=== PATIENT | female | born 1960 | race Caucasian/White ===

== ENCOUNTER 2023-11-06 16:09 | Inpatient (IN) ==
--- NOTE | 2023-11-06 16:36 | Emergency Department Note ---
History of Present Illness General Chief complaint: Stroke Alert Stated complaint: STROKE SYMTOMS Time Seen by Provider: 11/06/23 16:25 History of Present Illness Provider complaint: Right arm weakness Onset (ago): hour(s) 2 Location: upper extremity and right 63-year-old female presents emergency department for right upper extremity weakness. Patient states she was walking from her friend's house and then got home and was trying to eat a ham sandwich when she felt like she cannot grab anything with her right arm and felt it was very weak. She called EMS and presented to the emergency department. No blood thinners. No trauma. Home Medications Medication Instructions Recorded Confirmed Type albuterol sulfate 90 mcg/actuation 2 puff inhalation Q6H PRN 11/06/23 11/06/23 History aerosol inhaler CONGESTION/COUGH/WHEEZING aspirin 81 mg tablet,delayed 81 mg PO DAILY 11/06/23 11/06/23 History release atorvastatin 80 mg tablet 80 mg PO DAILY 11/06/23 11/06/23 History calcium carbonate (Calcium 600) 1,200 mg PO DAILY 11/06/23 11/06/23 History clotrimazole-betamethasone 1 1 applic topical BID PRN AFFECTED 11/06/23 11/06/23 History %-0.05 % topical cream AREA empagliflozin 25 mg tablet 25 mg PO QAM 11/06/23 11/06/23 History (Jardiance) fluoxetine 10 mg tablet 10 mg PO DAILY 11/06/23 11/06/23 History fluticasone propionate 50 2 spray intranasal DAILY 11/06/23 11/06/23 History mcg/actuation nasal spray,suspension glipizide 10 mg tablet, extended 10 mg PO DAILYBB 11/06/23 11/06/23 History release 24 hr glipizide 5 mg tablet, extended 5 mg PO DAILYBB 11/06/23 11/06/23 History release 24 hr lisinopril 5 mg tablet 5 mg PO QAM 11/06/23 11/06/23 History vitamin B complex 1 tab PO DAILY 11/06/23 11/06/23 History Allergies Allergy/AdvReac Type Severity Reaction Status Date / Time metformin AdvReac Intermediate Diarrhea Verified 11/06/23 17:15 oxycodone AdvReac Intermediate upset Verified 11/06/23 17:15 stomach Past Med/Surg History Medical History (Updated 11/06/23 @ 23:20 by Juan Manuel Rios MD) NIDHI (obstructive sleep apnea) Depression DM2 (diabetes mellitus, type 2) Family hx-breast malignancy Surgical History History of cataract surgery H/O brain surgery "BRAIN SURGERY USING COMPUTER 01/22/07 STEREOTACTIC COMPUTER ASSISTED VOLUMETRIC PROCEDURE performed by ELENA PIMENTEL at OR [facility] [place]" Hx of tonsillectomy Family History Other Breast cancer Social History Smoking Status: Never smoker Do You Dip or Chew Tobacco: No; Hx Alcohol Use: No Hx Substance Use: No Preferred Language: Serbian Communication Ability: Effective 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 Beliefs That Will Affect Care: None Current Living Situation: Alone Current Living Situation Comment: alone Other Information That Helps Us Care for You: No Feels Safe at Home: Yes Safety Concerns: Feels Safe At This Time Assistive Devices: Hearing Aid - Bilateral Physical Exam Vital Signs Vital Signs - 24 hr 11/06/23 16:26 11/06/23 16:56 11/06/23 17:00 Temperature 36.6 C Temperature Source Oral Pulse Rate 82 76 71 Pulse Rate [Left Apical] Respiratory Rate 20 18 Respiratory Effort / Characteristics Respiratory Depth Blood Pressure 144/104 H Blood Pressure [Right Arm] Blood Pressure Mean 117 Blood Pressure Mean [Right Arm] Pulse Oximetry 96 Oxygen Delivery Method Room Air Sepsis Recent Fever Within 48 Hours No Sepsis New/Unexplained Change in Mental Status N/A Sepsis Action Taken by Nursing No Action Required 11/06/23 17:18 11/06/23 17:19 11/06/23 17:35 Temperature 37.1 C Temperature Source Oral Pulse Rate 58 L 59 L Pulse Rate [Left Apical] 60 Respiratory Rate 17 15 17 Respiratory Effort / Characteristics Non-Labored Respiratory Depth Normal Blood Pressure 137/77 144/71 H Blood Pressure [Right Arm] 136/78 Blood Pressure Mean 97 95 Blood Pressure Mean [Right Arm] 97 Pulse Oximetry 97 95 98 Oxygen Delivery Method Room Air Room Air Room Air Sepsis Recent Fever Within 48 Hours Sepsis New/Unexplained Change in Mental Status Sepsis Action Taken by Nursing 11/06/23 17:50 11/06/23 18:05 Temperature 36.7 C 36.8 C Temperature Source Oral Oral Pulse Rate Pulse Rate [Left Apical] 58 L 67 Respiratory Rate 18 16 Respiratory Effort / Characteristics Non-Labored Non-Labored Respiratory Depth Normal Normal Blood Pressure Blood Pressure [Right Arm] 125/74 123/75 Blood Pressure Mean Blood Pressure Mean [Right Arm] 91 91 Pulse Oximetry 99 98 Oxygen Delivery Method Room Air Room Air Sepsis Recent Fever Within 48 Hours Sepsis New/Unexplained Change in Mental Status Sepsis Action Taken by Nursing Physical Exam GENERAL: oriented to person, place, and time. appears well-developed and well- nourished. HENT: Exam performed. - Head: Normocephalic and atraumatic. EYES: Conjunctivae and EOM are normal. Right eye exhibits no discharge. Left eye exhibits no discharge. No scleral icterus. NECK: Normal range of motion. Neck supple. No JVD present. CV: Normal rate, regular rhythm, normal heart sounds and intact distal pulses. There is no peripheral edema. Palpable radial pulses bue. PULM/CHEST: Effort normal and breath sounds normal. No respiratory distress. No stridor. no wheezes. no rales. ABD: The abdomen is soft. There is no tenderness. NEURO: NIHSS 2 (5b:1, 7:1) SKIN: Skin is warm and dry. He is not diaphoretic. PSYCH: normal mood and affect. Behavior is normal. Judgment and thought content normal. Course Course 1625: The patient was evaluated in room C4. A complete history and physical exam was performed Cardiac monitoring: An order was placed for continuous cardiac monitoring. The monitor shows a rate of 60 with sinus rhythm interpreted by me Code stroke called. 1640: Spoke with Dr. Sorensen or [facility] who states she will evaluate the patient. Patient's external medical records reported a history of a brain surgery that was done on January 22, [address] Pimentel at [facility]. 1653: CT of the head viewed by me showed no ICH. 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 Dr. Rosa is on the cart evaluating patient but states she cannot see the CT images yet. 1713: Dr. Rosa called back and states that she is now able to see the images of CT. CT of the head was negative. Dr. Ewing states she is going to consent the patient for TNK. 1721: TNK administered. Dr. Rosa recommends controlling patient's blood sugar with insulin. 5 U IV insulin ordered for the patient. Administered Medications Atorvastatin Calcium (Atorvastatin 40 Mg Tab) 80 mg PO HS MARSHA Stop: 12/06/23 20:59 Last Admin: 11/06/23 21:59 Dose: 80 mg Documented By: CP Magnesium Sulfate/Dextrose (Magnesium Sulfate / D5w) 1 gm in 100 mls @ 50 mls/hr IV Q2H MARSHA Stop: 11/07/23 02:44 Last Infusion: 11/06/23 23:15 Dose: 50 mls/hr Documented By: Infusion: 11/06/23 22:11 Dose: 0 mls/hr Documented By: Admin: 11/06/23 21:58 Dose: 50 mls/hr Documented By: KAMLESH Insulin Aspart (Insulin Aspart Per Unit Charge) 0 units SC Q4 MARSHA Stop: 12/06/23 09:44 Last Admin: 11/06/23 22:04 Dose: 6 units Documented By: CP Co-signed By: [facility] Admin: 11/06/23 22:01 Dose: Not Given Documented By: CP Co-signed By: [facility] Admin: 11/06/23 22:01 Dose: Not Given Documented By: CP Co-signed By: [facility] Admin: 11/06/23 22:01 Dose: Not Given Documented By: CP Co-signed By: [facility] Discontinued Medications Tenecteplase 15 mg/ Syringe 3 mls @ 36 mls/min IV NOW ONE; Protocol Stop: 11/06/23 17:23 Last Admin: 11/06/23 17:20 Dose: 36 mls/min Documented By: [facility] Co-signed By: Insulin Human Regular 250 (units/ Sodium Chloride) 250 mls @ 1.5 mls/hr IV .Q24H MARSHA; Protocol Stop: 12/06/23 19:29 Last Admin: 11/06/23 21:35 Dose: Not Given Documented By: CP Insulin Glargine (Lantus Per Unit Charge) 15 units SC ONE ONE Stop: 11/06/23 20:46 Last Admin: 11/06/23 21:31 Dose: 15 units Documented By: KAMLESH Co-signed By: TMG Insulin Human Regular (Novolin-R Insulin Per Unit Charge) 5 units IV NOW STA Stop: 11/06/23 17:23 Last Admin: 11/06/23 17:43 Dose: 5 units Documented By: CATHIE Co-signed By: SHINE Ioversol (Optiray 320 125ml) 118 ml IV ONCE ONE Stop: 11/06/23 16:48 Last Admin: 11/06/23 16:47 Dose: 118 ml Documented By: MIKE Miscellaneous (Stat Iv/Im) 1 each N/A NOW STA Stop: 11/06/23 17:13 Last Admin: 11/06/23 21:27 Dose: Not Given Documented By: KAMLESH Sodium Chloride (Sodium Chloride 0.9% 10ml Flush) 20 ml IV NOW STA Stop: 11/06/23 17:13 Last Admin: 11/06/23 17:20 Dose: 20 ml Documented By: CATHIE Critical Care Time Critical Care Time: Yes Total Critical Care Time: 56 I have personally spent greater than 56 minutes of critical care time in the direct management of this patient. This includes bedside care, interpretation of diagnostic studies, and testing, discussion with consultants, patient, and family members, and other required patient management activities. This 56 minutes is in excess of all separately billable procedures. Medical Decision Making Laboratory Data Attestation: I reviewed the patient's lab results. 11/06/23 17:09 11/06/23 16:25 Lab Results 11/06/23 11/06/23 11/06/23 Range/Units 16:20 16:25 16:29 WBC Cancelled RBC Cancelled Hgb Cancelled POC Hgb 15.0 (12.0-16.0) g/dl Hct Cancelled POC Hct 44 (37-47) % MCV Cancelled MCH Cancelled MCHC Cancelled RDW Std Deviation Cancelled RDW Coeff of Christine Cancelled Plt Count Cancelled MPV Cancelled Immature Gran % (Auto) Cancelled Neut % (Auto) Cancelled Lymph % (Auto) Cancelled Armstrong % (Auto) Cancelled Eos % (Auto) Cancelled Baso % (Auto) Cancelled Neut # (Auto) Cancelled Lymph # (Auto) Cancelled Armstrong # (Auto) Cancelled Eos # (Auto) Cancelled Baso # (Auto) Cancelled Immature Gran # (Auto) Cancelled Absolute Nucleated RBC Cancelled Nucleated RBC % (auto) Cancelled Neutrophils % (Manual) Cancelled Band Neutrophils % Cancelled Lymphocytes % (Manual) Cancelled Prolymphocyte % Cancelled Reactive Lymphs % (Man) Cancelled Monocytes % (Manual) Cancelled Eosinophils % (Manual) Cancelled Basophils % (Manual) Cancelled Metamyelocytes % (Man) Cancelled Myelocytes % (Man) Cancelled Promyelocytes % (Man) Cancelled Blast Cells % (Manual) Cancelled Plasma Cell % (Manual) Cancelled Other Cells % Cancelled Nucleated RBC % Cancelled Neutrophils # (Manual) Cancelled Band Neutrophils # Cancelled Total Absolute Neuts Cancelled Lymphocytes # (Manual) Cancelled Prolymphocyte # Cancelled Reactive Lymphs # Cancelled Total Abs Lymphocytes Cancelled Monocytes # (Manual) Cancelled Eosinophils # (Manual) Cancelled Basophils # (Manual) Cancelled Metamyelocytes # (Man) Cancelled Myelocytes # (Manual) Cancelled Promyelocytes # (Man) Cancelled Blast Cells # (Man) Cancelled Plasma Cell # (Manual) Cancelled Other Cells # Cancelled Nucleated RBCs # (Man) Cancelled Hypersegmented Neuts Cancelled Hyposegmented Neuts Cancelled Hypogranular Neuts Cancelled Large Granular Lymphs Cancelled # Lrg Granular Lymphs Cancelled Hairy Cells Cancelled Smudge Cells Cancelled Toxic Granulation Cancelled Toxic Vacuolation Cancelled Dohle Bodies Cancelled Sal Rods Cancelled Platelet Estimate Cancelled Hypogranular Platelets Cancelled Giant Platelets Cancelled Platelet Satelliting Cancelled RBC Morphology Cancelled Polychromasia Cancelled Hypochromasia Cancelled Poikilocytosis Cancelled Basophilic Stippling Cancelled Anisocytosis Cancelled Microcytosis Cancelled Macrocytosis Cancelled Spherocytes Cancelled Pappenheimer Bodies Cancelled Sickle Cells Cancelled Target Cells Cancelled Tear Drop Cells Cancelled Ovalocytes Cancelled Stomatocytes Cancelled Lomeli-Schwana Bodies Cancelled Echinocytes Cancelled Acanthocytes (Spur) Cancelled Rouleaux Cancelled RBC Agglutinates Cancelled Schistocytes Cancelled Sezary Cell Cancelled PT Cancelled INR Cancelled APTT Cancelled PTT Ratio Cancelled VBG pH (7.36-7.41) VBG pCO2 (38-50) mmHg VBG pO2 mmHg VBG HCO3 mmol/L VBG O2 Saturation % VBG Base Excess mEq/L POC Sodium 136 (135-144) mmol/L Sodium 135 L (136-145) mmol/L POC Potassium 4.2 (3.3-5.0) mmol/L Potassium 4.4 (3.5-5.1) mmol/L POC Chloride 99 L (101-112) mmol/L Chloride 101 (98-107) mmol/L Carbon Dioxide 24 (21-32) mmol/L POC Total CO2 26 (24-31) mmol/L Anion Gap 10 (3-11) POC Anion Gap 15.0 L (16-25) mmol/L POC BUN 8 (7-18) mg/dl BUN 10 (6-23) mg/dl Creatinine 0.83 (0.6-1.2) mg/dl POC Creatinine 0.7 (0.6-1.3) mg/dl Est Cr Clr Drug Dosing 58.5 ml/min Est GFR ( Amer) 85.8 ml/min Est GFR (Non-Af Amer) 74.0 ml/min BUN/Creatinine Ratio 12.0 (10-20) Glucose 457 H* (70-99(Fasting)) mg/dl POC Glucose 418 H* (70-99) mg/dl POC Glucose (other) 457 H* (70-99) mg/dl Calcium 9.4 (8.6-10.3) mg/dl POC Ioniz Calcium Juliann 1.16 (1.12-1.32) mmol/l Magnesium 1.7 (1.7-2.4) mg/dl Total Bilirubin 1.8 H (0.2-1.0) mg/dl AST 20 (13-39) U/L ALT 21 (7-52) U/L Alkaline Phosphatase 94 (34-104) U/L Troponin I High Sens 3.7 (0-14) pg/ml Total Protein 6.7 (6.0-8.3) gm/dl Albumin 3.9 (3.4-5.0) gm/dl Globulin 2.8 (2.5-4.0) gm/dl Albumin/Globulin Ratio 1.4 (0.9-2) Blood Parasites ID Cancelled Blood Type Antibody Screen 11/06/23 11/06/23 11/06/23 Range/Units 16:35 16:38 17:09 WBC 7.54 RBC 4.60 Hgb 13.4 POC Hgb (12.0-16.0) g/dl Hct 37.8 POC Hct (37-47) % MCV 82.2 MCH 29.1 MCHC 35.4 RDW Std Deviation 37.6 RDW Coeff of Christine 12.7 Plt Count 175 MPV 11.6 Immature Gran % (Auto) 0.5 Neut % (Auto) 66.4 Lymph % (Auto) 25.3 Armstrong % (Auto) 5.3 Eos % (Auto) 2.0 Baso % (Auto) 0.5 Neut # (Auto) 5.00 Lymph # (Auto) 1.91 Armstrong # (Auto) 0.40 Eos # (Auto) 0.15 Baso # (Auto) 0.04 Immature Gran # (Auto) 0.04 Absolute Nucleated RBC Nucleated RBC % (auto) Neutrophils % (Manual) Band Neutrophils % Lymphocytes % (Manual) Prolymphocyte % Reactive Lymphs % (Man) Monocytes % (Manual) Eosinophils % (Manual) Basophils % (Manual) Metamyelocytes % (Man) Myelocytes % (Man) Promyelocytes % (Man) Blast Cells % (Manual) Plasma Cell % (Manual) Other Cells % Nucleated RBC % Neutrophils # (Manual) Band Neutrophils # Total Absolute Neuts Lymphocytes # (Manual) Prolymphocyte # Reactive Lymphs # Total Abs Lymphocytes Monocytes # (Manual) Eosinophils # (Manual) Basophils # (Manual) Metamyelocytes # (Man) Myelocytes # (Manual) Promyelocytes # (Man) Blast Cells # (Man) Plasma Cell # (Manual) Other Cells # Nucleated RBCs # (Man) Hypersegmented Neuts Hyposegmented Neuts Hypogranular Neuts Large Granular Lymphs # Lrg Granular Lymphs Hairy Cells Smudge Cells Toxic Granulation Toxic Vacuolation Dohle Bodies Sal Rods Platelet Estimate Hypogranular Platelets Giant Platelets Platelet Satelliting RBC Morphology Polychromasia Hypochromasia Poikilocytosis Basophilic Stippling Anisocytosis Microcytosis Macrocytosis Spherocytes Pappenheimer Bodies Sickle Cells Target Cells Tear Drop Cells Ovalocytes Stomatocytes Lomeli-Schwana Bodies Echinocytes Acanthocytes (Spur) Rouleaux RBC Agglutinates Schistocytes Sezary Cell PT INR APTT PTT Ratio VBG pH 7.42 H (7.36-7.41) VBG pCO2 40 (38-50) mmHg VBG pO2 53 mmHg VBG HCO3 26 mmol/L VBG O2 Saturation 85.4 % VBG Base Excess 1.3 mEq/L POC Sodium (135-144) mmol/L Sodium (136-145) mmol/L POC Potassium (3.3-5.0) mmol/L Potassium (3.5-5.1) mmol/L POC Chloride (101-112) mmol/L Chloride (98-107) mmol/L Carbon Dioxide (21-32) mmol/L POC Total CO2 (24-31) mmol/L Anion Gap (3-11) POC Anion Gap (16-25) mmol/L POC BUN (7-18) mg/dl BUN (6-23) mg/dl Creatinine (0.6-1.2) mg/dl POC Creatinine (0.6-1.3) mg/dl Est Cr Clr Drug Dosing ml/min Est GFR ( Amer) ml/min Est GFR (Non-Af Amer) ml/min BUN/Creatinine Ratio (10-20) Glucose (70-99(Fasting)) mg/dl POC Glucose (70-99) mg/dl POC Glucose (other) (70-99) mg/dl Calcium (8.6-10.3) mg/dl POC Ioniz Calcium Juliann (1.12-1.32) mmol/l Magnesium (1.7-2.4) mg/dl Total Bilirubin (0.2-1.0) mg/dl AST (13-39) U/L ALT (7-52) U/L Alkaline Phosphatase (34-104) U/L Troponin I High Sens (0-14) pg/ml Total Protein (6.0-8.3) gm/dl Albumin (3.4-5.0) gm/dl Globulin (2.5-4.0) gm/dl Albumin/Globulin Ratio (0.9-2) Blood Parasites ID Blood Type A Positive Antibody Screen NEGATIVE 11/06/23 Range/Units 17:10 WBC RBC Hgb POC Hgb (12.0-16.0) g/dl Hct POC Hct (37-47) % MCV MCH MCHC RDW Std Deviation RDW Coeff of Christine Plt Count MPV Immature Gran % (Auto) Neut % (Auto) Lymph % (Auto) Armstrong % (Auto) Eos % (Auto) Baso % (Auto) Neut # (Auto) Lymph # (Auto) Armstrong # (Auto) Eos # (Auto) Baso # (Auto) Immature Gran # (Auto) Absolute Nucleated RBC Nucleated RBC % (auto) Neutrophils % (Manual) Band Neutrophils % Lymphocytes % (Manual) Prolymphocyte % Reactive Lymphs % (Man) Monocytes % (Manual) Eosinophils % (Manual) Basophils % (Manual) Metamyelocytes % (Man) Myelocytes % (Man) Promyelocytes % (Man) Blast Cells % (Manual) Plasma Cell % (Manual) Other Cells % Nucleated RBC % Neutrophils # (Manual) Band Neutrophils # Total Absolute Neuts Lymphocytes # (Manual) Prolymphocyte # Reactive Lymphs # Total Abs Lymphocytes Monocytes # (Manual) Eosinophils # (Manual) Basophils # (Manual) Metamyelocytes # (Man) Myelocytes # (Manual) Promyelocytes # (Man) Blast Cells # (Man) Plasma Cell # (Manual) Other Cells # Nucleated RBCs # (Man) Hypersegmented Neuts Hyposegmented Neuts Hypogranular Neuts Large Granular Lymphs # Lrg Granular Lymphs Hairy Cells Smudge Cells Toxic Granulation Toxic Vacuolation Dohle Bodies Sal Rods Platelet Estimate Hypogranular Platelets Giant Platelets Platelet Satelliting RBC Morphology Polychromasia Hypochromasia Poikilocytosis Basophilic Stippling Anisocytosis Microcytosis Macrocytosis Spherocytes Pappenheimer Bodies Sickle Cells Target Cells Tear Drop Cells Ovalocytes Stomatocytes Lomeli-Schwana Bodies Echinocytes Acanthocytes (Spur) Rouleaux RBC Agglutinates Schistocytes Sezary Cell PT 10.9 INR 1.0 APTT 25 PTT Ratio 0.9 VBG pH (7.36-7.41) VBG pCO2 (38-50) mmHg VBG pO2 mmHg VBG HCO3 mmol/L VBG O2 Saturation % VBG Base Excess mEq/L POC Sodium (135-144) mmol/L Sodium (136-145) mmol/L POC Potassium (3.3-5.0) mmol/L Potassium (3.5-5.1) mmol/L POC Chloride (101-112) mmol/L Chloride (98-107) mmol/L Carbon Dioxide (21-32) mmol/L POC Total CO2 (24-31) mmol/L Anion Gap (3-11) POC Anion Gap (16-25) mmol/L POC BUN (7-18) mg/dl BUN (6-23) mg/dl Creatinine (0.6-1.2) mg/dl POC Creatinine (0.6-1.3) mg/dl Est Cr Clr Drug Dosing ml/min Est GFR ( Amer) ml/min Est GFR (Non-Af Amer) ml/min BUN/Creatinine Ratio (10-20) Glucose (70-99(Fasting)) mg/dl POC Glucose (70-99) mg/dl POC Glucose (other) (70-99) mg/dl Calcium (8.6-10.3) mg/dl POC Ioniz Calcium Juliann (1.12-1.32) mmol/l Magnesium (1.7-2.4) mg/dl Total Bilirubin (0.2-1.0) mg/dl AST (13-39) U/L ALT (7-52) U/L Alkaline Phosphatase (34-104) U/L Troponin I High Sens (0-14) pg/ml Total Protein (6.0-8.3) gm/dl Albumin (3.4-5.0) gm/dl Globulin (2.5-4.0) gm/dl Albumin/Globulin Ratio (0.9-2) Blood Parasites ID Blood Type Antibody Screen Imaging Data Attestation: I personally reviewed and interpreted this imaging study as follows: My Impression: CT head: No ICH Radiologist's Impression: Chest X-Ray 11/06/23 16:30 XR chest 1V portable HISTORY: 63 years-old Female neuro deficit, acute stroke suspected acute strokelike symptoms COMPARISON: 12/24/2015 TECHNIQUE: AP view of the chest FINDINGS: Cardiac silhouette is enlarged. No pneumothorax, pleural effusion or overt pulmonary edema. Chronic left retrocardiac atelectasis/scarring. Bones appear grossly intact. IMPRESSION: Cardiomegaly without acute process. ACT 112: Negative or not required by law. The above report was generated using voice recognition software. It may contain grammatical, syntax or spelling errors. Electronically signed by: Fernando Whitlock M.D. 11/06/2023 6:[address] 11/06/23 16:[address] DOSE: HISTORY: Right arm weakness. neuro deficit, acute stroke suspected TECHNIQUE: Multiaxial CT images of the head were performed without the use of intravenous contrast. Automated exposure control was utilized for this study. A dose lowering technique was utilized adhering to the principles of ALARA. Comparison: None. Findings: There is a 2.5 cm retention cyst within the left maxillary sinus. Polypoid mucosal thickening within the sphenoid sinus. The mastoid air cells are clear. The calvarium and skull base are intact. There is no mass, hematoma, midline shift, acute infarct. White matter hypodensity is nonspecific but suggestive of microvascular ischemic change. The ventricles and sulci demonstrate mild age-related involutional changes. Impression: No acute intracranial abnormality. ACT 112: Negative or not required by law. Electronically signed by: Darwin Santos M.D. 11/06/2023 5:07 PM Head CTA 11/06/23 16:30 HEAD CTA HISTORY: Right-sided weakness. neuro deficit, acute stroke suspected TECHNIQUE: Multiaxial CT images of the head were performed both before and after the intravenous administration of contrast to evaluate the major cerebral vessels. 3D/MIP images were also obtained. Sagittal and coronal reformats were reviewed. A dose lowering technique was utilized adhering to the principles of ALARA. COMPARISON: Noncontrast head CT 11/06/2023. FINDINGS: There is no mass, hematoma, midline shift, or acute infarct. The distal vertebral arteries and basilar artery are widely patent. Moderate to severe stenosis within the supraclinoid segments of the bilateral ICAs. There is a hypoplastic left A1 segment. Otherwise, no significant stenosis or occlusion within the bilateral ACAs. The major dural venous sinuses are patent. Mild to moderate multifocal narrowing within the bilateral proximal research anthropologist most pronounced on the right. The mid to distal bilateral research anthropologist are widely patent. No significant stenosis or occlusion within the bilateral MCAs. No evidence for a cerebral aneurysm. IMPRESSION: 1. Moderate to severe stenosis within the supraclinoid segments of the bilateral intracranial ICAs. 2. Mild to moderate multifocal narrowing within the proximal bilateral research anthropologist most pronounced on the right. 3. No evidence for arterial occlusion or aneurysm. ACT 112: Negative or not required by law. Electronically signed by: Darwin Santos M.D. 11/06/2023 5:12 PM Neck CTA 11/06/23 16:30 CT angio neck with con CLINICAL HISTORY: 63 years-old Female with neuro deficit, acute stroke suspected. Acute strokelike symptoms COMPARISON STUDY: CTA head of same day TECHNIQUE: Following the IV administration of 118 mL of Optiray, CT angiogram of the neck was performed from the aortic arch to the skull base. Images are reviewed in the axial, sagittal, and coronal planes. 3-D MIPS images are created and assessed. IV contrast was administered without complication. All measurements were calculated based on NASCET criteria. A dose lowering technique was utilized adhering to the principles of ALARA. CT DOSE: 1492.73 mGy.cm FINDINGS: Unremarkable imaged pulmonary arterial tree. Three-vessel morphology of the thoracic aortic arch. There is patency of the innominate and subclavian arteries. The common carotid arteries are widely patent. There is moderate atherosclerotic plaque carotid bulbs without high-grade stenosis. Moderate to severe narrowing within the supraclinoid segments of the internal carotid arteries bilaterally. Codominant and patent vertebral arteries. The basilar artery is patent. Mild to moderate multifocal narrowing within the imaged posterior cerebral arteries. No pneumothorax. Partially imaged borderline enlarged upper mediastinal lymph nodes. Heterogeneous peripherally enhancing 1.6 cm right-sided thyroid nodule. Patent airway. Chronic-appearing mucosal thickening of the paranasal sinuses with postoperative changes. Degenerative changes of the cervical spine. Right mastoid effusion. IMPRESSION: 1. Atherosclerosis of the carotid bulbs without significant stenosis. 2. Moderate to severe stenosis within the supraclinoid segments of the internal carotid arteries, partially imaged. 3. Incidental findings as above. ACT 112: Negative or not required by law. The above report was generated using voice recognition software. It may contain grammatical, syntax or spelling errors. Electronically signed by: Fernando Whitlock M.D. 11/06/2023 5:38 PM ECG Data Attestation: I personally reviewed and interpreted this ECG as follows: Rate (beats per minute): 57 Rhythm: + sinus bradycardia ECG Intervals/blocks: + Normal QRS, + Normal OH and + Normal QT-c ECG ST segments: + Normal ST segments [facility] Narrative 1625: The patient was evaluated in room C4. A complete history and physical exam was performed Cardiac monitoring: An order was placed for continuous cardiac monitoring. The monitor shows a rate of 60 with sinus rhythm interpreted by me Code stroke called. 1640: Spoke with Dr. Sorensen or Stephanie stroke teleneurology who states she will evaluate the patient. Patient's external medical records reported a history of a brain surgery that was done on January 22, [address] Pimentel at [facility]. 1653: CT of the head viewed by me showed no ICH. 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 Dr. Rosa is on the cart evaluating patient but states she cannot see the CT images yet. 1713: Dr. Rosa called back and states that she is now able to see the images of CT. CT of the head was negative. Dr. Ewing states she is going to consent the patient for TNK. 1721: TNK administered. Dr. Rosa recommends controlling patient's blood sugar with insulin. 5 U IV insulin ordered for the patient. Impression & Plan Cerebrovascular accident Discharge Plan Visit Data Chief Complaint: Stroke Alert Stated Complaint: STROKE SYMTOMS ED Provider: Juan Manuel Rios Discharge Problem: Cerebrovascular accident Patient Disposition: Admitted As Inpatient Discharge Instructions Interventions: ED Discharge Assessment Last Done: 11/06/23 19:26 Discharge Problem: Cerebrovascular accident Qualifiers: CVA mechanism: unspecified Qualified Code(s): I63.9 - Cerebral infarction, unspecified
[2023-11-06 16:47] LABS: iSTAT Creatinine 0.7 mg/dl (0.6-1.3); iSTAT Ionized Calcium 1.16 mmol/l (1.12-1.32); iSTAT Potassium 4.2 mmol/L (3.3-5.0)
[2023-11-06 16:47] LABS: Base Excess VBG 1.3 mEq/L; HCO3 VBG 26 mmol/L; Oxygen Saturation VBG 85.4 %; PCO2 VBG 40 mmHg (38-50); PO2 VBG 53 mmHg; pH VBG 7.42 (7.36-7.41)
[2023-11-06] MEDS: OPTIRAY 320 125ml IV ONE (16:47)
--- NOTE | 2023-11-06 17:08 | CT Scan Report ---
HEAD CT NONCONTRAST CT DOSE: HISTORY: Right arm weakness. neuro deficit, acute stroke suspected TECHNIQUE: Multiaxial CT images of the head were performed without the use of intravenous contrast. A utomated exposure control was utilized for this study. A dose lowering technique was utilized adheri ng to the principles of ALARA. Comparison: None. Findings: There is a 2.5 cm retention cyst within the left maxillary sinus. Polypoid mucosal thickeni ng within the sphenoid sinus. The mastoid air cells are clear. The calvarium and skull base are intac t. There is no mass, hematoma, midline shift, acute infarct. White matter hypodensity is nonspecific but suggestive of microvascular ischemic change. The ventricles and sulci demonstrate mild age-relate d involutional changes. Impression: No acute intracranial abnormality. ACT 112: Negative or not required by law. Electronically signed by: Darwin Santos M.D. 11/06/2023 5:07 PM
--- NOTE | 2023-11-06 17:14 | CT Scan Report ---
HEAD CTA HISTORY: Right-sided weakness. neuro deficit, acute stroke suspected TECHNIQUE: Multiaxial CT images of the head were performed both before and after the intravenous admi nistration of contrast to evaluate the major cerebral vessels. 3D/MIP images were also obtained. Sag ittal and coronal reformats were reviewed. A dose lowering technique was utilized [facility] COMPARISON: Noncontrast head CT 11/06/2023. FINDINGS: There is no mass, hematoma, midline shift, or acute infarct. The distal vertebral arteries and basilar artery are widely patent. Moderate to severe stenosis within the supraclinoid segments of the bilateral ICAs. There is a hypoplastic left A1 segment. Otherwise, no significant stenosis or oc clusion within the bilateral ACAs. The major dural venous sinuses are patent. Mild to moderate multif ocal narrowing within the bilateral proximal meeting coordinator most pronounced on the right. The mid to distal tima ateral meeting coordinator are widely patent. No significant stenosis or occlusion within the bilateral MCAs. No jil dence for a cerebral aneurysm. IMPRESSION: 1. Moderate to severe stenosis within the supraclinoid segments of the bilateral intracranial ICAs. 2. Mild to moderate multifocal narrowing within the proximal bilateral meeting coordinator most pronounced on the ri ght. 3. No evidence for arterial occlusion or aneurysm. ACT 112: Negative or not required by law. Electronically signed by: Darwin Santos M.D. 11/06/2023 5:12 PM
[2023-11-06] MEDS ORDERED: No Aspirin within 24hrs of THROMBOLYTIC-Stroke PO SCH (17:15)
[2023-11-06 17:17] LABS: Albumin Globulin Ratio 1.4 (0.9-2); Albumin Level 3.9 gm/dl (3.4-5.0); Bilirubin,Total 1.8 mg/dl (0.2-1.0); Calcium 9.4 mg/dl (8.6-10.3); Creatinine Clr Calc Pharmacy 58.5 ml/min; Est GFR (African American) 85.8 ml/min; Globulin 2.8 gm/dl (2.5-4.0); Magnesium 1.7 mg/dl (1.7-2.4); Total Protein 6.7 gm/dl (6.0-8.3); Troponin I High Sensitivity 3.7 pg/ml (0-14)
[2023-11-06 17:19] LABS: Potassium 4.4 mmol/L (3.5-5.1)
[2023-11-06] MEDS: TENECTEPLASE 15 MG in SYRINGE 0 ML IV ONE (17:20)
[2023-11-06] MEDS: SODIUM CHLORIDE 0.9% 10ML FLUSH IV STA (17:20)
[2023-11-06 17:29] LABS: Basophils # (auto) 0.04 K/uL (0.00-0.20); Basophils % (auto) 0.5 %; Eosinophils # (auto) 0.15 K/uL (0.00-0.50); Hematocrit (blood only) 37.8 % (37.0-47.0); Hemoglobin 13.4 g/dl (12.0-16.0); Immature Granulocytes # (auto) 0.04 K/uL (0.01-0.20); Immature Granulocytes % (auto) 0.5 %; Lymphocytes # (auto) 1.91 K/uL (1.20-3.40); Lymphocytes % (auto) 25.3 %; Mean Corpuscular Hemoglobin 29.1 pg (25.0-34.0); Mean Corpuscular Hgb Conc 35.4 g/dL (32.0-36.0); Mean Corpuscular Volume 82.2 fL (80.0-100.0); Mean Platelet Volume 11.6 fL (9.4-12.4); Monocytes % (auto) 5.3 %; Neutrophils % (auto) 66.4 %; Platelet Count 175 K/uL (130-400); RDW Coefficient of Variation 12.7 % (11.5-14.5); RDW Standard Deviation 37.6 fL (36.4-46.3); White Blood Count 7.54 K/ul (4.8-10.8)
--- NOTE | 2023-11-06 17:39 | CT Scan Report ---
CT angio neck with con CLINICAL HISTORY: 63 years-old Female with neuro deficit, acute stroke suspected. Acute strokelike symptoms COMPARISON STUDY: CTA head of same day TECHNIQUE: Following the IV administration of 118 mL of Optiray, CT angiogram of the neck was perform ed from the aortic arch to the skull base. Images are reviewed in the axial, sagittal, and coronal pl anes. 3-D MIPS images are created and assessed. IV contrast was administered without complication. Al l measurements were calculated based on NASCET criteria. A dose lowering technique was utilized adhe ring to the principles of ALARA. CT DOSE: 1492.73 mGy.cm FINDINGS: Unremarkable imaged pulmonary arterial tree. Three-vessel morphology of the thoracic aortic arch. The re is patency of the innominate and subclavian arteries. The common carotid arteries are widely paten t. There is moderate atherosclerotic plaque carotid bulbs without high-grade stenosis. Moderate to se heather narrowing within the supraclinoid segments of the internal carotid arteries bilaterally. Codomin ant and patent vertebral arteries. The basilar artery is patent. Mild to moderate multifocal narrowin g within the imaged posterior cerebral arteries. No pneumothorax. Partially imaged borderline enlarged upper mediastinal lymph nodes. Heterogeneous pe ripherally enhancing 1.6 cm right-sided thyroid nodule. Patent airway. Chronic-appearing mucosal thic kening of the paranasal sinuses with postoperative changes. Degenerative changes of the cervical spin e. Right mastoid effusion. IMPRESSION: 1. Atherosclerosis of the carotid bulbs without significant stenosis. 2. Moderate to severe stenosis within the supraclinoid segments of the internal carotid arteries, par tially imaged. 3. Incidental findings as above. ACT 112: Negative or not required by law. The above report was generated using voice recognition software. It may contain grammatical, syntax o r spelling errors. Electronically signed by: Fernando Whiltock M.D. 11/06/2023 5:38 PM
[2023-11-06] MEDS: NovoLIN-R INSULIN PER UNIT CHARGE IV STA (17:43)
[2023-11-06] MEDS ORDERED: PHARMACIST DISCHARGE MED REC CONSULT PRN (18:01)
--- NOTE | 2023-11-06 18:01 | XRay Report ---
XR chest 1V portable HISTORY: 63 years-old Female neuro deficit, acute stroke suspected acute strokelike symptoms COMPARISON: 12/24/2015 TECHNIQUE: AP view of the chest FINDINGS: Cardiac silhouette is enlarged. No pneumothorax, pleural effusion or overt pulmonary edema. Chronic l eft retrocardiac atelectasis/scarring. Bones appear grossly intact. IMPRESSION: Cardiomegaly without acute process. ACT 112: Negative or not required by law. The above report was generated using voice recognition software. It may contain grammatical, syntax o r spelling errors. Electronically signed by: Fernando Whitlock M.D. 11/06/2023 6:00 PM
[2023-11-06 18:03] LABS: Partial Thromboplastin Ratio 0.9; Partial Thromboplastin Time 25 Seconds (21-31); Prothrombin Time 10.9 Seconds (9.0-12.0)
[2023-11-06] MEDS ORDERED: PHARMACY GLYCEMIC MGMT CONSULT PRN (18:16)
--- NOTE | 2023-11-06 18:16 | History & Physical Report ---
Date of Service November 06, 2023 Assessment & Plan (1) RUE weakness: (2) Stroke-like symptom: Plan: RUE weakness Per telestroke neurologist - suspected Acute ischemic stroke in the left hemisphere CT head- No acute intracranial abnormality. CTA head/neck- 1. Moderate to severe stenosis within the supraclinoid segments of the bilateral intracranial ICAs. 2. Mild to moderate multifocal narrowing within the proximal bilateral carpentry supervisor most pronounced on the right. 3. No evidence for arterial occlusion or aneurysm. IMPRESSION: 1. Atherosclerosis of the carotid bulbs without significant stenosis. 2. Moderate to severe stenosis within the supraclinoid segments of the internal carotid arteries, partially imaged. 3. Incidental findings as above. Telestroke consulted and pt received TNK - pt will be further closely monitored in ICU, will need neurochecks per protocol and repeat CT head Will obtain fasting lipid panel, Hgb A1c Echo Neurology consult brain MRI Restart pt's home statin (which she reportedly did not take in months) At home also reportedly on lisinopril - will hold for now, and will cont. to closely monitor BP - allow for permissive HTN- likely will restart lisinopril on discharge (3) DM2 (diabetes mellitus, type 2): Plan: - per EMR - pcp record pt is supposed to be on Jardiance and glipizide, but pt has not taken any meds for months Hgb A1c in September 2022 was 8.0% Pt found hyperglycemic in the ED, and glycemic pharmacy was consulted - will check HgbA1c - cont. w/ insulin while inpt - ict educator / counseling before discharge recommended (4) NIDHI (obstructive sleep apnea): Plan: - per EMR records, will order cpap Generalized anxiety disorder - cont. home prozac History of Present Illness Chief Complaint: RUE weakness Primary Care Provider: Traci Blackmon MD 63 yo F w/ hx of DM 2 (not on insulin), HTN, HLD, NIDHI (on cpap - per EMR), sensorneur. hear loss, Generalized anxiety disorder, obesity who presents with RUE weakness. Pt says that about 2:30 PM she was in her kitchen and she could not lift small bottle of water. She went to her neighbor who called EMS. Denies any other symptoms prior to this episode. Says she felt well - no fever, chills, chest pain, shortness of breath, no abd. pain, no nausea, vomiting, or headache. She denies having any other neurological symptoms, no other weakness, numbness, etc. Pt follows with [facility]/ [facility] as PCP but last visit was over one year ago. Per records she did not product picker any of her medications for several months. Pt first tells me she did not take her meds for several days but then she admits that she has been off her meds for months. When asked for reason - and to see how we can help her with that she says "she did not get to it". Her hgb A1c in September 2022 was 8.0%, she was on Jardiance and glipizide per EMR. in the ED she was found hyperglycemic. In the ED, CT head, CTA head and neck were obtained and [place] [facility] [place]. Pt was consented and received TNK. Plan to admit for ICU for close monitoring, neurochecks, repeat CT head as per protocol. Allergies Allergy/AdvReac Type Severity Reaction Status Date / Time metformin AdvReac Intermediate Diarrhea Verified 11/06/23 17:15 oxycodone AdvReac Intermediate upset Verified 11/06/23 17:15 stomach Home Medications Medication Instructions Recorded Confirmed Type albuterol sulfate 90 mcg/actuation 2 puff inhalation Q6H PRN 11/06/23 11/06/23 History aerosol inhaler CONGESTION/COUGH/WHEEZING aspirin 81 mg tablet,delayed 81 mg PO DAILY 11/06/23 11/06/23 History release atorvastatin 80 mg tablet 80 mg PO DAILY 11/06/23 11/06/23 History calcium carbonate (Calcium 600) 1,200 mg PO DAILY 11/06/23 11/06/23 History clotrimazole-betamethasone 1 1 applic topical BID PRN AFFECTED 11/06/23 11/06/23 History %-0.05 % topical cream AREA empagliflozin 25 mg tablet 25 mg PO QAM 11/06/23 11/06/23 History (Jardiance) fluoxetine 10 mg tablet 10 mg PO DAILY 11/06/23 11/06/23 History fluticasone propionate 50 2 spray intranasal DAILY 11/06/23 11/06/23 History mcg/actuation nasal spray,suspension glipizide 10 mg tablet, extended 10 mg PO DAILYBB 11/06/23 11/06/23 History release 24 hr glipizide 5 mg tablet, extended 5 mg PO DAILYBB 11/06/23 11/06/23 History release 24 hr lisinopril 5 mg tablet 5 mg PO QAM 11/06/23 11/06/23 History vitamin B complex 1 tab PO DAILY 11/06/23 11/06/23 History Past Med/Surg History Medical History (Updated 11/06/23 @ 23:20 by Juan Manuel Rios MD) NIDHI (obstructive sleep apnea) Depression DM2 (diabetes mellitus, type 2) Family hx-breast malignancy Surgical History History of cataract surgery H/O brain surgery "BRAIN SURGERY USING COMPUTER 01/22/07 STEREOTACTIC COMPUTER ASSISTED VOLUMETRIC PROCEDURE performed by ELENA PIMENTEL at [place] [facility] [place]" Hx of tonsillectomy Family History Other Breast cancer Social History Smoking Status: Never smoker Do You Dip or Chew Tobacco: No; Hx Alcohol Use: No Hx Substance Use: No Preferred Language: Polish Communication Ability: Effective Deckhand Maintenance Required: No Beliefs That Will Affect Care: None Current Living Situation: Alone Current Living Situation Comment: alone Other Information That Helps Us Care for You: No Feels Safe at Home: Yes Safety Concerns: Feels Safe At This Time Assistive Devices: Hearing Aid - Bilateral Review of Systems Review of Systems: All systems reviewed & are unremarkable except as noted in HPI & below Physical Exam Constitutional: WD/WN, vitals as above Eyes: PERRL, conjunctivae normal, anicteric sclerae ENMT: external ear and nose normal, oropharynx normal Neck: + thick neck Respiratory: normal respiratory effort, lungs clear to auscultation Cardiovascular: RRR, no murmur, no edema Chest (Breasts): Chest: normal inspection of chest Gastrointestinal (Abdomen): normal bowel sounds, soft, nontender, no hepatosplenomegaly Musculoskeletal: RUE weakness / strength 3/5. LUE, LLE, RLE strength 5/5 Skin: no rashes, warm and dry Neurologic: cranial nerves normal. + RUE weakness, + RUE pronator drift, otherwise moves extremities Psychiatric: A+Ox3, euthymic affect Lymphatic: no lymphedema Results & Data Results & Data Vital Signs (Past 12 Hours) Vital Signs Temp Pulse Pulse Resp BP BP Pulse Ox 11/06/23 18:05 36.8 C 67 16 123/75 98 11/06/23 17:50 36.7 C 58 L 18 125/74 99 11/06/23 17:35 37.1 C 60 17 136/78 98 11/06/23 17:19 59 L 15 144/71 H 95 11/06/23 17:18 58 L 17 137/77 97 11/06/23 17:00 71 18 11/06/23 16:56 76 11/06/23 16:26 36.6 C 82 20 144/104 H 96 O2 Del Method 11/06/23 18:05 Room Air 11/06/23 17:50 Room Air 11/06/23 17:35 Room Air 11/06/23 17:19 Room Air 11/06/23 17:18 Room Air 11/06/23 17:00 11/06/23 16:56 11/06/23 16:26 Room Air Laboratory Results 11/06/23 11/06/23 11/06/23 Range/Units 17:10 17:09 16:38 WBC 7.54 RBC 4.60 Hgb 13.4 POC Hgb (12.0-16.0) g/dl Hct 37.8 POC Hct (37-47) % MCV 82.2 MCH 29.1 MCHC 35.4 RDW Std Deviation 37.6 RDW Coeff of Christine 12.7 Plt Count 175 MPV 11.6 Immature Gran % (Auto) 0.5 Neut % (Auto) 66.4 Lymph % (Auto) 25.3 White % (Auto) 5.3 Eos % (Auto) 2.0 Baso % (Auto) 0.5 Neut # (Auto) 5.00 Lymph # (Auto) 1.91 White # (Auto) 0.40 Eos # (Auto) 0.15 Baso # (Auto) 0.04 Immature Gran # (Auto) 0.04 Absolute Nucleated RBC Nucleated RBC % (auto) Neutrophils % (Manual) Band Neutrophils % Lymphocytes % (Manual) Prolymphocyte % Reactive Lymphs % (Man) Monocytes % (Manual) Eosinophils % (Manual) Basophils % (Manual) Metamyelocytes % (Man) Myelocytes % (Man) Promyelocytes % (Man) Blast Cells % (Manual) Plasma Cell % (Manual) Other Cells % Nucleated RBC % Neutrophils # (Manual) Band Neutrophils # Total Absolute Neuts Lymphocytes # (Manual) Prolymphocyte # Reactive Lymphs # Total Abs Lymphocytes Monocytes # (Manual) Eosinophils # (Manual) Basophils # (Manual) Metamyelocytes # (Man) Myelocytes # (Manual) Promyelocytes # (Man) Blast Cells # (Man) Plasma Cell # (Manual) Other Cells # Nucleated RBCs # (Man) Hypersegmented Neuts Hyposegmented Neuts Hypogranular Neuts Large Granular Lymphs # Lrg Granular Lymphs Hairy Cells Smudge Cells Toxic Granulation Toxic Vacuolation Dohle Bodies Sal Rods Platelet Estimate Hypogranular Platelets Giant Platelets Platelet Satelliting RBC Morphology Polychromasia Hypochromasia Poikilocytosis Basophilic Stippling Anisocytosis Microcytosis Macrocytosis Spherocytes Pappenheimer Bodies Sickle Cells Target Cells Tear Drop Cells Ovalocytes Stomatocytes Lom[place] Bodies Echinocytes Acanthocytes (Spur) Rouleaux RBC Agglutinates Schistocytes Sezary Cell PT 10.9 INR 1.0 APTT 25 PTT Ratio 0.9 VBG pH 7.42 H (7.36-7.41) VBG pCO2 40 (38-50) mmHg VBG pO2 53 mmHg VBG HCO3 26 mmol/L VBG O2 Saturation 85.4 % VBG Base Excess 1.3 mEq/L POC Sodium (135-144) mmol/L Sodium (136-145) mmol/L POC Potassium (3.3-5.0) mmol/L Potassium (3.5-5.1) mmol/L POC Chloride (101-112) mmol/L Chloride (98-107) mmol/L Carbon Dioxide (21-32) mmol/L POC Total CO2 (24-31) mmol/L Anion Gap (3-11) POC Anion Gap (16-25) mmol/L POC BUN (7-18) mg/dl BUN (6-23) mg/dl Creatinine (0.6-1.2) mg/dl POC Creatinine (0.6-1.3) mg/dl Est Cr Clr Drug Dosing ml/min Est GFR ( Amer) ml/min Est GFR (Non-Af Amer) ml/min BUN/Creatinine Ratio (10-20) Glucose (70-99(Fasting)) mg/dl POC Glucose (70-99) mg/dl POC Glucose (other) (70-99) mg/dl Calcium (8.6-10.3) mg/dl POC Ioniz Calcium Juliann (1.12-1.32) mmol/l Magnesium (1.7-2.4) mg/dl Total Bilirubin (0.2-1.0) mg/dl AST (13-39) U/L ALT (7-52) U/L Alkaline Phosphatase (34-104) U/L Troponin I High Sens (0-14) pg/ml Total Protein (6.0-8.3) gm/dl Albumin (3.4-5.0) gm/dl Globulin (2.5-4.0) gm/dl Albumin/Globulin Ratio (0.9-2) Blood Parasites ID Blood Type Antibody Screen 11/06/23 11/06/23 11/06/23 Range/Units 16:35 16:29 16:25 WBC Cancelled RBC Cancelled Hgb Cancelled POC Hgb 15.0 (12.0-16.0) g/dl Hct Cancelled POC Hct 44 (37-47) % MCV Cancelled MCH Cancelled MCHC Cancelled RDW Std Deviation Cancelled RDW Coeff of Christine Cancelled Plt Count Cancelled MPV Cancelled Immature Gran % (Auto) Cancelled Neut % (Auto) Cancelled Lymph % (Auto) Cancelled White % (Auto) Cancelled Eos % (Auto) Cancelled Baso % (Auto) Cancelled Neut # (Auto) Cancelled Lymph # (Auto) Cancelled White # (Auto) Cancelled Eos # (Auto) Cancelled Baso # (Auto) Cancelled Immature Gran # (Auto) Cancelled Absolute Nucleated RBC Cancelled Nucleated RBC % (auto) Cancelled Neutrophils % (Manual) Cancelled Band Neutrophils % Cancelled Lymphocytes % (Manual) Cancelled Prolymphocyte % Cancelled Reactive Lymphs % (Man) Cancelled Monocytes % (Manual) Cancelled Eosinophils % (Manual) Cancelled Basophils % (Manual) Cancelled Metamyelocytes % (Man) Cancelled Myelocytes % (Man) Cancelled Promyelocytes % (Man) Cancelled Blast Cells % (Manual) Cancelled Plasma Cell % (Manual) Cancelled Other Cells % Cancelled Nucleated RBC % Cancelled Neutrophils # (Manual) Cancelled Band Neutrophils # Cancelled Total Absolute Neuts Cancelled Lymphocytes # (Manual) Cancelled Prolymphocyte # Cancelled Reactive Lymphs # Cancelled Total Abs Lymphocytes Cancelled Monocytes # (Manual) Cancelled Eosinophils # (Manual) Cancelled Basophils # (Manual) Cancelled Metamyelocytes # (Man) Cancelled Myelocytes # (Manual) Cancelled Promyelocytes # (Man) Cancelled Blast Cells # (Man) Cancelled Plasma Cell # (Manual) Cancelled Other Cells # Cancelled Nucleated RBCs # (Man) Cancelled Hypersegmented Neuts Cancelled Hyposegmented Neuts Cancelled Hypogranular Neuts Cancelled Large Granular Lymphs Cancelled # Lrg Granular Lymphs Cancelled Hairy Cells Cancelled Smudge Cells Cancelled Toxic Granulation Cancelled Toxic Vacuolation Cancelled Dohle Bodies Cancelled Sal Rods Cancelled Platelet Estimate Cancelled Hypogranular Platelets Cancelled Giant Platelets Cancelled Platelet Satelliting Cancelled RBC Morphology Cancelled Polychromasia Cancelled Hypochromasia Cancelled Poikilocytosis Cancelled Basophilic Stippling Cancelled Anisocytosis Cancelled Microcytosis Cancelled Macrocytosis Cancelled Spherocytes Cancelled Pappenheimer Bodies Cancelled Sickle Cells Cancelled Target Cells Cancelled Tear Drop Cells Cancelled Ovalocytes Cancelled Stomatocytes Cancelled Lomeli-[place] Bodies Cancelled Echinocytes Cancelled Acanthocytes (Spur) Cancelled Rouleaux Cancelled RBC Agglutinates Cancelled Schistocytes Cancelled Sezary Cell Cancelled PT Cancelled INR Cancelled APTT Cancelled PTT Ratio Cancelled VBG pH (7.36-7.41) VBG pCO2 (38-50) mmHg VBG pO2 mmHg VBG HCO3 mmol/L VBG O2 Saturation % VBG Base Excess mEq/L POC Sodium 136 (135-144) mmol/L Sodium 135 L (136-145) mmol/L POC Potassium 4.2 (3.3-5.0) mmol/L Potassium 4.4 (3.5-5.1) mmol/L POC Chloride 99 L (101-112) mmol/L Chloride 101 (98-107) mmol/L Carbon Dioxide 24 (21-32) mmol/L POC Total CO2 26 (24-31) mmol/L Anion Gap 10 (3-11) POC Anion Gap 15.0 L (16-25) mmol/L POC BUN 8 (7-18) mg/dl BUN 10 (6-23) mg/dl Creatinine 0.83 (0.6-1.2) mg/dl POC Creatinine 0.7 (0.6-1.3) mg/dl Est Cr Clr Drug Dosing 58.5 ml/min Est GFR ( Amer) 85.8 ml/min Est GFR (Non-Af Amer) 74.0 ml/min BUN/Creatinine Ratio 12.0 (10-20) Glucose 457 H* (70-99(Fasting)) mg/dl POC Glucose (70-99) mg/dl POC Glucose (other) 457 H* (70-99) mg/dl Calcium 9.4 (8.6-10.3) mg/dl POC Ioniz Calcium Juliann 1.16 (1.12-1.32) mmol/l Magnesium 1.7 (1.7-2.4) mg/dl Total Bilirubin 1.8 H (0.2-1.0) mg/dl AST 20 (13-39) U/L ALT 21 (7-52) U/L Alkaline Phosphatase 94 (34-104) U/L Troponin I High Sens 3.7 (0-14) pg/ml Total Protein 6.7 (6.0-8.3) gm/dl Albumin 3.9 (3.4-5.0) gm/dl Globulin 2.8 (2.5-4.0) gm/dl Albumin/Globulin Ratio 1.4 (0.9-2) Blood Parasites ID Cancelled Blood Type A Positive Antibody Screen NEGATIVE 11/06/23 Range/Units 16:20 WBC RBC Hgb POC Hgb (12.0-16.0) g/dl Hct POC Hct (37-47) % MCV MCH MCHC RDW Std Deviation RDW Coeff of Christine Plt Count MPV Immature Gran % (Auto) Neut % (Auto) Lymph % (Auto) White % (Auto) Eos % (Auto) Baso % (Auto) Neut # (Auto) Lymph # (Auto) White # (Auto) Eos # (Auto) Baso # (Auto) Immature Gran # (Auto) Absolute Nucleated RBC Nucleated RBC % (auto) Neutrophils % (Manual) Band Neutrophils % Lymphocytes % (Manual) Prolymphocyte % Reactive Lymphs % (Man) Monocytes % (Manual) Eosinophils % (Manual) Basophils % (Manual) Metamyelocytes % (Man) Myelocytes % (Man) Promyelocytes % (Man) Blast Cells % (Manual) Plasma Cell % (Manual) Other Cells % Nucleated RBC % Neutrophils # (Manual) Band Neutrophils # Total Absolute Neuts Lymphocytes # (Manual) Prolymphocyte # Reactive Lymphs # Total Abs Lymphocytes Monocytes # (Manual) Eosinophils # (Manual) Basophils # (Manual) Metamyelocytes # (Man) Myelocytes # (Manual) Promyelocytes # (Man) Blast Cells # (Man) Plasma Cell # (Manual) Other Cells # Nucleated RBCs # (Man) Hypersegmented Neuts Hyposegmented Neuts Hypogranular Neuts Large Granular Lymphs # Lrg Granular Lymphs Hairy Cells Smudge Cells Toxic Granulation Toxic Vacuolation Dohle Bodies Sal Rods Platelet Estimate Hypogranular Platelets Giant Platelets Platelet Satelliting RBC Morphology Polychromasia Hypochromasia Poikilocytosis Basophilic Stippling Anisocytosis Microcytosis Macrocytosis Spherocytes Pappenheimer Bodies Sickle Cells Target Cells Tear Drop Cells Ovalocytes Stomatocytes Lomeli-[place] Bodies Echinocytes Acanthocytes (Spur) Rouleaux RBC Agglutinates Schistocytes Sezary Cell PT INR APTT PTT Ratio VBG pH (7.36-7.41) VBG pCO2 (38-50) mmHg VBG pO2 mmHg VBG HCO3 mmol/L VBG O2 Saturation % VBG Base Excess mEq/L POC Sodium (135-144) mmol/L Sodium (136-145) mmol/L POC Potassium (3.3-5.0) mmol/L Potassium (3.5-5.1) mmol/L POC Chloride (101-112) mmol/L Chloride (98-107) mmol/L Carbon Dioxide (21-32) mmol/L POC Total CO2 (24-31) mmol/L Anion Gap (3-11) POC Anion Gap (16-25) mmol/L POC BUN (7-18) mg/dl BUN (6-23) mg/dl Creatinine (0.6-1.2) mg/dl POC Creatinine (0.6-1.3) mg/dl Est Cr Clr Drug Dosing ml/min Est GFR ( Amer) ml/min Est GFR (Non-Af Amer) ml/min BUN/Creatinine Ratio (10-20) Glucose (70-99(Fasting)) mg/dl POC Glucose 418 H* (70-99) mg/dl POC Glucose (other) (70-99) mg/dl Calcium (8.6-10.3) mg/dl POC Ioniz Calcium Juliann (1.12-1.32) mmol/l Magnesium (1.7-2.4) mg/dl Total Bilirubin (0.2-1.0) mg/dl AST (13-39) U/L ALT (7-52) U/L Alkaline Phosphatase (34-104) U/L Troponin I High Sens (0-14) pg/ml Total Protein (6.0-8.3) gm/dl Albumin (3.4-5.0) gm/dl Globulin (2.5-4.0) gm/dl Albumin/Globulin Ratio (0.9-2) Blood Parasites ID Blood Type Antibody Screen Diagnostic Findings CT head Findings: There is a 2.5 cm retention cyst within the left maxillary sinus. Polypoid mucosal thickening within the sphenoid sinus. The mastoid air cells are clear. The calvarium and skull base are intact. There is no mass, hematoma, midline shift, acute infarct. White matter hypodensity is nonspecific but suggestive of microvascular ischemic change. The ventricles and sulci demonstrate mild age-related involutional changes. Impression: No acute intracranial abnormality. CTA head/ neck IMPRESSION: 1. Moderate to severe stenosis within the supraclinoid segments of the bilateral intracranial ICAs. 2. Mild to moderate multifocal narrowing within the proximal bilateral carpentry supervisor most pronounced on the right. 3. No evidence for arterial occlusion or aneurysm. IMPRESSION: 1. Atherosclerosis of the carotid bulbs without significant stenosis. 2. Moderate to severe stenosis within the supraclinoid segments of the internal carotid arteries, partially imaged. 3. Incidental findings as above. Code Status & VTE Plan VTE Prophylaxis Plan VTE Prophylaxis will be ordered: No Reason for no VTE drug order: Contraindicated
[2023-11-06] MEDS ORDERED: No Aspirin within 24hrs of THROMBOLYTIC-Stroke SCH (19:15)
[2023-11-06] MEDS ORDERED: INSULIN PROTOCOL GOAL RANGE ONE (19:22)
[2023-11-06] MEDS ORDERED: STAT IV Infusion **Titration per Protocol STA (19:22)
[2023-11-06] MEDS ORDERED: MODERATE STRESS LEVEL ONE (19:22)
[2023-11-06] MEDS ORDERED: LANTUS PER UNIT CHARGE SC ONE ×2 (19:30→20:45)
--- NOTE | 2023-11-06 20:40 | Critical Care Consultation ---
Date of Consultation November 06, 2023 Assessment & Plan (1) Stroke-like symptom: (2) DM2 (diabetes mellitus, type 2): (3) Depression: (4) HTN (hypertension): Plan Reason Critically Ill: 63 YOF presents with stroke like symptoms with NIHSS 2 and s/p TNKASE administration. To ICU s/p thrombolytic stroke protocol Neuro - Stroke like symptoms, s/p Thrombolytic administration, Intracranial artery disease CAM ICU: NEGATIVE - NIHSS- 2; patient also reports no change in symptoms since arrival- RUE weakness and ataxia - Continue with neurological examinations - q1 hour - any change or headache will obtain non-con head ct - MRI brain pending - ECHO pending - Allow permissive HTN - AM HGBA1c and Lipid panel - Telemetry monitoring for 24 hours eval for any arrhythmia- consider extended monitoring if applicable - ICAD with stenosis of supraclinoid segments and mild to moderate bilateral proximal PICA- statin, Defer DAPT therapy to Neurology 24 hour post TNKASE - NIDHI reported on medical history- continue with CPAP at night- no records for review defer to admitting service - Continue high intensity statin - atorvastatin 80mg daily Cardiac - HTN, - as above - cardiac risk factors - age, HTN, poorly controlled DMII Respiratory - NIDHI, - as above- recommend follow up and screening for NIDHI GI - No acute needs RENAL/LYTES - No acute needs - replete magnesium - No acute needs ENDO - DMII - Basal bolus insulin - q4 hour fingersticks with sliding scale coverage q4 hours HEME - No acute needs - follow for hemorrhage following TNK administration ID - No concern for acute infective process at this time LINES/IV ACCESS - PIV Continue use of these lines DVT PROPHYLAXIS - SCDS, chemoprophylaxis contraindicated 24 hours post thrombolytic administration DISPO: ICU 24 hours post TNK administration I have personally spent 45 minutes of critical care time in the direct management of this patient. This is a life/limb threatening event. This includes time spent evaluating patient, direct bedside care, chart review, placing orders, interpretation of diagnostic studies, discussion with consultants, patient, and family members, as well as other required patient management activities. This time is exclusive of all separately billable procedures, and teaching time and separate from and in addition to any other critical care service time. Thank you for allowing us to participate in the care of this patient. Please refer to my attending physician's documentation for any further recommendations. History of Present Illness Reason for Consultation: Stroke like symptoms s/p TNKASE administration Requesting Physician: Momo Betancur MD Attending Physician: Momo Betancur MD History of Present Illness 63 YOF with medical history reported by patient as: Right ear deafness, DMII, HTN. She reports that today trying to make her lunch, she was noted to not be able to hold anything with her right hand. She states she was trying to make a sandwich and kept dropping things. She reports that she walked to her neighbor's house where she called 911. She was transported to the [facility] where she was stroke alerted and had routine labs drawn as well as CT of the head. She was documented by the [facility] physician as time last known well at 14:30 and as having an NIHSS of 2. Following stroke evaluation and head CT review, the patient was deemed a TNKASE candidate and received this per MAR at 1722. She is now to the ICU for frequent neurological examinations as well as hemodynamic following. She was noted to have hyperglycemia on arrival as well as hypomagnesemia. These will be addressed in the ICU. CODE: FULL Allergies Allergy/AdvReac Type Severity Reaction Status Date / Time metformin AdvReac Intermediate Diarrhea Verified 11/06/23 17:15 oxycodone AdvReac Intermediate upset Verified 11/06/23 17:15 stomach Home Medications Medication Instructions Recorded Confirmed Type albuterol sulfate 90 mcg/actuation 2 puff inhalation Q6H PRN 11/06/23 11/06/23 History aerosol inhaler CONGESTION/COUGH/WHEEZING aspirin 81 mg tablet,delayed 81 mg PO DAILY 11/06/23 11/06/23 History release atorvastatin 80 mg tablet 80 mg PO DAILY 11/06/23 11/06/23 History calcium carbonate (Calcium 600) 1,200 mg PO DAILY 11/06/23 11/06/23 History clotrimazole-betamethasone 1 1 applic topical BID PRN AFFECTED 11/06/23 11/06/23 History %-0.05 % topical cream AREA empagliflozin 25 mg tablet 25 mg PO QAM 11/06/23 11/06/23 History (Jardiance) fluoxetine 10 mg tablet 10 mg PO DAILY 11/06/23 11/06/23 History fluticasone propionate 50 2 spray intranasal DAILY 11/06/23 11/06/23 History mcg/actuation nasal spray,suspension glipizide 10 mg tablet, extended 10 mg PO DAILYBB 11/06/23 11/06/23 History release 24 hr glipizide 5 mg tablet, extended 5 mg PO DAILYBB 11/06/23 11/06/23 History release 24 hr lisinopril 5 mg tablet 5 mg PO QAM 11/06/23 11/06/23 History vitamin B complex 1 tab PO DAILY 11/06/23 11/06/23 History Patient History Medical History (Updated 11/06/23 @ 23:20 by Juan Manuel Rios MD) NIDHI (obstructive sleep apnea) Depression DM2 (diabetes mellitus, type 2) Family hx-breast malignancy Surgical History History of cataract surgery H/O brain surgery "BRAIN SURGERY USING COMPUTER 01/22/07 STEREOTACTIC COMPUTER ASSISTED VOLUMETRIC PROCEDURE performed by ELENA PIMENTEL at [place] [facility] [place] Hx of tonsillectomy Family History Other Breast cancer Social History Smoking Status: Never smoker Do You Dip or Chew Tobacco: No; Hx Alcohol Use: No Hx Substance Use: No Preferred Language: Yi Communication Ability: Effective Communications Operator Required: No Beliefs That Will Affect Care: None Current Living Situation: Alone Current Living Situation Comment: alone Other Information That Helps Us Care for You: No Feels Safe at Home: Yes Safety Concerns: Feels Safe At This Time Assistive Devices: Hearing Aid - Bilateral Review of Systems Review of Systems: REVIEW OF SYSTEMS: Constitutional: No fever, sweats or chills Eyes: No diplopia, no worsening or blurred vision ENT: (+) deafness to right ear, no trouble swallowing Respiratory: No cough, sputum, dyspnea at rest or on exertion Cardiovascular: No chest pain, tightness or palpitations Abdomen: No pain, nausea, vomiting, diarrhea or constipation Musculoskeletal: No joint pain, calf pain, swelling Neurologic: (+) right arm weakness, no numbness/tingling, or balance problems, no vision changes or headache Psychiatric: No anxiety or depression Skin: No rash or itch Physical Exam Physical Exam: PHYSICAL EXAM: General: awake, alert, no apparent distress Head: Normocephalic, atraumatic ENT: PERRLA, EOMI, no pharyngeal exudate, mucous membranes dry, poor dentition Neuro: AAO x 3, speech clear and appropriate, strength 3/5 RUE, 5/5 LUE, RLL, LLE, sensation intact and equal all extremities and dermatomes, pronator drift to right arm, ataxia to right upper arm, Chest: equal rise and fall of the chest, no accessory muscle use, no heaves or thrills, Clear to auscultation, on room air, Cardiac: Regular rate and rhythm, telemetry reviewed, skin warm dry, cap refill <3 seconds, peripheral pulses +2 no JVD, no murmur, no edema GI: NABS x 4 quadrants, soft, nontender to palpation, no rebound, guarding or tenderness : Spontaneously voiding, no pain, no CVA tenderness, Extremities: Normal inspection, no peripheral edema or erythema, calfs nontender to palpation Psych: Normal mood and affect Skin: no rash or erythema Results & Data Results & Data Vital Signs (Past 12 Hours) Vital Signs Temp Pulse Pulse Resp BP BP Pulse Ox 11/06/23 19:55 63 18 166/82 H 96 11/06/23 19:20 36.6 C 79 18 129/81 99 11/06/23 19:05 36.8 C 66 16 109/73 97 11/06/23 18:50 36.8 C 66 18 129/75 97 11/06/23 18:35 37 C 65 18 130/97 98 11/06/23 18:20 37.1 C 65 16 121/74 96 11/06/23 18:05 36.8 C 67 16 123/75 98 11/06/23 17:50 36.7 C 58 L 18 125/74 99 11/06/23 17:35 37.1 C 60 17 136/78 98 11/06/23 17:19 59 L 15 144/71 H 95 11/06/23 17:18 58 L 17 137/77 97 11/06/23 17:00 71 18 11/06/23 16:56 76 11/06/23 16:26 36.6 C 82 20 144/104 H 96 O2 Del Method 11/06/23 19:55 Room Air 11/06/23 19:20 Room Air 11/06/23 19:05 Room Air 11/06/23 18:50 Room Air 11/06/23 18:35 Room Air 11/06/23 18:20 Room Air 11/06/23 18:05 Room Air 11/06/23 17:50 Room Air 11/06/23 17:35 Room Air 11/06/23 17:19 Room Air 11/06/23 17:18 Room Air 11/06/23 17:00 11/06/23 16:56 11/06/23 16:26 Room Air Laboratory Results Abnormal lab results 11/06/23 11/06/23 11/06/23 Range/Units 16:20 16:25 16:29 VBG pH (7.36-7.41) Sodium 135 L (136-145) mmol/L POC Chloride 99 L (101-112) mmol/L POC Anion Gap 15.0 L (16-25) mmol/L Glucose 457 H* (70-99(Fasting)) mg/dl POC Glucose 418 H* (70-99) mg/dl POC Glucose (other) 457 H* (70-99) mg/dl Total Bilirubin 1.8 H (0.2-1.0) mg/dl 11/06/23 11/06/23 11/06/23 Range/Units 16:38 18:43 19:55 VBG pH 7.42 H (7.36-7.41) Sodium (136-145) mmol/L POC Chloride (101-112) mmol/L POC Anion Gap (16-25) mmol/L Glucose (70-99(Fasting)) mg/dl POC Glucose 318 H* 331 H* (70-99) mg/dl POC Glucose (other) (70-99) mg/dl Total Bilirubin (0.2-1.0) mg/dl Diagnostic Findings Chest X-Ray 11/06/23 16:30 XR chest 1V portable HISTORY: 63 years-old Female neuro deficit, acute stroke suspected acute strokelike symptoms COMPARISON: 12/24/2015 TECHNIQUE: AP view of the chest FINDINGS: Cardiac silhouette is enlarged. No pneumothorax, pleural effusion or overt pulmonary edema. Chronic left retrocardiac atelectasis/scarring. Bones appear grossly intact. IMPRESSION: Cardiomegaly without acute process. ACT 112: Negative or not required by law. The above report was generated using voice recognition software. It may contain grammatical, syntax or spelling errors. Electronically signed by: Fernando Whitlock M.D. 11/06/2023 6:[address] 11/06/23 16:[address] DOSE: HISTORY: Right arm weakness. neuro deficit, acute stroke suspected TECHNIQUE: Multiaxial CT images of the head were performed without the use of intravenous contrast. Automated exposure control was utilized for this study. A dose lowering technique was utilized adhering to the principles of ALARA. Comparison: None. Findings: There is a 2.5 cm retention cyst within the left maxillary sinus. Polypoid mucosal thickening within the sphenoid sinus. The mastoid air cells are clear. The calvarium and skull base are intact. There is no mass, hematoma, midline shift, acute infarct. White matter hypodensity is nonspecific but suggestive of microvascular ischemic change. The ventricles and sulci demonstrate mild age-related involutional changes. Impression: No acute intracranial abnormality. ACT 112: Negative or not required by law. Electronically signed by: Darwin Santos M.D. 11/06/2023 5:07 PM Head CTA 11/06/23 16:30 HEAD CTA HISTORY: Right-sided weakness. neuro deficit, acute stroke suspected TECHNIQUE: Multiaxial CT images of the head were performed both before and after the intravenous administration of contrast to evaluate the major cerebral vessels. 3D/MIP images were also obtained. Sagittal and coronal reformats were reviewed. A dose lowering technique was utilized adhering to the principles of ALARA. COMPARISON: Noncontrast head CT 11/06/2023. FINDINGS: There is no mass, hematoma, midline shift, or acute infarct. The distal vertebral arteries and basilar artery are widely patent. Moderate to severe stenosis within the supraclinoid segments of the bilateral ICAs. There is a hypoplastic left A1 segment. Otherwise, no significant stenosis or occlusion within the bilateral ACAs. The major dural venous sinuses are patent. Mild to moderate multifocal narrowing within the bilateral proximal construction assistant most pronounced on the right. The mid to distal bilateral construction assistant are widely patent. No significant stenosis or occlusion within the bilateral MCAs. No evidence for a cerebral aneurysm. IMPRESSION: 1. Moderate to severe stenosis within the supraclinoid segments of the bilateral intracranial ICAs. 2. Mild to moderate multifocal narrowing within the proximal bilateral construction assistant most pronounced on the right. 3. No evidence for arterial occlusion or aneurysm. ACT 112: Negative or not required by law. Electronically signed by: Darwin Santos M.D. 11/06/2023 5:12 PM Neck CTA 11/06/23 16:30 CT angio neck with con CLINICAL HISTORY: 63 years-old Female with neuro deficit, acute stroke suspected. Acute strokelike symptoms COMPARISON STUDY: CTA head of same day TECHNIQUE: Following the IV administration of 118 mL of Optiray, CT angiogram of the neck was performed from the aortic arch to the skull base. Images are reviewed in the axial, sagittal, and coronal planes. 3-D MIPS images are created and assessed. IV contrast was administered without complication. All measurements were calculated based on NASCET criteria. A dose lowering technique was utilized adhering to the principles of ALARA. CT DOSE: 1492.73 mGy.cm FINDINGS: Unremarkable imaged pulmonary arterial tree. Three-vessel morphology of the thoracic aortic arch. There is patency of the innominate and subclavian arteries. The common carotid arteries are widely patent. There is moderate atherosclerotic plaque carotid bulbs without high-grade stenosis. Moderate to severe narrowing within the supraclinoid segments of the internal carotid arteries bilaterally. Codominant and patent vertebral arteries. The basilar artery is patent. Mild to moderate multifocal narrowing within the imaged posterior cerebral arteries. No pneumothorax. Partially imaged borderline enlarged upper mediastinal lymph nodes. Heterogeneous peripherally enhancing 1.6 cm right-sided thyroid nodule. Patent airway. Chronic-appearing mucosal thickening of the paranasal sinuses with postoperative changes. Degenerative changes of the cervical spine. Right mastoid effusion. IMPRESSION: 1. Atherosclerosis of the carotid bulbs without significant stenosis. 2. Moderate to severe stenosis within the supraclinoid segments of the internal carotid arteries, partially imaged. 3. Incidental findings as above. ACT 112: Negative or not required by law. The above report was generated using voice recognition software. It may contain grammatical, syntax or spelling errors. Electronically signed by: Fernando Whitlock M.D. 11/06/2023 5:38 PM Medications Administered Home Medications albuterol sulfate 90 mcg/actuation aerosol inhaler 2 puff inhalation Q6H PRN CONGESTION/COUGH/WHEEZING 11/06/23 [History Confirmed 11/06/23] aspirin 81 mg tablet,delayed release 81 mg PO DAILY 11/06/23 [History Confirmed 11/06/23] atorvastatin 80 mg tablet 80 mg PO DAILY 11/06/23 [History Confirmed 11/06/23] calcium carbonate (Calcium 600) 1,200 mg PO DAILY 11/06/23 [History Confirmed 11/06/23] clotrimazole-betamethasone 1 %-0.05 % topical cream 1 applic topical BID PRN AFFECTED AREA 11/06/23 [History Confirmed 11/06/23] empagliflozin 25 mg tablet (Jardiance) 25 mg PO QAM 11/06/23 [History Confirmed 11/06/23] fluoxetine 10 mg tablet 10 mg PO DAILY 11/06/23 [History Confirmed 11/06/23] fluticasone propionate 50 mcg/actuation nasal spray,suspension 2 spray intranasal DAILY 11/06/23 [History Confirmed 11/06/23] glipizide 10 mg tablet, extended release 24 hr 10 mg PO DAILYBB 11/06/23 [History Confirmed 11/06/23] glipizide 5 mg tablet, extended release 24 hr 5 mg PO DAILYBB 11/06/23 [History Confirmed 11/06/23] lisinopril 5 mg tablet 5 mg PO QAM 11/06/23 [History Confirmed 11/06/23] vitamin B complex 1 tab PO DAILY 11/06/23 [History Confirmed 11/06/23] Active Medications Aspirin (No Aspirin Within 24hrs Of Thrombolytic-Stroke) 1 each N/A UD MARSHA Stop: 11/07/23 17:14 Atorvastatin Calcium (Atorvastatin 40 Mg Tab) 80 mg PO HS MARSHA Stop: 12/06/23 20:59 Dextrose (Dextrose 50% 50 Ml Syringe) 25 - 50 ml IV UD PRN; Protocol PRN Reason: Hypoglycemia Protocol Stop: 12/06/23 20:44 Fluoxetine HCl (Fluoxetine Hcl 10 Mg Cap) 10 mg PO DAILY MARSHA Stop: 12/07/23 08:59 Glucagon (Glucagon For Inj 1 Mg Vial) 1 mg IM UD PRN; Protocol PRN Reason: Hypoglycemia Protocol Stop: 12/06/23 20:44 Glucose (Glucose 40% Gel 15 Gm Tube) 15 - 30 gm PO UD PRN; Protocol PRN Reason: Hypoglycemia Protocol Stop: 12/06/23 20:44 Glucose (Glucose 10 Tab/Tube) 4 - 8 tab PO UD PRN; Protocol PRN Reason: Hypoglycemia Protocol Stop: 12/06/23 20:44 Magnesium Sulfate/Dextrose (Magnesium Sulfate / D5w) 1 gm in 100 mls @ 50 mls/hr IV Q2H MARSHA Stop: 11/07/23 02:44 Insulin Aspart (Insulin Aspart Per Unit Charge) 0 units SC Q4 AMRSHA Stop: 12/07/23 20:59 Insulin Glargine (Lantus Per Unit Charge) 15 units SC ONE ONE Stop: 11/06/23 20:46 Miscellaneous (Carbohydrates For Hypoglycemia ) 15 - 30 gm PO UD PRN PRN Reason: Hypoglycemia Treatment Stop: 12/06/23 20:44 Miscellaneous Information (Pharmacist Discharge Med Rec Consult) 1 each N/A UD PRN PRN Reason: Consult Stop: 12/06/23 18:00 Miscellaneous Information (Pharmacy Glycemic Mgmt Consult) 1 each N/A UD PRN; P rotocol PRN Reason: Consult Stop: 12/06/23 18:15 Vitamin B Complex (Vitamin B Complex Tab) 1 tab PO DAILY [facility] Stop: 12/07/23 08:59 Coding Level of Care Code 16984 CRITICAL CARE 1ST 30-74M Diagnoses Stroke-like symptom R29.90 DM2 (diabetes mellitus, type 2) E11.9 Depression F32.9 HTN (hypertension) I10
[2023-11-06] MEDS ORDERED: GLUCOSE 10 TAB/TUBE PO PRN (20:45)
[2023-11-06] MEDS ORDERED: DEXTROSE 50% 50 ML SYRINGE IV PRN (20:45)
[2023-11-06] MEDS ORDERED: CARBOHYDRATES FOR HYPOGLYCEMIA PO PRN (20:45)
[2023-11-06] MEDS ORDERED: GLUCOSE 40% GEL 15 GM TUBE PO PRN (20:45)
[2023-11-06] MEDS ORDERED: GLUCAGON FOR INJ 1 MG VIAL IM PRN (20:45)
[2023-11-06] MEDS ORDERED: ICU Protocol for HYPERglycemia SCH (21:00)
[2023-11-06] MEDS ORDERED: INSULIN ASPART PER UNIT CHARGE SC SCH (21:00)
[2023-11-06] MEDS: STAT IV/IM STA (21:27)
[2023-11-06] MEDS: LANTUS PER UNIT CHARGE SC ONE (21:31)
[2023-11-06] MEDS: INSULIN REGULAR 250 UNITS in SODIUM CHLORIDE 0.9% 247.5 ML IV SCH (21:35)
[2023-11-06] MEDS: MAGNESIUM SULFATE / D5W 1 GM/100 ML BAG IV SCH (21:58)
[2023-11-06] MEDS: ATORVASTATIN 40 MG TAB PO SCH (21:59)
[2023-11-06] MEDS: INSULIN ASPART PER UNIT CHARGE SC SCH (22:01)
--- NOTE | 2023-11-06 23:50 | Magnetic Resonance Report ---
Exam(s): MRI HEAD Without Contrast EXAM: MR Head Without Intravenous Contrast CLINICAL HISTORY: Reason for exam: eval for CVA- right arm weakness s/p TNKASE. TECHNIQUE: Magnetic resonance images of the head/brain without intravenous contrast in multiple planes. COMPARISON: Comparison made to prior head CT from November 06, 2023. FINDINGS: Brain: There is a single small acute ischemic injury in the posterior left frontal lobe. Mild nonspecific white matter changes. No mass. No hemorrhage. The flow voids at the base of the brain are intact. Empty sella with enlarged diaphragmatic sellae. Ventricles: Mild ventriculomegaly. Bones/joints: Unremarkable. No acute fracture. Sinuses: Chronic ethmoid and sphenoid sinusitis. No acute sinusitis. Mastoid air cells: Visiting amount of fluid in the mastoid air cells. No mastoid effusion. Orbits: Bilateral lens replacements. IMPRESSION: There is a single small acute ischemic injury of the posterior left frontal lobe. Communications: Verify Receipt Electronically signed by: Charlene Clemente MD 11/06/23 23:49 PM
[2023-11-07 04:07] LABS: Hematocrit (blood only) 38.8 % (37.0-47.0); Hemoglobin 13.8 g/dl (12.0-16.0); Mean Corpuscular Hemoglobin 29.1 pg (25.0-34.0); Mean Corpuscular Hgb Conc 35.6 g/dL (32.0-36.0); Mean Corpuscular Volume 81.9 fL (80.0-100.0); Mean Platelet Volume 11.4 fL (9.4-12.4); Platelet Count 224 K/uL (130-400); RDW Coefficient of Variation 12.7 % (11.5-14.5); RDW Standard Deviation 37.7 fL (36.4-46.3); Red Blood Count 4.74 M/uL (4.20-5.40); White Blood Count 10.73 K/ul (4.8-10.8)
[2023-11-07 04:18] LABS: BUN Creatinine Ratio 13.3 (10-20); Calcium 8.8 mg/dl (8.6-10.3); Chol HDL Ratio 4.2 (0-5); Creatinine Clr Calc Pharmacy 80.7 ml/min; Est GFR (African American) 110.9 ml/min; Est GFR (Non-African American) 95.7 ml/min; Magnesium 2.6 mg/dl (1.7-2.4); Phosphorus 3.8 mg/dl (2.5-4.9); Potassium 3.7 mmol/L (3.5-5.1)
[2023-11-07 06:57] LABS: Estimated Average Glucose 349 mg/dl; Hemoglobin A1C 13.8 % (4.5-5.6)
--- NOTE | 2023-11-07 07:05 | Critical Care Progress Note ---
Date of Service November 07, 2023 Assessment & Plan (1) Cerebrovascular accident: (2) HTN (hypertension): (3) Stroke-like symptom: (4) RUE weakness: (5) DM2 (diabetes mellitus, type 2): Plan Reason Critically Ill: 63 YOF presents with stroke like symptoms with NIHSS 2 and s/p TNKASE administration. To ICU s/p thrombolytic stroke protocol Neuro - Stroke like symptoms, s/p Thrombolytic administration, Intracranial artery disease CAM ICU: NEGATIVE - NIHSS- 2; patient also reports no change in symptoms since arrival- RUE weakness and ataxia - Continue with neurological examinations - q1 hour - any change or headache will obtain non-con head ct - MRI brain pending - ECHO pending - Allow permissive HTN - Telemetry monitoring for 24 hours eval for any arrhythmia- consider extended monitoring if applicable - ICAD with stenosis of supraclinoid segments and mild to moderate bilateral proximal PICA- statin, Defer DAPT therapy to Neurology 24 hour post TNKASE - NIDHI reported on medical history- continue with CPAP at night- no records for review defer to admitting service - Continue high intensity statin - atorvastatin 80mg daily Cardiac - HTN, - as above - cardiac risk factors - age, HTN, poorly controlled DMII Respiratory - NIDHI, - as above- recommend follow up and screening for NIDHI GI - No acute needs RENAL/LYTES - No acute needs - replete magnesium - No acute needs ENDO - DMII severely uncontrolled - A1c this am 13.8 - Basal bolus insulin - q4 hour fingersticks with sliding scale coverage q4 hours HEME - No acute needs - follow for hemorrhage following TNK administration ID - No concern for acute infective process at this time LINES/IV ACCESS - PIV Continue use of these lines DVT PROPHYLAXIS - SCDS, chemoprophylaxis contraindicated 24 hours post thrombolytic administration DISPO: ICU 24 hours post TNK administration Thank you for allowing us to participate in the care of this patient. Please refer to my attending physician's documentation for any further recommendations. Admission and Anticipated Discharge Date Admission Date: November 06, 2023 Supervising Physician Co-Signing Physician Notes Dr. Hopkins was resident physician during care of patient. I separately evalua sherrell patient for vela portions of the history and the exam. I was present during the critical portion of medical decision making, and I discussed the case with the resident. I generally agree with the findings and plan. Poorly controlled diabetic, reinstituting glycemic control measures. Scheduled for repeat CT at 1700. Advance diet as tolerated PT OT speech consults are in. Anticipate downgrade later today after CT head Subjective Patient seen and evaluated at bedside this morning. No acute events overnight. Doing well this am. 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 Tolerating clear liquid diet. Repeat head imaging at 24hrs. No acute complaints this am. 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 LUE tremor present prior to CVA Results & Data Results & Data Vital Signs (Past 12 Hours) Vital Signs Temp Pulse Pulse Resp BP BP Pulse Ox 11/07/23 06:20 36.6 C 65 16 150/75 H 96 11/07/23 05:20 36.8 C 71 14 166/87 H 95 11/07/23 04:20 36.7 C 61 16 166/87 H 97 11/07/23 03:20 36.8 C 61 14 139/76 98 11/07/23 03:17 64 18 97 11/07/23 02:20 36.7 C 64 14 152/72 H 96 11/07/23 01:20 36.7 C 76 14 125/82 97 11/07/23 00:50 36.6 C 72 14 135/99 96 11/07/23 00:20 36.6 C 71 16 154/74 H 96 11/07/23 00:00 77 14 98 11/06/23 23:50 36.6 C 64 16 148/82 H 96 11/06/23 23:20 36.7 C 71 16 158/82 H 96 11/06/23 23:06 36.7 C 11/06/23 23:00 77 21 11/06/23 23:00 150/82 H 11/06/23 22:57 84 15 11/06/23 22:50 36.7 C 76 16 152/80 H 96 11/06/23 22:20 36.7 C 77 16 156/79 H 97 11/06/23 22:13 106/67 11/06/23 22:10 60 14 98 11/06/23 22:08 59 L 17 98 11/06/23 22:08 163/80 H 11/06/23 22:00 60 20 98 11/06/23 21:52 148/82 H 11/06/23 21:52 66 16 11/06/23 21:50 36.6 C 83 16 152/91 H 97 11/06/23 21:50 71 19 95 11/06/23 21:40 66 20 96 11/06/23 21:37 158/82 H 11/06/23 21:37 76 20 96 11/06/23 21:34 63 21 98 11/06/23 21:34 152/80 H 11/06/23 21:30 71 15 97 11/06/23 21:22 77 20 97 11/06/23 21:22 156/79 H 11/06/23 21:20 36.6 C 101 H 16 141/75 H 97 11/06/23 21:20 77 20 96 11/06/23 21:10 77 19 97 11/06/23 21:07 80 19 94 11/06/23 21:07 152/91 H 11/06/23 21:00 75 15 98 11/06/23 20:52 141/75 H 11/06/23 20:52 61 18 97 11/06/23 20:50 36.7 C 81 16 137/69 98 11/06/23 20:50 64 18 96 11/06/23 20:40 62 20 96 11/06/23 20:37 137/69 11/06/23 20:37 80 16 96 11/06/23 20:30 58 L 19 95 11/06/23 20:23 58 L 18 96 11/06/23 20:23 136/68 11/06/23 20:20 36.6 C 82 16 136/68 97 11/06/23 20:20 60 19 95 11/06/23 20:10 61 20 94 11/06/23 20:07 163/98 H 11/06/23 20:07 73 20 96 11/06/23 20:00 64 13 98 11/06/23 19:55 63 18 166/82 H 96 11/06/23 19:53 59 L 22 99 11/06/23 19:50 36.6 C 73 16 163/93 H 98 11/06/23 19:23 129/81 11/06/23 19:23 79 18 99 11/06/23 19:20 73 22 97 11/06/23 19:20 36.6 C 79 18 129/81 99 11/06/23 19:10 66 18 11/06/23 19:06 109/73 11/06/23 19:06 93 H 16 97 11/06/23 19:05 36.8 C 66 16 109/73 97 O2 Del Method 11/07/23 06:20 Room Air 11/07/23 05:20 Room Air 11/07/23 04:20 Room Air 11/07/23 03:20 Room Air 11/07/23 03:17 11/07/23 02:20 Room Air 11/07/23 01:20 Room Air 11/07/23 00:50 Room Air 11/07/23 00:20 Room Air 11/07/23 00:00 11/06/23 23:50 Room Air 11/06/23 23:20 Room Air 11/06/23 23:06 11/06/23 23:00 11/06/23 23:00 11/06/23 22:57 11/06/23 22:50 Room Air 11/06/23 22:20 Room Air 11/06/23 22:13 11/06/23 22:10 11/06/23 22:08 11/06/23 22:08 11/06/23 22:00 11/06/23 21:52 11/06/23 21:52 11/06/23 21:50 Room Air 11/06/23 21:50 11/06/23 21:40 11/06/23 21:37 11/06/23 21:37 11/06/23 21:34 11/06/23 21:34 11/06/23 21:30 11/06/23 21:22 11/06/23 21:22 11/06/23 21:20 Room Air 11/06/23 21:20 11/06/23 21:10 11/06/23 21:07 11/06/23 21:07 11/06/23 21:00 11/06/23 20:52 11/06/23 20:52 11/06/23 20:50 Room Air 11/06/23 20:50 11/06/23 20:40 11/06/23 20:37 11/06/23 20:37 11/06/23 20:30 11/06/23 20:23 11/06/23 20:23 11/06/23 20:20 Room Air 11/06/23 20:20 11/06/23 20:10 11/06/23 20:07 11/06/23 20:07 11/06/23 20:00 11/06/23 19:55 Room Air 11/06/23 19:53 11/06/23 19:50 Room Air 11/06/23 19:23 11/06/23 19:23 11/06/23 19:20 11/06/23 19:20 Room Air 11/06/23 19:10 11/06/23 19:06 11/06/23 19:06 11/06/23 19:05 Room Air Resident Activity Tracking Resident Involvement: Resident Care Provided Care Provided: Adult Hospital Medicine (1) Cerebrovascular accident CVA mechanism: unspecified Qualified Code(s): I63.9 - Cerebral infarction, unspecified
[2023-11-07] MEDS: VITAMIN B COMPLEX TAB PO SCH (08:36)
[2023-11-07] MEDS: FLUoxetine HCL 10 MG CAP PO SCH (08:36)
[2023-11-07] MEDS: INSULIN ASPART PER UNIT CHARGE SC ONE (09:14)
--- NOTE | 2023-11-07 12:11 | Ultrasound Report ---
BILATERAL CAROTID DOPPLER STUDY HISTORY: Right upper extremity weakness. COMPARISON: CTA neck 11/06/2023. TECHNIQUE: Real-time, grayscale, and color Doppler sonography of the carotid arteries was performed. Imaging reviewed in the transverse and longitudinal planes. All measurements were calculated based on NASCET criteria. FINDINGS: Antegrade flow is seen in the bilateral vertebral arteries. Mild calcified plaque within the bilateral carotid bifurcations. The peak systolic velocity within the right ICA is 78 cm/s. The right systolic ratio is 1.1. The peak systolic velocity within the left ICA is 62 cm/s. The left systolic ratio is 0.9. IMPRESSION: No hemodynamically significant stenosis seen within the carotid arteries. ACT 112: Negative or not required by law. Electronically signed by: Darwin Santos M.D. 11/07/2023 12:10 PM
[2023-11-07] MEDS: INSULIN ASPART PER UNIT CHARGE SC SCH (12:50)
--- NOTE | 2023-11-07 14:16 | Pharmacy Report ---
Pharmacy Glycemic Short Note 2 - Date of Service November 07, 2023 - Glycemic Short BSG Results (Last 24 hours): 11/06/23 11/06/23 11/06/23 16:20 16:25 16:29 Glucose 457 H* POC Glucose 418 H* POC Glucose (other) 457 H* 11/06/23 11/06/23 11/06/23 18:43 19:55 23:59 Glucose POC Glucose 318 H* 331 H* 187 H POC Glucose (other) 11/07/23 11/07/23 11/07/23 03:43 03:47 08:21 Glucose 113 H POC Glucose 110 H 220 H POC Glucose (other) 11/07/23 12:00 Glucose POC Glucose 211 H POC Glucose (other) OUTPATIENT ANTIDIABETIC REGIMEN: * Empagliflozin, glipizide (note - per H&P, patient has not taken any meds for months) * HbA1c 13/8% ASSESSMENT: * 63 yo F with T2DM admitted with CVA. Hyperglycemia initially responded well to a one-time dose of IV insulin and initiation of a moderate-severe stress Novolog regimen with a moderate dose of Lantus. BSG's trended down from 457 to 110 mg/dL. * This AM, originally loosened Novolog to moderate stress estimate due to the significant downtrend in BSG's. * Of note, patient consumed sherbert prior to her AM/breakfast check (therefore the 220 mg/dL this AM was post-prandial) - covered CHO only for that check and held additional Lantus. However, lunch BSG now also elevated. Confirmed w RN - no snacking prior to this check. Will therefore tighten Novolog regimen slightly * Will add Lantus scale for this evening. PLAN FOR INPATIENT GLYCEMIC CONTROL: * Hold outpatient oral diabetes medications * Basal insulin * Lantus 8 units BID (hold for BSG less than 120 mg/dL) * Bolus insulin * NovoLog per scale ACHS or Q6hrs while NPO * Goal Range: Low 120 mg/dL - High 160 mg/dL * Correction Factor: 35 mg/dL/unit * Nutritional / Prandial insulin per carb ratio of 1 unit per 11 grams CHO consumed
--- NOTE | 2023-11-07 16:07 | Hospitalist Progress Note ---
Date of Service November 07, 2023 Assessment & Plan (1) RUE weakness: Plan: Persisting (2) Stroke-like symptom: Plan: RUE weakness Per telestroke neurologist - suspected Acute ischemic stroke in the left hemisphere Telestroke consulted and pt received TNK - pt will be further closely monitored in ICU, will need neurochecks per protocol and repeat CT head MRI did show a single small acute ischemic injury of the posterior left frontal lobe Repeat CT scan following TNK did not show any evidence of bleeding or any stroke Right upper extremity weakness persist No other significant neurological deficit on examination Echo of the heart showed-EF 60 to 65%, mild concentric LVH, trace aortic regurgitation, trace tricuspid regurgitation, Doppler findings do not suggest pu lmonary hypertension, small loculated apical and right lateral pericardial effusions with moderate organization, there are no echo or graft cardiographic indication of cardiac murmur Lipid panel is unremarkable Hemoglobin A1c is very high at 13.8 Neurology consult-awaited Restart pt's home statin (which she reportedly did not take in months) At home also reportedly on lisinopril - will hold for now, and will cont. to closely monitor BP - allow for permissive HTN- likely will restart lisinopril on discharge Imaging studies: CT head- No acute intracranial abnormality. CTA head/neck- 1. Moderate to severe stenosis within the supraclinoid segments of the bilateral intracranial ICAs. 2. Mild to moderate multifocal narrowing within the proximal bilateral pharmacy operations manager most pronounced on the right. 3. No evidence for arterial occlusion or aneurysm. IMPRESSION: 1. Atherosclerosis of the carotid bulbs without significant stenosis. 2. Moderate to severe stenosis within the supraclinoid segments of the internal carotid arteries, partially imaged. 3. Incidental findings as above. Ultrasound of the carotid arteries-no significant stenosis (3) DM2 (diabetes mellitus, type 2): Plan: - per EMR - pcp record pt is supposed to be on Jardiance and glipizide, but pt has not taken any meds for months Hgb A1c in September 2022 was 8.0% Pt found hyperglycemic in the ED, and glycemic pharmacy was consulted - will check [id number] at 13.8 - cont. w/ insulin while inpt - clinical informatics educator / counseling before discharge recommended (4) NIDHI (obstructive sleep apnea): Plan: - per EMR records, will order cpap Generalized anxiety disorder - cont. home prozac Admission and Anticipated Discharge Date Admission Date: November 06, 2023 Subjective 11/07/2023 The patient was seen and examined in ICU Still complains to have right upper extremity weakness Has some incoordination in upper extremities as well No other significant neurodeficit Review of Systems Review of Systems: All systems reviewed and are unremarkable except as noted below Physical Exam Physical Exam: Lying in bed without any acute distress Constitutional: well developed, well nourished, + ill appearing and + obese Eyes: PERRL, conjunctivae normal, anicteric sclerae ENMT: external ear and nose normal, oropharynx normal Neck: trachea midline, no thyromegaly Respiratory: no respiratory distress Auscultation: lungs clear to auscultation bilaterally Cardiovascular: Rate/Rhythm: regular rate, regular rhythm and + bradycardic Heart Sounds: normal S1 and normal S2; no murmur Extremities: no edema Gastrointestinal (Abdomen): Inspection/Auscultation: normal bowel sounds; abdomen not distended Percussion/Palpation: abdomen soft; abdomen nontender Musculoskeletal: No acute arthritis involving any joint Neurologic: Alert, awake and oriented x 3. Mild loss of coordination of the upper extremities. Right upper extremity weakness. No other neurodeficit Lymphatic: no cervical or axillary lymphadenopathy Results & Data Results & Data Vital Signs (Past 12 Hours) Vital Signs Temp Pulse Pulse Resp BP BP BP 11/07/23 14:20 36.9 C 70 15 138/70 11/07/23 13:21 36.9 C 76 14 138/68 11/07/23 12:50 73 21 11/07/23 12:40 67 14 11/07/23 12:39 169/95 H 11/07/23 12:39 65 15 11/07/23 12:30 78 19 166/79 H 11/07/23 12:20 71 22 11/07/23 12:20 36.8 C 78 18 166/79 H 11/07/23 12:10 72 18 11/07/23 12:00 74 18 11/07/23 11:50 63 20 11/07/23 11:40 72 19 11/07/23 11:39 138/81 11/07/23 11:39 72 14 11/07/23 11:30 72 16 11/07/23 11:25 70 19 11/07/23 11:20 37.0 C 72 14 138/81 11/07/23 11:00 64 19 11/07/23 10:50 75 19 11/07/23 10:40 75 17 11/07/23 10:30 74 16 11/07/23 10:30 144/83 H 11/07/23 10:20 70 18 11/07/23 10:20 36.7 C 74 16 144/83 H 11/07/23 10:10 73 18 11/07/23 10:00 74 22 11/07/23 09:50 60 13 11/07/23 09:40 59 L 14 11/07/23 09:30 69 13 11/07/23 09:30 149/82 H 11/07/23 09:20 88 10 L 11/07/23 09:20 36.8 C 69 13 149/82 H 11/07/23 09:10 77 17 11/07/23 09:00 78 19 11/07/23 08:50 76 17 11/07/23 08:40 77 19 11/07/23 08:30 77 18 11/07/23 08:29 147/84 H 11/07/23 08:29 75 20 11/07/23 08:20 71 17 11/07/23 08:20 36.7 C 77 18 147/84 H 11/07/23 08:20 36.7 C 77 18 147/84 H 11/07/23 08:10 85 14 11/07/23 08:00 78 19 11/07/23 08:00 57 L 11/07/23 07:50 81 23 11/07/23 07:40 77 17 11/07/23 07:30 65 15 11/07/23 07:20 36.9 C 71 17 147/83 H 11/07/23 07:00 11/07/23 06:30 64 13 11/07/23 06:30 126/66 11/07/23 06:20 36.6 C 65 16 150/75 H 11/07/23 06:00 71 20 11/07/23 05:31 150/75 H 11/07/23 05:31 67 17 11/07/23 05:20 36.8 C 71 14 166/87 H 11/07/23 05:00 77 23 11/07/23 04:29 166/87 H 11/07/23 04:29 76 18 04/12/24 04:20 36.7 C 61 16 166/87 H Pulse Ox O2 Del Method 11/07/23 14:20 96 Room Air 11/07/23 13:21 95 Room Air 11/07/23 12:50 98 11/07/23 12:40 97 11/07/23 12:39 11/07/23 12:39 97 11/07/23 12:30 96 11/07/23 12:20 95 11/07/23 12:20 96 Room Air 11/07/23 12:10 95 11/07/23 12:00 97 11/07/23 11:50 94 11/07/23 11:40 96 11/07/23 11:39 11/07/23 11:39 94 11/07/23 11:30 97 11/07/23 11:25 11/07/23 11:20 94 Room Air 11/07/23 11:00 94 11/07/23 10:50 97 11/07/23 10:40 96 11/07/23 10:30 98 11/07/23 10:30 11/07/23 10:20 97 11/07/23 10:20 98 Room Air 11/07/23 10:10 97 11/07/23 10:00 96 11/07/23 09:50 96 11/07/23 09:40 95 11/07/23 09:30 97 11/07/23 09:30 11/07/23 09:20 95 11/07/23 09:20 97 Room Air 11/07/23 09:10 95 11/07/23 09:00 95 11/07/23 08:50 94 11/07/23 08:40 96 11/07/23 08:30 96 11/07/23 08:29 11/07/23 08:29 96 11/07/23 08:20 97 11/07/23 08:20 96 Room Air 11/07/23 08:20 96 Room Air 11/07/23 08:10 99 11/07/23 08:00 97 11/07/23 08:00 11/07/23 07:50 98 11/07/23 07:40 97 11/07/23 07:30 97 11/07/23 07:20 97 Room Air 11/07/23 07:00 97 11/07/23 06:30 96 11/07/23 06:30 11/07/23 06:20 96 Room Air 11/07/23 06:00 96 11/07/23 05:31 11/07/23 05:31 96 11/07/23 05:20 95 Room Air 11/07/23 05:00 96 11/07/23 04:29 11/07/23 04:29 96 11/07/23 04:20 97 Room Air Laboratory Results Short CBC 11/07/23 Range/Units 03:43 WBC 10.73 (4.8-10.8) K/ul Hgb 13.8 (12.0-16.0) g/dl Hct 38.8 (37.0-47.0) % Plt Count 224 (130-400) K/uL BMP 11/07/23 03:43 Sodium 136 Potassium 3.7 Chloride 103 Carbon Dioxide 26 BUN 8 Creatinine 0.60 Glucose 113 H Calcium 8.8 Medications Administered Current Inpatient Medications Aspirin (Aspirin 81 Mg Ectab) 81 mg PO QAM MARSHA Stop: 12/07/23 18:14 Atorvastatin Calcium (Atorvastatin 40 Mg Tab) 80 mg PO HS MARSHA Stop: 12/06/23 20:59 Last Admin: 11/06/23 21:59 Dose: 80 mg Dextrose (Dextrose 50% 50 Ml Syringe) 25 - 50 ml IV UD PRN; Protocol PRN Reason: Hypoglycemia Protocol Stop: 12/06/23 20:44 Fluoxetine HCl (Fluoxetine Hcl 10 Mg Cap) 10 mg PO DAILY MARSHA Stop: 12/07/23 08:59 Last Admin: 11/07/23 08:36 Dose: 10 mg Glucagon (Glucagon For Inj 1 Mg Vial) 1 mg IM UD PRN; Protocol PRN Reason: Hypoglycemia Protocol Stop: 12/06/23 20:44 Glucose (Glucose 40% Gel 15 Gm Tube) 15 - 30 gm PO UD PRN; Protocol PRN Reason: Hypoglycemia Protocol Stop: 12/06/23 20:44 Glucose (Glucose 10 Tab/Tube) 4 - 8 tab PO UD PRN; Protocol PRN Reason: Hypoglycemia Protocol Stop: 12/06/23 20:44 Insulin Aspart (Insulin Aspart Per Unit Charge) 0 units SC ACHS MARSHA Stop: 12/07/23 07:29 Last Admin: 11/07/23 17:27 Dose: 5 units Insulin Glargine (Lantus Per Unit Charge) 0 units SC BID MARSHA; Protocol Stop: 12/07/23 08:59 Miconazole Nitrate (Miconazole Nitrate Powder 85 Gm) 1 appln EXT TID [facility] Stop: 12/07/23 17:51 Miscellaneous (Carbohydrates For Hypoglycemia ) 15 - 30 gm PO UD PRN PRN Reason: Hypoglycemia Treatment Stop: 12/06/23 20:44 Miscellaneous Information (Pharmacist Discharge Med Rec Consult) 1 each N/A UD PRN PRN Reason: Consult Stop: 12/06/23 18:00 Miscellaneous Information (Pharmacy Glycemic Mgmt Consult) 1 each N/A UD PRN; Protocol PRN Reason: Consult Stop: 12/06/23 18:15 Vitamin B Complex (Vitamin B Complex Tab) 1 tab PO DAILY [facility] Stop: 12/07/23 08:59 Last Admin: 11/07/23 08:36 Dose: 1 tab
--- NOTE | 2023-11-07 16:23 | Communication Note ---
Date of Service: November 07, 2023 Neurology Update: I was unable to connect to talk with the patient due to a failure of the telemedicine equiptment. MRI reveals a small L cortical infarct that appears embolic. She is appropriately on Aspirin and lipitor currently and is s/p TNK. Echo is pending. We will attempt again when echo is completed to leave final recommendations.
--- NOTE | 2023-11-07 18:09 | CT Scan Report ---
CT head/brain wo con CLINICAL HISTORY: 24 hour post TNKase- eval for hemorrhage Technique: Contiguous axial CT images of the head were acquired from the base of the skull to the thomas pedro pablo without intravenous contrast administration. Images were viewed in brain, subdural and bone windo ws. Automated dose lowering techniques and/or adjustment according to patient size were utilized for this exam. Comparison: Comparison is made to CT head 11/06/2023 MRI brain 11/06/2023 Findings: Areas of decreased attenuation are present in the periventricular and subcortical white matter bilate rally consistent with small vessel ischemic disease. Generalized cerebral atrophy with commensurate e nlargement of the ventricles, sulci, and cisterns is also present. There is no acute intracranial hem orrhage or evidence of acute territorial infarction. No shift of the midline structures, mass effect, or extra-axial abnormalities are shown. Atherosclerotic calcifications are present in the intracran ial segments of the internal carotid arteries. Minimal hypodensity in the posterior left frontal lob e likely corresponds to known acute infarct. Left maxillary sinus opacification is seen and there is thickening of the left sphenoid sinus as well . The orbits appear normal. There are no acute fractures of the calvaria or scalp swelling. Impression: 1. No evidence of intracranial hemorrhage. Minimal hypodensity may represent correlate of known acut e infarct. 2. Left maxillary sinus disease as above. ACT 112: Negative or not required by law. Electronically signed by: Aaron Frazier M.D. 11/07/2023 6:07 PM
--- OUTSIDE RECORDS SUMMARY | 2023-11-07 18:16 | External Medical Summary | Summary of Care ---
Author Name Unknown Organization [facility] Address [address] [address] Phone [phone] Care Team Providers Care Inspector Watch Parts Name Role Phone Traci Blackmon MD Primary Care Provider [phone] Reason for Visit * Reason Onset Date Comments Health Maintenance 09/17/2023 Encounter Details Date Type Department Care Team (Late st Contact Info) Description 09/17/2023 Telephone General Internal Medicine [facility] [place] [address] [place] [address] Traci Blackmon MD [address] [place] [address] Health Maintenance Allergies Active Allergy Reactions Criticality Noted Date Comments Metformin Diarrhea 04/16/2018 Percocet 01/22/2007 Makes pt sick documented as of this encounter (statuses as of 09/17/2023) Medications Medication Sig Dispensed Refills Start Date End Date Status CALCIUM 600 TABS 600 MG OR 2 po daily 0 01/03/1999 Active Aspirin 81 MG TabletIndications:DM type 2 nursing care encounter (HCC) Take 1 Tablet by mouth in the morning. 30 Tab 0 06/23/2017 Active B Complex Vitamins (B-COMPLEX/B-12) TABS Take by mouth. 0 Active CPAP every night at bedtime. 0 Active Clotrimazole-Betameth asone 1-0.05 % External CreamIndications:Acut e vaginitis Apply topically to affected area 2 times a day. To affected area as directed. 15 g 1 04/30/2021 Active Empagliflozin 25 MG Oral Tablet (Jardiance) Take by mouth 1 Tablet in the morning. 90 Tablet 3 11/29/2021 Active Lisinopril 5 MG Oral Tablet (Prinivil) Take by mouth 1 Tablet in the morning. 90 Tablet 3 04/18/2022 Active FLUoxetine HCl 10 MG Oral Capsule (PROzac)Indications:A nxiety Take by mouth 1 Capsule in the morning. 90 Capsule 3 04/18/2022 Active Atorvastatin Calcium 80 MG Oral Tablet (Lipitor)Indications: Dyslipidemia, goal LDL below 100 Take by mouth 1 Tablet in the morning. 90 Tablet 3 04/18/2022 Active Fluconazole 150 MG Oral Tablet (Diflucan)Indications :Candidal vulvovaginitis Take 1 pill Today and repeat in 2 weeks 2 Tablet 0 04/18/2022 Active Albuterol Sulfate HFA 108 (90 Base) MCG/ACT Inhalation Aerosol SolutionIndications:U pper respiratory tract infection, unspecified type,Bronchitis Inhale 2 Puffs by mouth every 6 hours as needed for Congestion, Cough or Wheezing. 18 g 0 09/19/2022 Active Benzonatate 100 MG Oral CapsuleIndications:Up per respiratory tract infection, unspecified type,Bronchitis Take 1 Capsule by mouth 3 times a day as needed for Cough (may make you sleepy). 15 Capsule 0 09/19/2022 Active Fluticasone Propionate 50 MCG/ACT Nasal Suspension (Flonase) Administer 2 Sprays into each nostril in the morning. 16 g 5 09/26/2022 Active glipiZIDE ER 5 MG Oral Tablet Extended Release 24 HourIndications:Type 2 diabetes mellitus with hemoglobin A1c goal of less than 7.0% (HCC) Take 1 Tablet by mouth in the morning. Along with 10 mg 30 minutes before a meal. Pt doesn't know if taking or not. 90 Tablet 3 09/26/2022 Active glipiZIDE ER 10 MG Oral Tablet Extended Release 24 Hour (Glucotrol XL)Indications:Type 2 diabetes mellitus with hemoglobin A1c goal of less than 7.0% (HCC) TAKE ONE TABLET BY MOUTH EVERY MORNING 30 MINUTES BEFORE A MEAL 90 Tablet 3 12/13/2022 Active documented as of this encounter (statuses as of 09/17/2023) Active Problems Problem Noted Date Diagnosed Date Hx of nonmelanoma skin cancer 04/25/2022 Overview: BCC L upper back 2022, BCC R holiness 2021, Hx BCC L nasal root 2003 HTN, goal below 140/90 11/20/2020 Calculus of gallbladder with out cholecystitis without obstruction 08/05/2019 JAMES (generalized anxiety disorder) 09/25/2017 Family history of colon cancer 02/02/2015 Overview: Father and uncle Type 2 diabetes mellitus wit h hemoglobin A1c goal of less than 7.0% 12/03/2012 Overview: ICD-10 update of inactive term OBESITY, BMI 30-34 (SEE ACTUAL BMI) 10/19/2009 Overview: Per Obesity Taxonomy Dyslipidemia, goal LDL below 100 09/18/2009 NIDHI on CPAP 03/03/2007 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 Benign neoplasm of nose, mid dle ear and accessory sinuses 01/29/2007 08/13/2016 PURE HYPERCHOLESTEROLEM 03/01/200606/27 Overview: Per Lipid Taxonomy. Polyp of nasal cavity 02/28/20062016 ADVANCE DIRECTIVE INFORMATION 12/06/2005 11/19/2018 Overview: Information offered-declined by patient Other seborrheic keratosis 08/26/2003 0 08/13/2016 Major depressive disorder 12/06/2002 Overview: ICD-10 update of inactive term Menstruation, irregular 02/02/200207/28 Severe obesity with body mas s index (BMI) of 35.0 to 39.9 with serious comorbidity 01/08/2001 Overview: Per Obesity Taxonomy Mixed dyslipidemia 01/06/1999 9 Overview: Per Lipid Taxonomy IRON DEFIC ANEMIA NOS 01/06/19992016 CLASSICAL MIGRAINE WITHOU ME NTION OF INTRACTABLE MIGRAINE 01/20/1998 08/13/2016 OTHER AND UNSPECIFIED SLEEP APNEA 01/20/1998 08/13/2016 PREMENSTRUAL TENSION 01/20/1998 017 UTERINE LEIOMYOMA NOS - by ultrasound 01/20/1998 08/13/2016 documented as of this encounter (statuses as of 09/17/2023) Immunizations Name Administration Dates Next Due COVID-19 mRNA, LNP-s, No Pre serve, 2-Dose Series (Moderna) 08/04/2023 COVID-19 mRNA, LNP-s, No Pre serve, 2-Dose Series (Pfizer) 11/01/2021,10/09/2020,09/12/2020 Covid-19, Mrna, Lnp-s, Pf, B ivalent, 30 Mcg, IM, 12 yrs and above (Pfizer) 04/29/2022 Hepatitis B, 20+ yrs 11/02/2014,06/07/2014,03/31 Pneumococcal Conjugate Vacci ne, 20-valent ([id number]) 04/18/2022 Pneumococcal Polysaccharide PPV23 (Pneumovax) 07/29/2019,12/03/2012 Seasonal Influenza, PF, 6 M & above, IM , (FluLaval or Fluzone) 04/18/2022,04/23/2021,06/19/2020,05/27,04/16/2018,06/23/2017 Seasonal Influenza, Quadriva lent Hd, 65+ Yrs 08/04/2023 Seasonal Influenza, Quadriva lent, No Preserve, IM 05/16/2016,05/05/2015 Seasonal Influenza, Split, I IV3, With Preserve, Inj 2014,05/31/2013,05/19/2012,04/30,05/28/2010,05/28/2009,06/18/2008 ,06/04/2007 TDAP (age 10 and older)(Boostrix) 10/22/2021 TDAP (age 11 and older)(Adacel) 03/19/2010 Zoster Vaccine Recombinant (Shingrix) 07/29/2019 ,05/27/2019 documented as of this encounter Social History Tobacco Use Types Packs/Day Years Used Date Smoking Tobacco: Never Smokeless Tobacco: Never Alcohol Use Standard Drinks/Week Comments No 0 (1 standard drink = 0.6 oz pur e alcohol) None currently- due to meds. PHQ-2 Answer Date Recorded PHQ-2 Score 0 06/19/2020 Sex and Gender Information Value Date Recorded Sex Assigned at Not on file Gender Identity Not on file Sexual Orientation Not on file Job Start Date Occupation Industry Not on file Not on file Not on file documented as of this encounter Miscellaneous Notes * Telephone Encounter - Karen Horn LPN - 09/17/2023 8:45 AM EST Care Gaps Comprehensive Care Outreach Last Office/Telemedicine Visit: 09/26/2022 (in office), Visit date not found (telemedicine) Next Office Visit: Visit date not found Hemoglobin AIC Results: Lab Results Component Value Date/Time HEMOGLOBIN A1C - [facility] 8.0 (H) 09/26/2022 12:25 PM HEMOGLOBIN A1C - [facility] 9.1 (H) 04/18/2022 12:38 PM HEMOGLOBIN A1C - [facility] 9.0 (H) 10/22/2021 12:20 PM HEMOGLOBIN A1C - [facility] 8.4 (H) 05/27/2019 11:35 AM HEMOGLOBIN A1C - [facility] 6.7 (H) 11/19/2018 10:26 AM HEMOGLOBIN A1C - [facility] 6.6 (H) 07/16/2018 11:35 AM BP Readings from Last 1 Encounters: 11/04/22 118/74 Reviewed Health Maintenance below: Health Maintenance Topic Date Due Depression Screening 06/19/2021 Mammogram 02/05/2023 HbA1c 03/29/2023 DXA Scan Never done Diabetic Foot Exam 04/18/2023 Diabetic Eye Exam 09/27/2023 Albumin/Creatinine Ratio 09/27/2023 COLONOSCOPY-EVERY 3 YRS AGES 18-100 11/09/2023 GFR 09/27/2023 Ov Mamm Labs Eye tele eye? Colon october Care Gap Outreach Action Taken: Left message documented in this encounter Plan of Treatment Scheduled Procedures Name Priority Associated Diagnoses Date/Ti me COLONOSCOPY FLEXIBLE PROXIMAL DIAGNOSTIC Recall History of colon polyps Health Maintenance Due Date Last Done Comments Depression Screening 06/19/2021 06/19/2020 Mammogram 02/05/2023 02/05/2022, 01/25, 06/28/2020, Additional history exists HbA1c 03/29/2023 09/26/2022, 03/29, 10/22/2021, Additional history exists DXA Scan 2023 Diabetic Foot Exam 04/18/2023 04/18/2022, 0 04/23/2021, 06/19/2020, Additional history exists Albumin/Creatinine Ratio 09/27/2023 023, 10/22/2021, 06/19/2020, Additional history exists Diabetic Eye Exam 09/27/2023 09/26/2022, , 08/11/2017, Additional history exists GFR 09/27/2023 09/26/2022, 03/29, 10/22/2021, Additional history exists COVID-19 Vaccine (2022- season) 2023 08/04/2023, 04/29/2022, 11/01/2021, Additional history exists COLONOSCOPY-EVERY 3 YRS AGES 18-100 11/09/2023 11/08/2020, 11/08/2020, 04/10/2017, Additional history exists Lipid Panel 09/27/2027 09/26/2022, 03/29, 10/22/2021, Additional history exists DTaP,Tdap,and Td Vaccines (3 - Td or Tdap) 10/23/2031 10/22/2021, 03/19/2010, 01/02/2000 Hepatitis B Completed 11/02/2014, 05/28, 2014 Zoster Vaccines Completed 07/29/2019, 05/27/2019 Cervical Cancer Screening Discontinued Pap Smear Discontinued 04/30/2021, 03/29, 02/02/2015, Additional history exists Pneumococcal Vaccine: 65+ Years Completed 04/18/2022, 07/29/2019, 12/03/2012 Influenza Vaccine (FLU shot) Completed 08/04/2023, 04/18/2022, 04/23/2021, Additional history exists GARDASIL-HPV IMMUNIZATION SERIES Aged Out No longer eligible based on patient's age to complete this topic HPV/Co-Test Discontinued MENINGOCOCCAL (MENACTRA/MENVEO) Aged Out No longer eligible based on patient's age to complete this topic documented as of this encounter Medical Devices Not on filedocumented as of this encounter Care Teams Inspector Watch Parts Relationship Specialty Start Date End Date Traci Blackmon MD [address] [place] [address] PCP - General Internal Medicine 05/27/19 documented as of this encounter
[2023-11-07] MEDS: ASPIRIN 81 MG ECTAB PO SCH (20:06)
[2023-11-07] MEDS: MICONAZOLE NITRATE POWDER 85 GM EXT SCH (20:10)
[2023-11-07] MEDS: LANTUS PER UNIT CHARGE SC SCH (20:17)
[2023-11-07] MEDS ORDERED: INSULIN ASPART PER UNIT CHARGE SC SCH (21:00)
--- NOTE | 2023-11-07 21:47 | Electrocardiogram Report ---
Test Reason : Blood Pressure : / mmHG Vent. Rate : 057 BPM Atrial Rate : 057 BPM P-R Int : 156 ms QRS Dur : 080 ms QT Int : 410 ms P-R-T Axes : 052 000 018 degrees QTc Int : 399 ms Sinus bradycardia Cannot rule out Anterior infarct , age undetermined Abnormal ECG When compared with ECG of 01-AUG-2019 15:38, No significant change was found Confirmed by Timothy Avalos ([id number]) on 11/07/2023 9:47:19 PM Referred By: REFERRED SELF Confirmed By:Timothy Avalos
[2023-11-08 04:45] LABS: Hematocrit (blood only) 38.6 % (37.0-47.0); Hemoglobin 13.1 g/dl (12.0-16.0); Mean Corpuscular Hemoglobin 28.8 pg (25.0-34.0); Mean Corpuscular Hgb Conc 33.9 g/dL (32.0-36.0); Mean Corpuscular Volume 84.8 fL (80.0-100.0); Mean Platelet Volume 11.4 fL (9.4-12.4); Platelet Count 198 K/uL (130-400); RDW Coefficient of Variation 12.7 % (11.5-14.5); RDW Standard Deviation 38.8 fL (36.4-46.3); Red Blood Count 4.55 M/uL (4.20-5.40); White Blood Count 7.52 K/ul (4.8-10.8)
[2023-11-08 04:58] LABS: Calcium 8.7 mg/dl (8.6-10.3); Creatinine Clr Calc Pharmacy 65.1 ml/min; Est GFR (African American) 96.9 ml/min; Est GFR (Non-African American) 83.6 ml/min; Magnesium 2.1 mg/dl (1.7-2.4); Phosphorus 5.3 mg/dl (2.5-4.9); Potassium 3.7 mmol/L (3.5-5.1)
[2023-11-08] MEDS: lisinopril 5 MG TAB PO SCH (07:43)
--- NOTE | 2023-11-08 10:43 | Neurology Consultation ---
Date of Consultation November 08, 2023 Assessment & Plan (1) Acute ischemic left MCA stroke: Plan Acute left MCA iscemic stroke Type II DM Right upper extremity weakness Atherosclerosis A 63 year old female with acute left MCA embolic appearing stroke with right upper extremity weakness s/p TNK. NIHSS 1 for right arm weakness. Follow up CT head negative for hemorrhage. She was not on ASa prior to admission. Recommendations: ASA 81 mg daily, Lipitor 40 mg daily HA1c< 7 SBP< 140, DBP<90 mm Hg TTE pending 14-day Zio as outpatient PT/OT Neuro follow up in 8 weeks History of Present Illness Reason for Consultation: Right arm weakness Requesting Physician: Dr. Sabina Figueredo Attending Physician: Sabina Figueredo MD History of Present Illness A 63 year old female with type II DM presneted with acute onset right arm weakness. CVA alert was called ad patient recieve IV TNK. She had MRI follow up which confirmed left frontal emblic stroke. 24-hour CT head was Negative for hemorrhage. She denies any new or worsening symptoms. She is not on ASA regularly at home. No history of prior stroke. Denies speech changes. Allergies Allergy/AdvReac Type Severity Reaction Status Date / Time metformin AdvReac Intermediate Diarrhea Verified 11/06/23 17:15 oxycodone AdvReac Intermediate upset Verified 11/06/23 17:15 stomach Home Medications Medication Instructions Recorded Confirmed Type albuterol sulfate 90 mcg/actuation 2 puff inhalation Q6H PRN 11/06/23 11/06/23 History aerosol inhaler CONGESTION/COUGH/WHEEZING aspirin 81 mg tablet,delayed 81 mg PO DAILY 11/06/23 11/06/23 History release atorvastatin 80 mg tablet 80 mg PO DAILY 11/06/23 11/06/23 History calcium carbonate (Calcium 600) 1,200 mg PO DAILY 11/06/23 11/06/23 History clotrimazole-betamethasone 1 1 applic topical BID PRN AFFECTED 11/06/23 11/06/23 History %-0.05 % topical cream AREA empagliflozin 25 mg tablet 25 mg PO QAM 11/06/23 11/06/23 History (Jardiance) fluoxetine 10 mg tablet 10 mg PO DAILY 11/06/23 11/06/23 History fluticasone propionate 50 2 spray intranasal DAILY 11/06/23 11/06/23 History mcg/actuation nasal spray,suspension glipizide 10 mg tablet, extended 10 mg PO DAILYBB 11/06/23 11/06/23 History release 24 hr glipizide 5 mg tablet, extended 5 mg PO DAILYBB 11/06/23 11/06/23 History release 24 hr lisinopril 5 mg tablet 5 mg PO QAM 11/06/23 11/06/23 History vitamin B complex 1 tab PO DAILY 11/06/23 11/06/23 History Patient History Medical History (Updated 11/08/23 @ 11:28 by Junior Whipple DO) NIDHI (obstructive sleep apnea) Depression DM2 (diabetes mellitus, type 2) Family hx-breast malignancy Surgical History History of cataract surgery H/O brain surgery "BRAIN SURGERY USING COMPUTER 01/22/07 STEREOTACTIC COMPUTER ASSISTED VOLUMETRIC PROCEDURE performed by ELENA PIMENTEL at [place] [facility] [place] Hx of tonsillectomy Family History Other Breast cancer Social History Smoking Status: Never smoker Do You Dip or Chew Tobacco: No; Hx Alcohol Use: No Hx Substance Use: No Preferred Language: Sami Communication Ability: Effective Bridge Toll Collector Required: No Beliefs That Will Affect Care: None Current Living Situation: Alone Current Living Situation Comment: alone Other Information That Helps Us Care for You: No Feels Safe at Home: Yes Safety Concerns: Feels Safe At This Time Assistive Devices: Walker Physical Exam Physical Exam: EXAM: Constitutional: appearance normally developed Face: normocephalic and atraumatic Eyes: normal lids, normal conjunctiva Neck: supple Respiratory: normal effort Abdomen: non distended Skin: no rashes, lesions, or ulcers noted Psychiatric: normal mood and normal affect NEUROLOGIC EXAMINATION: Appearance: no acute distress Orientation: awake, alert and oriented x 3 Mental Status: alert Attention: normal Knowledge: appropriate Language: no aphasia Speech: no dysarthria Cranial Nerves: CN 2 - no visual defect on confrontation and pupils round, equal CN 3, 4, 6 - extra-ocular movements intact CN 5 - facial sensation intact CN 7 - no facial asymmetry CN 8 - intact hearing CN 9, 10 - palate symmetric CN 11 - good shoulder shrug CN 12 - tongue midline Gait: deferred Coordination: no ataxia with finger to nose testing Sensory: intact and symmetric to light touch SEVERITY SCORES: [employer] Stroke Scale: 1A. LOC: 0 1B. Question: 0 1C. Commands: 0 2. Gaze: 0 3. Visual Fonseca: 0 4. Facial Palsy: 0 5A. Arm Left: 0 5B. Arm Right: 1 6A. Leg Left: 0 6B. Leg Right: 0 7. Ataxia: 0 8. Sensory: 0 9. Aphasia: 0 10. Dysarthria: 0 11. Extinction: 0 Total: 1 Results & Data Vital Signs (Past 12 Hours) Vital Signs Pulse Resp BP Pulse Ox 11/08/23 09:33 129/68 11/08/23 09:33 63 19 129/68 95 11/08/23 08:34 56 L 14 103/59 L 11/08/23 07:35 70 19 138/95 95 11/08/23 07:00 54 L 15 94 11/08/23 06:34 59 L 14 97 11/08/23 06:34 156/85 H 11/08/23 06:00 52 L 19 95 11/08/23 05:34 59 L 17 94 11/08/23 05:34 123/64 11/08/23 05:00 58 L 16 98 11/08/23 04:34 132/73 11/08/23 04:34 60 18 11/08/23 04:00 54 L 17 95 11/08/23 03:34 136/76 11/08/23 03:34 61 16 11/08/23 03:22 60 18 96 11/08/23 03:00 57 L 15 96 11/08/23 02:00 63 18 95 11/08/23 01:00 63 19 96 11/08/23 00:00 67 15 96 11/07/23 23:55 108/69 11/07/23 23:55 65 16 97 11/07/23 23:00 67 12 97 11/07/23 22:55 65 19 96 11/07/23 22:55 174/66 H Laboratory Results Ha1C: 8 Diagnostic Findings MR Head Without Intravenous Contrast CLINICAL HISTORY: Reason for exam: eval for CVA- right arm weakness s/p TNKASE. TECHNIQUE: Magnetic resonance images of the head/brain without intravenous contrast in multiple planes. COMPARISON: Comparison made to prior head CT from November 06, 2023. FINDINGS: Brain: There is a single small acute ischemic injury in the posterior left frontal lobe. Mild nonspecific white matter changes. No mass. No hemorrhage. The flow voids at the base of the brain are intact. Empty sella with enlarged diaphragmatic sellae. Ventricles: Mild ventriculomegaly. Bones/joints: Unremarkable. No acute fracture. Sinuses: Chronic ethmoid and sphenoid sinusitis. No acute sinusitis. Mastoid air cells: Visiting amount of fluid in the mastoid air cells. No mastoid effusion. Orbits: Bilateral lens replacements. IMPRESSION: There is a single small acute ischemic injury of the posterior left frontal lobe. CT head/brain wo con CLINICAL HISTORY: 24 hour post TNKase- eval for hemorrhage Technique: Contiguous axial CT images of the head were acquired from the base of the skull to the vertex without intravenous contrast administration. Images were viewed in brain, subdural and bone windows. Automated dose lowering techniques and/or adjustment according to patient size were utilized for this exam. Comparison: Comparison is made to CT head 11/06/2023 MRI brain 11/06/2023 Findings: Areas of decreased attenuation are present in the periventricular and subcortical white matter bilaterally consistent with small vessel ischemic disease. Generalized cerebral atrophy with commensurate enlargement of the ventricles, sulci, and cisterns is also present. There is no acute intracranial hemorrhage or evidence of acute territorial infarction. No shift of the midline structures, mass effect, or extra-axial abnormalities are shown. Atherosclerotic calcifications are present in the intracranial segments of the internal carotid arteries. Minimal hypodensity in the posterior left frontal lobe likely corresponds to known acute infarct. Left maxillary sinus opacification is seen and there is thickening of the left sphenoid sinus as well. The orbits appear normal. There are no acute fractures of the calvaria or scalp swelling. Impression: 1. No evidence of intracranial hemorrhage. Minimal hypodensity may represent correlate of known acute infarct. 2. Left maxillary sinus disease as above.
--- NOTE | 2023-11-08 12:17 | Electrocardiogram Report ---
Test Reason : Blood Pressure : / mmHG Vent. Rate : 050 BPM Atrial Rate : 050 BPM P-R Int : 134 ms QRS Dur : 082 ms QT Int : 446 ms P-R-T Axes : 041 -04 022 degrees QTc Int : 406 ms Sinus bradycardia Poor R wave progression, consider anterior UT vs. lead placement vs. LVH Abnormal ECG When compared with ECG of 06-NOV-2023 16:33, No significant change was found Confirmed by Scott Pino ([id number]) on 11/08/2023 12:17:13 PM Referred By: REFERRED SELF Confirmed By:Scott Pino
--- NOTE | 2023-11-08 13:03 | Hospitalist Progress Note ---
Date of Service November 08, 2023 Assessment & Plan (1) RUE weakness: Plan: Persisting (2) Stroke-like symptom: Plan: RUE weakness Per telestroke neurologist - suspected Acute ischemic stroke in the left hemisphere Telestroke consulted and pt received TNK - pt will be further closely monitored in ICU, will need neurochecks per protocol and repeat CT head MRI did show a single small acute ischemic injury of the posterior left frontal lobe Repeat CT scan following TNK did not show any evidence of bleeding or any stroke Right upper extremity weakness persist No other significant neurological deficit on examination Echo of the heart showed-EF 60 to 65%, mild concentric LVH, trace aortic regurgitation, trace tricuspid regurgitation, Doppler findings do not suggest pu lmonary hypertension, small loculated apical and right lateral pericardial effusions with moderate organization, there are no echo or graft cardiographic indication of cardiac murmur Lipid panel is unremarkable Hemoglobin A1c is very high at 13.8 Neurology consult-awaited Restart pt's home statin (which she reportedly did not take in months) At home also reportedly on lisinopril - will hold for now, and will cont. to closely monitor BP - allow for permissive HTN- likely will restart lisinopril on discharge Remains medically stable but the right upper extremity weakness persist We will continue with the physical therapy Imaging studies: CT head- No acute intracranial abnormality. CTA head/neck- 1. Moderate to severe stenosis within the supraclinoid segments of the bilateral intracranial ICAs. 2. Mild to moderate multifocal narrowing within the proximal bilateral paper pattern folder most pronounced on the right. 3. No evidence for arterial occlusion or aneurysm. IMPRESSION: 1. Atherosclerosis of the carotid bulbs without significant stenosis. 2. Moderate to severe stenosis within the supraclinoid segments of the internal carotid arteries, partially imaged. 3. Incidental findings as above. Ultrasound of the carotid arteries-no significant stenosis (3) DM2 (diabetes mellitus, type 2): Plan: - per EMR - pcp record pt is supposed to be on Jardiance and glipizide, but pt has not taken any meds for months Hgb A1c in September 2022 was 8.0% Pt found hyperglycemic in the ED, and glycemic pharmacy was consulted - will check [id number] at 13.8 - cont. w/ insulin while inpt - nurse informatics educator / counseling before discharge recommended -Blood sugar has been running minimally high at 1 68-1 82 Continue with current coverage (4) NIDHI (obstructive sleep apnea): Plan: - per EMR records, will order cpap -Has been getting CPAP/BiPAP Generalized anxiety disorder - cont. home prozac DVT prophylaxis Will start subcu heparin Admission and Anticipated Discharge Date Admission Date: November 06, 2023 Subjective 11/07/2023 The patient was seen and examined in ICU Still complains to have right upper extremity weakness Has some incoordination in upper extremities as well No other significant neurodeficit 11/08/2023 The patient was seen and examined in ICU She remains stable without any new neurological deficit Still has right upper extremity weakness Denies any other significant symptoms Review of Systems Review of Systems: All systems reviewed and are unremarkable except as noted below Physical Exam Physical Exam: Lying in bed without any acute distress Constitutional: well developed, well nourished, + ill appearing and + obese Eyes: PERRL, conjunctivae normal, anicteric sclerae ENMT: external ear and nose normal, oropharynx normal Neck: trachea midline, no thyromegaly Respiratory: no respiratory distress Auscultation: lungs clear to auscultation bilaterally Cardiovascular: Rate/Rhythm: regular rate, regular rhythm and + bradycardic Heart Sounds: normal S1 and normal S2; no murmur Extremities: no edema Gastrointestinal (Abdomen): Inspection/Auscultation: normal bowel sounds; abdomen not distended Percussion/Palpation: abdomen soft; abdomen nontender Musculoskeletal: No acute arthritis involving any of the joint Neurologic: Alert, awake and oriented x 3. Right upper extremity weakness 3/5. No other neurodeficit Lymphatic: no cervical or axillary lymphadenopathy Results & Data Results & Data Vital Signs (Past 12 Hours) Vital Signs Temp Pulse Resp BP Pulse Ox O2 Del Method 11/08/23 12:00 63 19 130/76 93 Room Air 11/08/23 09:33 129/68 11/08/23 09:33 63 19 129/68 95 11/08/23 08:34 56 L 14 103/59 L 11/08/23 08:00 36.4 C L 11/08/23 07:35 70 19 138/95 95 11/08/23 07:00 54 L 15 94 11/08/23 06:34 59 L 14 97 11/08/23 06:34 156/85 H 11/08/23 06:00 52 L 19 95 04/13/24 05:34 59 L 17 94 11/08/23 05:34 123/64 11/08/23 05:00 58 L 16 98 11/08/23 04:34 132/73 11/08/23 04:34 60 18 11/08/23 04:00 54 L 17 95 11/08/23 03:34 136/76 11/08/23 03:34 61 16 11/08/23 03:22 60 18 96 11/08/23 03:00 57 L 15 96 11/08/23 02:00 63 18 95 11/08/23 01:00 63 19 96 Laboratory Results Short CBC 11/08/23 Range/Units 04:30 WBC 7.52 (4.8-10.8) K/ul Hgb 13.1 (12.0-16.0) g/dl Hct 38.6 (37.0-47.0) % Plt Count 198 (130-400) K/uL BMP 11/08/23 04:30 Sodium 137 Potassium 3.7 Chloride 105 Carbon Dioxide 27 BUN 9 Creatinine 0.75 Glucose 178 H Calcium 8.7 Medications Administered Current Inpatient Medications Aspirin (Aspirin 81 Mg Ectab) 81 mg PO QAM [facility] Stop: 12/07/23 18:14 Last Admin: 11/08/23 07:43 Dose: 81 mg Atorvastatin Calcium (Atorvastatin 40 Mg Tab) 80 mg PO HS [facility] Stop: 12/06/23 20:59 Last Admin: 11/07/23 20:06 Dose: 80 mg Dextrose (Dextrose 50% 50 Ml Syringe) 25 - 50 ml IV UD PRN; Protocol PRN Reason: Hypoglycemia Protocol Stop: 12/06/23 20:44 Fluoxetine HCl (Fluoxetine Hcl 10 Mg Cap) 10 mg PO DAILY [facility] Stop: 12/07/23 08:59 Last Admin: 11/08/23 07:43 Dose: 10 mg Glucagon (Glucagon For Inj 1 Mg Vial) 1 mg IM UD PRN; Protocol PRN Reason: Hypoglycemia Protocol Stop: 12/06/23 20:44 Glucose (Glucose 40% Gel 15 Gm Tube) 15 - 30 gm PO UD PRN; Protocol PRN Reason: Hypoglycemia Protocol Stop: 12/06/23 20:44 Glucose (Glucose 10 Tab/Tube) 4 - 8 tab PO UD PRN; Protocol PRN Reason: Hypoglycemia Protocol Stop: 12/06/23 20:44 Insulin Aspart (Insulin Aspart Per Unit Charge) 0 units SC ACHS [facility] Stop: 12/07/23 07:29 Last Admin: 11/08/23 11:35 Dose: 4 units Insulin Glargine (Lantus Per Unit Charge) 0 units SC BID [facility]; Protocol Stop: 12/07/23 08:59 Last Admin: 11/08/23 07:49 Dose: 8 units Lisinopril (Lisinopril 5 Mg Tab) 5 mg PO QAM [facility] Stop: 12/08/23 08:59 Last Admin: 11/08/23 07:43 Dose: 5 mg Miconazole Nitrate (Miconazole Nitrate Powder 85 Gm) 1 appln EXT TID [facility] Stop: 12/07/23 17:51 Last Admin: 11/08/23 11:36 Dose: 1 appln Miscellaneous (Carbohydrates For Hypoglycemia ) 15 - 30 gm PO UD PRN PRN Reason: Hypoglycemia Treatment Stop: 12/06/23 20:44 Miscellaneous Information (Pharmacist Discharge Med Rec Consult) 1 each N/A UD PRN PRN Reason: Consult Stop: 12/06/23 18:00 Miscellaneous Information (Pharmacy Glycemic Mgmt Consult) 1 each N/A UD PRN; Protocol PRN Reason: Consult Stop: 12/06/23 18:15 Vitamin B Complex (Vitamin B Complex Tab) 1 tab PO DAILY [facility] Stop: 12/07/23 08:59 Last Admin: 11/08/23 07:43 Dose: 1 tab
[2023-11-08] MEDS: HEPARIN SOD 5,000 UNIT/0.5 ML VIAL SQ STA (15:13)
[2023-11-08] MEDS: HEPARIN SOD 5,000 UNIT/0.5 ML VIAL SQ SCH (20:29)
--- NOTE | 2023-11-09 12:50 | Hospitalist Progress Note ---
Date of Service November 09, 2023 Assessment & Plan (1) RUE weakness: Plan: Persisting (2) Stroke-like symptom: Plan: RUE weakness Per telestroke neurologist - suspected Acute ischemic stroke in the left hemisphere Telestroke consulted and pt received TNK - pt will be further closely monitored in ICU, will need neurochecks per protocol and repeat CT head MRI did show a single small acute ischemic injury of the posterior left frontal lobe Repeat CT scan following TNK did not show any evidence of bleeding or any stroke Right upper extremity weakness persist No other significant neurological deficit on examination Echo of the heart showed-EF 60 to 65%, mild concentric LVH, trace aortic regurgitation, trace tricuspid regurgitation, Doppler findings do not suggest pu lmonary hypertension, small loculated apical and right lateral pericardial effusions with moderate organization, there are no echo or graft cardiographic indication of cardiac murmur Lipid panel is unremarkable Hemoglobin A1c is very high at 13.8 Neurology consult-awaited Restart pt's home statin (which she reportedly did not take in months) At home also reportedly on lisinopril - will hold for now, and will cont. to closely monitor BP - allow for permissive HTN- likely will restart lisinopril on discharge Remains medically stable but the right upper extremity weakness persist Slight improvement of the right upper extremity Has had PT and OT recommended rehab Likely discharge Friday if accepted to rehab at [facility] Imaging studies: CT head- No acute intracranial abnormality. CTA head/neck- 1. Moderate to severe stenosis within the supraclinoid segments of the bilateral intracranial ICAs. 2. Mild to moderate multifocal narrowing within the proximal bilateral manager new product most pronounced on the right. 3. No evidence for arterial occlusion or aneurysm. IMPRESSION: 1. Atherosclerosis of the carotid bulbs without significant stenosis. 2. Moderate to severe stenosis within the supraclinoid segments of the internal carotid arteries, partially imaged. 3. Incidental findings as above. Ultrasound of the carotid arteries-no significant stenosis (3) DM2 (diabetes mellitus, type 2): Plan: - per EMR - pcp record pt is supposed to be on Jardiance and glipizide, but pt has not taken any meds for months Hgb A1c in September 2022 was 8.0% Pt found hyperglycemic in the ED, and glycemic pharmacy was consulted - will check [id number] at 13.8 - cont. w/ insulin while inpt - peer educator / counseling before discharge recommended -Blood sugar has been running minimally high at 1 68-1 82 Continue with current coverage Blood sugar seems to be stable (4) NIDHI (obstructive sleep apnea): Plan: - per EMR records, will order cpap -Has been getting CPAP/BiPAP Generalized anxiety disorder - cont. home prozac DVT prophylaxis Will start subcu heparin Admission and Anticipated Discharge Date Admission Date: November 06, 2023 Subjective 11/07/2023 The patient was seen and examined in ICU Still complains to have right upper extremity weakness Has some incoordination in upper extremities as well No other significant neurodeficit 11/08/2023 The patient was seen and examined in ICU She remains stable without any new neurological deficit Still has right upper extremity weakness Denies any other significant symptoms 11/09/2023 The patient was seen and examined in ICU in the setting of PCU She has been stable Her right upper extremity weakness seems to be a little better Denies any other symptoms Review of Systems Review of Systems: All systems reviewed and are unremarkable except as noted below Physical Exam Physical Exam: Lying in bed without any acute distress Constitutional: well developed, well nourished, + ill appearing and + obese Eyes: PERRL, conjunctivae normal, anicteric sclerae ENMT: external ear and nose normal, oropharynx normal Neck: trachea midline, no thyromegaly Respiratory: no respiratory distress Auscultation: lungs clear to auscultation bilaterally Cardiovascular: Rate/Rhythm: regular rate, regular rhythm and + bradycardic Heart Sounds: normal S1 and normal S2; no murmur Extremities: no edema Gastrointestinal (Abdomen): Inspection/Auscultation: normal bowel sounds; abdomen not distended Percussion/Palpation: abdomen soft; abdomen nontender Musculoskeletal: No acute arthritis involving any of the joints Neurologic: normal touch/pain/proprioception, moves all extremities and + focal motor deficit (Right upper extremity is weaker than the rest of the extremities) Psychiatric: A+Ox3, euthymic affect Lymphatic: no cervical or axillary lymphadenopathy Results & Data Results & Data Vital Signs (Past 12 Hours) Vital Signs Temp Pulse Resp BP Pulse Ox 11/09/23 08:01 35.9 C L 11/09/23 08:00 58 L 15 96 11/09/23 07:58 69 15 96 11/09/23 07:58 101/62 11/09/23 07:50 74 30 H 96 11/09/23 07:40 74 15 97 11/09/23 07:30 54 L 9 L 97 11/09/23 07:20 67 20 97 11/09/23 07:10 51 L 15 97 11/09/23 07:00 49 L 17 97 11/09/23 06:50 49 L 17 97 11/09/23 06:47 53 L 11/09/23 06:40 52 L 18 97 11/09/23 06:30 53 L 17 97 11/09/23 06:20 51 L 14 97 11/09/23 06:13 122/82 11/09/23 06:13 62 15 98 11/09/23 06:00 71 18 98 11/09/23 05:00 52 L 18 96 11/09/23 04:13 48 L 17 96 11/09/23 04:13 106/58 L 11/09/23 04:00 49 L 17 96 11/09/23 03:00 48 L 17 97 11/09/23 02:56 52 L 17 96 11/09/23 02:13 103/57 L 11/09/23 02:13 51 L 18 96 11/09/23 02:00 51 L 16 96 11/09/23 01:00 52 L 20 97 Medications Administered Current Inpatient Medications Aspirin (Aspirin 81 Mg Ectab) 81 mg PO QAM [facility] Stop: 12/07/23 18:14 Last Admin: 11/09/23 08:02 Dose: 81 mg Atorvastatin Calcium (Atorvastatin 40 Mg Tab) 80 mg PO HS [facility] Stop: 12/06/23 20:59 Last Admin: 11/08/23 20:28 Dose: 80 mg Dextrose (Dextrose 50% 50 Ml Syringe) 25 - 50 ml IV UD PRN; Protocol PRN Reason: Hypoglycemia Protocol Stop: 12/06/23 20:44 Fluoxetine HCl (Fluoxetine Hcl 10 Mg Cap) 10 mg PO DAILY [facility] Stop: 12/07/23 08:59 Last Admin: 11/09/23 08:02 Dose: 10 mg Glucagon (Glucagon For Inj 1 Mg Vial) 1 mg IM UD PRN; Protocol PRN Reason: Hypoglycemia Protocol Stop: 12/06/23 20:44 Glucose (Glucose 40% Gel 15 Gm Tube) 15 - 30 gm PO UD PRN; Protocol PRN Reason: Hypoglycemia Protocol Stop: 12/06/23 20:44 Glucose (Glucose 10 Tab/Tube) 4 - 8 tab PO UD PRN; Protocol PRN Reason: Hypoglycemia Protocol Stop: 12/06/23 20:44 Heparin Sodium (Porcine) (Heparin Sod 5,000 Unit/0.5 Ml Vial) 5,000 units SQ Q12 [facility] Stop: 12/08/23 20:59 Last Admin: 11/09/23 08:02 Dose: 5,000 units Insulin Aspart (Insulin Aspart Per Unit Charge) 0 units SC ACHS [facility] Stop: 12/07/23 07:29 Last Admin: 11/09/23 08:04 Dose: 3 units Insulin Glargine (Lantus Per Unit Charge) 0 units SC BID [facility]; Protocol Stop: 12/07/23 08:59 Last Admin: 11/09/23 08:03 Dose: 8 units Lisinopril (Lisinopril 5 Mg Tab) 5 mg PO QAM [facility] Stop: 12/08/23 08:59 Last Admin: 11/09/23 08:02 Dose: 5 mg Miconazole Nitrate (Miconazole Nitrate Powder 85 Gm) 1 appln EXT TID [facility] Stop: 12/07/23 17:51 Last Admin: 11/09/23 08:02 Dose: 1 appln Miscellaneous (Carbohydrates For Hypoglycemia ) 15 - 30 gm PO UD PRN PRN Reason: Hypoglycemia Treatment Stop: 12/06/23 20:44 Miscellaneous Information (Pharmacist Discharge Med Rec Consult) 1 each N/A UD PRN PRN Reason: Consult Stop: 12/06/23 18:00 Miscellaneous Information (Pharmacy Glycemic Mgmt Consult) 1 each N/A UD PRN; Protocol PRN Reason: Consult Stop: 12/06/23 18:15 Vitamin B Complex (Vitamin B Complex Tab) 1 tab PO DAILY [facility] Stop: 12/07/23 08:59 Last Admin: 11/09/23 08:02 Dose: 1 tab
[2023-11-10 04:58] LABS: Basophils # (auto) 0.05 K/uL (0.00-0.20); Basophils % (auto) 0.7 %; Eosinophils # (auto) 0.32 K/uL (0.00-0.50); Eosinophils % (auto) 4.8 %; Hematocrit (blood only) 37.7 % (37.0-47.0); Hemoglobin 12.5 g/dl (12.0-16.0); Immature Granulocytes # (auto) 0.02 K/uL (0.01-0.20); Immature Granulocytes % (auto) 0.3 %; Lymphocytes # (auto) 3.26 K/uL (1.20-3.40); Lymphocytes % (auto) 48.7 %; Mean Corpuscular Hemoglobin 28.7 pg (25.0-34.0); Mean Corpuscular Hgb Conc 33.2 g/dL (32.0-36.0); Mean Corpuscular Volume 86.7 fL (80.0-100.0); Mean Platelet Volume 11.1 fL (9.4-12.4); Monocytes # (auto) 0.44 K/uL (0.11-0.59); Monocytes % (auto) 6.6 %; Neutrophils # (auto) 2.61 K/uL (1.40-6.50); Neutrophils % (auto) 38.9 %; Platelet Count 223 K/uL (130-400); RDW Coefficient of Variation 12.6 % (11.5-14.5); RDW Standard Deviation 39.8 fL (36.4-46.3); Red Blood Count 4.35 M/uL (4.20-5.40)
[2023-11-10 05:13] LABS: BUN Creatinine Ratio 25.7 (10-20); Calcium 8.7 mg/dl (8.6-10.3); Est GFR (African American) 98.5 ml/min; Magnesium 1.8 mg/dl (1.7-2.4); Phosphorus 4.3 mg/dl (2.5-4.9); Potassium 4.3 mmol/L (3.5-5.1)
--- NOTE | 2023-11-10 07:51 | Pharmacy Report ---
Pharmacy Glycemic Short Note 2 - Date of Service November 10, 2023 - Glycemic Short BSG Results (Last 24 hours): 11/09/23 11/09/23 11/09/23 11:26 16:12 20:28 Glucose POC Glucose 147 H 161 H 114 H 11/10/23 11/10/23 04:23 07:10 Glucose 153 H POC Glucose 159 H OUTPATIENT ANTIDIABETIC REGIMEN: * Empagliflozin, glipizide (note - per H&P, patient has not taken any meds for months) * HbA1c 13/8% ASSESSMENT: 11/09: * Patient's blood glucose well controlled over the past 24 hours ([phone] mg/dL) with fasting BSG 153 mg/dL this morning. Patient received 22 units over the past 24 hours, 8 of which was basal. Will adjust BSG threshold on lantus scale slightly, but otherwise continue current regimen. * Patient is ordered a diet and is eating consistently. 11/06 * 63 yo F with T2DM admitted with CVA. Hyperglycemia initially responded well to a one-time dose of IV insulin and initiation of a moderate-severe stress Novolog regimen with a moderate dose of Lantus. BSG's trended down from 457 to 110 mg/dL. * This AM, originally loosened Novolog to moderate stress estimate due to the significant downtrend in BSG's. * Of note, patient consumed sherbert prior to her AM/breakfast check (therefore the 220 mg/dL this AM was post-prandial) - covered CHO only for that check and held additional Lantus. However, lunch BSG now also elevated. Confirmed w RN - no snacking prior to this check. Will therefore tighten Novolog regimen slightly * Will add Lantus scale for this evening. PLAN FOR INPATIENT GLYCEMIC CONTROL: * Hold outpatient oral diabetes medications * Basal insulin * Lantus 8 units BID (hold for BSG less than 120 mg/dL) * Bolus insulin * NovoLog per scale ACHS or Q6hrs while NPO * Goal Range: Low 120 mg/dL - High 160 mg/dL * Correction Factor: 35 mg/dL/unit * Nutritional / Prandial insulin per carb ratio of 1 unit per 11 grams CHO consumed
--- NOTE | 2023-11-10 08:49 | Pharmacy Report ---
- Date of Service November 10, 2023 - Pharmacy CVA/TIA Medication Review Medications to Prevent Stroke handout has been added to the patients discharge packet. Antiplatelet(s) * Aspirin 81 mg daily Cholesterol * High intensity statin: atorvastatin 80 mg daily ordered DVT Prophylaxis * Heparin SQ Therapeutic Anticoagulation * No history of Afib/Aflutter noted Type 2 Diabetes * Patient has T2DM and patient is prescribed empagliflozin
--- NOTE | 2023-11-10 13:39 | Hospitalist Progress Note ---
Date of Service November 10, 2023 Assessment & Plan (1) RUE weakness: Plan: Persisting (2) Stroke-like symptom: Plan: RUE weakness Per telestroke neurologist - suspected Acute ischemic stroke in the left hemisphere Telestroke consulted and pt received TNK - pt will be further closely monitored in ICU, will need neurochecks per protocol and repeat CT head MRI did show a single small acute ischemic injury of the posterior left frontal lobe Repeat CT scan following TNK did not show any evidence of bleeding or any stroke Right upper extremity weakness persist No other significant neurological deficit on examination Echo of the heart showed-EF 60 to 65%, mild concentric LVH, trace aortic regurgitation, trace tricuspid regurgitation, Doppler findings do not suggest pu lmonary hypertension, small loculated apical and right lateral pericardial effusions with moderate organization, there are no echo or graft cardiographic indication of cardiac murmur Lipid panel is unremarkable Hemoglobin A1c is very high at 13.8 Neurology consult-awaited Restart pt's home statin (which she reportedly did not take in months) At home also reportedly on lisinopril - will hold for now, and will cont. to closely monitor BP - allow for permissive HTN- likely will restart lisinopril on discharge Remains medically stable but the right upper extremity weakness persist Slight improvement of the right upper extremity Has had PT and OT recommended rehab Clinically stable with further improvement of the right upper extremity weakness Awaiting placement Imaging studies: CT head- No acute intracranial abnormality. CTA head/neck- 1. Moderate to severe stenosis within the supraclinoid segments of the bilateral intracranial ICAs. 2. Mild to moderate multifocal narrowing within the proximal bilateral veterinary surgeon most pronounced on the right. 3. No evidence for arterial occlusion or aneurysm. IMPRESSION: 1. Atherosclerosis of the carotid bulbs without significant stenosis. 2. Moderate to severe stenosis within the supraclinoid segments of the internal carotid arteries, partially imaged. 3. Incidental findings as above. Ultrasound of the carotid arteries-no significant stenosis (3) DM2 (diabetes mellitus, type 2): Plan: - per EMR - pcp record pt is supposed to be on Jardiance and glipizide, but pt has not taken any meds for months Hgb A1c in September 2022 was 8.0% Pt found hyperglycemic in the ED, and glycemic pharmacy was consulted - will check [id number] at 13.8 - cont. w/ insulin while inpt - certified diabetes educator / counseling before discharge recommended -Blood sugar has been running minimally high at 1 68-1 82 Continue with current coverage Blood sugar seems to be stable No acute issues with hypoglycemia or hyperglycemia (4) NIDHI (obstructive sleep apnea): Plan: - per EMR records, will order cpap -Has been getting CPAP/BiPAP -Advised to continue to use CPAP Generalized anxiety disorder - cont. home prozac DVT prophylaxis Will start subcu heparin Likely discharge when accepted to a facility Admission and Anticipated Discharge Date Admission Date: November 06, 2023 Subjective 11/07/2023 The patient was seen and examined in ICU Still complains to have right upper extremity weakness Has some incoordination in upper extremities as well No other significant neurodeficit 11/08/2023 The patient was seen and examined in ICU She remains stable without any new neurological deficit Still has right upper extremity weakness Denies any other significant symptoms 11/09/2023 The patient was seen and examined in ICU in the setting of PCU She has been stable Her right upper extremity weakness seems to be a little better Denies any other symptoms 11/10/2023 The patient was seen and examined in ICU in the setting of PCU She has been feeling much better She is out of bed on a chair and denies any significant symptoms Her right upper extremity weakness has been improving Review of Systems Review of Systems: All systems reviewed and are unremarkable except as noted below Physical Exam Physical Exam: Lying in bed without any acute distress Constitutional: well developed, well nourished, + ill appearing and + obese Eyes: PERRL, conjunctivae normal, anicteric sclerae ENMT: external ear and nose normal, oropharynx normal Neck: trachea midline, no thyromegaly Respiratory: no respiratory distress Auscultation: lungs clear to auscultation bilaterally Cardiovascular: Rate/Rhythm: regular rate, regular rhythm and + bradycardic Heart Sounds: normal S1 and normal S2; no murmur Extremities: no edema Gastrointestinal (Abdomen): Inspection/Auscultation: normal bowel sounds; abdomen not distended Percussion/Palpation: abdomen soft; abdomen nontender Neurologic: normal touch/pain/proprioception, moves all extremities and + focal motor deficit (Right upper extremity is weaker than the rest of the extremities) Psychiatric: A+Ox3, euthymic affect Lymphatic: no cervical or axillary lymphadenopathy Results & Data Results & Data Vital Signs (Past 12 Hours) Vital Signs Temp Pulse Pulse Resp BP BP Pulse Ox 11/10/23 09:00 45 L 11/10/23 07:28 36.8 C 70 16 129/87 98 11/10/23 07:00 44 L 13 98 11/10/23 06:00 44 L 14 96 11/10/23 05:22 118/53 L 11/10/23 05:22 49 L 16 11/10/23 05:00 45 L 10 L 97 11/10/23 04:00 36.5 C 11/10/23 04:00 41 L 9 L 97 11/10/23 03:22 117/55 L 11/10/23 03:22 44 L 21 95 11/10/23 03:00 44 L 14 97 11/10/23 02:01 48 L 17 97 11/10/23 02:00 52 L 18 96 O2 Del Method 11/10/23 09:00 11/10/23 07:28 Room Air 11/10/23 07:00 11/10/23 06:00 11/10/23 05:22 11/10/23 05:22 11/10/23 05:00 11/10/23 04:00 11/10/23 04:00 11/10/23 03:22 11/10/23 03:22 11/10/23 03:00 11/10/23 02:01 11/10/23 02:00 Laboratory Results Short CBC 11/10/23 Range/Units 04:23 WBC 6.70 (4.8-10.8) K/ul Hgb 12.5 (12.0-16.0) g/dl Hct 37.7 (37.0-47.0) % Plt Count 223 (130-400) K/uL BMP 11/10/23 04:23 Sodium 138 Potassium 4.3 Chloride 106 Carbon Dioxide 27 BUN 19 Creatinine 0.74 Glucose 153 H Calcium 8.7 Medications Administered Current Inpatient Medications Aspirin (Aspirin 81 Mg Ectab) 81 mg PO QAM [facility] Stop: 12/07/23 18:14 Last Admin: 11/10/23 08:18 Dose: 81 mg Atorvastatin Calcium (Atorvastatin 40 Mg Tab) 80 mg PO HS [facility] Stop: 12/06/23 20:59 Last Admin: 11/09/23 20:33 Dose: 80 mg Dextrose (Dextrose 50% 50 Ml Syringe) 25 - 50 ml IV UD PRN; Protocol PRN Reason: Hypoglycemia Protocol Stop: 12/06/23 20:44 Fluoxetine HCl (Fluoxetine Hcl 10 Mg Cap) 10 mg PO DAILY [facility] Stop: 12/07/23 08:59 Last Admin: 11/10/23 08:18 Dose: 10 mg Glucagon (Glucagon For Inj 1 Mg Vial) 1 mg IM UD PRN; Protocol PRN Reason: Hypoglycemia Protocol Stop: 12/06/23 20:44 Glucose (Glucose 40% Gel 15 Gm Tube) 15 - 30 gm PO UD PRN; Protocol PRN Reason: Hypoglycemia Protocol Stop: 12/06/23 20:44 Glucose (Glucose 10 Tab/Tube) 4 - 8 tab PO UD PRN; Protocol PRN Reason: Hypoglycemia Protocol Stop: 12/06/23 20:44 Heparin Sodium (Porcine) (Heparin Sod 5,000 Unit/0.5 Ml Vial) 5,000 units SQ Q12 [facility] Stop: 12/08/23 20:59 Last Admin: 11/10/23 08:18 Dose: 5,000 units Insulin Aspart (Insulin Aspart Per Unit Charge) 0 units SC ACHS [facility] Stop: 12/07/23 07:29 Last Admin: 11/10/23 12:04 Dose: 7 units Insulin Glargine (Lantus Per Unit Charge) 0 units SC BID [facility]; Protocol Stop: 12/07/23 08:59 Last Admin: 11/10/23 08:18 Dose: 8 units Lisinopril (Lisinopril 5 Mg Tab) 5 mg PO QAM [facility] Stop: 12/08/23 08:59 Last Admin: 11/10/23 08:19 Dose: 5 mg Miconazole Nitrate (Miconazole Nitrate Powder 85 Gm) 1 appln EXT TID [facility] Stop: 12/07/23 17:51 Last Admin: 11/10/23 08:19 Dose: 1 appln Miscellaneous (Carbohydrates For Hypoglycemia ) 15 - 30 gm PO UD PRN PRN Reason: Hypoglycemia Treatment Stop: 12/06/23 20:44 Miscellaneous Information (Pharmacy Glycemic Mgmt Consult) 1 each N/A UD PRN; Protocol PRN Reason: Consult Stop: 12/06/23 18:15 Vitamin B Complex (Vitamin B Complex Tab) 1 tab PO DAILY [facility] Stop: 12/07/23 08:59 Last Admin: 11/10/23 08:19 Dose: 1 tab
[2023-11-11] MEDS: LANTUS PER UNIT CHARGE SC SCH (09:35)
--- NOTE | 2023-11-11 10:45 | Hospitalist Progress Note ---
Date of Service November 11, 2023 Assessment & Plan (1) RUE weakness: Plan: Persisting (2) Stroke-like symptom: Plan: RUE weakness Per telestroke neurologist - suspected Acute ischemic stroke in the left hemisphere Telestroke consulted and pt received TNK - pt will be further closely monitored in ICU, will need neurochecks per protocol and repeat CT head MRI did show a single small acute ischemic injury of the posterior left frontal lobe Repeat CT scan following TNK did not show any evidence of bleeding or any stroke Right upper extremity weakness persist No other significant neurological deficit on examination Echo of the heart showed-EF 60 to 65%, mild concentric LVH, trace aortic regurgitation, trace tricuspid regurgitation, Doppler findings do not suggest pu lmonary hypertension, small loculated apical and right lateral pericardial effusions with moderate organization, there are no echo or graft cardiographic indication of cardiac murmur Lipid panel is unremarkable Hemoglobin A1c is very high at 13.8 Neurology consult-awaited Restart pt's home statin (which she reportedly did not take in months) At home also reportedly on lisinopril - will hold for now, and will cont. to closely monitor BP - allow for permissive HTN- likely will restart lisinopril on discharge Remains medically stable but the right upper extremity weakness persist Slight improvement of the right upper extremity Has had PT and OT recommended rehab Clinically stable with further improvement of the right upper extremity weakness Right upper extremity weakness has been improving She denies any other significant symptoms and will be transferred to [facility] to continue physical therapy Imaging studies: CT head- No acute intracranial abnormality. CTA head/neck- 1. Moderate to severe stenosis within the supraclinoid segments of the bilateral intracranial ICAs. 2. Mild to moderate multifocal narrowing within the proximal bilateral stummel selector most pronounced on the right. 3. No evidence for arterial occlusion or aneurysm. IMPRESSION: 1. Atherosclerosis of the carotid bulbs without significant stenosis. 2. Moderate to severe stenosis within the supraclinoid segments of the internal carotid arteries, partially imaged. 3. Incidental findings as above. Ultrasound of the carotid arteries-no significant stenosis (3) DM2 (diabetes mellitus, type 2): Plan: - per EMR - pcp record pt is supposed to be on Jardiance and glipizide, but pt has not taken any meds for months Hgb A1c in September 2022 was 8.0% Pt found hyperglycemic in the ED, and glycemic pharmacy was consulted - will check [id number] at 13.8 - cont. w/ insulin while inpt - paraeducator / counseling before discharge recommended -Blood sugar has been running minimally high at 1 68-1 82 Continue with current coverage Blood sugar seems to be stable No acute issues with hypoglycemia or hyperglycemia (4) NIDHI (obstructive sleep apnea): Plan: - per EMR records, will order cpap -Has been getting CPAP/BiPAP -Advised to continue to use CPAP Generalized anxiety disorder - cont. home prozac DVT prophylaxis Will start subcu heparin She will be going to [facility] this afternoon Admission and Anticipated Discharge Date Admission Date: November 06, 2023 Subjective 11/07/2023 The patient was seen and examined in ICU Still complains to have right upper extremity weakness Has some incoordination in upper extremities as well No other significant neurodeficit 11/08/2023 The patient was seen and examined in ICU She remains stable without any new neurological deficit Still has right upper extremity weakness Denies any other significant symptoms 11/09/2023 The patient was seen and examined in ICU in the setting of PCU She has been stable Her right upper extremity weakness seems to be a little better Denies any other symptoms 11/10/2023 The patient was seen and examined in ICU in the setting of PCU She has been feeling much better She is out of bed on a chair and denies any significant symptoms Her right upper extremity weakness has been improving 11/11/2023 The patient was seen and examined in medical telemetry unit She has been stable and out of bed on a chair Her right upper extremity weakness has been improved Denies any other significant symptom She will go to [facility] this afternoon Review of Systems Review of Systems: All systems reviewed and are unremarkable except as noted below Physical Exam Physical Exam: Lying in bed without any acute distress Constitutional: well developed, well nourished, + ill appearing and + obese Eyes: PERRL, conjunctivae normal, anicteric sclerae ENMT: external ear and nose normal, oropharynx normal Neck: trachea midline, no thyromegaly Respiratory: no respiratory distress Auscultation: lungs clear to auscultation bilaterally Cardiovascular: Rate/Rhythm: regular rate, regular rhythm and + bradycardic Heart Sounds: normal S1 and normal S2; no murmur Extremities: no edema Gastrointestinal (Abdomen): Inspection/Auscultation: normal bowel sounds; abdomen not distended Percussion/Palpation: abdomen soft; abdomen nontender Musculoskeletal: No acute arthritis involving any of the joints Neurologic: normal touch/pain/proprioception, moves all extremities and + focal motor deficit (Right upper extremity is weaker than the rest of the extremities) Psychiatric: A+Ox3, euthymic affect Lymphatic: no cervical or axillary lymphadenopathy Results & Data Results & Data Vital Signs (Past 12 Hours) Vital Signs Temp Pulse Pulse Resp BP Pulse Ox O2 Del Method 11/11/23 07:32 36.5 C 48 L 15 122/80 98 Room Air 11/11/23 07:19 40 L 11/11/23 03:29 36.1 C L 59 L 18 128/75 99 Room Air, CPAP 11/11/23 02:25 55 L 15 99 11/11/23 00:21 50 L 11/10/23 22:48 36.4 C L 55 L 18 123/60 99 Room Air, CPAP Medications Administered Current Inpatient Medications Aspirin (Aspirin 81 Mg Ectab) 81 mg PO QAM [facility] Stop: 12/07/23 18:14 Last Admin: 11/11/23 09:26 Dose: 81 mg Atorvastatin Calcium (Atorvastatin 40 Mg Tab) 80 mg PO HS [facility] Stop: 12/06/23 20:59 Last Admin: 11/10/23 19:52 Dose: 80 mg Dextrose (Dextrose 50% 50 Ml Syringe) 25 - 50 ml IV UD PRN; Protocol PRN Reason: Hypoglycemia Protocol Stop: 12/06/23 20:44 Fluoxetine HCl (Fluoxetine Hcl 10 Mg Cap) 10 mg PO DAILY [facility] Stop: 12/07/23 08:59 Last Admin: 11/11/23 09:27 Dose: 10 mg Glucagon (Glucagon For Inj 1 Mg Vial) 1 mg IM UD PRN; Protocol PRN Reason: Hypoglycemia Protocol Stop: 12/06/23 20:44 Glucose (Glucose 40% Gel 15 Gm Tube) 15 - 30 gm PO UD PRN; Protocol PRN Reason: Hypoglycemia Protocol Stop: 12/06/23 20:44 Glucose (Glucose 10 Tab/Tube) 4 - 8 tab PO UD PRN; Protocol PRN Reason: Hypoglycemia Protocol Stop: 12/06/23 20:44 Heparin Sodium (Porcine) (Heparin Sod 5,000 Unit/0.5 Ml Vial) 5,000 units SQ Q12 [facility] Stop: 12/08/23 20:59 Last Admin: 11/11/23 09:27 Dose: 5,000 units Insulin Aspart (Insulin Aspart Per Unit Charge) 0 units SC ACHS [facility] Stop: 12/07/23 07:29 Last Admin: 11/11/23 09:34 Dose: 4 units Insulin Glargine (Lantus Per Unit Charge) 10 units SC BID [facility]; Protocol Stop: 12/07/23 08:59 Last Admin: 11/11/23 09:35 Dose: 10 units Lisinopril (Lisinopril 5 Mg Tab) 5 mg PO QAM [facility] Stop: 12/08/23 08:59 Last Admin: 11/11/23 09:27 Dose: 5 mg Miconazole Nitrate (Miconazole Nitrate Powder 85 Gm) 1 appln EXT TID [facility] Stop: 12/07/23 17:51 Last Admin: 11/11/23 09:27 Dose: 1 appln Miscellaneous (Carbohydrates For Hypoglycemia ) 15 - 30 gm PO UD PRN PRN Reason: Hypoglycemia Treatment Stop: 12/06/23 20:44 Miscellaneous Information (Pharmacy Glycemic Mgmt Consult) 1 each N/A UD PRN; Protocol PRN Reason: Consult Stop: 12/06/23 18:15 Vitamin B Complex (Vitamin B Complex Tab) 1 tab PO DAILY [facility] Stop: 12/07/23 08:59 Last Admin: 11/11/23 09:27 Dose: 1 tab
--- NOTE | 2023-11-11 19:42 | Discharge Summary ---
Date of Service November 11, 2023 Admission HPI Per Admitting Provider 63 yo F w/ hx of DM 2 (not on insulin), HTN, HLD, NIDHI (on cpap - per EMR), sensorneur. hear loss, Generalized anxiety disorder, obesity who presents with RUE weakness. Pt says that about 2:30 PM she was in her kitchen and she could not lift small bottle of water. She went to her neighbor who called EMS. Denies any other symptoms prior to this episode. Says she felt well - no fever, chills, chest pain, shortness of breath, no abd. pain, no nausea, vomiting, or headache. She denies having any other neurological symptoms, no other weakness, numbness, etc. Pt follows with [facility]/ [facility] as PCP but last visit was over one year ago. Per records she did not pepper picker any of her medications for several months. Pt first tells me she did not take her meds for several days but then she admits that she has been off her meds for months. When asked for reason - and to see how we can help her with that she says "she did not get to it". Her hgb A1c in September 2022 was 8.0%, she was on Jardiance and glipizide per EMR. in the ED she was found hyperglycemic. In the ED, CT head, CTA head and neck were obtained and telestroke from [facility] was consulted. Pt was consented and received TNK. Plan to admit for ICU for close monitoring, neurochecks, repeat CT head as per protocol. Admission Exam Per Admitting Provider Constitutional: WD/WN, vitals as above Eyes: PERRL, conjunctivae normal, anicteric sclerae ENMT: external ear and nose normal, oropharynx normal Neck: + thick neck Respiratory: normal respiratory effort, lungs clear to auscultation Cardiovascular: RRR, no murmur, no edema Chest (Breasts): Chest: normal inspection of chest Gastrointestinal (Abdomen): normal bowel sounds, soft, nontender, no hepato splenomegaly Musculoskeletal: RUE weakness / strength 3/5. LUE, LLE, RLE strength 5/5 Skin: no rashes, warm and dry Neurologic: cranial nerves normal. + RUE weakness, + RUE pronator drift, otherwise moves extremities Psychiatric: A+Ox3, euthymic affect Lymphatic: no lymphedema Principal Diagnosis Right upper extremity weakness, acute ischemic stroke in left posterior frontal lobe, uncontrolled diabetes, NIDHI Discharge Exam Lying in bed without any acute distress Constitutional well developed, well nourished, + ill appearing and + obese Eyes PERRL, conjunctivae normal, anicteric sclerae ENMT external ear and nose normal, oropharynx normal Neck trachea midline, no thyromegaly Respiratory no respiratory distress Auscultation: lungs clear to auscultation bilaterally Cardiovascular Rate/Rhythm: regular rate, regular rhythm and + bradycardic Heart Sounds: normal S1 and normal S2; no murmur Extremities: no edema Gastrointestinal (Abdomen) Inspection/Auscultation: normal bowel sounds; abdomen not distended Percussion/Palpation: abdomen soft; abdomen nontender Neurologic normal touch/pain/proprioception, moves all extremities and + focal motor deficit (Right upper extremity is weaker than the rest of the extremities) Psychiatric A+Ox3, euthymic affect Lymphatic no cervical or axillary lymphadenopathy Discharge Data Allergies Allergy/AdvReac Type Severity Reaction Status Date / Time metformin AdvReac Intermediate Diarrhea Verified 11/06/23 17:15 oxycodone AdvReac Intermediate upset Verified 11/06/23 17:15 stomach Consultations 11/06/23 17:25 ED Decision to Admit Stat 11/06/23 18:09 Consult Administrative Receptionist Routine 11/06/23 18:13 Consult Neurology Routine Ordered Studies 11/06/23 16:30 CT angio head w con Stat CT angio neck with con Stat CT head/brain wo con Stat 11/06/23 20:39 MRI Brain [MR brain wo con] Routine 11/07/23 09:32 US carotid doppler BI Urgent 11/07/23 17:30 CT head/brain wo con Stat Diabetes Follow up Diabetes Follow-up Needed for HgbA1c >9% Hospital Course (1) RUE weakness: Persisting (2) Stroke-like symptom: RUE weakness Per telestroke neurologist - suspected Acute ischemic stroke in the left hemisphere Telestroke consulted and pt received TNK - pt will be further closely monitored in ICU, will need neurochecks per protocol and repeat CT head MRI did show a single small acute ischemic injury of the posterior left frontal lobe Repeat CT scan following TNK did not show any evidence of bleeding or any stroke Right upper extremity weakness persist No other significant neurological deficit on examination Echo of the heart showed-EF 60 to 65%, mild concentric LVH, trace aortic regurgitation, trace tricuspid regurgitation, Doppler findings do not suggest pulmonary hypertension, small loculated apical and right lateral pericardial effusions with moderate organization, there are no echo or graft cardiographic indication of cardiac murmur Lipid panel is unremarkable Hemoglobin A1c is very high at 13.8 Neurology consult-awaited Restart pt's home statin (which she reportedly did not take in months) At home also reportedly on lisinopril - will hold for now, and will cont. to closely monitor BP - allow for permissive HTN- likely will restart lisinopril on discharge Remains medically stable but the right upper extremity weakness persist Slight improvement of the right upper extremity Has had PT and OT recommended rehab Clinically stable with further improvement of the right upper extremity weakness Right upper extremity weakness has been improving She denies any other significant symptoms and will be transferred to [facility] to continue physical therapy Imaging studies: CT head- No acute intracranial abnormality. CTA head/neck- 1. Moderate to severe stenosis within the supraclinoid segments of the bilateral intracranial ICAs. 2. Mild to moderate multifocal narrowing within the proximal bilateral quality control projectionist most pronounced on the right. 3. No evidence for arterial occlusion or aneurysm. IMPRESSION: 1. Atherosclerosis of the carotid bulbs without significant stenosis. 2. Moderate to severe stenosis within the supraclinoid segments of the internal carotid arteries, partially imaged. 3. Incidental findings as above. Ultrasound of the carotid arteries-no significant stenosis (3) DM2 (diabetes mellitus, type 2): - per EMR - pcp record pt is supposed to be on Jardiance and glipizide, but pt has not taken any meds for months Hgb A1c in September 2022 was 8.0% Pt found hyperglycemic in the ED, and glycemic pharmacy was consulted - will check [id number] at 13.8 - cont. w/ insulin while inpt - critical care educator / counseling before discharge recommended -Blood sugar has been running minimally high at 1 68-1 82 Continue with current coverage Blood sugar seems to be stable No acute issues with hypoglycemia or hyperglycemia (4) NIDHI (obstructive sleep apnea): - per EMR records, will order cpap -Has been getting CPAP/BiPAP -Advised to continue to use CPAP Generalized anxiety disorder - cont. home prozac DVT prophylaxis Will start subcu heparin [facility] Total Time Total Time Spent Total Time Spent (In Minutes): 40 minutes Discharge Plan Discharge Items Patient Disposition: Transfer Inpatient Rehab Fac Reason For Visit: RUE WEAKNESS Discharge Diagnosis: Right upper extremity weakness, acute ischemic stroke in left posterior frontal lobe, uncontrolled diabetes, NIDHI Condition on Discharge: Fair Activity: As commented below Activity Comment: Will need PT and OT Non-emergency contact: Primary Care Provider Call non-emergency contact if: you have any medication questions and your symptoms worsen Follow-up/Referrals: Traci Blackmon MD [Primary Care Provider] - (Please make an appointment with your PCP within 7 days following discharge from the facility) Diet: Carb Consistent or DM2 and Heart Healthy Addtl Attending Provider Instructions: Please take precautions to avoid fall Take your medications as advised Your glipizide was stopped and will be taking insulin as advised Follow diabetic diet and have follow-up appointment with your PCP to adjust medications according Please keep appointments with the healthcare providers You need to have a 14-day Zio patch through your doctor's office and Neurology appointment in about 8 weeks. Addtl [employer] Provider Instructions: RECOMMENDATIONS AT DISCHARGE: 1.) Lifestyle changes- eliminate sugar-sweetened drinks --> zero sugar drinks, balanced meals. 2.) Add Lantus 20 units in AM + Jardiance 25mg daily. Discontinue Glipizide. 3.) SMBG 2x/day- fasting and another time. Look into CGM therapy. 4.) Notify provider of BG values frequently > 180 or < 90. 5.) A1c > 9%- pt will need close follow-up at time of discharge. Recommend referral to [facility] clinic. PRESCRIPTIONS NEEDED AT DISCHARGE: 1.) Lantus Solostar Pen. 2.) Pen Needle 32 gauge 5/32". 3.) OneTouch Verio Test Strips- to check 3x/day. 4.) OneTouch Delica Lancets 33 gauge- to check 3x/day. Pending Studies at Discharge: No Stand-Alone Forms: [employer], Medications to Prevent Stroke Skilled Items Patient informed of condition?: Yes DNR: No Discharge Level of Care: Acute rehab Communicable Disease: No Discharge Prognosis: Stable Lines: None Urinary Catheter: No Medications and DC Order Prescriptions: New insulin glargine [Lantus U-100 Insulin] 100 unit/mL Solution 20 unit SC BID Qty: 3 0RF Continued atorvastatin 80 mg Tablet 80 mg PO DAILY Rx Instructions: PER PT "NOT TAKEN MEDS FOR A LONG TIME". PER PT'S PHARMACY "NOTHING FILLED SINCE NOVEMBER 2022". fluoxetine 10 mg Tablet 10 mg PO DAILY Rx Instructions: PER PT "NOT TAKEN MEDS FOR A LONG TIME". PER PT'S PHARMACY "NOTHING FILLED SINCE NOVEMBER 2022". aspirin 81 mg Tablet,Delayed Release (Dr/Ec) 81 mg PO DAILY Rx Instructions: PER PT "NOT TAKEN MEDS FOR A LONG TIME". PER PT'S PHARMACY "NOTHING FILLED SINCE NOVEMBER 2022". calcium carbonate [Calcium 600] 600 mg calcium (1,500 mg) Tablet 1,200 mg PO DAILY Rx Instructions: PER PT "NOT TAKEN MEDS FOR A LONG TIME". PER PT'S PHARMACY "NOTHING FILLED SINCE NOVEMBER 2022". clotrimazole-betamethasone 1-0.05 % Cream 1 applic TOPICAL BID PRN (Reason: AFFECTED AREA) Rx Instructions: PER PT "NOT TAKEN MEDS FOR A LONG TIME". PER PT'S PHARMACY "NOTHING FILLED SINCE NOVEMBER 2022". vitamin B complex Tablet 1 tab PO DAILY Rx Instructions: PER PT "NOT TAKEN MEDS FOR A LONG TIME". PER PT'S PHARMACY "NOTHING FILLED SINCE NOVEMBER 2022". lisinopril 5 mg Tablet 5 mg PO QAM Rx Instructions: PER PT "NOT TAKEN MEDS FOR A LONG TIME". PER PT'S PHARMACY "NOTHING FILLED SINCE NOVEMBER 2022". albuterol sulfate 90 mcg/actuation Hfa Aerosol Inhaler 2 puff INHALATION Q6H PRN (Reason: CONGESTION/COUGH/WHEEZING) Rx Instructions: PER PT "NOT TAKEN MEDS FOR A LONG TIME". PER PT'S PHARMACY "NOTHING FILLED SINCE NOVEMBER 2022". fluticasone propionate 50 mcg/actuation [place],Suspension 2 spray INTRANASAL DAILY Rx Instructions: PER PT "NOT TAKEN MEDS FOR A LONG TIME". PER PT'S PHARMACY "NOTHING FILLED SINCE NOVEMBER 2022". administer into each nostril Jardiance 25 mg Tablet 25 mg PO QAM Rx Instructions: PER PT "NOT TAKEN MEDS FOR A LONG TIME". PER PT'S PHARMACY "NOTHING FILLED SINCE NOVEMBER 2022". Discontinued glipizide 10 mg Tablet Extended Release 24hr 10 mg PO DAILYBB Rx Instructions: TOTAL DOSE 15 MG--TAKES WITH 5 MG TAB. PER PT "NOT TAKEN MEDS FOR A LONG TIME". PER PT'S PHARMACY "NOTHING FILLED SINCE NOVEMBER 2022". glipizide 5 mg Tablet Extended Release 24hr 5 mg PO DAILYBB Rx Instructions: TOTAL DOSE 15 MG--TAKES WITH 10 MG TAB. PER PT "NOT TAKEN MEDS FOR A LONG TIME". PER PT'S PHARMACY "NOTHING FILLED SINCE NOVEMBER 2022". Discharge Orders: Discharge Order (Routine); Ordered 11/11/23 Ordered By: Sabina Jacome/Other Patient Handouts: High Blood Sugar (Hyperglycemia), Managing Type 2 Diabetes Admission Data Admit Date/Time: 11/06/23 18:09 Attending Provider: Sabina Figueredo Admit Provider: Momo Betancur Primary Care Provider: Traci Blackmon Other Providers: [facility]; [place]; Momo Betancur; Gómez Almendarez; Qing De León; Henri Cano; Qing Huffman; Moise Sy; Lance Medrano; Junior Whipple; Jonathan Norris; Renetta Middleton; Glenn Hassan; Familia Patel; Chris Zayas; Axel Cho; Ling Posada; Aye Culp; Jonathan Simon Other Interventions: Discharge Summary Assessment (RN) Last Done: 11/11/23 15:30
== END 2023-11-11 16:43 | disposition alcohol treatment (31) | DRG 63 ==
LOC: ED 16:09 → 1E 18:09 → SUATTDRO 18:09 → 1E 19:26 → 2N 11-10 17:37

== ENCOUNTER 2024-04-23 09:12 | Inpatient (IN) ==
[2024-04-23] MEDS: NITROGLYCERIN SL 0.4 MG/TAB TAB SL PRN (09:25)
--- NOTE | 2024-04-23 09:27 | Emergency Department Note ---
History of Present Illness General Chief complaint: Chest Pain Source: patient, EMS (I did talk to paramedics prior to arrival), RN notes reviewed and old records reviewed (11/06/23-discharge summary from the patient was admitted for strokelike symptoms) Mode of arrival: EMS Limitations: no limitations History of Present Illness Maximum Pain Intensity: 5 This patient 64-year-old female who comes in after waking up this morning and having vomiting and chest pain. She has mild shortness of breath at times. No abdominal pain no history of cardiac disease although run strongly in the family. She has a history of strokes and is on a blood thinner she says. She also has history of diabetes. The chest pain upon arrival is 3 out of 10 she did get aspirin and Zofran on route as well as nitroglycerin. No numbness or weakness. No history of similar complaints today. Home Medications Medication Instructions Recorded Confirmed Type albuterol sulfate 90 mcg/actuation 2 puff inhalation Q6H PRN 11/06/23 04/23/24 History aerosol inhaler CONGESTION/COUGH/WHEEZING aspirin 81 mg tablet,delayed 81 mg PO DAILY 11/06/23 04/23/24 History release atorvastatin 80 mg tablet 80 mg PO DAILY 11/06/23 04/23/24 History calcium carbonate (Calcium 600) 1,200 mg PO DAILY 11/06/23 04/23/24 History clotrimazole-betamethasone 1 1 applic topical BID PRN AFFECTED 11/06/23 04/23/24 History %-0.05 % topical cream AREA empagliflozin 25 mg tablet 25 mg PO QAM 11/06/23 04/23/24 History (Jardiance) fluoxetine 10 mg tablet 10 mg PO DAILY 11/06/23 04/23/24 History fluticasone propionate 50 2 spray intranasal DAILY 11/06/23 04/23/24 History mcg/actuation nasal spray,suspension lisinopril 5 mg tablet 5 mg PO QAM 11/06/23 04/23/24 History vitamin B complex 1 tab PO DAILY 11/06/23 04/23/24 History insulin glargine 100 unit/mL 20 unit (0.2 mL) SC BID #3 mL 11/11/23 04/23/24 Rx subcutaneous solution (Lantus U-100 Insulin) Allergies Allergy/AdvReac Type Severity Reaction Status Date / Time metformin AdvReac Intermediate Diarrhea Verified 11/06/23 17:15 oxycodone AdvReac Intermediate upset Verified 11/06/23 17:15 stomach Past Med/Surg History Problem List (Updated 04/23/24 @ 15:15 by Gómez Vickers MD) Arrhythmia (Acute) Lab test negative for COVID-19 virus (Acute) CHF (congestive heart failure) (Acute) Chest pain (Acute) Unstable angina (Acute) Acute decompensated heart failure Dyslipidemia, goal LDL below 70 History of stroke within last year ST elevation (STEMI) myocardial infarction Acute ischemic left MCA stroke Cerebrovascular accident (Acute) HTN (hypertension) Stroke-like symptom RUE weakness History of cataract surgery (Chronic) Hx of tonsillectomy (Chronic) NIDHI (obstructive sleep apnea) (Chronic) Depression (Chronic) DM2 (diabetes mellitus, type 2) (Chronic) Family hx-breast malignancy Respiratory failure Surgical History H/O brain surgery "BRAIN SURGERY USING COMPUTER 01/22/07 STEREOTACTIC COMPUTER ASSISTED VOLUMETRIC PROCEDURE performed by ELENA PIMENTEL at OR [facility] [place]" Family History Other Breast cancer Coronary heart disease Social History Smoking Status: Never smoker Do You Dip or Chew Tobacco: No; Hx Alcohol Use: No Hx Substance Use: No Preferred Language: Greek Communication Ability: Effective Scientific Associate Required: No Beliefs That Will Affect Care: None Current Living Situation: Alone Current Living Situation Comment: alone Feels Safe at Home: Yes Assistive Devices: Walker Review of Systems A total of 10 systems reviewed and were otherwise negative Physical Exam Vital Signs Vital Signs - 24 hr 04/23/24 09:11 04/23/24 09:19 04/23/24 09:20 Pulse Rate 106 H Pulse Rate [Apical] Pulse Rate from SpO2 Sensor Pulse Rhythm [Apical] Pulse Strength [Apical] Respiratory Rate 20 Respiratory Effort / Characteristics Non-Labored Spontaneous Non-Labored Spontaneous Respiratory Depth Normal Normal Respiratory Pattern Regular Blood Pressure 136/106 H 139/103 H Blood Pressure [Left Arm] Blood Pressure Mean 116 117 Blood Pressure Mean [Left Arm] Blood Pressure Position [Left Arm] Pulse Oximetry 90 Oxygen Delivery Method Room Air Oxymask Oxygen Flow Rate 4 Sepsis Recent Fever Within 48 Hours No Sepsis New/Unexplained Change in Mental Status N/A Sepsis Action Taken by Nursing No Action Required 04/23/24 09:21 04/23/24 09:21 04/23/24 09:21 Pulse Rate 104 H Pulse Rate [Apical] Pulse Rate from SpO2 Sensor 103 H Pulse Rhythm [Apical] Pulse Strength [Apical] Respiratory Rate 20 Respiratory Effort / Characteristics Respiratory Depth Respiratory Pattern Blood Pressure 139/90 139/90 Blood Pressure [Left Arm] Blood Pressure Mean 106 106 Blood Pressure Mean [Left Arm] Blood Pressure Position [Left Arm] Pulse Oximetry 94 Oxygen Delivery Method Oxygen Flow Rate Sepsis Recent Fever Within 48 Hours Sepsis New/Unexplained Change in Mental Status Sepsis Action Taken by Nursing 04/23/24 09:24 04/23/24 09:27 04/23/24 09:27 Pulse Rate 105 H 105 H 73 Pulse Rate [Apical] Pulse Rate from SpO2 Sensor 104 H Pulse Rhythm [Apical] Pulse Strength [Apical] Respiratory Rate 24 Respiratory Effort / Characteristics Respiratory Depth Respiratory Pattern Blood Pressure Blood Pressure [Left Arm] Blood Pressure Mean Blood Pressure Mean [Left Arm] Blood Pressure Position [Left Arm] Pulse Oximetry 94 Oxygen Delivery Method Oxygen Flow Rate Sepsis Recent Fever Within 48 Hours Sepsis New/Unexplained Change in Mental Status Sepsis Action Taken by Nursing 04/23/24 09:37 04/23/24 09:39 04/23/24 10:00 Pulse Rate Pulse Rate [Apical] Pulse Rate from SpO2 Sensor Pulse Rhythm [Apical] Pulse Strength [Apical] Respiratory Rate Respiratory Effort / Characteristics Respiratory Depth Respiratory Pattern Blood Pressure 104/76 129/92 Blood Pressure [Left Arm] Blood Pressure Mean 80 107 Blood Pressure Mean [Left Arm] Blood Pressure Position [Left Arm] Pulse Oximetry 96 Oxygen Delivery Method Oxymask Oxygen Flow Rate 4 Sepsis Recent Fever Within 48 Hours Sepsis New/Unexplained Change in Mental Status Sepsis Action Taken by Nursing 04/23/24 10:00 04/23/24 10:10 04/23/24 10:10 Pulse Rate Pulse Rate [Apical] Pulse Rate from SpO2 Sensor Pulse Rhythm [Apical] Pulse Strength [Apical] Respiratory Rate Respiratory Effort / Characteristics Respiratory Depth Respiratory Pattern Blood Pressure 129/92 130/96 130/96 Blood Pressure [Left Arm] Blood Pressure Mean 107 110 110 Blood Pressure Mean [Left Arm] Blood Pressure Position [Left Arm] Pulse Oximetry Oxygen Delivery Method Oxygen Flow Rate Sepsis Recent Fever Within 48 Hours Sepsis New/Unexplained Change in Mental Status Sepsis Action Taken by Nursing 04/23/24 10:12 04/23/24 10:20 04/23/24 11:15 Pulse Rate 79 Pulse Rate [Apical] 102 H Pulse Rate from SpO2 Sensor 87 Pulse Rhythm [Apical] Regular Pulse Strength [Apical] Normal Respiratory Rate 24 14 Respiratory Effort / Characteristics Non-Labored Spontaneous Respiratory Depth Normal Respiratory Pattern Blood Pressure Blood Pressure [Left Arm] 134/98 Blood Pressure Mean Blood Pressure Mean [Left Arm] 110 Blood Pressure Position [Left Arm] Lying Pulse Oximetry 97 98 Oxygen Delivery Method Non-rebreather Room Air Oxygen Flow Rate Sepsis Recent Fever Within 48 Hours Sepsis New/Unexplained Change in Mental Status Sepsis Action Taken by Nursing 04/23/24 11:30 04/23/24 11:45 04/23/24 12:00 Pulse Rate Pulse Rate [Apical] 108 H 88 105 H Pulse Rate from SpO2 Sensor Pulse Rhythm [Apical] Regular Regular Regular Pulse Strength [Apical] Normal Normal Normal Respiratory Rate 14 14 14 Respiratory Effort / Characteristics Non-Labored Spontaneous Non-Labored Spontaneous Non-Labored Spontaneous Respiratory Depth Normal Normal Normal Respiratory Pattern Blood Pressure Blood Pressure [Left Arm] 133/103 H 126/93 127/95 Blood Pressure Mean Blood Pressure Mean [Left Arm] 113 104 105 Blood Pressure Position [Left Arm] Lying Lying Lying Pulse Oximetry 98 98 98 Oxygen Delivery Method Room Air Oxymask Room Air Oxygen Flow Rate 7 7 Sepsis Recent Fever Within 48 Hours Sepsis New/Unexplained Change in Mental Status Sepsis Action Taken by Nursing 04/23/24 12:15 04/23/24 12:30 04/23/24 13:00 Pulse Rate Pulse Rate [Apical] 108 H 101 H 99 H Pulse Rate from SpO2 Sensor Pulse Rhythm [Apical] Regular Regular Regular Pulse Strength [Apical] Normal Normal Normal Respiratory Rate 14 14 14 Respiratory Effort / Characteristics Non-Labored Spontaneous Non-Labored Spontaneous Non-Labored Spontaneous Respiratory Depth Normal Normal Normal Respiratory Pattern Blood Pressure Blood Pressure [Left Arm] 126/93 148/113 H 124/90 Blood Pressure Mean Blood Pressure Mean [Left Arm] 104 124 101 Blood Pressure Position [Left Arm] Lying Lying Lying Pulse Oximetry 98 98 98 Oxygen Delivery Method Room Air Room Air Oxymask Oxygen Flow Rate 7 7 7 Sepsis Recent Fever Within 48 Hours Sepsis New/Unexplained Change in Mental Status Sepsis Action Taken by Nursing 04/23/24 13:15 04/23/24 13:30 Pulse Rate Pulse Rate [Apical] 99 H 85 Pulse Rate from SpO2 Sensor Pulse Rhythm [Apical] Regular Regular Pulse Strength [Apical] Normal Normal Respiratory Rate 14 14 Respiratory Effort / Characteristics Non-Labored Spontaneous Non-Labored Spontaneous Respiratory Depth Normal Normal Respiratory Pattern Blood Pressure Blood Pressure [Left Arm] 114/91 130/93 Blood Pressure Mean Blood Pressure Mean [Left Arm] 98 105 Blood Pressure Position [Left Arm] Lying Lying Pulse Oximetry 98 98 Oxygen Delivery Method Room Air Oxymask Oxygen Flow Rate 7 7 Sepsis Recent Fever Within 48 Hours Sepsis New/Unexplained Change in Mental Status Sepsis Action Taken by Nursing General: Well developed well nourished middle-age female who appears in no acute distress, breathing comfortably on room air. Normal speech HEENT: Normal cephalic atraumatic. Pupils are equal round and reactive to light. Extraocular movements are intact. Oropharynx is pink with moist mucous membranes. No swelling of the mouth lips or tongue. Neck: Supple with a midline trachea. No meningeal signs or stiffness, no JVD or bruits. No Stridor. Chest: Clear to auscultation bilaterally. No wheezes or rhonchi. No increased work of breathing. Heart: Regular rate and rhythm without murmurs or gallops. Abdomen: Soft nontender, nondistended without rebound guarding or rigidity. Extremities: No cyanosis clubbing or edema. No calf tenderness or assymetry Spine/Back. Non tender to palpation. No CVA tenderness Skin: Good turgor without rashes. Neurologic exam: Cranial nerves two through 12 are intact. Motor and sensation are intact and symmetrical throughout. Course Administered Medications Nitroglycerin (Nitroglycerin Sl 0.4 Mg/Tab Tab) 0.4 mg SL Q5M PRN PRN Reason: Chest Pain Stop: 05/23/24 09:20 Last Admin: 04/23/24 10:00 Dose: 0.4 mg Documented By: Admin: 04/23/24 09:25 Dose: 0.4 mg Documented By: IRWINW Discontinued Medications Fentanyl Citrate (Fentanyl Citrate Pf 100 Mcg/2 Ml Vial) Confirm Administered Dose 100 mcg .ROUTE .STK-MED ONE Stop: 04/23/24 10:06 Last Increment: 04/23/24 10:54 Dose: 25 mcg Documented By: DAVID Furosemide (Furosemide 40 Mg/4 Ml Vial) Confirm Administered Dose 40 mg IV .STK- MED ONE Stop: 04/23/24 10:53 Last Admin: 04/23/24 10:55 Dose: 40 mg Documented By: DAVID Heparin Sodium (Porcine) (Heparin (Porcine) 1000 Unit/Ml 10 Ml ([facility] Use Only)) Confirm Administered Dose 10,000 units .ROUTE .STK-MED ONE Stop: 04/23/24 10:06 Last Admin: 04/23/24 10:54 Dose: 5,000 units Documented By: DAVID Heparin Sodium/Sodium Chloride (Heparin In Nss Infusion 1000 Unit/500 Ml (2 U/Ml) Bag) Confirm Administered Dose 3,000 units IV .STK-MED ONE Stop: 04/23/24 10:07 Last Admin: 04/23/24 10:36 Dose: 3,000 units Documented By: DORA Sodium Chloride (Nss) 500 mls @ 999 mls/hr IV .Q31M STA Stop: 04/23/24 09:51 Last Infusion: 04/23/24 10:19 Dose: 0 mls/hr Documented By: Admin: 04/23/24 09:35 Dose: 999 mls/hr Documented By: CALE Ioversol (Optiray 320 125ml) 112 ml IV ONCE ONE Stop: 04/23/24 09:51 Last Admin: 04/23/24 09:50 Dose: 112 ml Documented By: SHANNA Ioversol (Optiray 350) Confirm Administered Dose 1 ml .ROUTE .STK-MED ONE Stop: 04/23/24 10:07 Last Admin: 04/23/24 10:54 Dose: 45 ml Documented By: DORA Midazolam HCl (Midazolam Hcl 1 Mg/Ml 2ml Vial) Confirm Administered Dose 2 mg .ROUTE .STK-MED ONE Stop: 04/23/24 10:06 Last Increment: 04/23/24 10:54 Dose: 1 mg Documented By: DAVID Nicardipine HCl (Nicardipine Hcl Inj 2.5 Mg/Ml 10 Ml Amp) Confirm Administered Dose 25 mg .ROUTE .STK-MED ONE Stop: 04/23/24 10:07 Last Admin: 04/23/24 10:36 Dose: 25 mg Documented By: DORA Nitroglycerin (Nitroglycerin Sl 0.4 Mg/Tab Tab) Confirm Administered Dose 0.4 mg .ROUTE .STK-MED ONE Stop: 04/23/24 09:21 Last Admin: 04/23/24 09:35 Dose: Not Given Documented By: CALE Nitroglycerin/Dextrose (Nitroglycerin/D5w 100mcg/Ml 20ml Syr) Confirm Administered Dose 2,000 mcg .ROUTE .STK-MED ONE Stop: 04/23/24 10:07 Last Admin: 04/23/24 10:36 Dose: 2,000 mcg Documented By: DORA Critical Care Time Critical Care Time: Yes Total Critical Care Time: 40 I have personally spent greater than 40 minutes of critical care time in the direct management of this patient. This includes bedside care, interpretation of diagnostic studies, and testing, discussion with consultants, patient, and family members, and other required patient management activities. This 30 minutes is in excess of all separately billable procedures. Medical Decision Making Differential Diagnosis Acute coronary syndrome, arrhythmia, electrolyte or metabolic abnormality, pulmonary disease, GI illness, PE, aortic pathology Medical Records Attestation: I reviewed the patient's medical records. Home Medications Current Medication List: was personally reviewed by me Laboratory Data Attestation: I reviewed the patient's lab results. 04/23/24 09:38 04/23/24 09:38 Lab Results 04/23/24 04/23/24 04/23/24 Range/Units 09:32 09:34 09:38 WBC 18.20 H (4.8-10.8) K/ul RBC 5.27 (4.20-5.40) M/uL Hgb 15.3 (12.0-16.0) g/dl POC Hgb 15.0 (12.0-16.0) g/dl Hct 46.2 (37.0-47.0) % POC Hct 44 (37-47) % MCV 87.7 (80.0-100.0) fL MCH 29.0 (25.0-34.0) pg MCHC 33.1 (32.0-36.0) g/dL RDW Std Deviation 41.1 (36.4-46.3) fL RDW Coeff of Christine 12.9 (11.5-14.5) % Plt Count 285 (130-400) K/uL MPV 11.2 (9.4-12.4) fL Immature Gran % (Auto) 0.4 % Neut % (Auto) 68.6 % Lymph % (Auto) 23.6 % [place] % (Auto) 3.0 % Eos % (Auto) 3.7 % Baso % (Auto) 0.7 % Neut # (Auto) 12.49 H (1.40-6.50) K/uL Lymph # (Auto) 4.29 H (1.20-3.40) K/uL [place] # (Auto) 0.54 (0.11-0.59) K/uL Eos # (Auto) 0.68 H (0.00-0.50) K/uL Baso # (Auto) 0.13 (0.00-0.20) K/uL Immature Gran # (Auto) 0.07 (0.01-0.20) K/uL PT 10.7 (9.0-12.0) Seconds INR 1.0 (0.9-1.1) APTT 25 (21-31) Seconds PTT Ratio 0.9 POC Sodium 142 (135-144) mmol/L Sodium 141 (136-145) mmol/L POC Potassium 4.0 (3.3-5.0) mmol/L Potassium 4.0 (3.5-5.1) mmol/L POC Chloride 109 (101-112) mmol/L Chloride 109 H (98-107) mmol/L Carbon Dioxide 21 (21-32) mmol/L POC Total CO2 21 L (24-31) mmol/L Anion Gap 11 (3-11) POC Anion Gap 17.0 (16-25) mmol/L POC BUN 24 H (7-18) mg/dl BUN 26 H (6-23) mg/dl Creatinine 1.05 (0.6-1.2) mg/dl POC Creatinine 1.0 (0.6-1.3) mg/dl Est Cr Clr Drug Dosing 51.4 ml/min Est GFR ( Amer) 64.1 ml/min Est GFR (Non-Af Amer) 55.3 ml/min BUN/Creatinine Ratio 24.8 H (10-20) Glucose 233 H (70-99(Fasting)) mg/dl POC Glucose (other) 236 H (70-99) mg/dl Calcium 9.4 (8.6-10.3) mg/dl POC Ioniz Calcium Juliann 1.25 (1.12-1.32) mmol/l Total Bilirubin 0.9 (0.2-1.0) mg/dl AST 17 (13-39) U/L ALT 16 (7-52) U/L Alkaline Phosphatase 64 (34-104) U/L Troponin I High Sens 55.4 H* (0-14) pg/ml B-Natriuretic Peptide 613 H (0-100) pg/ml Total Protein 6.4 (6.0-8.3) gm/dl Albumin 3.9 (3.4-5.0) gm/dl Globulin 2.5 (2.5-4.0) gm/dl Albumin/Globulin Ratio 1.6 (0.9-2) Lipase 9 L (11-82) U/L TSH 2.410 (0.300-4.500) uIu/ml SARS-CoV-2, RNA, NAAT NEGATIVE (NEGATIVE) Imaging Data Attestation: I personally reviewed and interpreted this imaging study as follows: My Impression: Chest x-ray Cardiomegalyy and findings cornerning for CHF Radiologist's Impression: Chest X-Ray 04/23/24 09:21 SINGLE VIEW CHEST CLINICAL HISTORY: Atypical chest pain. FINDINGS: 2 AP, portable, upright chest radiographs are compared to study dated 11/06/2023. Correlation is made with chest CT dated 12/24/2015. The heart is enlarged. There is pulmonary vascular congestion. Scarring/atelectasis is noted at the lung bases. No airspace consolidation or large pleural effusion is identified. No pneumothorax is seen. The skeletal structures are osteopenic. The bony thorax is grossly intact. IMPRESSION: Cardiomegaly with pulmonary vascular congestion. Radiographic follow-up to resolution is recommended. ACT 112: Negative or not required by law. Electronically signed by: Yfn Red M.D. 04/23/2024 9:40 AM Chest CTA 04/23/24 09:46 CT ANGIOGRAPHY OF THE CHEST, PULMONARY EMBOLUS PROTOCOL CLINICAL HISTORY: Chest pain. Evaluate for pulmonary embolus. COMPARISON STUDY: Chest CT December 24, 2015. Chest radiograph performed earlier today. TECHNIQUE: Following IV administration of 112 mL of Optiray, helical axial images of the chest were obtained utilizing the pulmonary embolus protocol. Maximal intensity projections and sagittal and coronal reformats were viewed on an independent 3D workstation. IV contrast was administered without complication. Automated exposure control was utilized for the study. A dose lowering technique was utilized adhering to the principles of ALARA. CT DOSE: 798.77 mGy.cm FINDINGS: No pulmonary emboli are identified. The caliber of the thoracic aorta is normal. Thoracic aorta is not opacified. The heart is moderately enlarged. There is reflux of contrast into the IVC and hepatic veins which are mildly dilated. There is no pericardial effusion. There are trace bilateral pleural effusions. There is no pneumothorax. Interlobular septal thickening is present. There are also groundglass opacities within the lungs. No consolidation is identified. A 2.2 cm solid right lower lobe nodule on image 96 has increased in size since CT of December 24, 2015 when it measured 1.2 cm. Hypodensity within the medial aspect of this lesion may be artifactual. Several additional nodular opacities within lungs measure up to 6 mm. Central airways are patent. Nodularity of the left adrenal gland is unchanged. This is benign. IMPRESSION: 1. No pulmonary emboli identified. 2. Cardiomegaly with moderate interstitial pulmonary edema. Trace bilateral pleural effusions. 3. 2.2 cm solid right lower lobe nodule which has increased in size since prior CT. Equivocal fat within this lesion raises the possibility of a hamartoma. However, this may be artifactual and other etiologies such as a carcinoid tumor are within the differential. A follow-up chest CT in 3 months is recommended. ACT 112: Negative or not required by law. Electronically signed by: Raj Aguirre M.D. 04/23/2024 10:08 AM ECG Data Attestation: I personally reviewed and interpreted this ECG as follows: Indication: + chest pain Rate (beats per minute): 105 Rhythm: + sinus tachycardia ECG Intervals/blocks: + Normal QRS, + Normal QT and + Normal AR ECG [place]: + Normal ECG ST segments: + Normal ST segments ECG Findings: + Poor R wave progression Comparison ECG Date: from (Prehospital, the lateral segments do look better in a V1 and aVL) Additional Comments: EKG #2: Rate is much slower than EKG #1 at 73 there may be some underlying heart block or flutter. It may be a junctional rhythm. EKG #3: Sinus tachycardia no acute ischemic changes or ectopy no change compared EKG #1 MDM Narrative This patient comes in as described above she woke up with chest pain and nausea. EMS sent me an EKG and talk to me prior to arrival I did give prehospital medical command there was concern that she may have some subtle changes in 1 and aVL but no definite STEMI. In light of this I did put in room a 1 and saw immediately upon arrival her EKG here actually looks better. She has 3 out of 10 chest pain while was in there on the monitor she does slow down at times into this 60s or 70s and she seems to change rhythm. She was given additional nitroglycerin. Her oxygen saturations was dropping a little bit so we did put her on supplemental oxygen she appears in no respiratory distress. We did repeated EKGs and she has no ST segment elevation but does go in and out of a slow rhythm. I did page Dr. Coronado but he was tied up with the procedure and then I talked to Dr. Gonzalez who is going to come see the patient i-STAT labs look good and her kidney function looks good she is no not significant anemic. I did a CT angiography. There is no evidence of PE. She does likely have some congestive ingestive heart failure changes. She had multiple EKGs in the ER and none of them definitely showed any STEMI but she would have change in her rhythm. Dr. Gonzalez did come and see the patient. He feels with her ongoing chest pain she needs to go to the [facility] and recommended we call a heart alert. This was obtained. The patient has remained hemodynamically stable. She continues to have episodes where sure her heart rate will go down in the 60s or 70s from the 100s and appear to have a different rhythm possibly junctional. The concern is for possible coronary artery blockage causing arrhythmia and CHF. The patient was emergently taken to the [facility]. Continuous cardiac monitoring: Orders placed in EMR for continuous teletypesetter monitor: Pulm evaluation she was noted to be in sinus tachycardia with a rate of 105 Impression & Plan Unstable angina, Chest pain, CHF (congestive heart failure), Lab test negative for COVID-19 virus, Arrhythmia Discharge Plan Visit Data Chief Complaint: Chest Pain ED Provider: Gómez Vickers Discharge Problem: Unstable angina, Chest pain, CHF (congestive heart failure), Lab test negative for COVID-19 virus, Arrhythmia Patient Disposition: Admitted As Inpatient Discharge Instructions Interventions: ED Discharge Assessment Last Done: 04/23/24 10:20 Discharge Problem: Chest pain Qualifiers: Chest pain type: unspecified Qualified Code(s): R07.9 - Chest pain, unspecified CHF (congestive heart failure) Qualifiers: Heart failure type: unspecified Heart failure chronicity: unspecified Qualified Code(s): I50.9 - Heart failure, unspecified Arrhythmia Qualifiers: Arrhythmia type: unspecified cardiac arrhythmia Qualified Code(s): I49.9 - Cardiac arrhythmia, unspecified
[2024-04-23] MEDS: SODIUM CHLORIDE 0.9% 500 ML IV STA (09:35)
[2024-04-23] MEDS: NITROGLYCERIN SL 0.4 MG/TAB TAB ONE (09:35)
--- NOTE | 2024-04-23 09:42 | XRay Report ---
SINGLE VIEW CHEST CLINICAL HISTORY: Atypical chest pain. FINDINGS: 2 AP, portable, upright chest radiographs are compared to study dated 11/06/2023. Correlatio n is made with chest CT dated 12/24/2015. The heart is enlarged. There is pulmonary vascular congestio n. Scarring/atelectasis is noted at the lung bases. No airspace consolidation or large pleural effusi on is identified. No pneumothorax is seen. The skeletal structures are osteopenic. The bony thorax is grossly intact. IMPRESSION: Cardiomegaly with pulmonary vascular congestion. Radiographic follow-up to resolution is recommended. ACT 112: Negative or not required by law. Electronically signed by: Yfn Red M.D. 04/23/2024 9:40 AM
[2024-04-23 09:47] LABS: iSTAT Ionized Calcium 1.25 mmol/l (1.12-1.32)
[2024-04-23] MEDS: OPTIRAY 320 125ml IV ONE (09:50)
[2024-04-23 09:59] LABS: Basophils # (auto) 0.13 K/uL (0.00-0.20); Basophils % (auto) 0.7 %; Eosinophils # (auto) 0.68 K/uL (0.00-0.50); Eosinophils % (auto) 3.7 %; Hematocrit (blood only) 46.2 % (37.0-47.0); Hemoglobin 15.3 g/dl (12.0-16.0); Immature Granulocytes # (auto) 0.07 K/uL (0.01-0.20); Immature Granulocytes % (auto) 0.4 %; Lymphocytes # (auto) 4.29 K/uL (1.20-3.40); Lymphocytes % (auto) 23.6 %; Mean Corpuscular Hgb Conc 33.1 g/dL (32.0-36.0); Mean Corpuscular Volume 87.7 fL (80.0-100.0); Mean Platelet Volume 11.2 fL (9.4-12.4); Monocytes # (auto) 0.54 K/uL (0.11-0.59); Neutrophils # (auto) 12.49 K/uL (1.40-6.50); Neutrophils % (auto) 68.6 %; Platelet Count 285 K/uL (130-400); RDW Coefficient of Variation 12.9 % (11.5-14.5); RDW Standard Deviation 41.1 fL (36.4-46.3); Red Blood Count 5.27 M/uL (4.20-5.40)
--- NOTE | 2024-04-23 10:10 | CT Scan Report ---
CT ANGIOGRAPHY OF THE CHEST, PULMONARY EMBOLUS PROTOCOL CLINICAL HISTORY: Chest pain. Evaluate for pulmonary embolus. COMPARISON STUDY: Chest CT December 24, 2015. Chest radiograph performed earlier today. TECHNIQUE: Following IV administration of 112 mL of Optiray, helical axial images of the chest were o btained utilizing the pulmonary embolus protocol. Maximal intensity projections and sagittal and cor onal reformats were viewed on an independent 3D workstation. IV contrast was administered without co mplication. Automated exposure control was utilized for the study. A dose lowering technique was ut ilized adhering to the principles of ALARA. CT DOSE: 798.77 mGy.cm FINDINGS: No pulmonary emboli are identified. The caliber of the thoracic aorta is normal. Thoracic aorta is not opacified. The heart is moderately enlarged. There is reflux of contrast into the IVC an d hepatic veins which are mildly dilated. There is no pericardial effusion. There are trace bilateral pleural effusions. There is no pneumothorax. Interlobular septal thickening is present. There are al so groundglass opacities within the lungs. No consolidation is identified. A 2.2 cm solid right lower lobe nodule on image 96 has increased in size since CT of December 24, 2015 when it measured 1.2 cm. Hypo density within the medial aspect of this lesion may be artifactual. Several additional nodular opacit ies within lungs measure up to 6 mm. Central airways are patent. Nodularity of the left adrenal gland is unchanged. This is benign. IMPRESSION: 1. No pulmonary emboli identified. 2. Cardiomegaly with moderate interstitial pulmonary edema. Trace bilateral pleural effusions. 3. 2.2 cm solid right lower lobe nodule which has increased in size since prior CT. Equivocal fat wit hin this lesion raises the possibility of a hamartoma. However, this may be artifactual and other irene ologies such as a carcinoid tumor are within the differential. A follow-up chest CT in 3 months is re commended. ACT 112: Negative or not required by law. Electronically signed by: Raj Aguirre M.D. 04/23/2024 10:08 AM
[2024-04-23 10:11] LABS: Albumin Globulin Ratio 1.6 (0.9-2); Albumin Level 3.9 gm/dl (3.4-5.0); BUN Creatinine Ratio 24.8 (10-20); Bilirubin,Total 0.9 mg/dl (0.2-1.0); Calcium 9.4 mg/dl (8.6-10.3); Creatinine Clr Calc Pharmacy 51.4 ml/min; Est GFR (African American) 64.1 ml/min; Est GFR (Non-African American) 55.3 ml/min; Globulin 2.5 gm/dl (2.5-4.0); Total Protein 6.4 gm/dl (6.0-8.3)
[2024-04-23 10:21] LABS: Partial Thromboplastin Ratio 0.9; Partial Thromboplastin Time 25 Seconds (21-31); Prothrombin Time 10.7 Seconds (9.0-12.0)
[2024-04-23 10:22] LABS: Troponin I High Sensitivity 55.4 pg/ml (0-14)
--- NOTE | 2024-04-23 10:23 | Cardiology Consultation ---
Date of Consultation April 23, 2024 Assessment & Plan (1) ST elevation (STEMI) myocardial infarction: (2) Acute decompensated heart failure: (3) DM2 (diabetes mellitus, type 2): (4) History of stroke within last year: (5) Dyslipidemia, goal LDL below 70: Plan 64-year-old female with acute lateral ST elevation myocardial infarction. ECG improved, although troponin elevated with ongoing chest discomfort. Risk, versus benefit of urgent cardiac catheterization discussed. Patient agreeable to proceed. Case discussed with ER physician and shrub planter. IV heparin will be administered at time of procedure. Patient receive additional sublingual nitroglycerin in the ER with mild relief of symptoms. Will hold off on beta-christiano therapy until cardiac catheterization complete. Recommend addition of high intensity statin therapy post procedure. Will require IV diuresis post procedure. I spent a total of 65 minutes on the date of service in preparation, delivery, and documentation of the care provided to this patient, excluding any time spent in the performance of separately billed services. History of Present Illness Reason for Consultation: STEMI Requesting Physician: Dr. Vickers [facility] History of Present Illness 64-year-old female present to the emergency department with chest discomfort and heaviness. Awoke at approximately 7 AM with 7/10 chest heaviness. She summoned EMS who performed ECG and route. ECG demonstrating high lateral ST elevation in lead I and aVL as well as subtle ST elevation in lead V2. Treated in the ER with sublingual nitroglycerin. Minimal relief. CTA of the chest was performed without evidence of pulmonary embolus. I was contacted by the emergency room physician to evaluate patient urgently at bedside. Patient continues to describe 4/10 chest discomfort. There are mild, approximately 0.[address] elevation in leads I and aVL on ECG. She receive additional 1 sublingual nitroglycerin with mild relief. Telemetry reveals intermittent junctional rhythm as well as sinus rhythm and sinus bradycardia. No evidence of ventricular tachycardia, heart block, or pauses. Patient denies history of coronary disease or congestive heart failure. She is a longstanding diabetic on insulin. Denies any tobacco use. Allergies Allergy/AdvReac Type Severity Reaction Status Date / Time metformin AdvReac Intermediate Diarrhea Verified 11/06/23 17:15 oxycodone AdvReac Intermediate upset Verified 11/06/23 17:15 stomach Home Medications Medication Instructions Recorded Confirmed Type albuterol sulfate 90 mcg/actuation 2 puff inhalation Q6H PRN 11/06/23 04/23/24 History aerosol inhaler CONGESTION/COUGH/WHEEZING aspirin 81 mg tablet,delayed 81 mg PO DAILY 11/06/23 04/23/24 History release atorvastatin 80 mg tablet 80 mg PO DAILY 11/06/23 04/23/24 History calcium carbonate (Calcium 600) 1,200 mg PO DAILY 11/06/23 04/23/24 History clotrimazole-betamethasone 1 1 applic topical BID PRN AFFECTED 11/06/23 04/23/24 History %-0.05 % topical cream AREA empagliflozin 25 mg tablet 25 mg PO QAM 11/06/23 04/23/24 History (Jardiance) fluoxetine 10 mg tablet 10 mg PO DAILY 11/06/23 04/23/24 History fluticasone propionate 50 2 spray intranasal DAILY 11/06/23 04/23/24 History mcg/actuation nasal spray,suspension lisinopril 5 mg tablet 5 mg PO QAM 11/06/23 04/23/24 History vitamin B complex 1 tab PO DAILY 11/06/23 04/23/24 History insulin glargine 100 unit/mL 20 unit (0.2 mL) SC BID #3 mL 11/11/23 04/23/24 Rx subcutaneous solution (Lantus U-100 Insulin) Patient History Surgical History H/O brain surgery "BRAIN SURGERY USING COMPUTER 01/22/07 STEREOTACTIC COMPUTER ASSISTED VOLUMETRIC PROCEDURE performed by ELENA PIMENTEL at [place] [facility] [place] Family History Other Breast cancer Coronary heart disease Social History Smoking Status: Never smoker Do You Dip or Chew Tobacco: No; Hx Alcohol Use: No Hx Substance Use: No Preferred Language: Kyrgyz Communication Ability: Effective Ground Layer Required: No Beliefs That Will Affect Care: None Current Living Situation: Alone Current Living Situation Comment: alone Feels Safe at Home: Yes Assistive Devices: Walker Review of Systems Review of Systems: All systems reviewed & are unremarkable except as noted in Subjective Physical Exam Constitutional: well nourished; no acute distress Respiratory: no respiratory distress, no labored breathing and no retractions Auscultation: + rales (Right base); no crackles, no rhonchi and no wheezes Cardiovascular: Rate/Rhythm: regular rate and regular rhythm Heart Sounds: normal S1; + abnormal S2 and no murmur Vessels: radial pulses present; no JVD and no carotid bruit Extremities: no edema Gastrointestinal (Abdomen): Inspection/Auscultation: abdomen normal to inspection and normal bowel sounds; abdomen not distended Percussion/Palpation: abdomen soft; abdomen nontender, no guarding and abdomen not rigid Neurologic: CN's II-XI intact bilaterally and moves all extremities; no focal motor deficits Results & Data Vital Signs (Past 12 Hours) Vital Signs Pulse Resp BP Pulse Ox O2 Del Method O2 Flow Rate 04/23/24 10:12 79 24 97 04/23/24 10:10 130/96 04/23/24 10:10 130/96 04/23/24 10:00 129/92 04/23/24 10:00 129/92 04/23/24 09:39 96 Oxymask 4 04/23/24 09:37 104/76 04/23/24 09:27 73 04/23/24 09:27 105 H 04/23/24 09:24 105 H 24 94 04/23/24 09:21 139/90 04/23/24 09:21 139/90 04/23/24 09:21 104 H 20 94 04/23/24 09:20 Oxymask 4 04/23/24 09:19 139/103 H 04/23/24 09:11 106 H 20 136/106 H 90 Room Air Laboratory Results Cardiac Enzymes 04/23/24 Range/Units 09:38 AST 17 (13-39) U/L Troponin I High Sens 55.4 H* (0-14) pg/ml B-Natriuretic Peptide 613 H (0-100) pg/ml Coagulation 04/23/24 Range/Units 09:38 PT 10.7 (9.0-12.0) Seconds APTT 25 (21-31) Seconds B-Natriuretic Peptide 613 H (0-100) pg/ml CBC 04/23/24 Range/Units 09:38 WBC 18.20 H (4.8-10.8) K/ul RBC 5.27 (4.20-5.40) M/uL Hgb 15.3 (12.0-16.0) g/dl Hct 46.2 (37.0-47.0) % Plt Count 285 (130-400) K/uL Neut # (Auto) 12.49 H (1.40-6.50) K/uL Lymph # (Auto) 4.29 H (1.20-3.40) K/uL [place] # (Auto) 0.54 (0.11-0.59) K/uL Eos # (Auto) 0.68 H (0.00-0.50) K/uL Baso # (Auto) 0.13 (0.00-0.20) K/uL Comprehensive Metabolic Panel 04/23/24 Range/Units 09:38 Sodium 141 (136-145) mmol/L Potassium 4.0 (3.5-5.1) mmol/L Chloride 109 H (98-107) mmol/L Carbon Dioxide 21 (21-32) mmol/L BUN 26 H (6-23) mg/dl Creatinine 1.05 (0.6-1.2) mg/dl Glucose 233 H (70-99(Fasting)) mg/dl Calcium 9.4 (8.6-10.3) mg/dl AST 17 (13-39) U/L ALT 16 (7-52) U/L Alkaline Phosphatase 64 (34-104) U/L Total Protein 6.4 (6.0-8.3) gm/dl Albumin 3.9 (3.4-5.0) gm/dl Intake and Output 04/22/24 04/23/24 04/23/24 22:59 06:59 14:59 Intake Total 50 / 50 Balance 50 / 50 Intake: IV 50 / 50 Sodium Chloride 0.9% 500 ml @ 50 / 50 999 mls/hr IV .Q31M STA Rx#: [id number] Other: Weight 79.2 kg Weight Measurement Method Chair Scale Patient Weight 04/24/24 06:59 Weight 79.2 kg (1) ST elevation (STEMI) myocardial infarction Involved coronary artery: unspecified coronary artery Qualified Code(s): I21.3 - ST elevation (STEMI) myocardial infarction of unspecified site
[2024-04-23] MEDS: NITROGLYCERIN/D5W 100MCG/ML 20ML SYR ONE (10:36)
[2024-04-23] MEDS: niCARdipine HCL INJ 2.5 MG/ML 10 ML AMP ONE (10:36)
[2024-04-23] MEDS: fentaNYL citrate PF 100 MCG/2 ML VIAL ONE (10:54)
[2024-04-23] MEDS: OPTIRAY 350 ONE (10:54)
[2024-04-23] MEDS: HEPARIN (PORCINE) 1000 UNIT/ML 10 ML (CATH LAB USE ONLY) ONE (10:54)
[2024-04-23] MEDS: MIDAZOLAM HCL 1 MG/ML 2ML VIAL ONE (10:54)
[2024-04-23] MEDS: FUROSEMIDE 40 MG/4 ML VIAL IV ONE (10:55)
--- NOTE | 2024-04-23 11:02 | Post Anesthesia Assessment ---
Date of Service April 23, 2024 Post Sedation Assessment Vital Signs Pulse Resp BP Pulse Ox O2 Del Method O2 Flow Rate 04/23/24 10:20 Non-rebreather 04/23/24 10:12 79 24 97 04/23/24 10:10 130/96 04/23/24 10:10 130/96 04/23/24 10:00 129/92 04/23/24 10:00 129/92 04/23/24 09:39 96 Oxymask 4 04/23/24 09:37 104/76 04/23/24 09:27 73 04/23/24 09:27 105 H 04/23/24 09:24 105 H 24 94 04/23/24 09:21 139/90 04/23/24 09:21 139/90 04/23/24 09:21 104 H 20 94 04/23/24 09:20 Oxymask 4 04/23/24 09:19 139/103 H 04/23/24 09:11 106 H 20 136/106 H 90 Room Air Recovery Score Activity: Moves 4 extremities Respiration: Deep Breath/Cough Circulation: +/-20% PreAnes Value Consciousness: Fully Awake Oxygen Saturation: O2 needed for >90% Discharge Sedation Level of Care: Fast Track Phase II Post Sedation Plan On clinical assessment, the patient appears to have tolerated the sedation wi thout complications. Patient is recovering as anticipated. Patient will continue to be monitored by nursing and may be discharged when sedation discharge criteria are met per below protocol. Upon Completions of procedure up to 15 minutes continue every 5 minute vital signs and the P.A.R. score; then discharge to a Phase I or Fast Track to Phase II per the following guidelines: * Discharge Patient to appropriate Phase II area if PAR is 8 or greater or return to pre- procedure baseline. The post - procedure orders will be as directed. * If PAR score is less than 8 or not return to pre-procedure baseline then patient will follow Phase I monitoring till PAR is reached for Phase II. The Phase I may be done in procedure room or may call to secure a Phase I area. * If naloxone or flumazenil are used for reversal, hold in Phase I for continued monitoring from when last reversal dose was given for a minimum of 60 minutes or longer pending the nurse and/or physician discretion of patient condition before discharge to Phase II. Please call the Sedation Physician to re-evaluate and complete post-note for discharge to Phase II area. Do NOT discharge from procedure sedation or Phase 1 until post- sedation evaluation note is complete by procedure /sedation MD Sedation Discharge Instructions to be given to the patient at discharge to home.
--- NOTE | 2024-04-23 11:09 | Cardiac Catheterization ---
[facility] Data: Speech And Hearing Director Cardiac Status Clinical evaluation leading to the procedure CAD Presenation: Sx unlikely to be ischemic Diagnostic Physicians Name: Fabrizio Coronado MD Closure Device Recommendations: Medical Therapy and/or Counseling Cardiac Cath Procedure Full Procedure Date April 23, 2024 Pre-Procedure Diagnosis Pre-Procedure Diagnosis: STEMI AUC Score AUC Score: 9 Post-Procedure Diagnosis Post-Procedure Diagnosis: Mild CAD Procedure(s) Performed Procedure(s) Performed: Coronary Angiography, Left Heart Cath and Ultrasound Guided Vascular Access Associate Civil Engineer Fabrizio Coronado MD Postmaster(s) Showers Estimated Blood Loss Estimated Blood Loss: 15 Medication(s) Medication(s): Fentanyl, Heparin, Lidocaine 1%, Nicardipine, Nitroglycerin and Versed Summary of Findings Indication: ACS, subtle lateral ST elevations on ECG Access: 6 Fr slender right radial artery under ultrasound guidance Catheters: [place], pigtail Findings: LM -Short, medium caliber no significant disease LAD -medium caliber, no significant disease, distal vessel tapers prior to apex. D1 without disease. Circumflex -medium caliber, dominant, luminal irregularities RCA -small, nondominant LVEDP -41 Arterial Closure: TR band Summary: 1. Angiographically normal coronary arteries 2. Elevated left-sided filling pressures (LVEDP 41) Recommendations: Given 1 dose of IV Lasix 40 mg in Speech And Hearing Director Additional diuresis per Dr. Gonzalez Continued ASCVD risk factor modification Hemodynamics Rest Ao:: 119/84/99 Final Ao: 109/73/89 LV: 121/41 Recommendations Recommendations: Medical Therapy and/or Counseling Radiation Exposure (mGy) 626 Contrast (mls) 45 Anesthesia Moderate [id number] Procedural Complication(s) None Disposition Speech And Hearing Director Holding/Recovery I attest to the content of the Intraoperative Record and any orders documented therein. Any exceptions are noted below. [facility] Card Cath Procedure Codes Cardiac Catheterization Procedure 1: Cardiovascular Cath Procedures: 45235 Coronaries and LHC (+/-LV) Therapeutic Services & Ancillary Procedure 1: Cardiovascular Tx and Anc Procedures: 93719 Ultrasonic Guidance Vascular Access Moderate Sedation Procedure 1: Sedation/Anesthesia: 19737 Mod Sedation by the same physician;Init15 Min Child Age 5 & Up PG Care Time/CCT Total # of Minutes Spent Total Time Spent with Patient: Total time spent is greater than 50% in coordination of care (as documented) at patient's floor/unit and/or counseling patient:
--- NOTE | 2024-04-23 11:17 | History & Physical Report ---
<Statement entered by Bernardo Encarnacion MD - 04/23/24 12:35> Attending Addendum: Case reviewed with the advanced practitioner. I have personally performed a history and physical examination on the patient. I have reviewed the advanced practitioner's documentation on the date of service referenced in note, and I agree with, and take responsibility for the plan of care. Presented vis EMS for STEMI, original EKG unavailable, lateral. Cath negative, current thought is that patient has newly diagnosed HFrEF LVEDP 41. No LE edema, some decreased ausculatory ability in the lungs, will diurese per cardio, potential d/c in the next 1-2 days. Date of Service April 23, 2024 Assessment & Plan (1) ST elevation (STEMI) myocardial infarction: (2) History of stroke within last year: (3) HTN (hypertension): (4) Dyslipidemia, goal LDL below 70: (5) DM2 (diabetes mellitus, type 2): (6) Depression: (7) NIDHI (obstructive sleep apnea): Plan Ms. Juares is a 64-year-old female that presented to the ED via EMS with complaints of nonradiating chest pain and nausea that started when she was at home. Prior to yesterday she was doing well without complaints. Past medical history includes controlled DM2, NIDHI on CPAP, HTN, HLD, H/O CVA 10/2023, and anxiety. No previous known history of AMI. She was admitted in October 2023 with RUE weakness and was a stroke alert. She did receive TNK and was diagnosed with an embolic CVA. Reportedly was non compliant with statin/asa in the past. In the ED chest CT revealed 2.2 mm solid RLL nodule increasing in size and correlation imaging in 3 months. Negative for PE and moderate interstitial edema. Heart alert was called in the ED and she will be taken [facility]. Leukocytosis suspect secondary to ischemic demand 18.2, glucose elevated to 33 otherwise labs unremarkable. BNP elevated 613, troponin 55. COVID-negative. On arrival ECG with ST elevation in leads I, II, and aVL. Most recent ECHO 10/2023: EF 60-65%, mild LVH, trace AR/TR. Pt denies Chavez, dizziness, palpitations, N/V/D, blurry or double vision, hematuria, hematochezia, recent illness or travel, falls or trauma. Pt lives alone and has an ADT system in case she needs any assistance. She denies tobacco use, alcohol or recreational drug use. STEMI: Acute Admit to PCU post cath Nonradiating chest pain Was given SL Nitro in ED with minimal relief ECG ST septal wall OR. ST elevation in lead I, II and aVL. Troponin 55.4; trend, anticipate BNP 613 Leukocytosis 18.2 secondary to ischemic demand Chest CTA: negative for PE. 2.2 cm solid right lower lobe nodule increasing in size. A f/u Chest CT in 3 months is recommended. Already prescribed and takes high dose atorvastatin and baby ASA; possible non- compliance NSB 500 ml in ED; hold on any additional fluids given CHF Angiographically normal coronary arteries; Elevated left-sided filling pressures (LVEDP 41) Check TSH Received Lasix 40 mg intra cath; continue BID. No PCI interventions; clean cath Cards consult placed CHF: Acute BNP 613, new onset. No known history of CHF CXR: Cardiomegaly with pulmonary vascular congestion. Intracath LVEDP 41 Received Lasix 40 mg intra cath; continue BID Insert eli catheter for accurate I/O 1800mL fluid restriction CXR in AM Cardiology consultation placed HTN: Chronic Prescribed Lisinopril; but has not taken in months. Cards to see patient for further reccs. IDDM 2: Chronic 04/16/2024 A1c 6.0 On Lantus Takes Jardiance; hold while inpt Place on SSI achs H/O CVA: chronic Brain MRI reveals a small L cortical infarct that appears emboli Received TNK at that time. NIDHI: Chronic Wears CPAP at night; continue while here with protocols Brought own CPAP; ok to use HLD: Chronic On high-dose atorvastatin Most recent lipid panel 01/18 TG 113, LDL 128 Depression: Chronic Takes fluoxetine; continue Disposition: PCP: Dr. Blackmon; case management to discuss home living environment and safety Code Status: Full VTE Prophylaxis: Lovenox SQ I spent a total of 87 minutes coordinating, documenting, and providing care for this patient excluding time spent in the performance of separately billed services. All of the aforementioned completed while collaborating with the assigned attending physician for a full treatment plan. Please see their addendum for further details. History of Present Illness Chief Complaint: chest pain without radiation Primary Care Provider: Traci Blackmon MD Ms. Juares is a 64-year-old female that presented to the ED via EMS with complaints of nonradiating chest pain and nausea that started when she was at home. Prior to yesterday she was doing well without complaints. Past medical history includes controlled DM2, NIDHI on CPAP, HTN, HLD, H/O CVA 10/2023, and anxiety. No previous known history of AMI. She was admitted in October 2023 with RUE weakness and was a stroke alert. She did receive TNK and was diagnosed with an embolic CVA. Reportedly was non compliant with statin/asa in the past. In the ED chest CT revealed 2.2 mm solid RLL nodule increasing in size and correlation imaging in 3 months. Negative for PE and moderate interstitial juan a ma. Heart alert was called in the ED and she will be taken to [facility] from [facility]. Leukocytosis suspect secondary to ischemic demand 18.2, glucose elevated to 33 otherwise labs unremarkable. BNP elevated 613, troponin 55. COVID-negative. On arrival ECG with ST elevation in leads I, II, and aVL. Most recent ECHO 10/2023: EF 60-65%, mild LVH, trace AR/TR. Pt denies Chavez, dizziness, palpitations, N/V/D, blurry or double vision, hematuria, hematochezia, recent illness or travel, falls or trauma. Pt lives alone and has an ADT system in case she needs any assistance. She denies tobacco use, alcohol or recreational drug use. Patient will be admitted for further evaluation and management. Please see A/P for further details Allergies Allergy/AdvReac Type Severity Reaction Status Date / Time metformin AdvReac Intermediate Diarrhea Verified 11/06/23 17:15 oxycodone AdvReac Intermediate upset Verified 11/06/23 17:15 stomach Home Medications Medication Instructions Recorded Confirmed Type albuterol sulfate 90 mcg/actuation 2 puff inhalation Q6H PRN 11/06/23 04/23/24 History aerosol inhaler CONGESTION/COUGH/WHEEZING aspirin 81 mg tablet,delayed 81 mg PO DAILY 11/06/23 04/23/24 History release atorvastatin 80 mg tablet 80 mg PO DAILY 11/06/23 04/23/24 History calcium carbonate (Calcium 600) 1,200 mg PO DAILY 11/06/23 04/23/24 History clotrimazole-betamethasone 1 1 applic topical BID PRN AFFECTED 11/06/23 04/23/24 History %-0.05 % topical cream AREA empagliflozin 25 mg tablet 25 mg PO QAM 11/06/23 04/23/24 History (Jardiance) fluoxetine 10 mg tablet 10 mg PO DAILY 11/06/23 04/23/24 History fluticasone propionate 50 2 spray intranasal DAILY 11/06/23 04/23/24 History mcg/actuation nasal spray,suspension lisinopril 5 mg tablet 5 mg PO QAM 11/06/23 04/23/24 History vitamin B complex 1 tab PO DAILY 11/06/23 04/23/24 History insulin glargine 100 unit/mL 20 unit (0.2 mL) SC BID #3 mL 11/11/23 04/23/24 Rx subcutaneous solution (Lantus U-100 Insulin) Past Med/Surg History Problem List (Updated 04/23/24 @ 11:20 by Billy Gonzalez DO) Acute decompensated heart failure Dyslipidemia, goal LDL below 70 History of stroke within last year ST elevation (STEMI) myocardial infarction Acute ischemic left MCA stroke Cerebrovascular accident (Acute) HTN (hypertension) Stroke-like symptom RUE weakness History of cataract surgery (Chronic) Hx of tonsillectomy (Chronic) NIDHI (obstructive sleep apnea) (Chronic) Depression (Chronic) DM2 (diabetes mellitus, type 2) (Chronic) Family hx-breast malignancy Respiratory failure Surgical History (Updated 04/23/24 @ 11:11 by SHIMA Hoover) H/O brain surgery "BRAIN SURGERY USING COMPUTER 01/22/07 STEREOTACTIC COMPUTER ASSISTED VOLUMETRIC PROCEDURE performed by BILLY PIMENTEL at OR [facility] – [place]" Family History (Updated 04/23/24 @ 11:11 by SHIMA Hoover) Other Breast cancer Coronary heart disease Social History Smoking Status: Never smoker Do You Dip or Chew Tobacco: No; Hx Alcohol Use: No Hx Substance Use: No Preferred Language: Citizen Of [place] Communication Ability: Effective Distribution Engineering Technologist Required: No Beliefs That Will Affect Care: None Current Living Situation: Alone Current Living Situation Comment: alone Feels Safe at Home: Yes Assistive Devices: Walker Review of Systems Review of Systems: Neuro: (-) Falls, trauma, slurred speech HEENT: (-) CHAVEZ, dizziness, dysphagia, visual or auditory changes CV: (-) CP, palpitations, swelling Resp: (-) SOB GI: (-) appetite changes, N/V/D, bowel changes : (-) urinary changes Skin: (-) rashes Psych: (-) anxiety, depression Physical Exam Physical Exam: Neuro: AAOx4, PERRLA, no aphagia, memory changes, CNII-XII grossly intact HEENT: head normocephalic, moist mucus membranes CV: S1/S2, (-) M/G/R, (-) edema, cap refill < 3 seconds Resp: Lungs CTA in all goodman. On RA GI: Abdomen S/NT/ND, Ax4 bowel sounds, (-) CVA tenderness Musculoskeletal: 5/5 B/L UE strength, 5/5 B/L LE strength. No gait disturbance Skin: (-) rashes , (-) erythema. Psych: euthymic mood Results & Data Results & Data Vital Signs (Past 12 Hours) Vital Signs Pulse Resp BP Pulse Ox O2 Del Method O2 Flow Rate 04/23/24 10:20 Non-rebreather 04/23/24 10:12 79 24 97 04/23/24 10:10 130/96 04/23/24 10:10 130/96 04/23/24 10:00 129/92 04/23/24 10:00 129/92 04/23/24 09:39 96 Oxymask 4 04/23/24 09:37 104/76 04/23/24 09:27 73 04/23/24 09:27 105 H 04/23/24 09:24 105 H 24 94 04/23/24 09:21 139/90 04/23/24 09:21 139/90 04/23/24 09:21 104 H 20 94 04/23/24 09:20 Oxymask 4 04/23/24 09:19 139/103 H 04/23/24 09:11 106 H 20 136/106 H 90 Room Air Laboratory Results Short CBC 04/23/24 Range/Units 09:38 WBC 18.20 H (4.8-10.8) K/ul Hgb 15.3 (12.0-16.0) g/dl Hct 46.2 (37.0-47.0) % Plt Count 285 (130-400) K/uL BMP 04/23/24 09:38 Sodium 141 Potassium 4.0 Chloride 109 H Carbon Dioxide 21 BUN 26 H Creatinine 1.05 Glucose 233 H Calcium 9.4 Liver Function 04/23/24 Range/Units 09:38 Total Bilirubin 0.9 (0.2-1.0) mg/dl AST 17 (13-39) U/L ALT 16 (7-52) U/L Alkaline Phosphatase 64 (34-104) U/L Albumin 3.9 (3.4-5.0) gm/dl Diagnostic Findings Chest X-Ray 04/23/24 09:21 SINGLE VIEW CHEST CLINICAL HISTORY: Atypical chest pain. FINDINGS: 2 AP, portable, upright chest radiographs are compared to study dated 11/06/2023. Correlation is made with chest CT dated 12/24/2015. The heart is enlarged. There is pulmonary vascular congestion. Scarring/atelectasis is noted at the lung bases. No airspace consolidation or large pleural effusion is identified. No pneumothorax is seen. The skeletal structures are osteopenic. The bony thorax is grossly intact. IMPRESSION: Cardiomegaly with pulmonary vascular congestion. Radiographic follow-up to resolution is recommended. ACT 112: Negative or not required by law. Electronically signed by: Yfn Red M.D. 04/23/2024 9:40 AM Chest CTA 04/23/24 09:46 CT ANGIOGRAPHY OF THE CHEST, PULMONARY EMBOLUS PROTOCOL CLINICAL HISTORY: Chest pain. Evaluate for pulmonary embolus. COMPARISON STUDY: Chest CT December 24, 2015. Chest radiograph performed earlier today. TECHNIQUE: Following IV administration of 112 mL of Optiray, helical axial images of the chest were obtained utilizing the pulmonary embolus protocol. Maximal intensity projections and sagittal and coronal reformats were viewed on an independent 3D workstation. IV contrast was administered without complication. Automated exposure control was utilized for the study. A dose lowering technique was utilized adhering to the principles of ALARA. CT DOSE: 798.77 mGy.cm FINDINGS: No pulmonary emboli are identified. The caliber of the thoracic aorta is normal. Thoracic aorta is not opacified. The heart is moderately enlarged. There is reflux of contrast into the IVC and hepatic veins which are mildly dilated. There is no pericardial effusion. There are trace bilateral pleural effusions. There is no pneumothorax. Interlobular septal thickening is present. There are also groundglass opacities within the lungs. No consolidation is identified. A 2.2 cm solid right lower lobe nodule on image 96 has increased in size since CT of December 24, 2015 when it measured 1.2 cm. Hypodensity within the medial aspect of this lesion may be artifactual. Several additional nodular opacities within lungs measure up to 6 mm. Central airways are patent. Nodularity of the left adrenal gland is unchanged. This is benign. IMPRESSION: 1. No pulmonary emboli identified. 2. Cardiomegaly with moderate interstitial pulmonary edema. Trace bilateral pleural effusions. 3. 2.2 cm solid right lower lobe nodule which has increased in size since prior CT. Equivocal fat within this lesion raises the possibility of a hamartoma. However, this may be artifactual and other etiologies such as a carcinoid tumor are within the differential. A follow-up chest CT in 3 months is recommended. ACT 112: Negative or not required by law. Electronically signed by: Raj Aguirre M.D. 04/23/2024 10:08 AM Code Status & VTE Plan Code Status Full Code in the event of cardiac or respiratory arrest VTE Prophylaxis Plan VTE Prophylaxis will be ordered: Yes
[2024-04-23] MEDS ORDERED: ALBUTEROL HFA 8 GM INHALER INH PRN (12:19)
[2024-04-23] MEDS ORDERED: GLUCAGON FOR INJ 1 MG VIAL SQ PRN (12:23)
[2024-04-23] MEDS ORDERED: GLUCOSE 10 TAB/TUBE PO PRN (12:23)
[2024-04-23] MEDS ORDERED: PHARMACY GLYCEMIC MGMT CONSULT PRN (12:23)
[2024-04-23] MEDS ORDERED: GLUCOSE 40% GEL 15 GM TUBE PO PRN (12:23)
[2024-04-23] MEDS ORDERED: CARBOHYDRATES FOR HYPOGLYCEMIA PO PRN (12:23)
[2024-04-23] MEDS ORDERED: DEXTROSE 50% 50 ML SYRINGE IV PRN (12:23)
--- OUTSIDE RECORDS SUMMARY | 2024-04-23 13:20 | External Medical Summary | Summary of Care ---
Author Name Unknown Organization [facility] Address [address] [address] Phone [phone] Care Team Providers Care Cardiac Monitor Technician Name Role Phone Traci Blackmon MD Primary Care Provider [phone] Reason for Visit * Reason Onset Date Comments Appointment 04/16/2024 Encounter Details Date Type Department Care Team (Late st Contact Info) Description 04/16/2024 Telephone General Internal Medicine [facility] [address] [address] Traci Blackmon MD 200 [facility] [place] [address] Appointment Allergies Active Allergy Reactions Criticality Noted Date Comments Metformin Diarrhea 04/16/2018 Percocet 01/22/2007 Makes pt sick documented as of this encounter (statuses as of 04/16/2024) Medications Medication Sig Dispensed Refills Start Date End Date Status CALCIUM 600 TABS 600 MG OR 2 po daily 0 01/03/1999 Active Aspirin 81 MG TabletIndications:DM type 2 nursing care encounter (HCC) Take 1 Tablet by mouth in the morning. 30 Tab 06/23/2017 Active B Complex Vitamins (B-COMPLEX/B-12) TABS Take by mouth. Active CPAP every night at bedtime. Active Albuterol Sulfate HFA 108 (90 Base) MCG/ACT Inhalation Aerosol SolutionIndications: Upper respiratory tract infection, unspecified type,Bronchitis Inhale 2 Puffs by mouth every 6 hours as needed for Congestion, Cough or Wheezing. 18 g 09/19/2022 Active Fluticasone Propionate 50 MCG/ACT Nasal Suspension (Flonase) Administer 2 Sprays into each nostril in the morning. 16 g 5 09/26/2022 Active Atorvastatin Calcium 80 MG Oral Tablet (Lipitor)Indications :Dyslipidemia, goal LDL below 100 Take 1 Tablet by mouth in the morning. 90 Tablet 3 11/25/2023 Active FreeStyle Phill 14 Day [place] DeviceIndications:Ty pe 2 diabetes mellitus with hemoglobin A1c goal of less than 7.0% (HCC),Uncontrolled type 2 diabetes mellitus with hyperglycemia (HCC),Current use of insulin (HCC) Use as directed. DX E.11.9 and Z97.4 1 Each 12/11/2023 Active FLUoxetine HCl 10 MG Oral Capsule (PROzac)Indications: Anxiety Take 1 Capsule by mouth in the morning. 90 Capsule 3 01/06/2024 Active BD Eclipse Needle 25G X 5/8" (Needle (Disp))Indications:T ype 2 diabetes mellitus with hemoglobin A1c goal of less than 7.0% (HCC) Use with Lantus 180 Each 3 01/06/2024 Active Insulin Glargine Solostar 100 UNIT/ML Subcutaneous Solution Pen-injector (Lantus SoloStar) Inject 8 Units under the skin in the morning and 8 Units before bedtime. Active FreeStyle Phill 14 Day SensorIndications:Ty pe 2 diabetes mellitus with hemoglobin A1c goal of less than 7.0% (HCC),Uncontrolled type 2 diabetes mellitus with hyperglycemia (HCC),Current use of insulin (HCC) Use as directed. E11.9 and Z97.4 4 Each 5 02/02/2024 Active documented as of this encounter (statuses as of 04/16/2024) Active Problems Problem Noted Date Diagnosed Date Hemiplegia affecting right dominant side 024 Hx of nonmelanoma skin cancer 04/25/2022 Overview: BCC L upper back 2022, BCC R buddhism 2021, Hx BCC L nasal root 2004 Hypertension associated with type 2 diabetes luciano litus 11/20/2020 Calculus of gallbladder with out cholecystitis without obstruction 08/05/2019 JAMES (generalized anxiety disorder) 09/25/2017 Family history of colon cancer 02/02/2015 Overview: Father and uncle Type 2 diabetes mellitus wit h hemoglobin A1c goal of less than 7.0% 12/03/2012 Overview: ICD-10 update of inactive term BMI 29.0-29.9,adult 10/19/2009 Overview: Per Obesity Taxonomy Hyperlipidemia associated with type 2 diabetes m elljennifer 09/18/2009 NIDHI on CPAP 03/03/2007 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, since age 4 HX OF BREAST MALIGNANCY - Mom Overview: Eligible for MRI breasts due to increased risk of breast cancer documented as of this encounter (statuses as of 04/16/2024) Resolved Problems Problem Noted Date Diagnosed Date [...] 01/08/2001 Overview: Per Obesity Taxonomy Mixed dyslipidemia 01/06/199906/21/200 9 Overview: Per Lipid Taxonomy IRON DEFIC ANEMIA NOS 01/06/19992016 CLASSICAL MIGRAINE WITHOU ME NTION OF INTRACTABLE MIGRAINE 01/20/1998 08/13/2016 OTHER AND UNSPECIFIED SLEEP APNEA 01/20/1998 08/13/2016 PREMENSTRUAL TENSION 01/20/1998 017 UTERINE LEIOMYOMA NOS - by ultrasound 01/20/1998 08/13/2016 documented as of this encounter (statuses as of 04/16/2024) Immunizations Name Administration Dates Next Due COVID-19 mRNA, LNP-s, No Pre serve, 2-Dose Series (Moderna) 08/04/2023 COVID-19 mRNA, LNP-s, No Pre serve, 2-Dose Series (Pfizer) 11/01/2021,10/09/2020,09/12/2020 COVID-19, LNP-s, No Preserve , Carroll-sucrose, Ages 12+ (Pfizer) 11/01/2021 Covid-19, Mrna, Lnp-s, Pf, B ivalent, 30 Mcg, IM, 12 yrs and above (Pfizer) 04/29/2022 Hepatitis B, 20+ yrs 11/02/2014,06/07/2014,03/31 Pneumococcal Conjugate Vacci ne, 20-valent (Etwnhai61) 04/18/2022 Pneumococcal Polysaccharide PPV23 (Pneumovax) 07/29/2019,12/03/2012 Seasonal Influenza Virus Vac cine, Unspecified Formulation 08/04/2023,04/18/2022,04/23/2021,06/19,05/27/2019,04/16/2018,06/23/2017 ,05/16/2016,05/05/2015,04/27/2015,10/2013,05/31/2013,05/21/2012, 2,04/30/2011,05/28/2010,05/28/2009,,06/04/2007 Seasonal Influenza, High Dos e, Trivalent, PF, IM (Fluzone HD) 04/16/2024 Seasonal Influenza, PF, 6 M & above, IM , (FluLaval or Fluzone) 04/18/2022,04/23/2021,06/19/2020,05/27,04/16/2018,06/23/2017 Seasonal Influenza, Quadriva lent Hd, 65+ Yrs 08/04/2023 Seasonal Influenza, Quadriva lent, No Preserve, IM 05/16/2016,05/05/2015 Seasonal Influenza, Trivalen t, (IIV3), with Preserv, (Fluzone) 2014,05/31/2013,05/19/2012,04/30,05/28/2010,05/28/2009,06/18/2008 ,06/04/2007 TDAP (age 10 and older)(Boostrix) 10/22/2021 TDAP, Age 7 and older, IM (Adacel) 03/19/2010 Zoster Vaccine Recombinant (Shingrix) 07/29/2019 ,05/27/2019 documented as of this encounter Social History Tobacco Use Types Packs/Day Years Used Date Smoking Tobacco: Never Smokeless Tobacco: Never Alcohol Use Standard Drinks/Week Comments No 0 (1 standard drink = 0.6 oz pur e alcohol) None currently- due to meds. PHQ-2 Answer Date Recorded PHQ Adult Total Score 0 11/25/2023 Hunger Vital Sign Answer Date Recorded Within the past 12 months, y ou worried that your food would run out before you got the money to buy more. Never true 12/02/19 24 Within the past 12 months, t he food you bought just didn't last and you didn't have money to get more. Never true 12/02/2023 Childcare Answer Date Recorded Do you feel overwhelmed with taking care of a child, family member or friend? No 12/02/2023 Does your family need help f inding childcare? (Household - for ages 0-17 years) Not on file 12/02/2023 Clothing Answer Date Recorded Have you been unable to get clothing when it was really needed? No 12/02/2023 Is your family able to get c lothes or diapers when needed? (Household - for ages 0-17 years) Not on file 12/02/2023 Personal Safety Answer Date Recorded Do you feel unsafe or have concerns for your saf ety? Yes 12/02/2023 Do you have concerns for you r family's safety? (Household - for ages 0-17 years) Not on file 12/02/2023 Utilities Answer Date Recorded Do you have trouble paying y our heating, water, or electric bill? No 12/02/2023 Is your family able to pay t he heat, water, or electric bill? (Household - for ages 0-17 years) Not on file 12/02/2023 Does your family have access to good internet? (Household - for ages 0-17 years) Not on file 12/02/2023 Employment Status Answer Date Recorded Are you unemployed or without regular income? No 12/02/2023 Does the household have a re gular source of income? (Household - for ages 0-17 years) Not on file 12/02/2023 Social Connections Answer Date Recorded How often do you feel lonely or isolated from th ose around you? Rarely 12/02/2023 Financial Resource Strain Answer Date R ecorded Do you have any trouble payi ng for your medications, or do you think you might in the future? No 12/02/2023 Does your family have troubl e paying for medicine? (Household - for ages 0-17 years) Not on file 12/02/2023 Transportation Needs Answer Date Record ed READ ONLY Do you have troubl e getting a ride to medical visits or work? Never True 12/02/2023 Does your family have a hard time getting a ride to doctors visits? (Household - for ages 0-17 years) Not on file 12/02/2023 Has lack of transportation k ept you from medical appointments, meetings, work, or from getting things needed for daily living? Check all that apply. (Adult - for ages 18 years and over) Not on file 12/02/2023 Do you (or your family) have trouble finding or paying for a ride (transportation)? (Household - for ages 0-17 years) Not on file 12/02/2023 Housing Stability Answer Date Recorded Do you currently live in a s helter or have no steady place to sleep at night? No 12/02/2023 READ ONLY Do you think you a re at risk of becoming homeless? No 12/02/2023 Does your family worry about paying for your home or becoming homeless? (Household - for ages 0-17 years) Not on file 0 12/02/2023 Are you homeless or worried that you might be in the future? (Adult - for ages 18 years and over) Not on file Are you (or your family) shruthi eless or worried that you might be in the future? (Household - for ages 0-17 years) Not on file Food Insecurity Answer Date Recorded Do you need food for this week? No 12/02/2023 Are you able to get enough f ood for your family? (Household - for ages 0-17 years) Not on file 12/02/2023 Does your family need food t his week? (Household - for ages 0-17 years) Not on file 12/02/2023 Do you always have enough fo od for your family? (Household - for ages 0-17 years) Not on file 12/02/2023 Sex and Gender Information Value Date Recorded Sex Assigned at Female 04/15/2024 11:51 AM EDT Gender Identity Female 04/15/2024 11:51 AM EDT Sexual Orientation Straight 04/15/2024 11 :51 AM EDT Job Start Date Occupation Industry Not on file Not on file Not on file documented as of this encounter Miscellaneous Notes * Telephone Encounter - Rebecca Rodrigues OSA - 04/16/2024 10:34 AM EDT Patient Demographics for ODALYS JUARES [[id number]] date: 1960 SSN: [id number] Age: 64 yrs Sex: Female Home phone: Work phone: Address: [facility] [address] [facility] [address] E-mail: [email or web address] Permanent comments: Referral Information Patient: Odalys Juares [[id number]] Referral ID: [id number] Status: Pending Review Type: Ancillary Services Class: Internal Reason(s): Ancillary Services Required [] Diagnosis: Z12.11 (ICD-10-CM) - Special screening for malignant neoplasms, colon Procedure(s): [id number] - COLONOSCOPY, GI REFERRAL OP Start: Apr 16, 2024 Expiration: Requested: 999 Authorized: 999 Scheduled: Completed: Authorization #: Precertification #: Referring Provider: TRACI BLACKMON Ref to Dept Specialty: Referred to Provider: Ref to Prov Specialty: Gastroenterology Referral Priority: Within 30 days (routine) documented in this encounter Plan of Treatment Upcoming Encounters Date Type Department Care Team (Late st Contact Info) Description 05/03/2024 1:30 PM EDT Telemedicine Pharmacy, [facility] [address] [address] Pharmacist2, [facility] [address] [place] [address] 07/16/2024 9:40 AM EST Office Visit General Internal Medicine [facility] [address] [place] [address] Traci Blackmon MD 200 [facility] [address] [address] 09/15/2024 3:30 PM EST Imaging Radiology, [place] [address] [facility] [address] [address] Scheduled Procedures Name Priority Associated Diagnoses Date/Ti me COLONOSCOPY FLEXIBLE PROXIMAL DIAGNOSTIC Recall History of colon polyps Health Maintenance Due Date Last Done Comments Cologuard 2003 Sigmoidoscopy 2003 Fecal Occult Blood Test 11/17/2008 11/18/2007 DXA Scan 2023 Colonoscopy 11/09/2023 11/08/2020, 10/26, 04/10/2017, Additional history exists Colorectal Cancer Screening 11/09/2023 COVID-19 Vaccine ( season) 2024 08/04/2023, 04/29/2022, 11/01/2021, Additional history exists Postponed from 03/28/2024 (Unavailable) HbA1c 07/21/2024 01/20/2024, 03/0 08/2022, 04/18/2022, Additional history exists Depression Screening 11/24/2024 11/25/2023 Diabetic Foot Exam 11/24/2024 11/25/2023, 0 04/18/2022, 04/23/2021, Additional history exists Mammogram 12/02/2024 12/03/2023, 05/0 02/2024, 02/05/2022, Additional history exists Albumin/Creatinine Ratio 01/19/2025 024, 09/26/2022, 10/22/2021, Additional history exists GFR 01/19/2025 01/20/2024, 10/27, 11/12/2023, Additional history exists Diabetic Eye Exam 02/04/2025 02/05/2024, , 08/12/2018, Additional history exists Lipid Panel 01/19/2029 01/20/2024, 03/08/2022, 04/18/2022, Additional history exists DTap/Tdap Vaccines (3 - Td or Tdap) 10/23/2031 10/22/2021, 03/19/2010, 01/02/2000 Hepatitis B Vaccine Completed 11/02/2014, 06/07/2014, 2014 Zoster Vaccines Completed 07/29/2019, 05/27/2019 Cervical Cancer Screening Discontinued Pap Smear Discontinued 04/30/2021, 03/29, 02/02/2015, Additional history exists Pneumococcal Vaccine: 65+ Years Completed 04/18/2022, 07/29/2019, 12/03/2012 Influenza Vaccine (FLU shot) Completed 04/16/2024, 08/04/2023, 08/04/2023, Additional history exists HPV (Gardasil) Vaccine Aged Out No lo nger eligible based on patient's age to complete this topic HPV/Co-Test Discontinued MENINGOCOCCAL (MENACTRA/MENVEO) Aged Out No longer eligible based on patient's age to complete this topic documented as of this encounter Medical Devices Not on filedocumented as of this encounter Care Teams Cardiac Monitor Technician Relationship Specialty Start Date End Date Traci Blackmon MD [address] [place] [address] PCP - General Internal Medicine 05/27/19 documented as of this encounter
--- OUTSIDE RECORDS SUMMARY | 2024-04-23 13:20 | External Medical Summary ---
Author Name Unknown Address Unknown Organization K09[facility] [place] [address] Laboratory Report Ordering Provider Test Date Status KEESHA RUDD 04/16/2024 09:32:16 Final Observation Date Value Abnormality Reference (Units ) Status HbA1C 04/16/2024 09:32:16 6.0 Above high normal 4. 0-5.6 (%) Final Performing Location [facility] [place] [address]
--- OUTSIDE RECORDS SUMMARY | 2024-04-23 13:20 | External Medical Summary | Summary of Care ---
Author Name Unknown Organization [facility] Address [address] [address] Phone [phone] Care Team Providers Care Pipe Fitter Gas Pipe Name Role Phone Tobin Blackmon MD Primary Care Provider [phone] Reason for Visit * Reason Onset Date Comments Appointment 04/16/2024 Encounter Details Date Type Department Care Team (Late st Contact Info) Description 04/16/2024 Telephone General Internal Medicine [facility] [place] [address] [address] Tobin Blackmon MD 200 [facility] [place] [address] Appointment Allergies Active Allergy Reactions Criticality Noted Date Comments Metformin Diarrhea 04/16/2018 Percocet 01/22/2007 Makes pt sick documented as of this encounter (statuses as of 04/19/2024) Medications Medication Sig Dispensed Refills Start Date [...] 3 11/25/2023 Active FreeStyle Phill 14 Day [place] DeviceIndications:Ty pe 2 diabetes mellitus with hemoglobin [...] as of this encounter (statuses as of 04/19/2024) Active Problems Problem Noted Date Diagnosed Date Hemiplegia affecting right dominant side 024 Hx of nonmelanoma skin cancer 04/25/2022 Overview: BCC L upper back 2022, BCC R jain 2021, Hx BCC L nasal root 2004 [...] as of this encounter (statuses as of 04/19/2024) Resolved Problems Problem Noted Date Diagnosed Date [...] as of this encounter (statuses as of 04/19/2024) Immunizations Name Administration Dates Next Due COVID-19 mRNA, LNP-s, No Pre serve, 2-Dose Series (Moderna) 08/04/2023 COVID-19 mRNA, LNP-s, No Pre serve, 2-Dose Series (Pfizer) 11/01/2021,10/09/2020,09/12/2020 COVID-19, LNP-s, No Preserve , Carroll-sucrose, Ages 12+ (Pfizer) 11/01/2021 Covid-19, Mrna, Lnp-s, Pf, B ivalent, 30 Mcg, IM, 12 yrs and above (Pfizer) 04/29/2022 Hepatitis B, 20+ yrs 11/02/2014,06/07/2014,03/31 Pneumococcal Conjugate Vacci ne, 20-valent (Notafsf22) 04/18/2022 Pneumococcal Polysaccharide PPV23 (Pneumovax) 07/29/2019,12/03/2012 Seasonal [...] t, (IIV3), with Preserv, (Fluzone) 2014,05/31/2013,05/19/2012,04/30,05/28/2010,05/28/2009,06/18/2008 ,06/04/2007 TD - Tetanus/Diptheria (ADULT) 01/02/2000 TDAP (age 10 and older)(Boostrix) 10/22/2021 TDAP, [...] encounter Miscellaneous Notes * Telephone Encounter - Nishi Louise OSA - 04/19/2024 3:10 PM EDT Lmm NIDHI Larson 04/19/2024 3:10 PM * Telephone Encounter - Rebecca Rodrigues OSA - 04/16/2024 10:34 AM EDT Patient Demographics for REBECA JUARES [[id number]] date: 1960 SSN: [id number] Age: 64 yrs Sex: Female Home phone: Work phone: Address: [facility] [address] [facility] [address] E-mail: [email or web address] Permanent comments: Referral Information Patient: Rebeca Juares [[id number]] Referral ID: [id number] Status: Pending Review Type: Ancillary Services Class: Internal Reason(s): Ancillary Services Required [] Diagnosis: Z12.11 (ICD-10-CM) - Special screening for malignant neoplasms, colon Procedure(s): [id number] - COLONOSCOPY, GI REFERRAL OP Start: Apr 16, 2024 Expiration: Requested: 999 Authorized: 999 Scheduled: Completed: Authorization #: Precertification #: Referring Provider: TOBIN BLACKMON Ref to Dept Specialty: Referred to Provider: Ref to Prov Specialty: Gastroenterology Referral Priority: Within 30 days (routine) documented in this encounter Plan of Treatment Upcoming Encounters Date Type Department Care Team (Late st Contact Info) Description 05/03/2024 1:30 PM EDT Telemedicine Pharmacy, [facility] [address] [facility] [address] [address] Pharmacist[address], [facility] [address] [facility] [address] [address] 07/16/2024 9:40 AM EST Office Visit General Internal Medicine [facility] [address] [facility] [address] [address] Tobin Blackmon MD 200 [facility] [address] [address] 09/15/2024 3:30 PM EST Imaging Radiology, [address] [place] [address] Scheduled Procedures Name Priority Associated Diagnoses Date/Ti me COLONOSCOPY FLEXIBLE PROXIMAL DIAGNOSTIC Recall History of colon polyps Health Maintenance Due Date Last Done Comments Cologuard 2003 Sigmoidoscopy 2003 Fecal Occult Blood Test 11/17/2008 11/18/2007 DXA Scan 2023 Colonoscopy 11/09/2023 11/08/2020, 10/26, 04/10/2017, Additional history exists Colorectal Cancer Screening 11/09/2023 COVID-19 Vaccine ( season) 2024 08/04/2023, 04/29/2022, 11/01/2021, Additional history exists HbA1c 07/21/2024 01/20/2024, 03/0 08/2022, 04/18/2022, Additional history exists Depression Screening 11/24/2024 11/25/2023 Diabetic Foot Exam 11/24/2024 11/25/2023, 0 04/18/2022, 04/23/2021, Additional history exists Mammogram 12/02/2024 12/03/2023, 02/2024, 02/05/2022, Additional history exists Albumin/Creatinine Ratio 01/19/2025 024, 09/26/2022, 10/22/2021, Additional history exists GFR 01/19/2025 01/20/2024, 10/27, 11/12/2023, Additional history exists Diabetic Eye Exam 02/04/2025 02/05/2024, , 08/12/2018, Additional history exists Lipid Panel 01/19/2029 01/20/2024, 08/2022, 04/18/2022, Additional history exists DTap/Tdap Vaccines (3 [...] filedocumented as of this encounter Care Teams Pipe Fitter Gas Pipe Relationship Specialty Start Date End Date Tobin Blackmon MD [address] [place] [address] PCP - General Internal Medicine 05/27/19 documented as of this encounter
--- OUTSIDE RECORDS SUMMARY | 2024-04-23 13:21 | External Medical Summary | Summary of Care ---
Author Name Unknown Organization [facility] Address [address] [address] Phone [phone] Care Team Providers Care Sewer Pipe Offbearer Name Role Phone Traci Blackmon MD Primary Care Provider [phone] Reason for Visit * Reason Onset Date Comments Encounter Created in Error 12/24/2023 Encounter Details Date Type Department Care Team (Late st Contact Info) Description 12/24/2023 Telephone General Internal Medicine [facility] [address] [place] [id number] Traci Blackmon MD [address] [facility] [place] [id number] Encounter Created in Error Allergies Active Allergy Reactions Criticality Noted Date Comments Metformin Diarrhea 04/16/2018 Percocet 01/22/2007 Makes pt sick documented as of this encounter (statuses as of 03/12/2024) Medications Medication Sig Dispensed Refills Start Date End Date Status CALCIUM 600 TABS 600 MG OR 2 po daily 0 01/03/1999 Active Aspirin 81 MG TabletIndications: DM type 2 nursing care encounter (HCC) Take 1 Tablet by mouth in the morning. 30 Tab 06/23/2017 Active B Complex Vitamins (B-COMPLEX/B-12) TABS Take by mouth. Active CPAP every night at bedtime. Active Albuterol Sulfate HFA 108 (90 Base) MCG/ACT Inhalation Aerosol SolutionIndication s:Upper respiratory tract infection, unspecified type,Bronchitis Inhale 2 Puffs by mouth every 6 hours as needed for Congestion, Cough or Wheezing. 18 g 09/19/2022 Active Fluticasone Propionate 50 MCG/ACT Nasal Suspension (Flonase) Administer 2 Sprays into each nostril in the morning. 16 g 5 09/26/2022 Active Atorvastatin Calcium 80 MG Oral Tablet (Lipitor)Indicatio ns:Dyslipidemia, goal LDL below 100 Take 1 Tablet by mouth in the morning. 90 Tablet 3 11/25/2023 Active FreeStyle Phill 14 Day Green DeviceIndications: Type 2 diabetes mellitus with hemoglobin A1c goal of less than 7.0% (HCC),Uncontrolled type 2 diabetes mellitus with hyperglycemia (HCC),Current use of insulin (HCC) Use as directed. DX E.11.9 and Z97.4 1 Each 12/11/2023 Active FreeStyle Phill 14 Day SensorIndications: Type 2 diabetes mellitus with hemoglobin A1c goal of less than 7.0% (HCC),Uncontrolled type 2 diabetes mellitus with hyperglycemia (HCC),Current use of insulin (HCC) Use as directed. E11.9 and Z97.4 4 Each 5 12/11/2023 02/02/20 24 Discontinu ed(Refill) Lantus SoloStar 100 UNIT/ML Subcutaneous Solution Pen-injectorIndica tions:Type 2 diabetes mellitus with hemoglobin A1c goal of less than 7.0% (HCC) INJECT 15 UNITS SUBCUTANEOUSLY EVERY 12 HOURS 12/24/2023 01/20/20 24 Discontinu ed(Medicat ion/Dose Changed) documented as of this encounter (statuses as of 03/12/2024) Active Problems Problem Noted Date Diagnosed Date Hx of nonmelanoma skin cancer 04/25/2022 Overview: BCC L upper back 2022, BCC R hindu 2021, Hx BCC L nasal root 2004 Hypertension associated with type 2 diabetes luciano litus 11/20/2020 Calculus of gallbladder with out cholecystitis without obstruction 08/05/2019 JAMES (generalized anxiety disorder) 09/25/2017 Family history of colon cancer 02/02/2015 Overview: Father and uncle Type 2 diabetes mellitus wit h hemoglobin A1c goal of less than 7.0% 12/03/2012 Overview: ICD-10 update of inactive term BMI 24.0-24.9, adult 10/19/2009 Overview: Per Obesity Taxonomy Hyperlipidemia associated with type 2 diabetes toni echevarria 09/18/2009 NIDHI on CPAP 03/03/2007 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, since age 4 HX OF BREAST MALIGNANCY - Mom Overview: Eligible for MRI breasts due to increased risk of breast cancer documented as of this encounter (statuses as of 03/12/2024) Resolved Problems Problem Noted Date Diagnosed Date [...] as of this encounter (statuses as of 03/12/2024) Immunizations Name Administration Dates Next Due COVID-19 mRNA, LNP-s, No Pre serve, 2-Dose Series (Moderna) 08/04/2023 COVID-19 mRNA, LNP-s, No Pre serve, 2-Dose Series (Pfizer) 11/01/2021,10/09/2020,09/12/2020 COVID-19, LNP-s, No Preserve , Carroll-sucrose, Ages 12+ (Pfizer) 11/01/2021 Covid-19, Mrna, Lnp-s, Pf, B ivalent, 30 Mcg, IM, 12 yrs and above (Pfizer) 04/29/2022 Hepatitis B, 20+ yrs 11/02/2014,06/07/2014,03/31 Pneumococcal Conjugate Vacci ne, 20-valent ([id number]) 04/18/2022 Pneumococcal Polysaccharide PPV23 (Pneumovax) 07/29/2019,12/03/2012 Seasonal Influenza Virus Vac cine, Unspecified Formulation 08/04/2023,04/18/2022,04/23/2021,06/19,05/27/2019,04/16/2018,06/23/2017 ,05/16/2016,05/05/2015,04/27/2015,10/2013,05/31/2013,05/21/2012, 2,04/30/2011,05/28/2010,05/28/2009,,06/04/2007 Seasonal Influenza, PF, 6 M & above, [...] on file documented as of this encounter Plan of Treatment Upcoming Encounters Date Type Department Care Team (Late st Contact Info) Description 04/16/2024 9:40 AM EDT Office Visit General Internal Medicine [facility] [address] [facility] [address] [address] Traci Blackmon MD [address] [facility] [place] [address] 05/03/2024 1:30 PM EDT Telemedicine Pharmacy, [facility] [address] [facility] [place] [address] Pharmacist2, [facility] [address] [facility] [place] [address] Scheduled Procedures Name Priority Associated Diagnoses Date/Ti me COLONOSCOPY FLEXIBLE PROXIMAL DIAGNOSTIC Recall History of colon polyps Health Maintenance Due Date Last Done Comments Cologuard 2003 Sigmoidoscopy 2003 Fecal Occult Blood Test 11/17/2008 11/18/2007 DXA Scan 2023 COVID-19 Vaccine ( season) 2023 08/04/2023, 04/29/2022, 11/01/2021, Additional history exists Colonoscopy 11/09/2023 11/08/2020, 10/26, 04/10/2017, Additional history exists Colorectal Cancer Screening 11/09/2023 Influenza Vaccine (FLU shot) (#1) 2024 08/04/2023, 08/04/2023, 04/18/2022, Additional history exists HbA1c 07/21/2024 01/20/2024, 03/0 [...] 01/19/2029 01/20/2024, 08/2022, 04/18/2022, Additional history exists DTaP,Tdap,and Td Vaccines (3 - Td or Tdap) 10/23/2031 10/22/2021, 03/19/2010, 01/02/2000 Hepatitis B Vaccine Completed 11/02/2014, 06/07/2014, 2014 Zoster Vaccines Completed 07/29/2019, 05/27/2019 Cervical Cancer Screening Discontinued Pap Smear Discontinued 04/30/2021, 03/29, 02/02/2015, Additional history exists Pneumococcal Vaccine: 65+ Years Completed 04/18/2022, 07/29/2019, 12/03/2012 HPV (Gardasil) Vaccine Aged Out No lo nger eligible based on patient's age to complete this topic HPV/Co-Test Discontinued MENINGOCOCCAL (MENACTRA/MENVEO) Aged Out No longer eligible based on patient's age to complete this topic documented as of this encounter Medical Devices Not on filedocumented as of this encounter Care Teams Sewer Pipe Offbearer Relationship Specialty Start Date End Date Traci Blackmon MD [address] [place] [address] PCP - General Internal Medicine 05/27/19 documented as of this encounter
--- OUTSIDE RECORDS SUMMARY | 2024-04-23 13:21 | External Medical Summary | Summary of Care ---
Author Name Unknown Organization [facility] Address [address] [address] Phone [phone] Care Team Providers Care Line Maintenance Technician Name Role Phone Traci Blackmon MD Primary Care Provider [phone] Reason for Visit * Reason Onset Date Comments Home Health 12/26/2023 Encounter Details Date Type Department Care Team (Late st Contact Info) Description 12/26/2023 Telephone General Internal Medicine [facility] [place] [address] [place] [address] Traci Blackmon MD [address] [place] [address] Home Health Allergies Active Allergy Reactions Criticality Noted Date Comments Metformin Diarrhea 04/16/2018 Percocet 01/22/2007 Makes pt sick documented as of this encounter (statuses as of 03/26/2024) Medications Medication Sig Dispensed Refills Start Date End Date Status CALCIUM 600 TABS 600 MG OR 2 po daily 0 01/03/19 99 Active Aspirin 81 MG TabletIndications :DM type 2 nursing care encounter (HCC) Take 1 Tablet by mouth in the morning. 30 Tab 06/23/20 17 Active B Complex Vitamins (B-COMPLEX/B-12) TABS Take by mouth. Active CPAP every night at bedtime. Active Albuterol Sulfate HFA 108 (90 Base) MCG/ACT Inhalation Aerosol SolutionIndicatio ns:Upper respiratory tract infection, unspecified type,Bronchitis Inhale 2 Puffs by mouth every 6 hours as needed for Congestion, Cough or Wheezing. 18 g 09/19/19 23 Active Fluticasone Propionate 50 MCG/ACT Nasal Suspension (Flonase) Administer 2 Sprays into each nostril in the morning. 16 g 5 09/27/19 23 Active Atorvastatin Calcium 80 MG Oral Tablet (Lipitor)Indicati ons:Dyslipidemia, goal LDL below 100 Take 1 Tablet by mouth in the morning. 90 Tablet 3 11/25/19 24 Active FreeStyle Phill 14 Day [place] DeviceIndications :Type 2 diabetes mellitus with hemoglobin A1c goal of less than 7.0% (HCC),Uncontrolle d type 2 diabetes mellitus with hyperglycemia (HCC),Current use of insulin (HCC) Use as directed. DX E.11.9 and Z97.4 1 Each 12/11/19 24 Active BD Eclipse Needle 25G X 5/8" (Needle (Disp))Indication s:Type 2 diabetes mellitus with hemoglobin A1c goal of less than 7.0% (HCC) Use with Lantus 180 Each 3 11/25/19 24 024 Discontinued(Re fill) FreeStyle Phill 14 Day SensorIndications :Type 2 diabetes mellitus with hemoglobin A1c goal of less than 7.0% (HCC),Uncontrolle d type 2 diabetes mellitus with hyperglycemia (HCC),Current use of insulin (HCC) Use as directed. E11.9 and Z97.4 4 Each 5 12/11/19 24 024 Discontinued(Re fill) Empagliflozin 25 MG Oral Tablet (Jardiance) Take 1 Tablet by mouth in the morning. 90 Tablet 3 12/19/19 24 024 Discontinued glipiZIDE ER 5 MG Oral Tablet Extended Release 24 Hour (Glucotrol XL)Indications:Ty pe 2 diabetes mellitus with hemoglobin A1c goal of less than 7.0% (HCC) Take 1 Tablet by mouth in the morning. 90 Tablet 3 12/24/19 24 024 Discontinued FLUoxetine HCl 10 MG Oral Capsule (PROzac)Indicatio ns:Anxiety Take 1 Capsule by mouth in the morning. 90 Capsule 3 12/24/19 24 024 Discontinued(Re fill) Lantus SoloStar 100 UNIT/ML Subcutaneous Solution Pen-injectorIndic ations:Type 2 diabetes mellitus with hemoglobin A1c goal of less than 7.0% (HCC) INJECT 15 UNITS SUBCUTANEOUSLY EVERY 12 HOURS 12/24/19 24 024 Discontinued(Me dication/Dose Changed) documented as of this encounter (statuses as of 03/26/2024) Active Problems Problem Noted Date Diagnosed Date Hx of nonmelanoma skin cancer 04/25/2022 Overview: BCC L upper back 2022, BCC R congregational 2021, Hx BCC L nasal root 2003 Hypertension associated with type 2 diabetes luciano [...] Hyperlipidemia associated with type 2 diabetes m ellitus 09/18/2009 NIDHI on CPAP 03/03/2007 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, since age 4 HX OF BREAST MALIGNANCY - Mom Overview: Eligible for MRI breasts due to increased risk of breast cancer documented as of this encounter (statuses as of 03/26/2024) Resolved Problems Problem Noted Date Diagnosed Date [...] as of this encounter (statuses as of 03/26/2024) Immunizations Name Administration Dates Next Due COVID-19 mRNA, LNP-s, No Pre serve, 2-Dose Series (Moderna) 08/04/2023 COVID-19 mRNA, LNP-s, No Pre serve, 2-Dose Series (Qustodio) 11/01/2021,10/09/2020,09/12/2020 COVID-19, LNP-s, No Preserve , Carroll-sucrose, Ages 12+ (Pfizer) 11/01/2021 Covid-19, Mrna, Lnp-s, Pf, B ivalent, 30 Mcg, IM, 12 yrs and above (Pfizer) 04/29/2022 Hepatitis B, 20+ yrs 11/02/2014,06/07/2014,03/31 Pneumococcal Conjugate Vacci ne, 20-valent ([id number]) 04/18/2022 Pneumococcal Polysaccharide PPV23 (Pneumovax) 07/29/2019,12/03/2012 Seasonal [...] No 12/02/2023 Does the household have a [facility] source of income? (Household - for ages [...] encounter Miscellaneous Notes * Telephone Encounter - Mell Manley RN - 01/06/2024 11:34 AM EDT Carley aware, but says she has not seen pt for a couple of weeks. She will relay message to pt's child support case officer. Called pt to tell her below info. Left message for pt to call back. Please address with her when she calls back. * Telephone Encounter - Traci Blackmon MD - 12/29/2023 9:36 AM EDT If she ate dinner she doesn't need snack at bedtime . I would rather decrease her insulin then haveher eat more quantity nor more often . 3 times a day balanced meal if ideal with 1 high protein snack if meals are smaller . * Telephone Encounter - Denise Infante MED ASSIST - 12/26/2023 3:41 PM EDT MANUEL Hwoe was contacted and informed of instructions. Carley stated that Odalys did have dinner lastnight but did not have a late night snack but they will try to have her have one tonight and implement that into her eating schedule. Odalys has also been having her regular 3 meals a day. * Telephone Encounter - Traci Blackmon MD - 12/26/2023 3:29 PM EDT Noted . Check if she ate dinner last night ? Decrease lantus to 10 units from tonight Cont jardiance until finished then stop unless covered by insurance ( see other TE ) Continue glipizide for now If low sugar again nor very high sugar call back * Telephone Encounter - Christiana Foster LPN - 12/26/2023 12:52 PM EDT HH Concerns MANUEL Howe, Calling from: [facility] Report/Concerns of: BS Symptoms: Shakiness upon waking up this AM Vitals: T 97.0 P 56 RR 18 BP 118/72 SP O2 99% RA Lung sounds CTA Weight NA Blood sugar 99 Narrative: Reports that the pt is still struggling with low BSG. BSG this AM was 69 fasting upon waking up. When waking this AM pt stated that she felt shaky. Pt took Lantus 15 units last night. Did not take any insulin this AM but did take Jardiance and Glipizide. Pt ate and then checked BSG again and it was only at 99. Please advise. Call back Carley with any advice or orders at [phone] Please fax new orders to [facility] Home Health . documented in this encounter Plan of Treatment Upcoming Encounters Date Type Department Care Team (Late st Contact Info) Description 04/16/2024 9:40 AM EDT Office Visit General Internal Medicine [facility] [address] [facility] [address] [place] [address] Traci Blackmon MD [address] [facility] [address] [place] [address] 05/03/2024 1:30 PM EDT Telemedicine Pharmacy, [facility] [address] [facility] [address] [address] Pharmacist2, [facility] [address] [facility] [address] [place] [address] Scheduled Procedures Name Priority Associated Diagnoses Date/Ti [...] Additional history exists Lipid Panel 01/19/2029 01/20/2024, 0308/2022, 04/18/2022, Additional history exists DTap/Tdap Vaccines (3 [...] filedocumented as of this encounter Care Teams Line Maintenance Technician Relationship Specialty Start Date End Date Traci Blackmon MD [address] [place] [address] PCP - General Internal Medicine 05/27/19 documented as of this encounter
--- OUTSIDE RECORDS SUMMARY | 2024-04-23 13:21 | External Medical Summary | Summary of Care ---
Author Name Unknown Organization [facility] Address [address] [address] Phone [phone] Care Team Providers Care Flange Turner Name Role Phone Traci Blackmon MD Primary Care Provider [phone] Reason for Referral * Evaluate & Treat - Unlimited Visits (Within 30 days (routine)) - Pending Review Specialty Diagnoses / Procedures Referred By Kip coburn Referred To Contact Pharmacist / Pharmacy Diagnoses Type 2 diabetes mellitus with hemoglobin A1c goal of less than 7.0% (HCC) Traci Blackmon MD [address] [place] [address] Referral ID Status Reason Start Date Expiration Date Visits Requested Visits Authorized [id number] Pending Review Specialty Services Required 12/11/2023 99 99 Question Answer Referral Priority Within 30 days (routine) Where should this appointment be scheduled? [facility] Referring Provider Role: Primary Care Reason for Referral: DM - issue wqith complaince and checking sugar Target A1c: < 7 Comments Pharmacist Medication Therapy Management: Minimum frequency patient should be seen in person for medication management: as appropriate per clinical condition and patient status By my signature, I understand that my patient Odalys Juares will have her medication therapy managed by the [facility] Medication Therapy [facility] ([facility]) per established policies, procedures, and protocols. I also certify that this referral may serve as an initiation of service for the management of drug therapy in the above noted patient. [facility] providers will be responsible for scheduling patient visits, obtaining appropriate laboratory studies, and adjusting medication management therapy per patient's need, in addition to those roles spelled out in the clinic policy, procedures, and drug management protocols. I understand that the service provided by the [facility] Clinic is voluntary and have informed patient that they can refuse the service at their discretion. I am aware that the [facility] will provide me with a copy of the patient encounter via my [employer]et. I authorize the [facility] Clinic to carry out these activities on my behalf. I consider this program to be a necessary part of the patient's medical care. Traci Blackmon MD Reason for Visit * Reason Onset Date Comments Home Health 12/11/2023 Encounter Details Date Type Department Care Team (Late st Contact Info) Description 12/11/2023 Telephone General Internal Medicine [facility] [place] [address] [place], [place] [address] Traci Blackmon MD [address] [place] [address] Home Health Allergies Active Allergy Reactions Criticality Noted Date Comments Metformin Diarrhea 04/16/2018 Percocet 01/22/2007 Makes pt sick documented as of this encounter (statuses as of 03/11/2024) Medications Medication Sig Dispensed Refills Start Date [...] 11/25/19 24 Active FreeStyle Phill 14 Day [place] DeviceIndications :Type 2 diabetes mellitus with hemoglobin A1c goal of less than 7.0% (HCC),Uncontrolle d type 2 diabetes mellitus with hyperglycemia (HCC),Current use of insulin (HCC) Use as directed. DX E.11.9 and Z97.4 1 Each 12/11/19 24 Active Empagliflozin 25 MG Oral Tablet (Jardiance) Take by mouth 1 Tablet in the morning. 90 Tablet 3 11/30/19 22 024 Discontinued(Re fill) Lisinopril 5 MG Oral Tablet (Prinivil) Take by mouth 1 Tablet in the morning. 90 Tablet 3 04/18/20 22 024 Discontinued FLUoxetine HCl 10 MG Oral Capsule (PROzac)Indicatio ns:Anxiety Take by mouth 1 Capsule in the morning. 90 Capsule 3 04/18/20 024 Discontinued(Re fill) Lantus SoloStar 100 UNIT/ML Subcutaneous Solution Pen-injectorIndic ations:Type 2 diabetes mellitus with hemoglobin A1c goal of less than 7.0% (HCC) INJECT 20 UNITS SUBCUTANEOUSLY EVERY 12 HOURS 13 Each 11/25/19 24 024 Discontinued BD Eclipse Needle 25G X 5/8" (Needle (Disp))Indication s:Type 2 diabetes mellitus with hemoglobin A1c goal of less than 7.0% (HCC) Use with Lantus 180 Each 3 11/25/19 24 024 Discontinued(Re fill) glipiZIDE ER 5 MG Oral Tablet Extended Release 24 Hour (Glucotrol XL)Indications:Ty pe 2 diabetes mellitus with hemoglobin A1c goal of less than 7.0% (HCC) Take 1 Tablet by mouth in the morning. 12/05/19 24 024 Discontinued(Re fill) FreeStyle Phill 14 Day SensorIndications :Type 2 diabetes mellitus with hemoglobin A1c goal of less than 7.0% (HCC),Uncontrolle d type 2 diabetes mellitus with hyperglycemia (HCC),Current use of insulin (HCC) Use as directed. E11.9 and Z97.4 4 Each 5 12/11/19 24 024 Discontinued(Re fill) documented as of this encounter (statuses as of 03/11/2024) Active Problems Problem Noted Date Diagnosed Date Hx of nonmelanoma skin cancer 04/25/2022 Overview: BCC L upper back 2022, BCC R amish 2021, Hx BCC L nasal root 2003 [...] as of this encounter (statuses as of 03/11/2024) Resolved Problems Problem Noted Date Diagnosed Date [...] as of this encounter (statuses as of 03/11/2024) Immunizations Name Administration Dates Next Due COVID-19 mRNA, LNP-s, No Pre serve, 2-Dose Series (Moderna) 08/04/2023 COVID-19 mRNA, LNP-s, No Pre serve, 2-Dose Series (Pfizer) 11/01/2021,10/09/2020,09/12/2020 COVID-19, LNP-s, No Preserve , Carroll-sucrose, Ages 12+ (Pfizer) 11/01/2021 Covid-19, Mrna, Lnp-s, Pf, B ivalent, 30 Mcg, IM, 12 yrs and above (Pfizer) 04/29/2022 Hepatitis B, 20+ yrs 11/02/2014,06/07/2014,03/31 Pneumococcal Conjugate Vacci ne, 20-valent ([id number]) 04/18/2022 Pneumococcal Polysaccharide PPV23 (Pneumovax) 07/29/2019,12/03/2012 Seasonal [...] 12/02/2023 Does the household have a re lar source of income? (Household - for ages [...] encounter Miscellaneous Notes * Telephone Encounter - Traci Blackmon MD - 12/11/2023 2:27 PM EDT MTM and phill ordered * Telephone Encounter - Jordana Stinson LPN - 12/11/2023 1:18 PM EDT HH Discharge Rae RN, Calling from: [facility] Patient is/has been discharged from [facility] on 12/11/23 OT and PT remain active All goals have been met and patient is safe at home. Sugars are stable right now, but family is concerned when they go back home nobody will be monitoring her and her diet. Rae is suggesting MTM treatment management for diabetes. She is requesting a phill or something similar. FYI to PCP documented in this encounter Plan of Treatment Upcoming Encounters Date Type Department Care Team (Late st Contact Info) Description 04/16/2024 9:40 AM EDT Office Visit General Internal Medicine [facility] [place] [address] [facility] [place] [address] Traci Blackmon MD [address] [facility] [place] [address] 05/03/2024 1:30 PM EDT Telemedicine Pharmacy, [facility] [place] [address] [facility] [place] [address] Pharmacist2, [facility] [address] [facility] [place] [address] Scheduled Procedures Name Priority Associated Diagnoses Date/Ti me COLONOSCOPY FLEXIBLE PROXIMAL DIAGNOSTIC Recall History of colon polyps Scheduled Referrals Name Type Priority Associated Diagnoses Orde r Schedule PHARMACIST MEDS THERAPY MGMT REFERRAL OP Referral Within 30 days (routine) Type 2 diabetes mellitus with hemoglobin A1c goal of less than 7.0% (HCC) Ordered: 12/11/2023 Health Maintenance Due Date Last Done Comments [...] 10/22/2021, Additional history exists GFR 01/19/2025 01/20/2024, 2 10/2023, 11/12/2023, Additional history exists Diabetic Eye Exam 02/04/2025 02/05/2024, , 08/12/2018, Additional history exists Lipid Panel 01/19/2029 01/20/2024, 0 08/2022, 04/18/2022, Additional history exists DTaP,Tdap,and Td [...] Not on filedocumented as of this encounter Visit Diagnoses Diagnosis Type 2 diabetes mellitus with hemoglobin A1c goal of less than 7.0% (HCC)- Primary Uncontrolled type 2 diabetes mellitus with hyperglycemia (HCC) Current use of insulin (HCC) Encounter for long-term (current) use of insulin documented in this encounter Care Teams Flange Turner Relationship Specialty Start Date End Date Traci Blackmon MD [address] [place], [place] [address] PCP - General Internal Medicine 05/27/19 documented as of this encounter
--- OUTSIDE RECORDS SUMMARY | 2024-04-23 13:21 | External Medical Summary | Summary of Care ---
Author Name Unknown Organization [facility] Address [address] [address] Phone [phone] Care Team Providers Care Assembler Corncob Pipes Name Role Phone Traci Blackmon MD Primary Care Provider [phone] Reason for Visit * Reason Onset Date Comments Referral 11/25/2023 Encounter Details Date Type Department Care Team (Late st Contact Info) Description 11/25/2023 Telephone General Internal Medicine [facility] [place] [address] [place] [id number] Traci Blackmon MD 200 [facility] [place] [id number] Referral Allergies Active Allergy Reactions Criticality Noted Date Comments Metformin Diarrhea 04/16/2018 Percocet 01/22/2007 Makes pt sick documented as of this encounter (statuses as of 02/24/2024) Medications Medication Sig Dispensed Refills Start Date End Date Status CALCIUM 600 TABS 600 MG OR 2 po daily 0 01/03/19 99 Active Aspirin 81 MG TabletIndication s:DM type 2 nursing care encounter (HCC) Take 1 Tablet by mouth in the morning. 30 Tab 06/23/20 17 Active B Complex Vitamins (B-COMPLEX/B-12) TABS Take by mouth. Active CPAP every night at bedtime. Active Albuterol Sulfate HFA 108 (90 Base) MCG/ACT Inhalation Aerosol SolutionIndicati ons:Upper respiratory tract infection, unspecified type,Bronchitis Inhale 2 Puffs by mouth every 6 hours as needed for Congestion, Cough or Wheezing. 18 g 09/19/19 23 Active Fluticasone Propionate 50 MCG/ACT Nasal Suspension (Flonase) Administer 2 Sprays into each nostril in the morning. 16 g 5 09/27/19 23 Active Atorvastatin Calcium 80 MG Oral Tablet (Lipitor)Indicat ions:Dyslipidemi a, goal LDL below 100 Take 1 Tablet by mouth in the morning. 90 Tablet 3 11/25/19 24 Active Empagliflozin 25 MG Oral Tablet (Jardiance) Take by mouth 1 Tablet in the morning. 90 Tablet 3 11/30/19 22 024 Discontinued(Re fill) Lisinopril 5 MG Oral Tablet (Prinivil) Take by mouth 1 Tablet in the morning. 90 Tablet 3 04/18/20 22 024 Discontinued FLUoxetine HCl 10 MG Oral Capsule (PROzac)Indicati ons:Anxiety Take by mouth 1 Capsule in the morning. 90 Capsule 3 04/18/20 22 024 Discontinued(Re fill) glipiZIDE ER 5 MG Oral Tablet Extended Release 24 Hour (Glucotrol XL)Indications:T ype 2 diabetes mellitus with hemoglobin A1c goal of less than 7.0% (HCC) Take 1 Tablet by mouth in the morning. Along with 10 mg 30 minutes before a meal. Pt doesn't know if taking or not. 11/25/19 24 024 Discontinued Lantus SoloStar 100 UNIT/ML Subcutaneous Solution Pen-injectorIndi cations:Type 2 diabetes mellitus with hemoglobin A1c goal of less than 7.0% (HCC) INJECT 20 UNITS SUBCUTANEOUSLY EVERY 12 HOURS 13 Each 3 11/25/19 24 024 Discontinued BD Eclipse Needle 25G X 5/8" (Needle (Disp))Indicatio ns:Type 2 diabetes mellitus with hemoglobin A1c goal of less than 7.0% (HCC) Use with Lantus 180 Each 3 11/25/19 24 024 Discontinued(Re fill) documented as of this encounter (statuses as of 02/24/2024) Active Problems Problem Noted Date Diagnosed Date Hx of nonmelanoma skin cancer 04/25/2022 Overview: BCC L upper back 2022, BCC R spiritism 2021, Hx BCC L nasal root 2003 Hypertension associated with type 2 diabetes luciano litus 11/20/2020 Calculus of gallbladder with out cholecystitis without obstruction 08/05/2019 JAEMS (generalized anxiety disorder) 09/25/2017 Family history of [...] as of this encounter (statuses as of 02/24/2024) Resolved Problems Problem Noted Date Diagnosed Date [...] Overview: Per Obesity Taxonomy Mixed dyslipidemia 01/06/1999 11/25/200 9 Overview: Per Lipid Taxonomy IRON DEFIC ANEMIA NOS 01/06/19992016 CLASSICAL MIGRAINE WITHOU ME NTION OF INTRACTABLE MIGRAINE 01/20/1998 08/13/2016 OTHER AND UNSPECIFIED SLEEP APNEA 01/20/1998 08/13/2016 PREMENSTRUAL TENSION 01/20/1998 017 UTERINE LEIOMYOMA NOS - by ultrasound 01/20/1998 08/13/2016 documented as of this encounter (statuses as of 02/24/2024) Immunizations Name Administration Dates Next Due COVID-19 mRNA, LNP-s, No Pre serve, 2-Dose Series (Moderna) 08/04/2023 COVID-19 mRNA, LNP-s, No Pre serve, 2-Dose Series (Pfizer) 11/01/2021,10/09/2020,09/12/2020 COVID-19, LNP-s, No Preserve , Carroll-sucrose, Ages 12+ (Pfizer) 11/01/2021 Covid-19, Mrna, Lnp-s, Pf, B ivalent, 30 Mcg, IM, 12 yrs and above (Pfizer) 04/29/2022 Hepatitis B, 20+ yrs 11/02/2014,06/07/2014,03/31 Pneumococcal Conjugate Vacci ne, 20-valent ([id number]) 04/18/2022 Pneumococcal Polysaccharide PPV23 (Pneumovax) 07/29/2019,12/03/2012 Seasonal [...] encounter Miscellaneous Notes * Telephone Encounter - Grace Cervantes MED ASSIST - 11/25/2023 12:41 PM EDT Please assist with scheduling * Telephone Encounter - Myrna Camejo OSA - 11/25/2023 12:23 PM EDT Procedure: HOME HEALTH REFERRAL OP Status: Needs Scheduling Requested appt date: Authorizing: Traci Blackmon MD in [facility] POD[facility] Referral: [id number] (Authorized) Priority: Within 30 days (routine) Diagnosis: Type 2 diabetes mellitus with hemoglobin A1c goal of less than 7.0% (HCC) [E11.9... Ischemic stroke of frontal lobe (HCC) [I63.9] Weakness of left upper extremity [R29.898] Hospital discharge follow-up [Z09] documented in this encounter Plan of Treatment Upcoming Encounters Date Type Department Care Team (Late st Contact Info) Description 04/16/2024 9:40 AM EDT Office Visit General Internal Medicine [facility] [address] [place] [address] Traci Blackmon MD 200 [facility] [place] [id number] 05/03/2024 1:30 PM EDT Telemedicine Pharmacy, [facility] [place] [address] [facility] [place] [address] Pharmacist2, [facility] [address] [facility] [place] [id number] Scheduled Procedures Name Priority Associated Diagnoses Date/Ti [...] Td or Tdap) 10/23/2031 10/22/2021, 03/19/2010, 01/02/2000 *BASELINE EKG FOR HTN Completed 12/19/2006 Hepatitis B Vaccine Completed 11/02/2014, 06/07/2014, 2014 [...] filedocumented as of this encounter Care Teams Assembler Corncob Pipes Relationship Specialty Start Date End Date Traci Blackmon MD [address] [place] [address] PCP - General Internal Medicine 05/27/19 documented as of this encounter
--- OUTSIDE RECORDS SUMMARY | 2024-04-23 13:21 | External Medical Summary | Summary of Care ---
Author Name Unknown Organization [facility] Address [address] [address] Phone [phone] Care Team Providers Care Tungsten Tender Name Role Phone Traci Blackmon MD Primary Care Provider [phone] Reason for Visit * Reason Onset Date Comments Home Health 11/28/2023 Encounter Details Date Type Department Care Team (Late st Contact Info) Description 11/28/2023 Telephone General Internal Medicine [facility] [place] [address] [place] [address] Traci Blackmon MD [address] [facility] [place] [address] Home Health Allergies Active Allergy Reactions Criticality Noted Date Comments Metformin Diarrhea 04/16/2018 Percocet 01/22/2007 Makes pt sick documented as of this encounter (statuses as of 02/27/2024) Medications Medication Sig Dispensed Refills Start Date [...] the morning. 90 Tablet 3 11/25/2023 Active documented as of this encounter (statuses as of 02/27/2024) Active Problems Problem Noted Date Diagnosed Date Hx of nonmelanoma skin cancer 04/25/2022 Overview: BCC L upper back 2022, BCC R latter-day 2021, Hx BCC L nasal root 2003 [...] as of this encounter (statuses as of 02/27/2024) Resolved Problems Problem Noted Date Diagnosed Date [...] as of this encounter (statuses as of 02/27/2024) Immunizations Name Administration Dates Next Due COVID-19 mRNA, LNP-s, No Pre serve, 2-Dose Series (Moderna) 08/04/2023 COVID-19 mRNA, LNP-s, No Pre serve, 2-Dose Series (Celsias) 11/01/2021,10/09/2020,09/12/2020 COVID-19, LNP-s, No Preserve , Carroll-sucrose, Ages 12+ (Pfizer) 11/01/2021 Covid-19, Mrna, Lnp-s, Pf, B ivalent, 30 Mcg, IM, 12 yrs and above (Pfizer) 04/29/2022 Hepatitis B, 20+ yrs 11/02/2014,06/07/2014,03/31 Pneumococcal Conjugate Vacci ne, 20-valent ([id number]) 04/18/2022 Pneumococcal Polysaccharide PPV23 (Pneumovax) 07/29/2019,12/03/2012 Seasonal [...] Telephone Encounter - Traci Blackmon MD - 12/01/2023 5:43 PM EDT Noted * Telephone Encounter - Jordana Stinson LPN - 11/28/2023 3:18 PM EDT HH Admission/Start of Care Admission/Start of Care: Kurt LANCASTER, Calling from: [facility] Referral received for: OT Start of care completed on: sometime next week Report/Concerns of:None Symptoms: none Narrative: Kurt calling from [facility]. Nursing and PT are in. OT will initiate next week. Wanted to make the doctor aware. Next OT visit(s) on sometime next week They will call with any updates or additional concerns from the upcoming visit. Last Office Visit: 11/25/2023 Has patient been scheduled or seen in the office for a follow up visit: Yes- on11/25/23 Advised that orders will be signed by Neymar and to fax to the office for signature. documented in this encounter Plan of Treatment Upcoming Encounters Date Type Department Care Team (Late st Contact Info) Description 04/16/2024 9:40 AM EDT Office Visit General Internal Medicine [facility] [address] [facility] [place] [address] Traci Blackmon MD [address] [facility] [place] [phone] 05/03/2024 1:30 PM EDT Telemedicine Pharmacy, [facility] [address] [facility] [address] [place] [phone] Pharmacist2, [facility] [address] [facility] [place] [place] [phone] Scheduled Procedures Name Priority Associated Diagnoses Date/Ti [...] 04/23/2021, Additional history exists Mammogram 12/02/2024 12/03/2023, 050 02/2024, 02/05/2022, Additional history exists Albumin/Creatinine Ratio 01/19/2025 024, 09/26/2022, 10/22/2021, Additional history exists GFR 01/19/2025 01/20/2024, 2 10/2023, 11/12/2023, Additional history exists Diabetic Eye Exam 02/04/2025 02/05/2024, , 08/12/2018, Additional history exists Lipid Panel 01/19/2029 01/20/2024, 030 08/2022, 04/18/2022, Additional history exists DTaP,Tdap,and Td [...] filedocumented as of this encounter Care Teams Tungsten Tender Relationship Specialty Start Date End Date Traci Blackmon MD [address] [place] [address] [place] [address] PCP - General Internal Medicine 05/27/19 documented as of this encounter
--- OUTSIDE RECORDS SUMMARY | 2024-04-23 13:22 | External Medical Summary | Summary of Care ---
Author Name Unknown Organization [facility] Address [address] [address] Phone [phone] Care Team Providers Care Contact Center Analyst Name Role Phone Traci Blackmon MD Primary Care Provider [phone] Reason for Referral * Ancillary Services (Within 10 days (routine)) - Authorized Specialty Diagnoses / Procedures Referred By Kip coburn Referred To Contact Gastroenterology Diagnoses Screen for colon cancer Carson Laboy DO [address] [place] [address] Referral ID Status Reason Start Date Expiration Date Visits Requested Visits Authorized [id number] Authorized Ancillary Services Required 01/20/[phone] Question Answer Referral Priority Within 10 days (routine) Where should this appointment be scheduled? [facility] Comments ALERT: Do not order for pediatric patients (18 years or younger). Cancel off screen and order PEDS GASTROENTEROLOGY CONSULT (Type: 1 visit only-Evaluate and Treat) The following Pt. Instructions are available: - Gastro Colonoscopy Prep Instructions [[id number]] - Gastro Colonoscopy Prep Instructions (Armenian Version) [[id number]] Go to the Pt. Instructions section within the Visit Navigator to access. Colonoscopy ASGE Guidelines: Average risk screening (begin at age 50, 10 year intervals) ADDITIONAL INFORMATION 1. Is the patient on Coumadin? No 2. Is the patient on Pradaxa? No * Evaluate & Treat - Unlimited Visits (Within 10 days (routine)) - Authorized Specialty Diagnoses / Procedures Referred By Kip coburn Referred To Contact Optometry Diagnoses Type 2 diabetes mellitus with hemoglobin A1c goal of less than 7.0% (HCC) Carson Laboy DO [address] [place] [address] Referral ID Status Reason Start Date Expiration Date Visits Requested Visits Authorized [id number] Authorized Specialty Services Required 01/20/[phone] Question Answer Referral Priority Within 10 days (routine) Where should this appointment be scheduled? [facility] Referring for: Optometry Conditions Optometry Conditions Diabetic Eye Exam without Retinopathy Reason for Visit * Reason Comments Follow Up 2 month return. Pt r equesting a bracelet/necklace button in case of emergencies. Otherwise pt states she has been doing well and denied any new concerns Encounter Details Date Type Department Care Team (Late st Contact Info) Description 01/20/2024 1:20 PM EDT Office [facility] [place] [address] [place] [address] Carson Laboy DO [address] [place] [address] Type 2 diabetes mellitus with hemoglobin A1c goal of less than 7.0% ([facility])*; Hypertension associated with type 2 diabetes mellitus ([facility]); Hyperlipidemia associated with type 2 diabetes mellitus ([facility]); NIDHI on CPAP; History of CVA (cerebrovascular accident); JAMES (generalized anxiety disorder); Screen for colon cancer Allergies Active Allergy Reactions Criticality Noted Date Comments Metformin Diarrhea 04/16/2018 Percocet 01/22/2007 Makes pt sick documented as of this encounter (statuses as of 01/20/2024) Medications Medication Sig Dispensed Refills Start Date End Date Status CALCIUM 600 TABS 600 MG OR 2 po daily 0 9 Active Aspirin 81 MG TabletIndications: DM type 2 nursing care encounter ([facility]) Take 1 Tablet by mouth in the morning. 30 Tab 7 Active B Complex Vitamins (B-COMPLEX/B-12) TABS Take by mouth. Active CPAP every night at bedtime. Active Albuterol Sulfate HFA 108 (90 Base) MCG/ACT Inhalation Aerosol SolutionIndication s:Upper respiratory tract infection, unspecified type,Bronchitis Inhale 2 Puffs by mouth every 6 hours as needed for Congestion, Cough or Wheezing. 18 g 3 Active Fluticasone Propionate 50 MCG/ACT Nasal Suspension (Flonase) Administer 2 Sprays into each nostril in the morning. 16 g 5 3 Active Atorvastatin Calcium 80 MG Oral Tablet (Lipitor)Indicatio ns:Dyslipidemia, goal LDL below 100 Take 1 Tablet by mouth in the morning. 90 Tablet 3 4 Active FreeStyle Phill 14 Day [place] DeviceIndications: Type 2 diabetes mellitus with hemoglobin A1c goal of less than 7.0% (HCC),Uncontrolled type 2 diabetes mellitus with hyperglycemia (HCC),Current use of insulin (HCC) Use as directed. DX E.11.9 and Z97.4 1 Each 4 Active FreeStyle Phill 14 Day SensorIndications: Type 2 diabetes mellitus with hemoglobin A1c goal of less than 7.0% (HCC),Uncontrolled type 2 diabetes mellitus with hyperglycemia (HCC),Current use of insulin (HCC) Use as directed. E11.9 and Z97.4 4 Each 5 4 Active FLUoxetine HCl 10 MG Oral Capsule (PROzac)Indication s:Anxiety Take 1 Capsule by mouth in the morning. 90 Capsule 3 4 Active BD Eclipse Needle 25G X 5/8" (Needle (Disp))Indications :Type 2 diabetes mellitus with hemoglobin A1c goal of less than 7.0% (HCC) Use with Lantus 180 Each 3 4 Active Insulin Glargine Solostar 100 UNIT/ML Subcutaneous Solution Pen-injector (Lantus SoloStar) Inject 8 Units under the skin in the morning and 8 Units before bedtime. Active Lantus SoloStar 100 UNIT/ML Subcutaneous Solution Pen-injectorIndica tions:Type 2 diabetes mellitus with hemoglobin A1c goal of less than 7.0% (HCC) INJECT 15 UNITS SUBCUTANEOUSLY EVERY 12 HOURS 4 01/20/20 24 Discontinu ed(Medicat ion/Dose Changed) documented as of this encounter (statuses as of 01/20/2024) Active Problems Problem Noted Date Diagnosed Date Hx of nonmelanoma skin cancer 04/25/2022 Overview: BCC L upper back 2022, BCC R alevism 2021, Hx BCC L nasal root 2003 [...] as of this encounter (statuses as of 01/20/2024) Resolved Problems Problem Noted Date Diagnosed Date [...] as of this encounter (statuses as of 01/20/2024) Immunizations Name Administration Dates Next Due COVID-19 mRNA, LNP-s, No Pre serve, 2-Dose Series (Moderna) 08/04/2023 COVID-19 mRNA, LNP-s, No Pre serve, 2-Dose Series (Pfizer) 11/01/2021,10/09/2020,09/12/2020 COVID-19, LNP-s, No Preserve , Carroll-sucrose, Ages 12+ (Pfizer) 11/01/2021 Covid-19, Mrna, Lnp-s, Pf, B ivalent, 30 Mcg, IM, 12 yrs and above (Pfizer) 04/29/2022 Hepatitis B, 20+ yrs 11/02/2014,06/07/2014,03/31 Pneumococcal Conjugate Vacci ne, 20-valent ([id number]) 04/18/2022 Pneumococcal Polysaccharide PPV23 (Pneumovax) 07/29/2019,12/03/2012 Seasonal [...] on file documented as of this encounter Last Filed Vital Signs Vital Sign Reading Time Taken Comments Blood Pressure 126/70 01/20/2024 1:19 PM EDT Pulse 52 01/20/2024 1:19 PM EDT Temperature 36.6 C (97.8 F) 01/20/2024 1:19 PM ED T Respiratory Rate - - Oxygen Saturation 98% 01/20/2024 1:19 PM EDT Inhaled Oxygen Concentration - - Weight 66.6 kg (146 lb 12.8 oz) 01/20/2024 1:19 PM EDT Height 157.5 cm (5' 2") 01/20/2024 1:19 PM EDT Body Mass Index 26.85 01/20/2024 1:19 PM EDT documented in this encounter Progress Notes * Carson Laboy, DO - 01/20/2024 1:40 PM EDT Subjective Odalys Juares is a 63 year old female. Chief Complaint Patient presents with Follow Up 2 month return. Pt requesting a bracelet/necklace button in case of emergencies. Otherwise pt states she has been doing well and denied any new concerns HPI: Patient presents to office for routine follow up. Previously ordered labs not done prior. Would like to do today. Medication list reviewed. Patient was hospitalized in October 2023 at [facility] for acute CVA. Presenting symptoms were right upper extremity weakness, confusion. Was given TKN at that time. Was found to have uncontrolled diabetes and was started on Lantus twice daily. Did have rehab at [facility] after Insulin-dependent type 2 diabetes mellitus. Follows with [facility] pharmacy. States current Lantus doses 8 units twice daily. Glucose monitored through freestyle Phill CGM. Previous A1c ordered but will get done today. Do not have for review at this time. Previous on glipizide but this was removed due tohypoglycemic episodes. Jardiance was too expensive. Overdue for eye exam. 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 Sometimes she will travel alone and would like the added security in case something were to happen such as a fall Continues on aspirin 81 mg daily, atorvastatin 80 mg daily due to previous CVA. No medication side effects noted. Again due for lipid panel which will be done today as she is currently fasting History of anxiety/depression on fluoxetine 10 mg daily. Feels this manages her mood well. No acuteissues overall. No feelings of SI or self-harm Does have history of obstructive sleep apnea on CPAP therapy nightly. States uses nightly as prescribed. Benefits from machine. 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 30 Tab 0 B Complex Vitamins (B-COMPLEX/B-12) TABS Take by mouth. CPAP every night at bedtime. Albuterol Sulfate HFA 108 (90 Base) MCG/ACT Inhalation Aerosol Solution Inhale 2 Puffs by mouth every 6 hours as needed for Congestion, Cough or Wheezing. 18 g 0 Fluticasone Propionate 50 MCG/ACT Nasal Suspension (Flonase) Administer 2 Sprays into each nostril in the morning. 16 g 5 Atorvastatin Calcium 80 MG Oral Tablet (Lipitor) Take 1 Tablet by mouth in the morning. 90 Tablet 3 FreeStyle Phill 14 Day [place] Device Use as directed. DX E.11.9 and Z97.4 1 Each 0 FreeStyle Phill 14 Day Sensor Use as directed. E11.9 and Z97.4 4 Each 5 Lantus SoloStar 100 UNIT/ML Subcutaneous Solution Pen-injector INJECT 15 UNITS SUBCUTANEOUSLY EVERY12 HOURS FLUoxetine HCl 10 MG Oral Capsule (PROzac) Take 1 Capsule by mouth in the morning. 90 Capsule 3 BD Eclipse Needle 25G X 5/8" (Needle (Disp)) Use with Lantus 180 Each 3 No current facility-administered medications for this visit. Past Medical History: Diagnosis Date Benign neoplasm of colon 02/09/2014 adenomatous polyps, repeat 3 yrs Benign neoplasm of middle ear, nasal cavity and accessory sinuses 11/09/2013 Calculus of gallbladder without cholecystitis without obstruction 08/05/2019 CLASSICAL MIGRAINE WITHOU MENTION OF INTRACTABLE MIGRAINE 01/20/1998 Dyslipidemia, goal LDL below 100 09/18/2009 Family history of colon cancer 02/02/2015 Father and uncle JAMES (generalized anxiety disorder) 09/25/2017 HTN, goal below 140/90 11/20/2020 HX OF BREAST MALIGNANCY - Mom Eligible for MRI breasts due to increased risk of breast cancer INFORMATION nerve damage right ear IRON DEFIC ANEMIA NOS 01/06/1999 Neoplasm of uncertain behavior of skin 11/04/2013 NIDHI on CPAP 03/03/2007 Other seborrheic keratosis 08/26/2003 Type 2 diabetes mellitus with hemoglobin A1c goal of less than 7.0% (HCC) 12/03/2012 ICD-10 update of inactive term UTERINE LEIOMYOMA NOS - by ultrasound 01/20/1998 Past Surgical History: Procedure Laterality Date BIOPSY OF BREAST, OPEN 1995 BRAIN SURGERY USING COMPUTER 01/22/2007 STEREOTACTIC COMPUTER ASSISTED VOLUMETRIC PROCEDURE performed by ELENA PIMENTEL at [facility] BREAST LESION,OTHER,EXCISION Left 1995 Benign BREAST LESION,OTHER,EXCISION Left 2007 Benign BX BREAST PERCUT W/O IMAGE 08/18/2007 left breast core biopsy; cystic breast tissue with ductal hyperplasia COLONOSCOPY W/ BIOPSY (RECTUM) 05/11/2008 repeat in 5 years COLONOSCOPY, DIAGNOSTIC (RECTUM) 02/09/2014 adenomatous polyps, repeat 3 yrs/COLONOSCOPY FLEXIBLE PROXIMAL DIAGNOSTIC performed by Scott Zamora MD at ENDOSCOPY [facility] COLONOSCOPY, DIAGNOSTIC (RECTUM) 04/10/2017 adenomatous polyps, repeat 3 yrs/COLONOSCOPY FLEXIBLE PROXIMAL DIAGNOSTIC performed by Scott Zamora MD at ENDOSCOPY [facility] COLONOSCOPY, DIAGNOSTIC (RECTUM) 11/08/2020 adenomatous polyps, repeat 3 yr / COLONOSCOPY FLEXIBLE PROXIMAL DIAGNOSTIC performed by Yamileth Cordova MD at ENDOSCOPY [facility] INCISION OF EARDRUM 07/1965 ear tubes as child NASAL ENDOSCOPY,TOTAL ETHMOIDECTOMY 01/22/2007 NASAL SINUS ENDOSCOPY WITH ETHMOIDECTOMY TOTAL performed by ELENA PIMENTEL at [facility] NASAL ENDOSCOPY/EXPLOR MAXIL SINUS 01/22/2007 NASAL SINUS ENDOSCOPY MAXILLARY ANTROSTOMY performed by ELENA PIMENTEL at [facility] NASAL/SINUS ENDOSCOPY, SURGICAL 01/22/2007 NASAL SINUS ENDOSCOPY SPHENOIDOTOMY REMOVE TISSUE performed by ELENA PIMENTEL at [facility] REMOVE CATARACT, INSERT LENS PROSTH Bilateral 2015 Dr. Pollard REMOVE INTRANASAL LESION 01/22/2007 EXCISION OR DESTRUCTION INTRANASAL LESION INTERNAL APPROACH performed by ELENA PIMENTEL at [facility] REMOVE TONSILS & ADENOIDS, UNDER 12 12/1965 Review of patient's allergies indicates: Allergen Reactions Metformin Diarrhea Percocet Makes pt sick Family History Problem Relation Name Age of Onset Breast Cancer Mother 60 Other (Essential tremor) Mother Heart attack Father CABG- age 74 Prostate cancer Father 68 Prostate cancer Grandfather (Paternal) Colon cancer Uncle (Unspecified) 39 Breast Cancer Cousin (Maternal) 60 Breast Cancer Cousin (Maternal) 58 Breast Cancer Aunt (Maternal) 60 Family Status Relation Status Mo Alive breast cancer Fa Bro Alive tremor Bro Alive tremor PGFA (Not Specified) UNCLE (Not Specified) MCOUS (Not Specified) MCOUS (Not Specified) MAUNT (Not Specified) Social History Socioeconomic History Marital status: Single Spouse name: Not on file Number of children: 0 Years of education: Not on file Highest education level: Not on file Occupational History Occupation: Unemployed Tobacco Use Smoking status: Never Smokeless tobacco: Never Vaping Use Vaping status: Never Used Substance and Sexual Activity Alcohol use: No Comment: None currently- due to meds. Drug use: No Sexual activity: Not Currently Other Topics Concern Not on file Social History Narrative Not on file Social Determinants of Health Financial Resource Strain: Low Risk (12/02/2023) Financial Resource Strain Do you have any trouble paying for your medications, or do you think you might in the future? (Adult - for ages 18 years and over): No Does your family have trouble paying for medicine? (Household - for ages 0-17 years): Not on file Food Insecurity: No Food Insecurity (12/02/2023) Food Insecurity Do you need food for this week? (Adult - for ages 18 years and over): No Are you able to get enough food for your family? (Household - for ages 0-17 years): Not on file Does your family need food this week? (Household - for ages 0-17 years): Not on file Do you always have enough food for your family? (Household - for ages 0-17 years): Not on file Transportation Needs: No Transportation Needs (12/02/2023) Transportation Needs Do you have trouble getting a ride to medical visits or work? (Adult - for ages 18 years and over):Never True Does your family have a hard time getting a ride to doctors visits? (Household - for ages 0-17 years): Not on file Has lack of transportation kept you from medical appointments, meetings, work, or from getting things needed for daily living? Check all that apply. (Adult - for ages 18 years and over): Not on file Do you (or your family) have trouble finding or paying for a ride (transportation)? (Household - for ages 0-17 years): Not on file Social Connections: Socially Integrated (12/02/2023) Social Connections How often do you feel lonely or isolated from those around you? (Adult - for ages 18 years and over): Rarely Housing Stability: Low Risk (12/02/2023) Housing Stability Do you currently live in a nursing home or have no steady place to sleep at night? (Adult - for ages 18 years and over): No Do you think you are at risk of becoming homeless? (Adult - for ages 18 years and over): No Does your family worry about paying for your home or becoming homeless? (Household - for ages 0-17 years): Not on file Are you homeless or worried that you might be in the future? (Adult - for ages 18 years and over): Not on file Are you (or your family) homeless or worried that you might be in the future? (Household - for ages0-17 years): Not on file Review of Systems Constitutional: Negative for chills and fever. HENT: Negative for congestion, sore throat and trouble swallowing. Eyes: Negative for photophobia and itching. Respiratory: Negative for apnea and cough. Cardiovascular: Negative for chest pain and palpitations. Gastrointestinal: Negative for abdominal distention, abdominal pain, nausea and vomiting. Genitourinary: Negative for dysuria and frequency. Musculoskeletal: Negative for arthralgias and myalgias. Skin: Negative for pallor and rash. Neurological: Negative for dizziness, light-headedness and headaches. Psychiatric/Behavioral: Negative for sleep disturbance. The patient is not nervous/anxious. Objective BP 126/70 | Pulse 52 | Temp 36.6 C (97.8 F) (Tympanic) | Ht 1.575 m (5' 2") | Wt 66.6 kg (146 lb 12.8 oz) | LMP 10/30/2002 | SpO2 98% | BMI 26.85 kg/m | BSA 1.71 m Physical Exam Constitutional: General: She is not in acute distress. Appearance: She is not ill-appearing. HENT: Head: Normocephalic and atraumatic. Right Ear: Tympanic membrane, ear canal and external ear normal. Left Ear: Tympanic membrane, ear canal and external ear normal. Nose: Nose normal. No congestion or rhinorrhea. Mouth/Throat: Mouth: Mucous membranes are moist. Pharynx: Oropharynx is clear. Eyes: General: No scleral icterus. Extraocular Movements: Extraocular movements intact. Conjunctiva/sclera: Conjunctivae normal. Pupils: Pupils are equal, round, and reactive to light. Cardiovascular: Rate and Rhythm: Normal rate and regular rhythm. Pulses: Normal pulses. Heart sounds: Normal heart sounds. No murmur heard. No friction rub. No gallop. Pulmonary: Effort: Pulmonary effort is normal. Breath sounds: Normal breath sounds. No wheezing, rhonchi or rales. Abdominal: General: Bowel sounds are normal. There is no distension. Palpations: Abdomen is soft. There is no mass. Tenderness: There is no abdominal tenderness. There is no right CVA tenderness or left CVA tenderness. Musculoskeletal: General: No deformity. Normal range of motion. Cervical back: Normal range of motion and neck supple. Right lower leg: No edema. Left lower leg: No edema. Lymphadenopathy: Cervical: No cervical adenopathy. Skin: General: Skin is warm and dry. Coloration: Skin is not jaundiced. Findings: No rash. Neurological: General: No focal deficit present. Mental Status: She is oriented to person, place, and time. Cranial Nerves: No cranial nerve deficit. Sensory: No sensory deficit. Motor: No weakness. Comments: Strength in both upper extremities seem pretty equal Psychiatric: Mood and Affect: Mood normal. Behavior: Behavior normal. ASSESSMENT/PLAN: Type 2 diabetes mellitus with hemoglobin A1c goal of less than 7.0% (HCC) (Primary) - ADULT/PEDS OPHTHALMOLOGY/OPTOMETRY REFERRAL OP - DURABLE MEDICAL EQUIPMENT Hypertension associated with type 2 diabetes mellitus (HCC) Hyperlipidemia associated with type 2 diabetes mellitus (HCC) NIDHI on CPAP History of CVA (cerebrovascular accident) - DURABLE MEDICAL EQUIPMENT JAMES (generalized anxiety disorder) Screen for colon cancer - COLONOSCOPY, GI REFERRAL OP Plan: Patient presents to office for routine follow-up. Had CVA earlier this year. Does not note any acute neurologic deficits Explained to patient that it is reasonable for her to have a life Alert/emergency bracelet due to history of insulin-dependent diabetes and CVA. DME order will be placed for this. Faxed to [email or web address] Continue current medications. Continue Lantus 8 units injected twice daily Glucose monitor to [employer] Phill. Follow-up with [facility] pharmacy as scheduled Patient should have previous lab work done today. Currently fasting. CMP, CBC, A1c, lipids, urine albumin. Will follow-up results Optometry referral placed for diabetic eye exam. She is overdue GI referral placed for routine colonoscopy. Last study done in 2020 and 3 your follow-up recommended Patient counseled on importance of DEXA scan now that she is 63. She will consider this for later appointment Follow Up: Return if symptoms worsen or fail to improve, for Follow up next routine with PCP as scheduled. | For: Follow up next routine with PCP as scheduled | Check-out note: Follow up as scheduledin March Labs today, currently fasting Carson Laboy DO documented in this encounter Nursing Notes * Grace Cervantes MED ASSIST - 01/20/2024 1:22 PM EDT Chief Complaint Patient presents with Follow Up 2 month return. Pt requesting a bracelet/necklace button in case of emergencies. Otherwise pt states she has been doing well and denied any new concerns documented in this encounter Plan of Treatment Upcoming Encounters Date Type Department Care Team (Late st Contact Info) Description 01/26/2024 1:30 PM EDT Telemedicine Pharmacy, [facility] [address] [place] [address] Pharmacist2, [facility] [address] [place] [phone] 04/16/2024 9:40 AM EDT Office Visit General Internal Medicine [facility] [address] [place] [address] Traci Blackmon MD [address] [place] [address] Scheduled Procedures Name Priority Associated Diagnoses Date/Ti me COLONOSCOPY FLEXIBLE PROXIMAL DIAGNOSTIC Recall History of colon polyps Scheduled Referrals Name Type Priority Associated Diagnoses Orde r Schedule ADULT/PEDS OPHTHALMOLOGY/OPTOM ETRY REFERRAL OP Referral Within 10 days (routine) Type 2 diabetes mellitus with hemoglobin A1c goal of less than 7.0% (HCC) Ordered: 01/20/2024 COLONOSCOPY, GI REFERRAL OP Referral Within 10 days (routine) Screen for colon cancer Ordered: 01/20/2024 Health Maintenance Due Date Last Done Comments Cologuard 2003 Sigmoidoscopy 2003 Fecal Occult Blood Test 11/17/2008 11/18/2007 HbA1c 03/29/2023 09/26/2022, 03/29, 10/22/2021, Additional history exists DXA Scan 2023 Albumin/Creatinine Ratio 09/27/2023 023, 10/22/2021, 06/19/2020, Additional history exists Diabetic Eye Exam 09/27/2023 09/26/2022, , 08/11/2017, Additional history exists COVID-19 Vaccine ( season) 2023 08/04/2023, 04/29/2022, 11/01/2021, Additional history exists Colonoscopy 11/09/2023 11/08/2020, 10/26, 04/10/2017, Additional history exists Colorectal Cancer Screening 11/09/2023 GFR 11/18/2024 11/19/2023, 10/26, 09/26/2022, Additional history exists Depression Screening 11/24/2024 11/25/2023 Diabetic Foot Exam 11/24/2024 11/25/2023, 0 04/18/2022, 04/23/2021, Additional history exists Mammogram 12/02/2024 12/03/2023, 05/0 02/2024, 02/05/2022, Additional history exists Lipid Panel 09/27/2027 09/26/2022, 03/29, 10/22/2021, Additional history exists DTaP,Tdap,and Td Vaccines (3 - Td or Tdap) 10/23/2031 10/22/2021, 03/19/2010, 01/02/2000 Hepatitis B Completed 11/02/2014, 05/28, 2014 Zoster Vaccines Completed 07/29/2019, 05/27/2019 Cervical Cancer Screening Discontinued Pap Smear Discontinued 04/30/2021, 03/29, 02/02/2015, Additional history exists Pneumococcal Vaccine: 65+ Years Completed 04/18/2022, 07/29/2019, 12/03/2012 Influenza Vaccine (FLU shot) Completed 08/04/2023, 08/04/2023, 04/18/2022, Additional history exists GARDASIL-HPV IMMUNIZATION SERIES Aged [...] goal of less than 7.0% (HCC)- Primary Hypertension associated with type 2 diabetes mellitus (HCC) Hyperlipidemia associated with type 2 diabetes mellitus (HCC) NIDHI on CPAP Obstructive sleep apnea (adult) (pediatric) History of CVA (cerebrovascular accident) Transient ischemic attack (TIA), and cerebral infarction without residual deficits JAMES (generalized anxiety disorder) Generalized anxiety disorder Screen for colon cancer Special screening for malignant neoplasms, colon documented in this encounter Care Teams Contact Center Analyst Relationship Specialty Start Date End Date Traci Blackmon MD [address] [place] [address] [place] [address] PCP - General Internal Medicine 05/27/19 documented as of this encounter
--- OUTSIDE RECORDS SUMMARY | 2024-04-23 13:22 | External Medical Summary | Summary of Care ---
Author Name Unknown Organization [facility] Address [address] [place] [address] Phone [phone] Care Team Providers Care Environmental Manager Name Role Phone Tobin Blackmon MD Primary Care Provider [phone] Reason for Visit * Reason Onset Date Comments Medication Refill 02/02/2024 Encounter Details Date Type Department Care Team (Late st Contact Info) Description 02/02/2024 Refill Care Coordination and Integration [address] [place] [address] Chandrika Beck RN [address] [place] [address] Type 2 diabetes mellitus with hemoglobin A1c goal of less than 7.0% ([facility]); Uncontrolled type 2 diabetes mellitus with hyperglycemia ([facility]); Current use of insulin ([facility]) Allergies Active Allergy Reactions Criticality Noted Date Comments Metformin Diarrhea 04/16/2018 Percocet 01/22/2007 Makes pt sick documented as of this encounter (statuses as of 02/02/2024) Medications Medication Sig Dispensed Refills Start Date End Date Status CALCIUM 600 TABS 600 MG OR 2 po daily 0 01/03/1999 Active Aspirin 81 MG TabletIndications:D M type 2 nursing care encounter (HCC) Take 1 Tablet by mouth in the morning. 30 Tab 06/23/2017 Active B Complex Vitamins (B-COMPLEX/B-12) TABS Take by mouth. Active CPAP every night at bedtime. Active Albuterol Sulfate HFA 108 (90 Base) MCG/ACT Inhalation Aerosol SolutionIndications :Upper respiratory tract infection, unspecified type,Bronchitis Inhale 2 Puffs by mouth every 6 hours as needed for Congestion, Cough or Wheezing. 18 g 09/19/2022 Active Fluticasone Propionate 50 MCG/ACT Nasal Suspension (Flonase) Administer 2 Sprays into each nostril in the morning. 16 g 5 09/26/2022 Active Atorvastatin Calcium 80 MG Oral Tablet (Lipitor)Indication s:Dyslipidemia, goal LDL below 100 Take 1 Tablet by mouth in the morning. 90 Tablet 3 11/25/2023 Active FreeStyle Phill 14 Day [place] DeviceIndications:T ype 2 diabetes mellitus with hemoglobin A1c goal of less than 7.0% (HCC),Uncontrolled type 2 diabetes mellitus with hyperglycemia (HCC),Current use of insulin (HCC) Use as directed. DX E.11.9 and Z97.4 1 Each 12/11/2023 Active FLUoxetine HCl 10 MG Oral Capsule (PROzac)Indications :Anxiety Take 1 Capsule by mouth in the morning. 90 Capsule 3 01/06/2024 Active BD Eclipse Needle 25G X 5/8" (Needle (Disp))Indications: Type 2 diabetes mellitus with hemoglobin A1c goal of less than 7.0% (HCC) Use with Lantus 180 Each 3 01/06/2024 Active Insulin Glargine Solostar 100 UNIT/ML Subcutaneous Solution Pen-injector (Lantus SoloStar) Inject 8 Units under the skin in the morning and 8 Units before bedtime. Active FreeStyle Phill 14 Day SensorIndications:T ype 2 diabetes mellitus with hemoglobin A1c goal of less than 7.0% (HCC),Uncontrolled type 2 diabetes mellitus with hyperglycemia (HCC),Current use of insulin (HCC) Use as directed. E11.9 and Z97.4 4 Each 5 02/02/2024 Active FreeStyle Phill 14 Day SensorIndications:T ype 2 diabetes mellitus with hemoglobin A1c goal of less than 7.0% (HCC),Uncontrolled type 2 diabetes mellitus with hyperglycemia (HCC),Current use of insulin (HCC) Use as directed. E11.9 and Z97.4 4 Each 5 12/11/2023 Discontinue d(Refill) documented as of this encounter (statuses as of 02/02/2024) Active Problems Problem Noted Date Diagnosed Date Hx of nonmelanoma skin cancer 04/25/2022 Overview: BCC L upper back 2022, BCC R caodaism 2021, Hx BCC L nasal root 2003 [...] as of this encounter (statuses as of 02/02/2024) Resolved Problems Problem Noted Date Diagnosed Date [...] as of this encounter (statuses as of 02/02/2024) Immunizations Name Administration Dates Next Due COVID-19 mRNA, LNP-s, No Pre serve, 2-Dose Series (Phase Vision) 08/04/2023 COVID-19 mRNA, LNP-s, No Pre serve, 2-Dose Series (Xageek) 11/01/2021,10/09/2020,09/12/2020 COVID-19, LNP-s, No Preserve , Carroll-sucrose, Ages 12+ (Pfizer) 11/01/2021 Covid-19, Mrna, Lnp-s, Pf, B ivalent, 30 Mcg, IM, 12 yrs and above (Pfizer) 04/29/2022 Hepatitis B, 20+ yrs 11/02/2014,06/07/2014,03/31 Pneumococcal Conjugate Vacci ne, 20-valent ([id number]) 04/18/2022 Pneumococcal Polysaccharide PPV23 (Pneumovax) 07/29/2019,12/03/2012 Seasonal [...] No 12/02/2023 Does the household have a [place] [facility] source of income? (Household - for [...] encounter Miscellaneous Notes * Telephone Encounter - Tobin Blackmon MD - 02/02/2024 4:06 PM EDTSigned Prescriptions: Disp Refills FreeStyle Phill 14 Day Sensor 4 Each 5 Sig: Use as directed. E11.9 and Z97.4 Authorizing Provider: TOBIN BLACKMON * Telephone Encounter - Chandrika Beck RN - 02/02/2024 10:09 AM EDT Did you pend patient's preferred pharmacy and medication before forwarding?no Pharmacy: [facility] [id number] Pending Prescriptions: Disp Refills FreeStyle Phill 14 Day Sensor 4 Each 5 Sig: Use as directed. E11.9 and Z97.4 Last Visit: Visit date not found (in office), Visit date not found (telemedicine) Next Visit: Visit date not found If no future appointments scheduled, and last appointment is greater than a year ago, please schedule patient for a follow-up appointment Last date the medication was ordered: 12/10 Is this request for a controlled substance?No Urine Drug Screen:No results found for this or any previous visit. Patient Phone Numbers Labs: Lab Results Component Value Date/Time CREAT 0.8 01/20/2024 02:00 PM CREAT 1.0 06/19/2020 12:27 PM POTASSIUM 4.4 01/20/2024 02:00 PM POTASSIUM 4.5 06/19/2020 12:27 PM POTASSIUM 4.7 10/25/1996 03:50 PM TSH 1.60 03/05/2013 10:40 AM TSH 1.74 10/25/1996 03:50 PM LDLCALC 128 01/20/2024 02:00 PM LDLCALC 157 (H) 06/19/2020 12:27 PM LDLDIRECT NOT APPLICABLE 06/19/2020 12:27 PM ALT 18 01/20/2024 02:00 PM ALT 27 06/19/2020 12:27 PM HGBA1C 6.1 (H) 01/20/2024 02:00 PM HGBA1C 8.4 (H) 05/27/2019 11:35 AM documented in this encounter Plan of Treatment Upcoming Encounters Date Type Department Care Team (Late st Contact Info) Description 04/16/2024 9:40 AM EDT Office Visit General Internal Medicine [facility] [place] [address] [place] [address] Tobin Blackmon MD [address] [place] [address] 05/03/2024 1:30 PM EDT Telemedicine Pharmacy, [facility] [place] [address] [place] [address] Pharmacist2, [facility] [address] [place] [address] Scheduled Procedures Name Priority Associated Diagnoses Date/Ti me COLONOSCOPY FLEXIBLE PROXIMAL DIAGNOSTIC Recall History of colon polyps Health Maintenance Due Date Last Done Comments Cologuard 2003 Sigmoidoscopy 2003 Fecal Occult Blood Test 11/17/2008 11/18/2007 DXA Scan 2023 Diabetic Eye Exam 09/27/2023 09/26/2022, , 08/11/2017, [...] 10/22/2021, Additional history exists GFR 01/19/2025 01/20/2024, 04/2 10/2023, 11/12/2023, Additional history exists Lipid Panel 01/19/2029 01/20/2024, 03/0 08/2022, 04/18/2022, Additional history exists DTaP,Tdap,and Td [...] A1c goal of less than 7.0% (HCC) Uncontrolled type 2 diabetes mellitus with hyperglycemia (HCC) Current use of insulin (HCC) Encounter for long-term (current) use of insulin documented in this encounter Care Teams Environmental Manager Relationship Specialty Start Date End Date Tobin Blackmon MD [address] [place] [address] PCP - General Internal Medicine 05/27/19 documented as of this encounter
--- OUTSIDE RECORDS SUMMARY | 2024-04-23 13:22 | External Medical Summary ---
Author Name Unknown Address Unknown Organization [id number]:[facility] - [address] [place] [address] Laboratory Report Ordering Provider Test Date Status KEESHA RUDD 01/20/2024 14:00:46 Final Observation Date Value Abnormality Reference (Units ) Status HbA1C 01/20/2024 14:00:46 6.1 Above high normal 4. 0-5.6 (%) Final The use of HbA1c to monitor glycemic status is based on normal hemoglobin and HbA composition. This test should not be used in patients with abnormal hemoglobin that affects the half life of the red blood cell or the in vivo glycation rates. Glucose, estimated average 01/20/2024 14:00:46 128 Above high normal <126 (mg/dL) Noman cordero Performing Location [facility] - [address] [place] [address]
--- OUTSIDE RECORDS SUMMARY | 2024-04-23 13:22 | External Medical Summary | Summary of Care ---
Author Name Unknown Organization [facility] Address [address] [address] Phone [phone] Care Team Providers Care Commercial Collector Name Role Phone Traci Blackmon MD Primary Care Provider [phone] Reason for Referral * Ancillary Services (Within 10 days (routine)) - Authorized Specialty Diagnoses / Procedures Referred By Kip coburn Referred To Contact Gastroenterology Diagnoses Screen for colon cancer Carson Laboy DO [address] [place] [address] Referral ID Status Reason Start Date Expiration Date Visits Requested Visits Authorized [id number] Authorized Ancillary Services Required 01/20/2024 999 999 Question Answer Referral Priority Within 10 days (routine) Where should this appointment be scheduled? [facility] Comments ALERT: Do not order for pediatric patients (18 years or younger). Cancel off screen and order PEDS GASTROENTEROLOGY CONSULT (Type: 1 visit only-Evaluate and Treat) The following Pt. Instructions are available: - Gastro Colonoscopy Prep Instructions [47093] - Gastro Colonoscopy Prep Instructions (Urdu Version) [05265] Go to the Pt. Instructions section within [...] less than 7.0% (HCC) Carson Laboy DO [address] [place] [address] Referral ID Status Reason Start Date Expiration Date Visits Requested Visits Authorized [id number] Authorized Specialty Services Required 01/20/2024 999 999 [...] PM EDT Office Visit General Internal [facility] [place] [address] [place] [address] Carson Laboy DO [address] [place] [address] Type 2 diabetes mellitus with hemoglobin A1c goal of less than 7.0% ([facility]; Hypertension associated with type 2 diabetes mellitus ([facility]); Hyperlipidemia associated with type 2 diabetes mellitus ([facility]); NIDHI on CPAP; History of CVA (cerebrovascular [...] TabletIndications: DM type 2 nursing care encounter ([facility]) Take 1 Tablet by mouth in the [...] 3 4 Active FreeStyle Phill 14 Day [place] DeviceIndications: Type 2 diabetes mellitus with hemoglobin [...] BCC L upper back 2022, BCC R confucianist 2021, Hx BCC L nasal root 2003 [...] yrs 11/02/2014,06/07/2014,03/31 Pneumococcal Conjugate Vacci ne, 20-valent ([id number]) 04/18/2022 Pneumococcal Polysaccharide PPV23 (Pneumovax) 07/29/2019,12/03/2012 Seasonal [...] Patient was hospitalized in October 2023 at [facility] for acute CVA. Presenting symptoms were right upper extremity weakness, confusion. Was given TKN at that time. Was found to have uncontrolled diabetes and was started on Lantus twice daily. Did have rehab at [facility] after Insulin-dependent type 2 diabetes mellitus. Follows with [facility] pharmacy. States current Lantus doses 8 units twice daily. Glucose monitored through freestyle Phill CGM. Previous A1c ordered but will get done today. Do not have for review at this time. Previous on glipizide but this was removed due tohypoglycemic episodes. Jardiance was too expensive. Overdue for eye exam. Previously had sourcing engineer with whom she follows Due to history [...] 90 Tablet 3 FreeStyle Phill 14 Day [place] Device Use as directed. DX E.11.9 and [...] PROCEDURE performed by ELENA PIMENTEL at [facility] BREAST LESION,OTHER,EXCISION Left 1995 Benign BREAST LESION,OTHER,EXCISION Left 2007 Benign BX BREAST PERCUT W/O IMAGE 08/18/2007 left breast core biopsy; cystic breast tissue with ductal hyperplasia COLONOSCOPY W/ BIOPSY (RECTUM) 05/11/2008 repeat in 5 years COLONOSCOPY, DIAGNOSTIC (RECTUM) 02/09/2014 adenomatous polyps, repeat 3 yrs/COLONOSCOPY FLEXIBLE PROXIMAL DIAGNOSTIC performed by Scott Zamora MD at [facility]COPY [facility] COLONOSCOPY, DIAGNOSTIC (RECTUM) 04/10/2017 adenomatous polyps, repeat 3 yrs/COLONOSCOPY FLEXIBLE PROXIMAL DIAGNOSTIC performed by Scott Zamora MD at [facility] COLONOSCOPY, DIAGNOSTIC (RECTUM) 11/08/2020 adenomatous polyps, repeat 3 yr / COLONOSCOPY FLEXIBLE PROXIMAL DIAGNOSTIC performed by Yamileth Cordova MD at [facility]COPY [facility] INCISION OF EARDRUM 07/1965 ear tubes as child NASAL ENDOSCOPY,TOTAL ETHMOIDECTOMY 01/22/2007 NASAL SINUS ENDOSCOPY WITH ETHMOIDECTOMY TOTAL performed by ELENA PIMENTEL at [facility] NASAL ENDOSCOPY/EXPLOR MAXIL SINUS 01/22/2007 NASAL SINUS ENDOSCOPY MAXILLARY ANTROSTOMY performed by ELENA PIMENTEL at [facility] NASAL/SINUS ENDOSCOPY, SURGICAL 01/22/2007 NASAL SINUS ENDOSCOPY SPHENOIDOTOMY REMOVE TISSUE performed by ELENA PIMENTEL at [facility] REMOVE CATARACT, INSERT LENS PROSTH Bilateral 2015 Dr. Pollard REMOVE INTRANASAL LESION 01/22/2007 EXCISION OR DESTRUCTION INTRANASAL LESION INTERNAL APPROACH performed by ELENA PIMENTEL at [facility] REMOVE TONSILS & ADENOIDS, UNDER 12 12/1965 [...] Stability Do you currently live in a fci or have no steady place to sleep [...] will be placed for this. Faxed to [facility] Continue current medications. Continue Lantus 8 units injected twice daily Glucose monitor to Mango-Mate Phill. Follow-up with [facility] pharmacy as scheduled Patient should have [...] Description 01/26/2024 1:30 PM EDT Telemedicine Pharmacy, [facility] [address] [place] [address] Pharmacist2, [facility] [address] [place] [address] 04/16/2024 9:40 AM EDT Office Visit General Internal Medicine [facility] [address] [place] [address] Traci Blackmon MD [address] [place] [address] Scheduled Procedures Name Priority Associated Diagnoses Date/Ti [...] colon documented in this encounter Care Teams Commercial Collector Relationship Specialty Start Date End Date Traci Blackmon MD [address] [place] [address] [place] [address] PCP - General Internal Medicine 05/27/19 documented as of this encounter
--- OUTSIDE RECORDS SUMMARY | 2024-04-23 13:22 | External Medical Summary ---
Author Name Unknown Address Unknown Organization [id number]:[facility]ATORY [facility] - [address] [address] Laboratory Report Ordering Provider Test Date Status KEESHA RUDD 01/20/2024 14:05:40 Final Normal: <30 mg/g creatinine< br/>High: 30-300 mg/g creatinine
Very High: >300 mg/g creatinine
Nephrotic: >2200 mg/g creatinine Observation Date Value Abnormality Reference (Units ) Status Albumin, Urine 01/20/2024 14:05:40 <1.20 (mg/dL) Final Creatinine, Urine 01/20/2024 14:05:40 143 (mg/dL) Final Albumin/Creatinine [Mass Ratio] in Urine 01/20/2024 14:05:40 <8 <30 (mg/g Creat) Final Performing Location [facility]ORY [facility] - [address] [address]
--- OUTSIDE RECORDS SUMMARY | 2024-04-23 13:22 | External Medical Summary ---
Author Name Unknown Address Unknown Organization K01:[facility] - [address] [place] [address] Laboratory Report Ordering Provider Test Date Status LYNDSEY RUDDALI 01/20/2024 14:00:46 Final Observation Date Value Abnormality Reference (Units ) Status Triglyceride 01/20/2024 14:00:46 113 <=174 ( mg/dL) Final Triglyceride Reference Range s (mg/dL):
<150 Acceptable
150-174 Borderline high
175-499 High
>=500 Very high Cholesterol 01/20/2024 14:00:46 204 Above high normal <200 (mg/dL) Final Total Cholesterol Reference Ranges (mg/dL):
<200 Desirable
200-239 Borderline high
>=240 High HDL 01/20/2024 14:00:46 53 >49 (mg/dL ) Final HDL Cholesterol Reference Ra nges (mg/dL):
>=60 High (Desirable)
<50 Low (Undesirable) For Females
<40 Low (Undesirable) For Males NON-HDL CHOLESTEROL 01/20/2024 14:00:46 151 <=159 (mg/dL) Final Non-HDL Cholesterol Referenc e Range (mg/dL):
<100 Target level for high risk ASCVD patient
<130 Optimal for general population
130-159 Near optimal for general population
160-189 Borderline High
190-219 High
>=220 Very High LDL, (calculated) 01/20/2024 14:00:46 128 <= 129 (mg/dL) Final LDL Cholesterol Reference Ra nges (mg/dL):
<70 Target level for high risk ASCVD patient
<100 Optimal for general population
100-129 Near optimal for general population
130-159 Borderline high
160-189 High
>=190 Very high Performing Location [facility] [place] [address] [facility] [address]
--- OUTSIDE RECORDS SUMMARY | 2024-04-23 13:22 | External Medical Summary | Summary of Care ---
Author Name Unknown Organization [facility] Address [address] [place] [address] Phone [phone] Care Team Providers Care Geologic Technician Name Role Phone Traci Blackmon MD Primary Care Provider [phone] Reason for Visit * Reason Onset Date Comments Advice 11/24/2023 Encounter Details Date Type Department Care Team (Late st Contact Info) Description 11/24/2023 Telephone General Internal Medicine [facility] [place] [address] [place] [address] Chandrika Beck, RN [address] [place] [address] Advice Allergies Active Allergy Reactions Criticality Noted Date Comments Metformin Diarrhea 04/16/2018 Percocet 01/22/2007 Makes pt sick documented as of this encounter (statuses as of 02/12/2024) Medications Medication Sig Dispensed Refills Start Date End Date Status CALCIUM 600 TABS 600 MG OR 2 po daily 0 9 Active Aspirin 81 MG TabletIndication s:DM type [...] the morning. 16 g 5 3 Active Empagliflozin 25 MG Oral Tablet (Jardiance) Take by mouth 1 Tablet in the morning. 90 Tablet 3 2 12/15/19 24 Discontinued(Ref ill) Lisinopril 5 MG Oral Tablet (Prinivil) Take by mouth 1 Tablet in the morning. 90 Tablet 3 2 12/24/19 24 Discontinued FLUoxetine HCl 10 MG Oral Capsule (PROzac)Indicati ons:Anxiety Take by mouth 1 Capsule in the morning. 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, since age 4 HX OF BREAST MALIGNANCY - Mom Overview: Eligible for MRI breasts due to increased risk of breast cancer documented as of this encounter (statuses as of 02/12/2024) Resolved Problems Problem Noted Date Diagnosed Date [...] as of this encounter (statuses as of 02/12/2024) Immunizations Name Administration Dates Next Due COVID-19 mRNA, LNP-s, No Pre serve, 2-Dose Series (Moderna) 08/04/2023 COVID-19 mRNA, LNP-s, No Pre serve, 2-Dose Series (SED Web) 11/01/2021,10/09/2020,09/12/2020 COVID-19, LNP-s, No Preserve , Carroll-sucrose, Ages 12+ (Pfizer) 11/01/2021 Covid-19, Mrna, Lnp-s, Pf, B ivalent, 30 Mcg, IM, 12 yrs and above (Pfizer) 04/29/2022 Hepatitis B, 20+ yrs 11/02/2014,06/07/2014,03/31 Pneumococcal Conjugate Vacci ne, 20-valent ([id number]) 04/18/2022 Pneumococcal Polysaccharide PPV23 (Pneumovax) 07/29/2019,12/03/2012 Seasonal [...] encounter Miscellaneous Notes * Telephone Encounter - Chandrika Beck RN - 11/24/2023 11:20 AM EDT Patient is coming in tomorrow for hospital d/c. Was discharged from [facility] after admission to [facility] for weakness. There are some discrepancies on her med list from [facility] vs [facility]. [facility] has her back on glipizide but it looks like that was discontinued by Carolina Griffin. She also was started on insulin, which is new to her. Prior to admission she had not refilled her medications once Nov, 2022. I think she needs f/u with [facility]. I am also going to refer her to [facility]. Thank you, Chandrika Pan (Ebony), RN [facility] Nurse Firmware Developer [place] documented in this encounter Plan of Treatment Upcoming Encounters Date Type Department Care Team (Late st Contact Info) Description 04/16/2024 9:40 AM EDT Office Visit General Internal Medicine [facility] [address] [facility] [address] [place] [address] Traci Blackmon MD [address] [place] [address] 05/03/2024 1:30 PM EDT Telemedicine Pharmacy, [facility] [address] [place] [address] Pharmacist2, [facility] [address] [place] [address] Scheduled Procedures Name Priority Associated Diagnoses Date/Ti [...] filedocumented as of this encounter Care Teams Geologic Technician Relationship Specialty Start Date End Date Traci Blackmon MD [address] [place] [address] PCP - General Internal Medicine 05/27/19 documented as of this encounter
--- OUTSIDE RECORDS SUMMARY | 2024-04-23 13:22 | External Medical Summary | Summary of Care ---
Author Name Unknown Organization [facility] Address [address] [address] Phone [phone] Care Team Providers Care Financial Aid Officer Name Role Phone Traci Blackmon MD Primary Care Provider [phone] Reason for Visit * Reason Comments Outpatient Testing Encounter Details Date Type Department Care Team (Late st Contact Info) Description 01/20/2024 2:00 PM EDT Laboratory Laboratory [facility] [address] [place] [address] [place], [address] [place] [id number] Type 2 diabetes mellitus with hemoglobin A1c goal of less than 7.0% ([facility]); HTN, goal below 140/90; Dyslipidemia, goal LDL below 100; Ischemic stroke of frontal lobe ([facility]) Allergies Active Allergy Reactions Criticality Noted [...] 3 11/25/2023 Active FreeStyle Phill 14 Day [place] DeviceIndications:Ty pe 2 diabetes mellitus with hemoglobin A1c goal of less than 7.0% (HCC),Uncontrolled type 2 diabetes mellitus with hyperglycemia (HCC),Current use of insulin (HCC) Use as directed. DX E.11.9 and Z97.4 1 Each 12/11/2023 Active FreeStyle Phill 14 Day SensorIndications:Ty pe 2 diabetes mellitus with hemoglobin A1c goal of less than 7.0% (HCC),Uncontrolled type 2 diabetes mellitus with hyperglycemia (HCC),Current use of insulin (HCC) Use as directed. E11.9 and Z97.4 4 Each 5 12/11/2023 Active FLUoxetine HCl 10 MG Oral [...] morning and 8 Units before bedtime. Active documented as of this encounter (statuses as of 01/20/2024) Active Problems Problem Noted Date Diagnosed Date Hx of nonmelanoma skin cancer 04/25/2022 Overview: BCC L upper back 2022, BCC R rastafari 2021, Hx BCC L nasal root 2003 Hypertension associated with type 2 diabetes luciaon litus 11/20/2020 Calculus of gallbladder with out cholecystitis without obstruction 08/05/2019 JAMES (generalized anxiety disorder) 09/25/2017 Family history of colon cancer 02/02/2015 Overview: Father and uncle Type 2 diabetes mellitus wit h hemoglobin A1c goal of less than 7.0% 12/03/2012 Overview: ICD-10 update of inactive term BMI 24.0-24.9, adult 10/19/2009 Overview: Per Obesity Taxonomy Hyperlipidemia associated with type 2 diabetes m wale 09/18/2009 NIDHI on CPAP 03/03/2007 SENSORNEUR HEAR [...] 01/08/2001 Overview: Per Obesity Taxonomy Mixed dyslipidemia 01/06/1999200 9 Overview: Per Lipid Taxonomy IRON DEFIC [...] yrs 11/02/2014,06/07/2014,03/31 Pneumococcal Conjugate Vacci ne, 20-valent ([id number]) 04/18/2022 Pneumococcal Polysaccharide PPV23 (Pneumovax) 07/29/2019,12/03/2012 Seasonal [...] Description 01/26/2024 1:30 PM EDT Telemedicine Pharmacy, [facility] [place] [address] [facility] [place] [address] Pharmacist2, [facility] [address] [facility] [place] [address] 04/16/2024 9:40 AM EDT Office Visit General Internal Medicine [facility] [address] [facility] [place] [address] Traci Blackmon MD 200 [facility] [address] [address] Pending Results Name Type Priority Associated Diagnoses Date /Time HEMOGLOBIN A1C Lab Routine Type 2 diabetes mellitus with hemoglobin A1c goal of less than 7.0% ([facility]) 01/20/2024 2:00 PM EDT COMPREHENSIVE METABOLIC PANEL Lab Routine HTN, goal below 140/90 Dyslipidemia, goal LDL below 100 01/20/2024 2:00 PM EDT LIPID PANEL WITH DIRECT LDL IF TG IS HIGH Lab Routine Dyslipidemia, goal LDL below 100 01/20/2024 2:00 PM EDT ALBUMIN / CREATININE RATIO, URINE Lab Routine Type 2 diabetes mellitus with hemoglobin A1c goal of less than 7.0% ([facility]) 01/20/2024 2:05 PM EDT Scheduled Procedures Name Priority Associated Diagnoses Date/Ti [...] Not on filedocumented as of this encounter Procedures Procedure Name Priority Date/Time Associated Diagnosis Comments CBC Routine 01/20/2024 2:00 PM EDT Ischemic stroke of frontal lobe (HCC) documented in this encounter Results * CBC (01/20/2024 2:00 PM EDT) WBC 7.60 4.00 - 10.80 K/uL 01/20/2024 2:17 PM EDT [facility] RBC 4.53 3.85 - 5.15 M/uL 01/20/2024 2:17 PM EDT [facility] HGB 13.5 12.0 - 15.3 g/dL 01/20/2024 2:17 PM EDT [facility]- HCT 41.0 36.0 - 45.2 % 01/20/2024 2:17 PM EDT [facility] 56- MCV 90.5 81.5 - 97.5 fL 01/20/2024 2:17 PM EDT [facility] 56- MCH 29.8 27.0 - 34.0 pg 01/20/2024 2:17 PM EDT [facility]-02 MCHC 32.9 32.0 - 36.0 g/dL 01/20/2024 2:17 PM EDT [facility] 56- RDW 13.2 11.5 - 15.5 % 01/20/2024 2:17 PM EDT [facility]- PLT 204 140 - 400 K/uL 01/20/2024 2:17 PM EDT [facility] 56- MPV 11.1 6.6 - 11.1 fL 01/20/2024 2:17 PM EDT [facility] 56-02 Blood Venous blood specimen / Unknown Venipuncture / Unknown 01/20/2024 2:00 PM EDT 01/20/2024 2:00 PM EDT Traci Blackmon MD LAB BLOOD ORDERABLES [facility] 56-[address] [place] [address] documented in this encounter Visit Diagnoses Diagnosis Type 2 diabetes mellitus with hemoglobin A1c goal of less than 7.0% (HCC) HTN, goal below 140/90 Unspecified essential hypertension Dyslipidemia, goal LDL below 100 Other and unspecified hyperlipidemia Ischemic stroke of frontal lobe (HCC) documented in this encounter Care Teams Financial Aid Officer Relationship Specialty Start Date End Date [facility] [address] [facility] [address] PCP - General Internal Medicine 05/27/19 documented as of this encounter
--- OUTSIDE RECORDS SUMMARY | 2024-04-23 13:22 | External Medical Summary | Summary of Care ---
Author Name Unknown Organization [facility] Address [address] [facility] [place] [place] [address] Phone [phone] Care Team Providers Care Head Rigger Name Role Phone Traci Blackmon MD Primary Care Provider [phone] Reason for Visit * Reason Onset Date Comments FYI 01/20/2024 Encounter Details Date Type Department Care Team (Late st Contact Info) Description 01/20/2024 Telephone General Internal Medicine [facility] [place] 200 [facility] [place] [address] Carson Laboy, [address] [address] FYI (/) Allergies Active Allergy Reactions Criticality Noted Date Comments Metformin Diarrhea 04/16/2018 Percocet 01/22/2007 Makes pt sick documented as of this encounter (statuses as of 01/21/2024) Medications Medication Sig Dispensed Refills Start Date [...] 3 11/25/2023 Active FreeStyle Phill 14 Day [place] DeviceIndications:Ty pe 2 diabetes mellitus with hemoglobin [...] as of this encounter (statuses as of 01/21/2024) Active Problems Problem Noted Date Diagnosed Date Hx of nonmelanoma skin cancer 04/25/2022 Overview: BCC L upper back 2022, BCC R voodoo 2021, Hx BCC L nasal root 2003 [...] as of this encounter (statuses as of 01/21/2024) Resolved Problems Problem Noted Date Diagnosed Date [...] as of this encounter (statuses as of 01/21/2024) Immunizations Name Administration Dates Next Due COVID-19 mRNA, LNP-s, No Pre serve, 2-Dose Series (Moderna) 08/04/2023 COVID-19 mRNA, LNP-s, No Pre serve, 2-Dose Series (Pfizer) 11/01/2021,10/09/2020,09/12/2020 COVID-19, LNP-s, No Preserve , Carroll-sucrose, Ages 12+ (Pfizer) 11/01/2021 Covid-19, Mrna, Lnp-s, Pf, B ivalent, 30 Mcg, IM, 12 yrs and above (Pfizer) 04/29/2022 Hepatitis B, 20+ yrs 11/02/2014,06/07/2014,03/31 Pneumococcal Conjugate Vacci ne, 20-valent ([id number]) 04/18/2022 Pneumococcal Polysaccharide PPV23 (Pneumovax) 07/29/2019,12/03/2012 Seasonal [...] Encounter - Grace Cervantes MED ASSIST - 01/21/2024 3:50 PM EDT Patient aware and verbalized understanding Pt will look into which company is covered by her insurance and will call back or send a message when she decides * Telephone Encounter - Carson Laboy DO - 01/21/2024 2:29 PM EDT Would recommend patient contact life [employer] or [employer]. I know these companies both make alert bracelets, necklaces. I will have to do more research to see if these are covered under her insurance * Telephone Encounter - Grace Cervantes MED ASSIST - 01/21/2024 8:06 AM EDT I faxed order to [employer] yesterday - any advice as to where else I can fax order to? * Telephone Encounter - Johnathon Ann OSA - 01/20/2024 2:59 PM EDT Carla calling in from [employer] stating that they do not supply the life alert bracelets. She advised going through the high pressure kettle operator or a Storefront store. documented in this encounter Plan of Treatment Upcoming Encounters Date Type Department Care Team (Late st Contact Info) Description 01/26/2024 1:30 PM EDT Telemedicine Pharmacy, [facility] [address] [facility] [address] [address] [address], [facility] [address] [facility] [place] [address] 04/16/2024 9:40 AM EDT Office Visit General Internal Medicine [facility] [address] [facility] [place] [address] Traci Blackmon MD [address] [facility] [place] [address] Scheduled Procedures Name Priority Associated Diagnoses Date/Ti [...] Additional history exists Colorectal Cancer Screening 11/09/2023 HbA1c 07/21/2024 01/20/2024, 03/0 08/2022, 04/18/2022, Additional history exists Depression Screening 11/24/2024 11/25/2023 Diabetic Foot Exam 11/24/2024 11/25/2023, 0 04/18/2022, 04/23/2021, Additional history exists Mammogram 12/02/2024 12/03/2023, 05/0 02/2024, 02/05/2022, Additional history exists Albumin/Creatinine Ratio 01/19/2025 024, 09/26/2022, 10/22/2021, Additional history exists GFR 01/19/2025 01/20/2024, 10/27, 11/12/2023, Additional history exists Lipid Panel 01/19/2029 [...] filedocumented as of this encounter Care Teams Head Rigger Relationship Specialty Start Date End Date Traci Blackmon MD [address] [place] [address] PCP - General Internal Medicine 05/27/19 documented as of this encounter
--- OUTSIDE RECORDS SUMMARY | 2024-04-23 13:22 | External Medical Summary ---
Author Name Unknown Address Unknown Organization [facility] [place] [place] [address] Laboratory Report Ordering Provider Test Date Status KEESHA RUDD 01/20/2024 14:00:46 Final Observation Date Value Abnormality Reference (Units ) Status WBC, Total 01/20/2024 14:00:46 7.60 4.00-10.8 0 (K/uL) Final RBC 01/20/2024 14:00:46 4.53 3.85-5.15 (M/uL) Final Hemoglobin 01/20/2024 14:00:46 13.5 12.0-15.3 (g/dL) Final HCT 01/20/2024 14:00:46 41.0 36.0-45.2 (%) Final MCV 01/20/2024 14:00:46 90.5 81.5-97.5 (fL) Final MCH 01/20/2024 14:00:46 29.8 27.0-34.0 (pg) Final MCHC 01/20/2024 14:00:46 32.9 32.0-36.0 (g/dL) Final RDW 01/20/2024 14:00:46 13.2 11.5-15.5 (%) Final Platelets 01/20/2024 14:00:46 204 140-400 (K /uL) Final MPV 01/20/2024 14:00:46 11.1 6.6-11.1 ( fL) Final Performing Location [facility] [place] [address]
--- OUTSIDE RECORDS SUMMARY | 2024-04-23 13:22 | External Medical Summary | Summary of Care ---
Author Name Unknown Organization [facility] Address [address] [address] Phone [phone] Care Team Providers Care Chief Environmental Commitment Officer Name Role Phone Traci Blackmon MD Primary Care Provider [phone] Encounter Details Date Type Department Care Team (Late st Contact Info) Description 02/06/2024 Orders Only General Internal Medicine [facility] [place] [address] [facility] [place] [address] Traci Blackmon MD 200 [facility] [place] [address] Allergies Active Allergy Reactions Criticality Noted Date Comments Metformin Diarrhea 04/16/2018 Percocet 01/22/2007 Makes pt sick documented as of this encounter (statuses as of 02/06/2024) Medications Medication Sig Dispensed Refills Start Date [...] 3 11/25/2023 Active FreeStyle Phill 14 Day [place] DeviceIndications:Ty pe 2 diabetes mellitus with hemoglobin [...] as of this encounter (statuses as of 02/06/2024) Active Problems Problem Noted Date Diagnosed Date Hx of nonmelanoma skin cancer 04/25/2022 Overview: BCC L upper back 2022, BCC R evangelical 2021, Hx BCC L nasal root 2004 [...] as of this encounter (statuses as of 02/06/2024) Resolved Problems Problem Noted Date Diagnosed Date [...] as of this encounter (statuses as of 02/06/2024) Immunizations Name Administration Dates Next Due COVID-19 mRNA, LNP-s, No Pre serve, 2-Dose Series (Moderna) 08/04/2023 COVID-19 mRNA, LNP-s, No Pre serve, 2-Dose Series (Pfizer) 11/01/2021,10/09/2020,09/12/2020 COVID-19, LNP-s, No Preserve , Carroll-sucrose, Ages 12+ (Pfizer) 11/01/2021 Covid-19, Mrna, Lnp-s, Pf, B ivalent, 30 Mcg, IM, 12 yrs and above (Pfizer) 04/29/2022 Hepatitis B, 20+ yrs 11/02/2014,06/07/2014,03/31 Pneumococcal Conjugate Vacci ne, 20-valent ([id number]) 04/18/2022 Pneumococcal Polysaccharide PPV23 (Pneumovax) 07/29/2019,12/03/2012 Seasonal [...] AM EDT Office Visit General Internal Medicine [facility] [place] [address] [place] [address] Traci Blackmon MD 200 [facility] [place] [address] 05/03/2024 1:30 PM EDT Telemedicine Pharmacy, [facility] [place] [address] [place] [address] Pharmacist2, [facility] [address] [place] [address] Scheduled Procedures Name Priority Associated Diagnoses Date/Ti [...] 11/12/2023, Additional history exists Diabetic Eye Exam 02/05/2025 02/05/2024, , 08/12/2018, Additional history exists Lipid [...] Procedure Name Priority Date/Time Associated Diagnosis Comments DIABETIC EYE EXAM Routine 02/05/2024 documented in this encounter Results * DIABETIC EYE EXAM (02/05/2024) 02/05/2024 History Per Patient OTHER OUTSIDE LAB (SEE SCANNED REPORT) documented in this encounter Care Teams Chief Environmental Commitment Officer Relationship Specialty Start Date End Date Traci Blackmon MD 200 [facility] [place] [address] PCP - General Internal Medicine 05/27/19 documented as of this encounter
--- OUTSIDE RECORDS SUMMARY | 2024-04-23 13:22 | External Medical Summary | Summary of Care ---
Author Name Unknown Organization [facility] Address [address] [address] Phone [phone] Care Team Providers Care Barytes Grinder Name Role Phone Traci Blackmon MD Primary Care Provider [phone] Reason for Visit * Reason Comments Dosage Adjustment In Person (Anticoag Cl inic) Diabetes Management Encounter Details Date Type Department Care Team (Late st Contact Info) Description 01/26/2024 1:30 PM EDT Telemedicine Pharmacy, [facility] 200 [facility] [place] [address] Pharmacist2, [facility] [address] [facility] [place] [address] Type 2 diabetes mellitus with hemoglobin A1c goal of less than 7.0% ([facility])* Allergies Active Allergy Reactions Criticality Noted Date Comments Metformin Diarrhea 04/16/2018 Percocet 01/22/2007 Makes pt sick documented as of this encounter (statuses as of 01/26/2024) Medications Medication Sig Dispensed Refills Start Date [...] 3 11/25/2023 Active FreeStyle Phill 14 Day [place] DeviceIndications:Ty pe 2 diabetes mellitus with hemoglobin [...] as of this encounter (statuses as of 01/26/2024) Active Problems Problem Noted Date Diagnosed Date Hx of nonmelanoma skin cancer 04/25/2022 Overview: BCC L upper back 2022, BCC R religious 2021, Hx BCC L nasal root 2003 [...] as of this encounter (statuses as of 01/26/2024) Resolved Problems Problem Noted Date Diagnosed Date [...] as of this encounter (statuses as of 01/26/2024) Immunizations Name Administration Dates Next Due COVID-19 mRNA, LNP-s, No Pre serve, 2-Dose Series (Moderna) 08/04/2023 COVID-19 mRNA, LNP-s, No Pre serve, 2-Dose Series (Pfizer) 11/01/2021,10/09/2020,09/12/2020 COVID-19, LNP-s, No Preserve , Carroll-sucrose, Ages 12+ (Pfizer) 11/01/2021 Covid-19, Mrna, Lnp-s, Pf, B ivalent, 30 Mcg, IM, 12 yrs and above (Pfizer) 04/29/2022 Hepatitis B, 20+ yrs 11/02/2014,06/07/2014,03/31 Pneumococcal Conjugate Vacci ne, 20-valent ([id number]) 04/18/2022 Pneumococcal Polysaccharide PPV23 (Pneumovax) 07/29/2019,12/03/2012 Seasonal [...] on file documented as of this encounter Progress Notes * Fabrizio Hutchison, [facility] - 01/26/2024 12:46 PM EDT Images from the original note were not included. Patient location: HOME. I was in a hospital or clinic location. After connecting through [employer],patient was verified with two unique identifiers. Patient (or authorized legal contracts representative) was then informed that this was a Telemedicine visit and being conducted confidentially over secure lines. Methods to assure confidentiality were taken. Patient acknowledged consent and understanding of pr ivacy and security of the Telemedicine visit. The patient agreed to participate. Medication Therapy Disease Management Clinic - Diabetes Management Progress Note Odalys Juares, identified by name and date of , is a 63 year old female being seen for diabetes management/education. Patient presents for return diabetic visit. DIABETES: Current diabetic medications: STOP: Glipizide ER 5mg QAM Lantus 8 units Q12H Medication Injection Site: Abdomen Lifestyle: Diet: unchanged Glucose Review/SMBG: Readings obtained from patient device Hypoglycemia: Does your blood sugar go below 70 mg/dL? No Hyperglycemia symptoms present: none Recent Labs Units 01/20/24 1400 09/26/22 1225 04/18/22 1238 HEMOGLOBIN A1C - [facility] % 6.1* 8.0* 9.1* Recent Labs Units 01/20/24 1400 11/19/23 0613 11/12/23 0550 ESTIMATED GLOMERULAR FILTRATION RATE - [facility] mL/min 88 74 >90 CREATININE - [facility] mg/dL 0.8 0.9 0.7 HYPERTENSION: Patient on ACEi/ARB: no BP Readings from Last 3 Encounters: 01/20/24 126/70 12/02/23 110/70 11/25/23 98/54 Blood pressure at goal: yes HYPERLIPIDEMIA: Patient is taking moderate or high intensity statin: yes HEALTH MAINTENANCE REVIEW: Health Maintenance Due Topic Date Due DXA Scan Never done Diabetic Eye Exam 09/27/2023 COVID-19 Vaccine ( season) 2023 Colorectal Cancer Screening 11/09/2023 ASSESSMENT & PLAN: ICD-10-CM 1. Type 2 diabetes mellitus with hemoglobin A1c goal of less than 7.0% (HCC) E11.9 BG Readings - Blood sugars controlled. BG averaging 115, pt no longer having significant lows either. Medications - Reviewed current regimen, patient is adherent to regimen. No changes at this time. Diet, Exercise, Lifestyle - No significant lifestyle changes since last visit. Patient is agreeable to SMBG 4 time(s) daily. Patient aware to contact clinic if any hypoglycemia before next visit. MEDICATION CHANGES: no change Diabetic Medications: Lantus 8 units Q12H HEALTH MAINTENANCE INTERVENTIONS: Labs: Ordered & Scheduled: HgA1c and BMP/CMP Immunizations: Up to Date Foot Exam: Up to Date Eye Exam: Up to Date Annual Wellness Visit: N/A FOLLOW UP: Return to clinic in 12 weeks 05/03/2024 Fabrizio Hutchison [facility] Clinical Pharmacist - Plating Tank Operator Apprentice Medication Therapy Management Clinic 01/26/2024, 12:46 PM documented in this encounter Plan of Treatment Upcoming Encounters Date Type Department Care Team (Late st Contact Info) Description 04/16/2024 9:40 AM EDT Office Visit General Internal Medicine [facility] [place] [address] [place] [address] Traci Blackmon MD [address] [place] [address] 05/03/2024 1:30 PM EDT Telemedicine Pharmacy, [facility] [place] [address] [place] [address] Pharmacist2, [facility] [address] [place] [address] Scheduled Orders Name Type Priority Associated Diagnoses Orde r Schedule HEMOGLOBIN A1C Lab Routine Type 2 diabetes mellitus with hemoglobin A1c goal of less than 7.0% (HCC) Expected: 01/26/2024 (Approximate), Expires: 01/25/2025 BASIC METABOLIC PANEL Lab Routine Type 2 diabetes mellitus with hemoglobin A1c goal of less than 7.0% (HCC) Expected: 01/26/2024 (Approximate), Expires: 01/25/2025 Scheduled Procedures Name Priority Associated Diagnoses Date/Ti [...] 01/19/2029 01/20/2024, 03/08/2022, 04/18/2022, Additional history exists DTaP,Tdap,and Td Vaccines (3 - Td or Tdap) 10/23/2031 10/22/2021, 03/19/2010, 01/02/2000 Hepatitis B Completed 11/02/2014, 05/28, 2014 Zoster Vaccines Completed 07/29/2019, 05/27/2019 Cervical Cancer Screening Discontinued Pap Smear Discontinued 04/30/2021, 03/29, 02/02/2015, Additional history exists Pneumococcal Vaccine: 65+ Years Completed 04/18/2022, 07/29/2019, 12/03/2012 GARDASIL-HPV IMMUNIZATION SERIES Aged Out No longer [...] goal of less than 7.0% (HCC)- Primary documented in this encounter Care Teams Barytes Grinder Relationship Specialty Start Date End Date Traci Blackmon MD [address] [place] [address] PCP - General Internal Medicine 05/27/19 documented as of this encounter
--- OUTSIDE RECORDS SUMMARY | 2024-04-23 13:22 | External Medical Summary ---
Author Name Unknown Address Unknown Organization [facility] [address] [place] [address] Laboratory Report Ordering Provider Test Date Status KEESHA RUDD 01/20/2024 14:00:46 Final Observation Date Value Abnormality Reference (Units ) Status BUN 01/20/2024 14:00:46 19 6-20 (mg/dL) Final Creatinine 01/20/2024 14:00:46 0.8 0.5-1.0 (mg/dL) Final Glomerular filtration rate/1.73 sq M.predicted [Volume Rate/Area] in Serum, Plasma or Blood by Creatinine-based formula (CKD-EPI) 01/20/2024 14:00:46 88 >=60 (mL/min) Final eGFR is calculated based on the CKD-EPI 2020 equation Sodium 01/20/2024 14:00:46 142 135-146 (m mol/L) Final Potassium 01/20/2024 14:00:46 4.4 3.5-5.1 (m mol/L) Final Cl 01/20/2024 14:00:46 106 98-107 (mm ol/L) Final CO2 01/20/2024 14:00:46 24 22-32 (mmo l/L) Final Anion gap 01/20/2024 14:00:46 12 7-15 (mmol /L) Final Glucose 01/20/2024 14:00:46 104 70-120 (mg /dL) Final Albumin 01/20/2024 14:00:46 3.9 3.8-5.0 (g /dL) Final AST (Aspartate aminotransferase) 01/20/2024 14:00:46 23 10-35 (U/L) Fin al Alk Phos 01/20/2024 14:00:46 64 35-130 (U/ L) Final Bilirubin, Total 01/20/2024 14:00:46 0.9 <=1 .2 (mg/dL) Final Calcium 01/20/2024 14:00:46 9.1 8.4-10.2 ( mg/dL) Final Protein 01/20/2024 14:00:46 5.8 Below low normal 6.0 -8.3 (g/dL) Final ALT (Alanine aminotransferase) 01/20/2024 14:00:46 18 10-35 (U/L) Noman cordero Performing Location [facility] - [address] [place] [address]
--- OUTSIDE RECORDS SUMMARY | 2024-04-23 13:23 | External Medical Summary | Summary of Care ---
Author Name Unknown Organization [facility] Address [address] [address] Phone [phone] Care Team Providers Care Records Custodian Name Role Phone Traci Blackmon MD Primary Care Provider [phone] Reason for Visit * Reason Comments Dosage Adjustment In Person (Anticoag Cl inic) Diabetes Management * Evaluate & Treat - Unlimited Visits (Within 30 days (routine)) - Authorized Specialty Diagnoses / Procedures Referred By Contac t Referred To Contact Pharmacist / Pharmacy Diagnoses Type 2 diabetes mellitus with hemoglobin A1c goal of less than 7.0% (HCC) Traci Blackmon MD [address] [place] [address] Referral ID Status Reason Start Date Expiration Date Visits Requested Visits Authorized [id number] Authorized Specialty Services Required 12/11/2023 99 99 Encounter Details Date Type Department Care Team (Late st Contact Info) Description 01/05/2024 8:50 AM EDT Telemedicine Pharmacy, [facility] [address] [facility] [place] [address] Pharmacist2, [facility] [address] [facility] [place] [address] Type 2 diabetes mellitus with hemoglobin A1c goal of less than 7.0% ([facility])* Allergies Active Allergy Reactions Criticality Noted Date Comments Metformin Diarrhea 04/16/2018 Percocet 01/22/2007 Makes pt sick documented as of this encounter (statuses as of 01/05/2024) Medications Medication Sig Dispensed Refills Start Date End Date Status CALCIUM 600 TABS 600 MG OR 2 po daily 0 9 Active Aspirin 81 MG TabletIndications :DM type [...] the morning. 90 Tablet 3 4 Active BD Eclipse Needle 25G X 5/8" (Needle (Disp))Indication s:Type 2 diabetes mellitus with hemoglobin A1c goal of less than 7.0% (HCC) Use with Lantus 180 Each 3 4 Active FreeStyle Phill 14 Day [place] DeviceIndications :Type 2 diabetes mellitus with hemoglobin A1c goal of less than 7.0% (HCC),Uncontrolle d type 2 diabetes mellitus with hyperglycemia (HCC),Current use of insulin (HCC) Use as directed. DX E.11.9 and Z97.4 1 Each 4 Active FreeStyle Phill 14 Day SensorIndications :Type 2 diabetes mellitus with hemoglobin A1c goal of less than 7.0% (HCC),Uncontrolle d type 2 diabetes mellitus with hyperglycemia (HCC),Current use of insulin (HCC) Use as directed. E11.9 and Z97.4 4 Each 5 4 Active FLUoxetine HCl 10 MG Oral Capsule (PROzac)Indicatio ns:Anxiety Take 1 Capsule by mouth in the morning. 90 Capsule 3 4 Active Lantus SoloStar 100 UNIT/ML Subcutaneous Solution Pen-injectorIndic ations:Type 2 diabetes mellitus with hemoglobin A1c goal of less than 7.0% (HCC) INJECT 15 UNITS SUBCUTANEOUSLY EVERY 12 HOURS 4 Active Empagliflozin 25 MG Oral Tablet (Jardiance) Take 1 Tablet by mouth in the morning. 90 Tablet 3 4 024 Discontinued glipiZIDE ER 5 MG Oral Tablet Extended Release 24 Hour (Glucotrol XL)Indications:Ty pe 2 diabetes mellitus with hemoglobin A1c goal of less than 7.0% (HCC) Take 1 Tablet by mouth in the morning. 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, since age 4 HX OF BREAST MALIGNANCY - Mom Overview: Eligible for MRI breasts due to increased risk of breast cancer documented as of this encounter (statuses as of 01/05/2024) Resolved Problems Problem Noted Date Diagnosed Date [...] 01/08/2001 Overview: Per Obesity Taxonomy Mixed dyslipidemia 01/06/199906/21/ 9 Overview: Per Lipid Taxonomy IRON DEFIC ANEMIA NOS 01/06/19992016 CLASSICAL MIGRAINE WITHOU ME NTION OF INTRACTABLE MIGRAINE 01/20/1998 08/13/2016 OTHER AND UNSPECIFIED SLEEP APNEA 01/20/1998 08/13/2016 PREMENSTRUAL TENSION 01/20/1998 017 UTERINE LEIOMYOMA NOS - by ultrasound 01/20/1998 08/13/2016 documented as of this encounter (statuses as of 01/05/2024) Immunizations Name Administration Dates Next Due COVID-19 mRNA, LNP-s, No Pre serve, 2-Dose Series (Moderna) 08/04/2023 COVID-19 mRNA, LNP-s, No Pre serve, 2-Dose Series (Pfizer) 11/01/2021,10/09/2020,09/12/2020 COVID-19, LNP-s, No Preserve , Carroll-sucrose, Ages 12+ (Pfizer) 11/01/2021 Covid-19, Mrna, Lnp-s, Pf, B ivalent, 30 Mcg, IM, 12 yrs and above (Pfizer) 04/29/2022 Hepatitis B, 20+ yrs 11/02/2014,06/07/2014,03/31 Pneumococcal Conjugate Vacci ne, 20-valent ([id number]) 04/18/2022 Pneumococcal Polysaccharide PPV23 (Pneumovax) 07/29/2019,12/03/2012 Seasonal [...] money to get more. Never true 12/02/2023 Sex and Gender Information Value Date Recorded Sex Assigned at Not on file Gender Identity Not on file Sexual Orientation Not on file Job Start Date Occupation Industry Not on file Not on file Not on file documented as of this encounter Progress Notes * Fabrizio Hutchison, [facility] - 01/05/2024 8:53 AM EDT Images from the original note were not included. Patient location: HOME. I was in a hospital or clinic location. After connecting through [employer],patient was verified with two unique identifiers. 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 Patient presents for initial diabetic visit. Past Medical History: Diagnosis Date Benign [...] hemoglobin A1c goal of less than 7.0% ([facility]) 12/03/2012 ICD-10 update of inactive term UTERINE LEIOMYOMA NOS - by ultrasound 01/20/1998 Diagnosis: Type 2 Age of diabetes diagnosis: 53yo Family history of diabetes: Uncle on mothers side Microvascular complications: none Macrovascular complications: dyslipidemia cerebrovascular disease History of Treatment Barriers: Lifestyle: None Therapy considerations: None Medication: Jardiance was too expensive DIABETES: Current diabetic medications: Glipizide ER 5mg QAM Lantus 10 units Q12H Jardiance 25mg QAM Medication Injection Site: Abdomen Lifestyle: Diet: Reviewed plate method and effect of certain foods on BG. Also reviewed food label, focusing on "total carbohydrates" and "serving size." Patient verbalized understanding. Glucose Review/SMBG: Readings obtained from patient device Hypoglycemia: Does your blood sugar go below 70 mg/dL? Yes, 17% lows* Hyperglycemia symptoms present: none Recent Labs Units 09/26/22 1225 04/18/22 1238 HEMOGLOBIN A1C - [facility] % 8.0* 9.1* Recent Labs Units 11/19/23 0613 11/12/23 0550 09/26/22 1225 ESTIMATED GLOMERULAR FILTRATION RATE - [facility] mL/min 74 >90 73 CREATININE - [facility] mg/dL 0.9 0.7 0.9 HYPERTENSION: Patient on ACEi/ARB: no, BP controlled BP Readings from Last 3 Encounters: 12/02/23 110/70 11/25/23 98/54 11/04/22 118/74 Blood pressure at goal: yes HYPERLIPIDEMIA: Patient is taking moderate or high intensity statin: yes HEALTH MAINTENANCE REVIEW: Health Maintenance Due Topic Date Due HbA1c 03/29/2023 DXA Scan Never done Diabetic Eye Exam 09/27/2023 Albumin/Creatinine Ratio 09/27/2023 COVID-19 Vaccine ( season) 2023 Colorectal Cancer Screening 11/09/2023 ASSESSMENT & PLAN: ICD-10-CM 1. Type 2 diabetes mellitus with hemoglobin A1c goal of less than 7.0% (HCC) E11.9 BG Readings - Blood sugars Significantly low. BG averaging 95 per phill 2. 17% lows. A1c ordered Medications - Reviewed current regimen, patient is adherent to regimen. Pt unable to continue jardiance at this time due to cost and believes she won't be able to qualify for PAP either. Patient agreeable to stop glipizide to reduce low BG burden. Diet, Exercise, Lifestyle - No significant lifestyle changes since last visit. Patient is agreeable to SMBG 4 time(s) daily. Patient aware to contact clinic if any hypoglycemia before next visit. MEDICATION CHANGES: yes, see below; preferred pharmacy: [facility] Medications: STOP: Glipizide ER 5mg QAM Lantus 10 units Q12H Jardiance 25mg QAM (stopped Due to cost) HEALTH MAINTENANCE INTERVENTIONS: Labs: Ordered & Scheduled: HgA1c, BMP/CMP, Urine Microalbumin, and Lipid Panel Immunizations: Up to Date Foot Exam: Up to Date Eye Exam: Due Annual Wellness Visit: N/A FOLLOW UP: Return to clinic in 3 weeks 01/26/2024 Fabrizio Hutchison [facility] Clinical Pharmacist - Director Of Undergraduate Admissions Medication Therapy Management Clinic 01/05/2024, 8:53 AM documented in this encounter Plan of Treatment Upcoming Encounters Date Type Department Care Team (Late st Contact Info) Description 01/20/2024 1:20 PM EDT Office Visit General Internal Medicine [facility] [address] [facility] [place] [address] [place] [address] [address] 01/26/2024 1:30 PM EDT Telemedicine Pharmacy, [facility] [address] [facility] [place] [address] Pharmacist2, [facility] [address] [facility] [place] [address] 04/16/2024 9:40 AM EDT Office Visit General Internal Medicine [address] [place] [address] Traci Blackmon MD [address] [place] [address] [place] [address] Scheduled Procedures Name Priority Associated Diagnoses Date/Ti [...] 04/23/2021, Additional history exists Mammogram 12/02/2024 12/03/2023, 0502/2024, 02/05/2022, Additional history exists Lipid Panel 09/27/2027 [...] hemoglobin A1c goal of less than 7.0% ([facility])- Primary documented in this encounter Care Teams Records Custodian Relationship Specialty Start Date End Date Traci Blackmon MD [address] [facility] [place] [address] PCP - General Internal Medicine 05/27/19 documented as of this encounter
--- OUTSIDE RECORDS SUMMARY | 2024-04-23 13:23 | External Medical Summary | Summary of Care ---
Author Name Unknown Organization [facility] Address [address] [address] Phone [phone] Care Team Providers Care Stock Fitter Name Role Phone Tobin Blackmon MD Primary Care Provider [phone] Reason for Visit * Reason Onset Date Comments Medication Refill 01/06/2024 Encounter Details Date Type Department Care Team (Late st Contact Info) Description 01/06/2024 Refill General Internal Medicine [facility] [address] [facility] [place] [id number] Tobin Blackmon MD [address] [facility] [place] [id number] Anxiety; Type 2 diabetes mellitus with hemoglobin A1c goal of less than 7.0% ([facility]) Allergies Active Allergy Reactions Criticality Noted Date Comments Metformin Diarrhea 04/16/2018 Percocet 01/22/2007 Makes pt sick documented as of this encounter (statuses as of 01/06/2024) Medications Medication Sig Dispensed Refills Start Date End Date Status CALCIUM 600 TABS 600 MG OR 2 po daily 0 9 Active Aspirin 81 MG TabletIndications: DM type 2 nursing care encounter ([facility]) Take 1 Tablet by mouth in the [...] 3 4 Active FreeStyle Phill 14 Day [place] DeviceIndications: Type 2 diabetes mellitus with hemoglobin [...] and Z97.4 4 Each 5 4 Active Lantus SoloStar 100 UNIT/ML Subcutaneous Solution Pen-injectorIndica tions:Type 2 diabetes mellitus with hemoglobin A1c goal of less than 7.0% (HCC) INJECT 15 UNITS SUBCUTANEOUSLY EVERY 12 HOURS 4 Active FLUoxetine HCl 10 MG Oral Capsule (PROzac)Indication s:Anxiety Take 1 Capsule by mouth in the morning. 90 Capsule 3 4 Active BD Eclipse Needle 25G X 5/8" (Needle (Disp))Indications :Type 2 diabetes mellitus with hemoglobin A1c goal of less than 7.0% (HCC) Use with Lantus 180 Each 3 4 Active BD Eclipse Needle 25G X 5/8" (Needle (Disp))Indications :Type 2 diabetes mellitus with hemoglobin A1c goal of less than 7.0% (HCC) Use with Lantus 180 Each 3 4 01/06/20 24 Discontinu ed(Refill) FLUoxetine HCl 10 MG Oral Capsule (PROzac)Indication s:Anxiety Take 1 Capsule by mouth in the morning. 90 Capsule 3 4 01/06/20 24 Discontinu ed(Refill) documented as of this encounter (statuses as of 01/06/2024) Active Problems Problem Noted Date Diagnosed Date Hx of nonmelanoma skin cancer 04/25/2022 Overview: BCC L upper back 2022, BCC R jain 2021, Hx BCC L nasal root 2003 [...] as of this encounter (statuses as of 01/06/2024) Resolved Problems Problem Noted Date Diagnosed Date [...] as of this encounter (statuses as of 01/06/2024) Immunizations Name Administration Dates Next Due COVID-19 mRNA, LNP-s, No Pre serve, 2-Dose Series (Moderna) 08/04/2023 COVID-19 mRNA, LNP-s, No Pre serve, 2-Dose Series (Pfizer) 11/01/2021,10/09/2020,09/12/2020 COVID-19, LNP-s, No Preserve , Carroll-sucrose, Ages 12+ (Pfizer) 11/01/2021 Covid-19, Mrna, Lnp-s, Pf, B ivalent, 30 Mcg, IM, 12 yrs and above (Pfizer) 04/29/2022 Hepatitis B, 20+ yrs 11/02/2014,06/07/2014,03/31 Pneumococcal Conjugate Vacci ne, 20-valent ([id number]) 04/18/2022 Pneumococcal Polysaccharide PPV23 (Pneumovax) 07/29/2019,12/03/2012 Seasonal [...] Telephone Encounter - Tobin Blackmon MD - 01/06/2024 12:25 PM EDTSigned Prescriptions: Disp Refills FLUoxetine HCl 10 MG Oral Capsule (PROzac) 90 Cap*3 Sig: Take 1 Capsule by mouth in the morning.Authorizing Provider: TOBIN BLACKMON BD Eclipse Needle 25G X 5/8" (Needle (Disp*180 Ea*3 Sig: Use with LantusAuthorizing Provider: TOBIN BLACKMON * Telephone Encounter - Tobin Blackmon MD - 01/06/2024 12:25 PM EDT Done * Telephone Encounter - Marilu Lagos LPN - 01/06/2024 11:57 AM EDTPending Prescriptions: Disp Refills FLUoxetine HCl 10 MG Oral Capsule (PROzac) 90 Cap*3 Sig: Take 1 Capsule by mouth in the morning. BD Eclipse Needle 25G X 5/8" (Needle (Disp*180 Ea*3 Sig: Use with Lantus * Telephone Encounter - Marilu Lagos LPN - 01/06/2024 11:57 AM EDTPending Prescriptions: Disp Refills FLUoxetine HCl 10 MG Oral Capsule (PROzac) 90 Cap*3 Sig: Take 1 Capsule by mouth in the morning. BD Eclipse Needle 25G X 5/8" (Needle (Disp*180 Ea*3 Sig: Use with Lantus * Telephone Encounter - Myrna Camejo OSA - 01/06/2024 10:17 AM EDT Did you pend patient's preferred pharmacy and medication before forwarding?yes Pharmacy: [facility] Pending Prescriptions: Disp Refills FLUoxetine HCl 10 MG Oral Capsule (PROzac)90 Cap*3 Sig: Take 1 Capsule by mouth in the morning. BD Eclipse Needle 25G X 5/8" (Needle (Dis*180 Ea*3 Sig: Use with Lantus Last Visit: 11/25/2023 (in office), Visit date not found (telemedicine) Next Visit: 01/20/2024 If no future appointments scheduled, and last appointment is greater than a year ago, please schedule patient for a follow-up appointment Last date the medication was ordered: 11/25/23, 12/24/23 Is this request for a controlled substance?No Urine Drug Screen:No results found for this or any previous visit. Patient Phone Numbers Labs: Lab Results Component Value Date/Time CREAT 0.9 11/19/2023 06:13 AM CREAT 1.0 06/19/2020 12:27 PM POTASSIUM 5.0 11/19/2023 06:13 AM POTASSIUM 4.5 06/19/2020 12:27 PM POTASSIUM 4.7 10/25/1996 03:50 PM TSH 1.60 03/05/2013 10:40 AM TSH 1.74 10/25/1996 03:50 PM LDLCALC 179 (H) 09/26/2022 12:25 PM LDLCALC 157 (H) 06/19/2020 12:27 PM LDLDIRECT NOT APPLICABLE 06/19/2020 12:27 PM ALT 25 09/26/2022 12:25 PM ALT 27 06/19/2020 12:27 PM HGBA1C 8.0 (H) 09/26/2022 12:25 PM HGBA1C 8.4 (H) 05/27/2019 11:35 AM documented in this encounter Plan of Treatment Upcoming Encounters Date Type Department Care Team (Late st Contact Info) Description 01/20/2024 1:20 PM EDT Office Visit General Internal Medicine [facility] [address] [facility] [place] [address] [place], [address] [address] 01/26/2024 1:30 PM EDT Telemedicine Pharmacy, [facility] [address] [facility] [place] [address] Pharmacist2, [facility] [address] [facility] [place] [address] 04/16/2024 9:40 AM EDT Office Visit General Internal Medicine [facility] [address] [facility] [place] [address] Tobin Blackmon MD [address] [facility] [address] [address] Scheduled Procedures Name Priority Associated Diagnoses Date/Ti [...] as of this encounter Visit Diagnoses Diagnosis Anxiety Anxiety state, unspecified Type 2 diabetes mellitus with hemoglobin A1c goal of less than 7.0% (HCC) documented in this encounter Care Teams Stock Fitter Relationship Specialty Start Date End Date Tobin Blackmon MD [address] [place] [address] PCP - General Internal Medicine 05/27/19 documented as of this encounter
--- OUTSIDE RECORDS SUMMARY | 2024-04-23 13:23 | External Medical Summary | Summary of Care ---
Author Name Unknown Organization [facility] Address [address] [address] Phone [phone] Care Team Providers Care Supervisor [employer] Name Role Phone Traci Blackmon MD Primary Care Provider [phone] Reason for Visit * Reason Onset Date Comments Other 12/26/2023 Nurse reporting on pt Encounter Details Date Type Department Care Team (Late st Contact Info) Description 12/26/2023 Telephone General Internal Medicine [facility] [address] [place] [phone] Traci Blackmon MD [address] [facility] [place] [phone] Other (Nurse reporting on pt) Allergies Active Allergy Reactions Criticality Noted Date Comments Metformin Diarrhea 04/16/2018 Percocet 01/22/2007 Makes pt sick documented as of this encounter (statuses as of 12/26/2023) Medications Medication Sig Dispensed Refills Start Date [...] the morning. 90 Tablet 3 11/25/2023 Active BD Eclipse Needle 25G X 5/8" (Needle (Disp))Indications: Type 2 diabetes mellitus with hemoglobin A1c goal of less than 7.0% (HCC) Use with Lantus 180 Each 3 11/25/2023 Active FreeStyle Phill 14 Day [place] DeviceIndications:T ype 2 diabetes mellitus with hemoglobin A1c goal of less than 7.0% (HCC),Uncontrolled type 2 diabetes mellitus with hyperglycemia (HCC),Current use of insulin (HCC) Use as directed. DX E.11.9 and Z97.4 1 Each 12/11/2023 Active FreeStyle Phill 14 Day SensorIndications:T ype 2 diabetes mellitus with hemoglobin A1c goal of less than 7.0% (HCC),Uncontrolled type 2 diabetes mellitus with hyperglycemia (HCC),Current use of insulin (HCC) Use as directed. E11.9 and Z97.4 4 Each 5 12/11/2023 Active Empagliflozin 25 MG Oral Tablet (Jardiance) Take 1 Tablet by mouth in the morning. 90 Tablet 3 12/19/2023 Active glipiZIDE ER 5 MG Oral Tablet Extended Release 24 Hour (Glucotrol XL)Indications:Type 2 diabetes mellitus with hemoglobin A1c goal of less than 7.0% (HCC) Take 1 Tablet by mouth in the morning. 90 Tablet 3 12/24/2023 Active FLUoxetine HCl 10 MG Oral Capsule (PROzac)Indications :Anxiety Take 1 Capsule by mouth in the morning. 90 Capsule 3 12/24/2023 Active Lantus SoloStar 100 UNIT/ML Subcutaneous Solution Pen-injectorIndicat ions:Type 2 diabetes mellitus with hemoglobin A1c goal of less than 7.0% (HCC) INJECT 15 UNITS SUBCUTANEOUSLY EVERY 12 HOURS 12/24/2023 Active documented as of this encounter (statuses as of 12/26/2023) Active Problems Problem Noted Date Diagnosed Date [...] as of this encounter (statuses as of 12/26/2023) Resolved Problems Problem Noted Date Diagnosed Date [...] as of this encounter (statuses as of 12/26/2023) Immunizations Name Administration Dates Next Due COVID-19 mRNA, LNP-s, No Pre serve, 2-Dose Series (Moderna) 08/04/2023 COVID-19 mRNA, LNP-s, No Pre serve, 2-Dose Series ([employer]) 11/01/2021,10/09/2020,09/12/2020 COVID-19, LNP-s, No Preserve , Carroll-sucrose, Ages 12+ (Pfizer) 11/01/2021 Covid-19, Mrna, Lnp-s, Pf, B ivalent, 30 Mcg, IM, 12 yrs and above (Pfizer) 04/29/2022 Hepatitis B, 20+ yrs 11/02/2014,06/07/2014,03/31 Pneumococcal Conjugate Vacci ne, 20-valent ([id number]) 04/18/2022 Pneumococcal Polysaccharide PPV23 (Pneumovax) 07/29/2019,12/03/2012 Seasonal [...] encounter Miscellaneous Notes * Telephone Encounter - Laura Gamble, biostatistics professor - 12/26/2023 12:42 PM EDT Nurse from [facility] calling to report on pt's low blood sugar. Attempted to transfer to clinic nurse but caller disconnected the call. Thank you, Laura Gamble, Equal Opportunity Officer [facility] ([facility]) (Formerly Telepharm[facility]) 12/26/2023,12:43 PM documented in this encounter Plan of Treatment Upcoming Encounters Date Type Department Care Team (Late st Contact Info) Description 01/05/2024 8:50 AM EDT Telemedicine Pharmacy, [facility] [place] [address] [facility] [place] [address] Pharmacist2, [facility] [address] [facility] [place] [address] 01/20/2024 1:20 PM EDT Office Visit General Internal Medicine [facility] [place] [address] [facility] [place] [address] [place], [address] [address] 04/16/2024 9:40 AM EDT Office Visit General Internal Medicine [facility] [place] [facility] [place] [address] Traci Blackmon MD [address] [facility] [place] [address] Scheduled Procedures Name Priority Associated Diagnoses Date/Ti [...] 04/23/2021, Additional history exists Mammogram 12/02/2024 12/03/2023, 01/25, 02/05/2022, Additional history exists Lipid Panel 09/27/2027 [...] filedocumented as of this encounter Care Teams Supervisor [employer] Relationship Specialty Start Date End Date Traci Blackmon MD [address] [place] [address] PCP - General Internal Medicine 05/27/19 documented as of this encounter
--- OUTSIDE RECORDS SUMMARY | 2024-04-23 13:24 | External Medical Summary | Summary of Care ---
Author Name Unknown Organization [facility] Address [address] [address] Phone [phone] Care Team Providers Care Senior Air Director Name Role Phone Traci Blackmon MD Primary Care Provider [phone] Reason for Visit * Reason Onset Date Comments Hospital Follow-Up 11/13/2023 Encounter Details Date Type Department Care Team (Late st Contact Info) Description 11/13/2023 Telephone General Internal Medicine [facility] [place] [address] [place] [id number] Traci Blackmon MD [address] [place] [id number] Hospital Follow-Up Allergies Active Allergy Reactions Criticality Noted Date Comments Metformin Diarrhea 04/16/2018 Percocet 01/22/2007 Makes pt sick documented as of this encounter (statuses as of 12/17/2023) Medications Medication Sig Dispensed Refills Start Date End Date Status CALCIUM 600 TABS 600 MG OR 2 po daily 0 9 Active Aspirin 81 MG TabletIndications: DM type 2 nursing care encounter (HCC) Take 1 Tablet by mouth in the morning. 30 Tab 7 Active B Complex Vitamins (B-COMPLEX/B-12) TABS Take by mouth. Active CPAP every night at bedtime. Active Empagliflozin 25 MG Oral Tablet (Jardiance) Take by mouth 1 Tablet in the morning. 90 Tablet 3 2 Active Lisinopril 5 MG Oral Tablet (Prinivil) Take by mouth 1 Tablet in the morning. 90 Tablet 3 2 Active Additional Information Patient not taking.Reported on 12/02/2023 FLUoxetine HCl 10 MG Oral Capsule (PROzac)Indication s:Anxiety Take by mouth 1 Capsule in the morning. 90 Capsule 3 2 Active Albuterol Sulfate HFA 108 (90 Base) MCG/ACT Inhalation Aerosol SolutionIndication s:Upper respiratory tract infection, unspecified type,Bronchitis Inhale 2 Puffs by mouth every 6 hours as needed for Congestion, Cough or Wheezing. 18 g 3 Active Fluticasone Propionate 50 MCG/ACT Nasal Suspension (Flonase) Administer 2 Sprays into each nostril in the morning. 16 g 5 3 Active Clotrimazole-Betam ethasone 1-0.05 % External CreamIndications:A cute vaginitis Apply topically to affected area 2 times a day. To affected area as directed. 15 g 1 1 024 Discontinued(Me dication List Clean Up) Atorvastatin Calcium 80 MG Oral Tablet (Lipitor)Indicatio ns:Dyslipidemia, goal LDL below 100 Take by mouth 1 Tablet in the morning. 90 Tablet 3 2 024 Discontinued(Re fill) Fluconazole 150 MG Oral Tablet (Diflucan)Indicati ons:Candidal vulvovaginitis Take 1 pill Today and repeat in 2 weeks 2 Tablet 2 024 Discontinued(Me dication List Clean Up) Benzonatate 100 MG Oral CapsuleIndications :Upper respiratory tract infection, unspecified type,Bronchitis Take 1 Capsule by mouth 3 times a day as needed for Cough (may make you sleepy). 15 Capsule 3 024 Discontinued(Me dication List Clean Up) glipiZIDE ER 5 MG Oral Tablet Extended Release 24 HourIndications:Ty pe 2 diabetes mellitus with hemoglobin A1c goal of less than 7.0% (HCC) Take 1 Tablet by mouth in the morning. Along with 10 mg 30 minutes before a meal. Pt doesn't know if taking or not. 90 Tablet 3 3 024 Discontinued glipiZIDE ER 10 MG Oral Tablet Extended Release 24 Hour (Glucotrol XL)Indications:Typ e 2 diabetes mellitus with hemoglobin A1c goal of less than 7.0% (HCC) TAKE ONE TABLET BY MOUTH EVERY MORNING 30 MINUTES BEFORE A MEAL 90 Tablet 3 3 024 Discontinued(En d of Procedure) documented as of this encounter (statuses as of 12/17/2023) Active Problems Problem Noted Date Diagnosed Date [...] as of this encounter (statuses as of 12/17/2023) Resolved Problems Problem Noted Date Diagnosed Date [...] as of this encounter (statuses as of 12/17/2023) Immunizations Name Administration Dates Next Due COVID-19 mRNA, LNP-s, No Pre serve, 2-Dose Series (Moderna) 08/04/2023 COVID-19 mRNA, LNP-s, No Pre serve, 2-Dose Series (Pfizer) 11/01/2021,10/09/2020,09/12/2020 COVID-19, LNP-s, No Preserve , Carrlol-sucrose, Ages 12+ (Pfizer) 11/01/2021 Covid-19, Mrna, Lnp-s, Pf, B ivalent, 30 Mcg, IM, 12 yrs and above (Pfizer) 04/29/2022 Hepatitis B, 20+ yrs 11/02/2014,06/07/2014,03/31 Pneumococcal Conjugate Vacci ne, 20-valent ([id number]) 04/18/2022 Pneumococcal Polysaccharide PPV23 (Pneumovax) 07/29/2019,12/03/2012 Seasonal [...] encounter Miscellaneous Notes * Telephone Encounter - Carmen Hays OSA - 12/17/2023 9:02 AM EDT Done. 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 Start of care completed on: n/a Report/Concerns of: patient has not been seen as of yet. Narrative: Cornelia calling from Counts include 234 beds at the [facility]. sourcing coordinator. Checking to see if Dr. Blackmon is her PCP. Asking for her to sign orders. Informed Dr. Blackmon will sign Home Health orders. Patient cannot be seen by them until she has an appointment. Next Nursing visit(s) on or Friday of this week or after appointmnet depending when patient can get seen. . They will call with any updates or additional concerns from the upcoming visit. Last Office Visit: 09/26/2022 Has patient been scheduled or seen in the office for a follow up visit: Needs contacted to schedulefollow up Will be discharged on 11/19/23 Advised that orders will be signed by Dr. Blackmon and to fax to the office for signature. Call back Cornelia with advice or orders at [phone] Please fax orders to [phone] * Telephone Encounter - Traci Blackmon MD - 11/13/2023 12:37 PM EDT Noted * Telephone Encounter - Ej Hidalgo RN - 11/13/2023 11:54 AM EDT Patient discharged 11/11/23 from [facility] to [facility] for rehab. Patient was started on Lantus, continued jardiance, and glipizide was stopped while at NH. Patient interested in a Diabetic MTM referral when discharged from [facility]/ at discharge follow up appointment. Thank you documented in this encounter Plan of Treatment Upcoming Encounters Date Type Department Care Team (Late st Contact Info) Description 04/16/2024 9:40 AM EDT Office Visit General Internal Medicine [facility] [place] [address] [facility] [place] [address] Traci Blackmon MD [address] [facility] [place] [address] Scheduled Procedures Name Priority Associated Diagnoses Date/Ti [...] filedocumented as of this encounter Care Teams Senior Air Director Relationship Specialty Start Date End Date Traci Blackmon MD [address] [place] [address] PCP - General Internal Medicine 05/27/19 documented as of this encounter
--- OUTSIDE RECORDS SUMMARY | 2024-04-23 13:24 | External Medical Summary | Summary of Care ---
Author Name Unknown Organization [facility] Address [address] [address] Phone [phone] Care Team Providers Care Reptile Keeper Name Role Phone Tobin Blackmon MD Primary Care Provider [phone] Reason for Visit * Reason Onset Date Comments Medication Refill 12/15/2023 Encounter Details Date Type Department Care Team (Late st Contact Info) Description 12/15/2023 Refill General Internal Medicine [facility] [address] [place] [id number] Tobin Blackmon MD [address] [place] [phone] Allergies Active Allergy Reactions Criticality Noted Date Comments Metformin Diarrhea 04/16/2018 Percocet 01/22/2007 Makes pt sick documented as of this encounter (statuses as of 12/19/2023) Medications Medication Sig Dispensed Refills Start Date End Date Status CALCIUM 600 TABS 600 MG OR 2 po daily 0 9 Active Aspirin 81 MG TabletIndications: DM type 2 nursing care encounter (HCC) Take 1 Tablet by mouth in the morning. 30 Tab 7 Active B Complex Vitamins (B-COMPLEX/B-12) TABS Take by mouth. Active CPAP every night at bedtime. Active Lisinopril 5 MG Oral Tablet (Prinivil) [...] the morning. 16 g 5 3 Active Lantus SoloStar 100 UNIT/ML Subcutaneous Solution Pen-injectorIndica tions:Type 2 diabetes mellitus with hemoglobin A1c goal of less than 7.0% (HCC) INJECT 20 UNITS SUBCUTANEOUSLY EVERY 12 HOURS 13 Each 3 4 Active Atorvastatin Calcium 80 MG Oral Tablet (Lipitor)Indicatio ns:Dyslipidemia, goal LDL below 100 Take 1 Tablet by mouth in the morning. 90 Tablet 3 4 Active BD Eclipse Needle 25G X 5/8" (Needle (Disp))Indications :Type 2 diabetes mellitus with hemoglobin A1c goal of less than 7.0% (HCC) Use with Lantus 180 Each 3 4 Active glipiZIDE ER 5 MG Oral Tablet Extended Release 24 Hour (Glucotrol XL)Indications:Typ e 2 diabetes mellitus with hemoglobin A1c goal of less than 7.0% (HCC) Take 1 Tablet by mouth in the morning. 4 Active FreeStyle Phill 14 Day [place] DeviceIndications: Type 2 diabetes mellitus with hemoglobin [...] and Z97.4 4 Each 5 4 Active Empagliflozin 25 MG Oral Tablet (Jardiance) Take 1 Tablet by mouth in the morning. 90 Tablet 3 4 Active Empagliflozin 25 MG Oral Tablet (Jardiance) Take by mouth 1 Tablet in the morning. 90 Tablet 3 2 12/15/19 24 Discontinu ed(Refill) documented as of this encounter (statuses as of 12/19/2023) Active Problems Problem Noted Date Diagnosed Date Hx of nonmelanoma skin cancer 04/25/2022 Overview: BCC L upper back 2022, BCC R bahai 2021, Hx BCC L nasal root 2003 [...] as of this encounter (statuses as of 12/19/2023) Resolved Problems Problem Noted Date Diagnosed Date [...] as of this encounter (statuses as of 12/19/2023) Immunizations Name Administration Dates Next Due COVID-19 mRNA, LNP-s, No Pre serve, 2-Dose Series (Moderna) 08/04/2023 COVID-19 mRNA, LNP-s, No Pre serve, 2-Dose Series (Pfizer) 11/01/2021,10/09/2020,09/12/2020 COVID-19, LNP-s, No Preserve , Carroll-sucrose, Ages 12+ (Pfizer) 11/01/2021 Covid-19, Mrna, Lnp-s, Pf, B ivalent, 30 Mcg, IM, 12 yrs and above (Pfizer) 04/29/2022 Hepatitis B, 20+ yrs 11/02/2014,06/07/2014,03/31 Pneumococcal Conjugate Vacci ne, 20-valent ([id number]) 04/18/2022 Pneumococcal Polysaccharide PPV23 (Pneumovax) 07/29/2019,12/03/2012 Seasonal Influenza Virus Vac cine, Unspecified Formulation 08/04/2023,04/18/2022,04/23/2021,06/19,05/27/2019,04/16/2018,06/23/2017 ,05/16/2016,05/05/2015,04/27/2015,/0 10/2013,05/31/2013,05/21/2012, 2,04/30/2011,05/28/2010,05/28/2009,,06/04/2007 Seasonal Influenza, PF, 6 M & [...] Telephone Encounter - Tobin Blackmon MD - 12/19/2023 2:09 PM EDTSigned Prescriptions: Disp Refills Empagliflozin 25 MG Oral Tablet (Jardiance)90 Tab*3 Sig: Take 1 Tablet by mouth in the morning. Authorizing Provider: TOBIN BLACKMON * Telephone Encounter - Cornelia Diana LPN - 12/19/2023 9:56 AM EDTPending Prescriptions: Disp Refills Empagliflozin 25 MG Oral Tablet (Jardiance)90 Tab*3 Sig: Take 1 Tablet by mouth in the morning. * Telephone Encounter - Myrna Camejo OSA - 12/15/2023 11:34 AM EDT Did you pend patient's preferred pharmacy and medication before forwarding?yes Pharmacy: [facility] [id number] Pending Prescriptions: Disp Refills Empagliflozin 25 MG Oral Tablet (Jardianc*90 Tab*3 Sig: Take 1 Tablet by mouth in the morning. Last Visit: 11/25/2023 (in office), Visit date not found (telemedicine) Next Visit: 04/16/2024 If no future appointments scheduled, and last appointment is greater than a year ago, please schedule patient for a follow-up appointment Last date the medication was ordered: 11/29/21 Is this request for a controlled substance?No [...] Description 01/05/2024 8:50 AM EDT Telemedicine Pharmacy, [facility] [place] [address] [facility] [place] [place] [address] Pharmacist2, [facility] [address] [facility] [place] [address] 04/16/2024 9:40 AM EDT Office Visit General Internal Medicine [facility] [place] [address] [facility] [place] [address] Tobin Blackmon MD [address] [facility] [place] [address] Scheduled Procedures Name Priority Associated Diagnoses Date/Ti [...] filedocumented as of this encounter Care Teams Reptile Keeper Relationship Specialty Start Date End Date Tobin Blackmon MD [address] [facility] [place] [address] PCP - General Internal Medicine 05/27/19 documented as of this encounter
--- OUTSIDE RECORDS SUMMARY | 2024-04-23 13:24 | External Medical Summary | Summary of Care ---
Author Name Unknown Organization [facility] Address [address] [address] Phone [phone] Care Team Providers Care Electricity Trading Analyst Name Role Phone Traci Blackmon MD Primary Care Provider Reason for Visit * Reason Onset Date Comments Advice 12/23/2023 Encounter Details Date Type Department Care Team (Late st Contact Info) Description 12/23/2023 Telephone General Internal Medicine [facility] [place] [address] [place] [address] Traci Blackmon MD [address] [place] [address] Advice Allergies Active Allergy Reactions Criticality Noted Date Comments Metformin Diarrhea 04/16/2018 Percocet 01/22/2007 Makes pt sick documented as of this encounter (statuses as of 12/25/2023) Medications Medication Sig Dispensed Refills Start Date [...] morning. 90 Tablet 3 11/25/19 24 Active BD Eclipse Needle 25G X 5/8" (Needle (Disp))Indication s:Type 2 diabetes mellitus with hemoglobin A1c goal of less than 7.0% (HCC) Use with Lantus 180 Each 3 11/25/19 24 Active FreeStyle Phill 14 Day [place] DeviceIndications :Type 2 diabetes mellitus with hemoglobin A1c goal of less than 7.0% (HCC),Uncontrolle d type 2 diabetes mellitus with hyperglycemia (HCC),Current use of insulin (HCC) Use as directed. DX E.11.9 and Z97.4 1 Each 12/11/19 24 Active FreeStyle Phill 14 Day SensorIndications :Type 2 diabetes mellitus with hemoglobin A1c goal of less than 7.0% (HCC),Uncontrolle d type 2 diabetes mellitus with hyperglycemia (HCC),Current use of insulin (HCC) Use as directed. E11.9 and Z97.4 4 Each 5 12/11/19 24 Active Empagliflozin 25 MG Oral Tablet (Jardiance) Take 1 Tablet by mouth in the morning. 90 Tablet 3 12/19/19 24 Active Lisinopril 5 MG Oral Tablet (Prinivil) Take by mouth 1 Tablet in the morning. 90 Tablet 3 04/18/20 22 024 Discontinued FLUoxetine HCl 10 MG Oral Capsule (PROzac)Indicatio ns:Anxiety Take by mouth 1 Capsule in the morning. 90 Capsule 3 04/18/20 22 024 Discontinued(Re fill) Lantus SoloStar 100 UNIT/ML Subcutaneous Solution Pen-injectorIndic ations:Type 2 diabetes mellitus with hemoglobin A1c goal of less than 7.0% (HCC) INJECT 20 UNITS SUBCUTANEOUSLY EVERY 12 HOURS 13 Each 3 11/25/19 24 024 Discontinued glipiZIDE ER 5 MG Oral Tablet Extended Release 24 Hour (Glucotrol XL)Indications:Ty pe 2 diabetes mellitus with hemoglobin A1c goal of less than 7.0% (HCC) Take 1 Tablet by mouth in the morning. 12/05/19 24 024 Discontinued(Re fill) documented as of this encounter (statuses as of 12/25/2023) Active Problems Problem Noted Date Diagnosed Date [...] as of this encounter (statuses as of 12/25/2023) Resolved Problems Problem Noted Date Diagnosed Date [...] as of this encounter (statuses as of 12/25/2023) Immunizations Name Administration Dates Next Due COVID-19 mRNA, LNP-s, No Pre serve, 2-Dose Series (Moderna) 08/04/2023 COVID-19 mRNA, LNP-s, No Pre serve, 2-Dose Series ([employer]) 11/01/2021,10/09/2020,09/12/2020 COVID-19, LNP-s, No Preserve , Carroll-sucrose, Ages 12+ (Pfizer) 11/01/2021 Covid-19, Mrna, Lnp-s, Pf, B ivalent, 30 Mcg, IM, 12 yrs and above (Pfizer) 04/29/2022 Hepatitis B, 20+ yrs 11/02/2014,06/07/2014,03/31 Pneumococcal Conjugate Vacci ne, 20-valent ([id number]) 04/18/2022 Pneumococcal Polysaccharide PPV23 (Pneumovax) 07/29/2019,12/03/2012 Seasonal Influenza Virus Vac cine, Unspecified Formulation 08/04/2023,04/18/2022,04/23/2021,06/19,05/27/2019,04/16/2018,06/23/2017 ,05/16/2016,05/05/2015,04/27/2015,10/2013,05/31/2013,05/21/2012, 2,04/30/2011,05/28/2010,05/28/2009,,06/04/2007 Seasonal Influenza, PF, 6 M & above, IM , (FluLaval or Fluzone) 04/18/2022,04/23/2021,06/19/2020,05/27,04/16/2018,06/23/2017 Seasonal Influenza, Quadriva lent Hd, 65+ Yrs 08/04/2023 Seasonal Influenza, Quadriva lent, No Preserve, IM 05/16/2016,05/05/2015 Seasonal Influenza, Split, I IV3, With Preserve, Inj 2014,05/31/2013,05/19/2012,04/30,05/28/2010,05/28/2009,06/18/2008 ,06/04/2007 TD - Tetanus/Diptheria (ADULT) 01/02/2000 [...] encounter Miscellaneous Notes * Telephone Encounter - Cornelia Diana LPN - 12/25/2023 2:41 PM EDT Patient aware and verbalized understanding, will comply * Telephone Encounter - Madhu Lehman RPh - 12/24/2023 1:48 PM EDT Patient scheduled with [facility] 01/04. We will address everything then. Madhu Granger RPh, [facility] Clinical Pharmacist [facility] 12/24/2023, 1:49 PM * Telephone Encounter - Traci Blackmon MD - 12/24/2023 11:31 AM EDT Okay to hold jardiance and continue with Lantus and glipizide daily. Check sugar regularly and bring to [facility] If needed can consider ozempic or trulicity [facility] FYI * Telephone Encounter - Fartun Valadez LPN - 12/24/2023 11:26 AM EDT This is in reference to Jardiance, please advise. * Telephone Encounter - Favio Keane OSA - 12/23/2023 10:05 AM EDT Patient would like to discuss medication due to the cost being high. documented in this encounter Plan of Treatment Upcoming Encounters Date Type Department Care Team (Late st Contact Info) Description 01/05/2024 8:50 AM EDT Telemedicine Pharmacy, [facility] [address] [facility] [place] [address] Pharmacist2, [facility] [address] [place] [address] 01/20/2024 1:20 PM EDT Office Visit General Internal Medicine [facility] [address] [facility] [place] [address] [place], [address] [address] 04/16/2024 9:40 AM EDT Office Visit General Internal Medicine [facility] [place] [address] [place] [address] Traci Blackmon MD [address] [facility] [place] [address] Scheduled Procedures Name Priority Associated Diagnoses Date/Ti [...] filedocumented as of this encounter Care Teams Electricity Trading Analyst Relationship Specialty Start Date End Date Traci Blackmon MD [address] [place] [address] PCP - General Internal Medicine 05/27/19 documented as of this encounter
--- OUTSIDE RECORDS SUMMARY | 2024-04-23 13:24 | External Medical Summary | Summary of Care ---
Author Name Unknown Organization [facility] Address [address] [address] Phone [phone] Care Team Providers Care Software Requirements Engineer Name Role Phone Traci Blackmon MD Primary Care Provider [phone] Reason for Visit * Reason Onset Date Comments Advice 12/23/2023 Encounter Details Date Type Department Care Team (Late st Contact Info) Description 12/23/2023 Telephone General Internal Medicine [facility] [place] [address] [place] [phone] Traci Blackmon MD [address] [facility] [place] [id number] Advice Allergies Active Allergy Reactions Criticality Noted Date Comments Metformin Diarrhea 04/16/2018 Percocet 01/22/2007 Makes pt sick documented as of this encounter (statuses as of 12/24/2023) Medications Medication Sig Dispensed Refills Start Date End Date Status CALCIUM 600 TABS 600 MG OR 2 po daily 0 9 Active Aspirin 81 MG TabletIndications :DM type 2 nursing care encounter (HCC) Take 1 Tablet by mouth in the morning. 30 Tab 7 Active B Complex Vitamins (B-COMPLEX/B-12) TABS Take by mouth. Active CPAP every night at bedtime. Active FLUoxetine HCl 10 MG Oral Capsule [...] morning. 4 Active FreeStyle Phill 14 Day [place] DeviceIndications :Type 2 diabetes mellitus with hemoglobin [...] the morning. 90 Tablet 3 4 Active Lisinopril 5 MG Oral Tablet (Prinivil) Take by mouth 1 Tablet in the morning. 90 Tablet 3 2 024 Discontinued documented as of this encounter (statuses as of 12/24/2023) Active Problems Problem Noted Date Diagnosed Date Hx of nonmelanoma skin cancer 04/25/2022 Overview: BCC L upper back 2022, BCC R quaker 2021, Hx BCC L nasal root 2003 [...] as of this encounter (statuses as of 12/24/2023) Resolved Problems Problem Noted Date Diagnosed Date [...] as of this encounter (statuses as of 12/24/2023) Immunizations Name Administration Dates Next Due COVID-19 mRNA, LNP-s, No Pre serve, 2-Dose Series (Moderna) 08/04/2023 COVID-19 mRNA, LNP-s, No Pre serve, 2-Dose Series (Pfizer) 11/01/2021,10/09/2020,09/12/2020 COVID-19, LNP-s, No Preserve , Carroll-sucrose, Ages 12+ (Pfizer) 11/01/2021 Covid-19, Mrna, Lnp-s, Pf, B ivalent, 30 Mcg, IM, 12 yrs and above (Pfizer) 04/29/2022 Hepatitis B, 20+ yrs 11/02/2014,06/07/2014,03/31 Pneumococcal Conjugate Vacci ne, 20-valent ([id number]) 04/18/2022 Pneumococcal Polysaccharide PPV23 (Pneumovax) 07/29/2019,12/03/2012 Seasonal [...] encounter Miscellaneous Notes * Telephone Encounter - Madhu Lehman RPh - 12/24/2023 1:48 PM EDT Patient scheduled with [facility] 01/04. We will address everything then. Madhu Granger RPh, [facility] Clinical Pharmacist Medication Therapy Management Clinic 12/24/2023, 1:49 PM * Telephone Encounter - Traci Blackmon MD - 12/24/2023 11:31 AM EDT Okay to hold jardiance and continue with Lantus and glipizide daily. Check sugar regularly and bring to [facility] If needed can consider ozempic or trulicity [place] FYI * Telephone Encounter - Fartun Valadez [...] Description 01/05/2024 8:50 AM EDT Telemedicine Pharmacy, [facility] [address] [place] [address] Pharmacist2, [facility] [address] [place] [address] 01/20/2024 1:20 PM EDT Office Visit General Internal Medicine [facility] [place] [address] [place] [address] [place], [address] [address] 04/16/2024 9:40 AM EDT Office Visit General Internal Medicine [facility] [address] [place] [address] Traci Blackmon MD [address] [place] [address] Scheduled Procedures Name Priority Associated Diagnoses Date/Ti [...] filedocumented as of this encounter Care Teams Software Requirements Engineer Relationship Specialty Start Date End Date Traci Blackmon MD [address] [facility] [place] [address] PCP - General Internal Medicine 05/27/19 documented as of this encounter
--- OUTSIDE RECORDS SUMMARY | 2024-04-23 13:24 | External Medical Summary | Summary of Care ---
Author Name Unknown Organization [facility] Address [address] [address] Phone [phone] Care Team Providers Care Branch Operation Evaluation Manager Name Role Phone Traci Blackmon MD Primary Care Provider [phone] Reason for Visit * Reason Onset Date Comments Home Health 12/24/2023 Encounter Details Date Type Department Care Team (Late st Contact Info) Description 12/24/2023 Telephone General Internal Medicine [facility] [place] [address] [place] [address] Traci Blackmon MD [address] [place] [facility] [place] [id number] Home Health Allergies Active Allergy Reactions Criticality [...] 11/25/19 24 Active FreeStyle Phill 14 Day [place] DeviceIndications :Type 2 diabetes mellitus with hemoglobin [...] morning. 90 Tablet 3 12/19/19 24 Active glipiZIDE ER 5 MG Oral Tablet Extended Release 24 Hour (Glucotrol XL)Indications:Ty pe 2 diabetes mellitus with hemoglobin A1c goal of less than 7.0% (HCC) Take 1 Tablet by mouth in the morning. 90 Tablet 3 12/24/19 24 Active FLUoxetine HCl 10 MG Oral Capsule (PROzac)Indicatio ns:Anxiety Take 1 Capsule by mouth in the morning. 90 Capsule 3 12/24/19 24 Active Lantus SoloStar 100 UNIT/ML Subcutaneous Solution Pen-injectorIndic ations:Type 2 diabetes mellitus with hemoglobin A1c goal of less than 7.0% (HCC) INJECT 15 UNITS SUBCUTANEOUSLY EVERY 12 HOURS 12/24/19 24 Active Lisinopril 5 MG Oral Tablet (Prinivil) Take by mouth 1 Tablet in the morning. 90 Tablet 3 04/18/20 22 024 Discontinued FLUoxetine HCl 10 MG Oral Capsule (PROzac)Indicatio ns:Anxiety Take by mouth 1 Capsule in the morning. 90 Capsule 3 04/18/20 22 05/29/2 024 Discontinued(Re fill) Lantus SoloStar 100 UNIT/ML [...] BCC L upper back 2022, BCC R sikh 2021, Hx BCC L nasal root 2003 [...] mRNA, LNP-s, No Pre serve, 2-Dose Series (my3Dreams) 11/01/2021,10/09/2020,09/12/2020 COVID-19, LNP-s, No Preserve , Carroll-sucrose, Ages 12+ (Pfizer) 11/01/2021 Covid-19, Mrna, Lnp-s, Pf, B ivalent, 30 Mcg, IM, 12 yrs and above (Pfizer) 04/29/2022 Hepatitis B, 20+ yrs 11/02/2014,06/07/2014,03/31 Pneumococcal Conjugate Vacci ne, 20-valent ([id number]) 04/18/2022 Pneumococcal Polysaccharide PPV23 (Pneumovax) 07/29/2019,12/03/2012 Seasonal [...] encounter Miscellaneous Notes * Telephone Encounter - Mely Aquino MED ASSIST - 12/24/2023 4:16 PM EDT Pt aware and verbalized understanding * Telephone Encounter - Traci Blackmon MD - 12/24/2023 2:38 PM EDT Done * Telephone Encounter - Grace Cervantes MED MUNA - 12/24/2023 1:02 PM EDT Patient aware and verbalized understanding Pt requested refills for glipizide and prozac, pended * Telephone Encounter - Traci Blackmon MD - 12/24/2023 12:05 PM EDT Did she eat dinner last night ? If no can cause hypoglycemia . See another TE - jardiance stopped Suggest to restart lantus tomorrow at reduced dose of 15 units and continue glipizide * Telephone Encounter - Beth Fitzgerald LPN - 12/24/2023 11:24 AM EDT Called patient She is feeling a little bit shaky BS 165 at 10:30 am She did not take her morning dose of Lantus Solostar because of her low reading and she not going to take it now either She will take check her BS tonight prior to taking next scheduled dose of Lantus Solostar Patient asked about having someone teach her how to use the Phill - advised that Home Health Nurse will be coming out to assist her with Phill Patient states that she discovered the other day that she was taking her Lantus Solostar wrong - she would put the needle on and the put the green cap back on the pen and then inject herself. She states that since she discovered her error and has been actually getting the dose of Lantus Solostar that is when her BS have been low in the mornings. She is wondering if her doses of her diabetes meds are too much for her now because of this. Patient Jardiance and she is not sure which other meds are too expensive Placed patient on hold and called [facility] [address] $1500 Lantus Solostar $140 - 120 day supply, picked up 12/14 Pen [place] $35 - 100 needles, picked up 11/18 4 Sensors (Phill) - $131 - picked up 12/19 One Touch Test Strips - $35 for 100 - picked up 11/18 Lipitor $0 - picked up 11/19 Fluoxetine $3 - picked up 11/19 Glipizide - $3 - picked up 11/18 Patient made aware of the above She states that the only med then that she can't afford is the Jardiance Asking if PCP could change to another med that is affordable Check again to see how patient is feeling and she is not as shaky now She thinks she was worried about not being able to afford her meds and this conversation has helpedher She also states that having the [facility] Home Health nurses coming to see her has really helped Pharm selected. Please advise. Patient would like notified once this has been addressed: Send MyG message / Call back Schedule patient for return visit 01/20/2024 - with Dr. Laboy due to PCP being out of the office Message forwarded to City Council Member as MARIAN * Telephone Encounter - Cortney Flores LPN - 12/24/2023 9:39 AM EDT HH Concerns Dulce RN, Calling from: [facility] Report/Concerns of: BS -66 Symptoms: Shaky Vitals: TELEMED VISIT Blood sugar 8:30am --FBS 66. Patient didn't take her morning insulin. Dulce asked her to check her BS before they got off the phone, but patient wouldn't until they got off the phone. Narrative: Dulce spoke with the patient at 8:30am. FBS was 66. Drank Lemonade and PB toast. Patient picked up the Phill and needs assistance. Verbal given to Dulce for her to add an additional nurse visit for assessment and education- she isgoing to schedule it for tomorrow and if that won't work then Friday. Patient informed Dulce that she has 2 medications that are very expensive and she can't afford them. Patient didn't tell her which medications though. Patient also mentioned that she wasn't able to get her return appt scheduled until 04/16. (Return around 01/25/24) I advised Dulce I will contact the patient around 11am to inquire about the medications and scheduling a sooner appt. [facility] Home Health * Telephone Encounter - Nancy Valdez OSA - 12/24/2023 9:37 AM EDT Dulce calling with Home Health to inform the provider that the pt had called with a blood sugar reading 66 this morning and she did hold her insulin and ate some toast with peanut butter and lemonadeto bring her BS back up. Transferred to nurse line documented in this encounter Plan of Treatment Upcoming Encounters Date Type Department Care Team (Late st Contact Info) Description 01/05/2024 8:50 AM EDT Telemedicine Pharmacy, [facility] [place] [address] [place] [address] Pharmacist2, [facility] [address] [place] [place] [address] 01/20/2024 1:20 PM EDT Office Visit General Internal Medicine [facility] [place] [address] [place] [address] Carson Laboy, DO [address] [place] [address] 04/16/2024 9:40 AM EDT Office Visit General Internal Medicine [facility] [place] [address] [facility] [place] [address] Traci Blackmon MD [address] [facility] [place] [address] Scheduled Procedures Name Priority Associated Diagnoses Date/Ti [...] A1c goal of less than 7.0% (HCC) Anxiety Anxiety state, unspecified documented in this encounter Care Teams Branch Operation Evaluation Manager Relationship Specialty Start Date End Date Traci Blackmon MD [address] [place] [address], [place] [address] PCP - General Internal Medicine 05/27/19 documented as of this encounter
--- OUTSIDE RECORDS SUMMARY | 2024-04-23 13:24 | External Medical Summary | Summary of Care ---
Author Name Unknown Organization [facility] Address [address] [address] Phone [phone] Care Team Providers Care Ticketing Agent Name Role Phone Traci Blackmon MD Primary Care Provider [phone] Reason for Visit * Reason Onset Date Comments Home Health 12/24/2023 Encounter Details Date Type Department Care Team (Late st Contact Info) Description 12/24/2023 Telephone General Internal Medicine [facility] [place] [address] [place] [address] Traci Blackmon MD [address] [address] Home Health Allergies Active Allergy Reactions Criticality [...] 11/25/19 24 Active FreeStyle Phill 14 Day [place] DeviceIndications :Type 2 diabetes mellitus with hemoglobin [...] BCC L upper back 2022, BCC R protestant 2021, Hx BCC L nasal root 2003 [...] mRNA, LNP-s, No Pre serve, 2-Dose Series (Surplex) 11/01/2021,10/09/2020,09/12/2020 COVID-19, LNP-s, No Preserve , Carroll-sucrose, Ages 12+ (Pfizer) 11/01/2021 Covid-19, Mrna, Lnp-s, Pf, B ivalent, 30 Mcg, IM, 12 yrs and above (Pfizer) 04/29/2022 Hepatitis B, 20+ yrs 11/02/2014,06/07/2014,03/31 Pneumococcal Conjugate Vacci ne, 20-valent ([id number]) 04/18/2022 Pneumococcal Polysaccharide PPV23 (Pneumovax) 07/29/2019,12/03/2012 Seasonal [...] Encounter - Grace Cervantes MED ASSIST - 12/24/2023 1:02 PM EDT Patient aware [...] expensive Placed patient on hold and called [facility] Jardiance $1500 Lantus Solostar $140 - 120 day supply, picked up 12/14 Pen [place] $35 - 100 needles, picked up 11/18 [...] helpedher She also states that having the [facility] Home Health nurses coming to see her has really helped Pharm selected. Please advise. Patient would like notified once this has been addressed: Send MyG message / Call back Schedule patient for return visit 01/20/2024 - with Dr. Laboy due to PCP being out of the office Message forwarded to Pathology Technician as MARIAN * Telephone Encounter - Cortney Flores LPN - 12/24/2023 9:39 AM EDT HH Concerns Dulce RN, Calling from: [facility] Report/Concerns of: BS -66 Symptoms: Shaky Vitals: [...] the medications and scheduling a sooner appt. [facility] Home Health * Telephone Encounter - Nancy [...] Description 01/05/2024 8:50 AM EDT Telemedicine Pharmacy, [facility] [address] [place] [address] Pharmacist2, [facility] [address] [place] [address] 01/20/2024 1:20 PM EDT Office Visit General Internal Medicine [facility] [place] [address] [place] [address] Carson Laboy, [address] [address] 04/16/2024 9:40 AM EDT Office Visit General Internal Medicine [facility] [place] [address] [facility] [place], [place] [address] Traci Blackmon MD [address] [facility] [place] [address] Scheduled Procedures Name Priority Associated Diagnoses Date/Ti [...] unspecified documented in this encounter Care Teams Ticketing Agent Relationship Specialty Start Date End Date Traci Blackmon MD [address] [place] [address] PCP - General Internal Medicine 05/27/19 documented as of this encounter
--- OUTSIDE RECORDS SUMMARY | 2024-04-23 13:24 | External Medical Summary | Summary of Care ---
Author Name Unknown Organization [facility] Address [address] [place] [address] Phone [phone] Care Team Providers Care Investment Counselor Name Role Phone Traci Blackmon MD Primary Care Provider Encounter Details Date Type Department Care Team (Late st Contact Info) Description 12/15/2023 10:10 AM EDT Scheduled Telephone Care Coordination and Integration [address] [place] [address] Angelique Zelaya [facility] Icing And Glaze Maker [address] [place] [address] Allergies Active Allergy Reactions Criticality Noted Date Comments Metformin Diarrhea 04/16/2018 Percocet 01/22/2007 Makes pt sick documented as of this encounter (statuses as of 12/15/2023) Medications Medication Sig Dispensed Refills Start Date [...] the morning. 90 Tablet 3 04/18/2022 Active Additional Information Patient not taking.Reported on 12/02/2023 FLUoxetine HCl 10 MG Oral Capsule (PROzac)Indications :Anxiety Take by mouth 1 Capsule in the morning. 90 Capsule 3 04/18/2022 Active Albuterol Sulfate HFA 108 (90 Base) MCG/ACT Inhalation Aerosol SolutionIndications :Upper respiratory tract infection, unspecified type,Bronchitis Inhale 2 Puffs by mouth every 6 hours as needed for Congestion, Cough or Wheezing. 18 g 09/19/2022 Active Fluticasone Propionate 50 MCG/ACT Nasal Suspension (Flonase) Administer 2 Sprays into each nostril in the morning. 16 g 5 09/26/2022 Active Lantus SoloStar 100 UNIT/ML Subcutaneous Solution Pen-injectorIndicat ions:Type 2 diabetes mellitus with hemoglobin A1c goal of less than 7.0% (HCC) INJECT 20 UNITS SUBCUTANEOUSLY EVERY 12 HOURS 13 Each 3 11/25/2023 Active Atorvastatin Calcium 80 MG Oral Tablet (Lipitor)Indication s:Dyslipidemia, goal LDL below 100 Take 1 Tablet by mouth in the morning. 90 Tablet 3 11/25/2023 Active BD Eclipse Needle 25G X 5/8" (Needle (Disp))Indications: Type 2 diabetes mellitus with hemoglobin A1c goal of less than 7.0% (HCC) Use with Lantus 180 Each 3 11/25/2023 Active glipiZIDE ER 5 MG Oral Tablet Extended Release 24 Hour (Glucotrol XL)Indications:Type 2 diabetes mellitus with hemoglobin A1c goal of less than 7.0% (HCC) Take 1 Tablet by mouth in the morning. 12/05/2023 Active FreeStyle Phill 14 Day [place] DeviceIndications:T ype 2 diabetes mellitus with hemoglobin [...] and Z97.4 4 Each 5 12/11/2023 Active documented as of this encounter (statuses as of 12/15/2023) Active Problems Problem Noted Date Diagnosed Date Hx of nonmelanoma skin cancer 04/25/2022 Overview: BCC L upper back 2022, BCC R mandaen 2021, Hx BCC L nasal root 2003 [...] as of this encounter (statuses as of 12/15/2023) Resolved Problems Problem Noted Date Diagnosed Date [...] as of this encounter (statuses as of 12/15/2023) Immunizations Name Administration Dates Next Due COVID-19 mRNA, LNP-s, No Pre serve, 2-Dose Series (Moderna) 08/04/2023 COVID-19 mRNA, LNP-s, No Pre serve, 2-Dose Series (EndoLumix Technology) 11/01/2021,10/09/2020,09/12/2020 COVID-19, LNP-s, No Preserve , Carroll-sucrose, Ages 12+ (Pfizer) 11/01/2021 Covid-19, Mrna, Lnp-s, Pf, B ivalent, 30 Mcg, IM, 12 yrs and above (Pfizer) 04/29/2022 Hepatitis B, 20+ yrs 11/02/2014,06/07/2014,03/31 Pneumococcal Conjugate Vacci ne, 20-valent ([id number]) 04/18/2022 Pneumococcal Polysaccharide PPV23 (Pneumovax) 07/29/2019,12/03/2012 Seasonal [...] as of this encounter Progress Notes * Angelique Zelaya [facility] - 12/15/2023 10:14 AM EDT Telemedicine visit: No [facility] Icing And Glaze Maker (KARTHIK) documentation: CHW f/u call post visit on 12/02/2023 UTC, LVM documented in this encounter Plan of Treatment Upcoming Encounters Date Type Department Care Team (Late st Contact Info) Description 04/16/2024 9:40 AM EDT Office Visit General Internal Medicine [facility] [address] [place] [address] Traci Blackmon MD 200 [facility] [place] [address] Scheduled Procedures Name Priority Associated Diagnoses Date/Ti [...] filedocumented as of this encounter Care Teams Investment Counselor Relationship Specialty Start Date End Date Traci Blackmon MD [address] [place] [address] PCP - General Internal Medicine 05/27/19 documented as of this encounter
--- OUTSIDE RECORDS SUMMARY | 2024-04-23 13:25 | External Medical Summary | Summary of Care ---
Author Name Unknown Organization [facility] Address [address] [place] [address] Phone [phone] Care Team Providers Care Financial Aid Advisor Name Role Phone Traci Blackmon MD Primary Care Provider [phone] Encounter Details Date Type Department Care Team (Late st Contact Info) Description 12/02/2023 1:00 PM EDT Home Visit Care Coordination and Integration [address] [place] [address] Angelique Zelaya [facility] Assistant Professor Of Music [address] [place] [address] Allergies Active Allergy Reactions Criticality Noted Date Comments Metformin Diarrhea 04/16/2018 Percocet 01/22/2007 Makes pt sick documented as of this encounter (statuses as of 12/03/2023) Medications Medication Sig Dispensed Refills Start Date End Date Status CALCIUM 600 TABS 600 MG OR 2 po daily 0 01/03/1999 Active Aspirin 81 MG TabletIndications: DM type 2 nursing care encounter (HCC) Take 1 Tablet by mouth in the morning. 30 Tab 0 06/23/2017 Active B Complex Vitamins (B-COMPLEX/B-12) TABS Take by mouth. 0 Active CPAP every night at bedtime. 0 Active Empagliflozin 25 MG Oral Tablet (Jardiance) [...] or Wheezing. 18 g 0 09/19/2022 Active Fluticasone Propionate 50 MCG/ACT [...] Pt doesn't know if taking or not. 0 11/25/2023 Active Lantus SoloStar 100 UNIT/ML Subcutaneous Solution [...] with Lantus 180 Each 3 11/25/2023 Active documented as of this encounter (statuses as of 12/03/2023) Active Problems Problem Noted Date Diagnosed Date Hx of nonmelanoma skin cancer 04/25/2022 Overview: BCC L upper back 2022, BCC R anglican 2021, Hx BCC L nasal root 2003 [...] as of this encounter (statuses as of 12/03/2023) Resolved Problems Problem Noted Date Diagnosed Date [...] as of this encounter (statuses as of 12/03/2023) Immunizations Name Administration Dates Next Due COVID-19 mRNA, LNP-s, No Pre serve, 2-Dose Series (Moderna) 08/04/2023 COVID-19 mRNA, LNP-s, No Pre serve, 2-Dose Series (Pfizer) 11/01/2021,10/09/2020,09/12/2020 COVID-19, LNP-s, No Preserve , Carroll-sucrose, Ages 12+ (Pfizer) 11/01/2021 Covid-19, Mrna, Lnp-s, Pf, B ivalent, 30 Mcg, IM, 12 yrs and above (Pfizer) 04/29/2022 Hepatitis B, 20+ yrs 11/02/2014,06/07/2014,03/31 Pneumococcal Conjugate Vacci ne, 20-valent ([id number]) 04/18/2022 Pneumococcal Polysaccharide PPV23 (Pneumovax) 07/29/2019,12/03/2012 Seasonal [...] Sign Reading Time Taken Comments Blood Pressure 110/70 12/02/2023 1:22 PM EDT Pulse 51 12/02/2023 1:22 PM EDT Temperature 35.8 C (96.5 F) 12/02/2023 1:22 PM ED T Respiratory Rate - - Oxygen Saturation 96% 12/02/2023 1:22 PM EDT Inhaled Oxygen Concentration - - Weight - - Height - - Body Mass Index - - documented in this encounter Progress Notes * Angelique Zelaya, Community [facility] Assistant Professor Of Music - 12/03/2023 7:40 AM EDT Telemedicine visit: No [facility] Assistant Professor Of Music (KARTHIK) documentation: CHW completed return hv per YVES Mcgrath CHW completed SDOH with no needs noted. Med req completed with no discrepancies noted. Pt lives alone, no clutter in home, open one story floor plan. Pt manages her own medications. CHW discussed with pt. The importance of taking medications as prescribed, daily. Pt does have a daily minder that she fills every Friday evening. CHW questioned ptwhy she had stopped taking her medications and her answer was she just didn't want to take them anymore. Pt. Is financially stable, so cost was not a factor. Pt stated she didn't forget to take them, either. Pt has had numerous family members within the past 3 years that have , including her mother, a sibling and an Uncle that lived next door. CHW provided pt with [facility] resource book to allow pt to check into different alert systems. Pt is looking for one that can be taken state to state, as pt travels. Pt's family expressed wanting an aid to help with cleaning and possible transportation for appointments. Pt now used Uber. CHW did discuss [facility] Transportation and SAMAN[facility]A Go with pt. Information was provided. CHW will reach out next week to pt. To f/u. Electronically signed by Angelique Zelaya [facility] Assistant Professor Of Music at 12/03/2023 8:12 AM EDT documented in this encounter Plan of Treatment Upcoming Encounters Date Type Department Care Team (Late st Contact Info) Description 12/03/2023 11:45 AM EDT Imaging Radiology [facility] 1st [facility] [address] [facility] [place] [address] 04/16/2024 9:40 AM EDT Office Visit General Internal Medicine [facility] [address] [place] [address] Traci Blackmon MD [address] [facility] [address] [place] [address] Scheduled Procedures Name Priority Associated Diagnoses Date/Ti me COLONOSCOPY FLEXIBLE PROXIMAL DIAGNOSTIC Recall History of colon polyps Health Maintenance Due Date Last Done Comments Cologuard 2003 Sigmoidoscopy 2003 Fecal Occult Blood Test 11/17/2008 11/18/2007 Mammogram 02/05/2023 02/05/2022, 01/25, 06/28/2020, Additional history [...] 11/25/2023, 0 04/18/2022, 04/23/2021, Additional history exists Lipid Panel 09/27/2027 09/26/2022, [...] filedocumented as of this encounter Care Teams Financial Aid Advisor Relationship Specialty Start Date End Date Traci Blackmon MD [address] [place] [address] PCP - General Internal Medicine 05/27/19 documented as of this encounter
--- OUTSIDE RECORDS SUMMARY | 2024-04-23 13:25 | External Medical Summary | Continuity of Care Document ---
Author Name Unknown Organization EXT [facility] [address] Address [address] [place], [place] [id number] [id number] Date(s): 11/06/23 - 11/06/23 [facility] [address] [facility] [address] [place], [place] [phone] Discharge Disposition: Home or Self Care Attending Physician: MD Keegan, Rosaura Referring Physician: MD Gabriel, Juan Manuel Social History Social History Type Response Sex Female
--- OUTSIDE RECORDS SUMMARY | 2024-04-23 13:25 | External Medical Summary | Summary of Care ---
Author Name Unknown Organization [facility] Address [address] [address] Phone [phone] Care Team Providers Care Stucco Plasterer Name Role Phone Traci Blackmon MD Primary Care Provider [phone] Reason for Visit * Reason Onset Date Comments Appointment 11/26/2023 Encounter Details Date Type Department Care Team (Late st Contact Info) Description 11/26/2023 10:30 AM EDT Scheduled Telephone [facility], [facility] [address] [place] [address] Coordinator, [facility] [address] [facility] [place] [address] Allergies Active Allergy Reactions Criticality Noted Date Comments Metformin Diarrhea 04/16/2018 Percocet 01/22/2007 Makes pt sick documented as of this encounter (statuses as of 11/26/2023) Medications Medication Sig Dispensed Refills Start Date [...] as of this encounter (statuses as of 11/26/2023) Active Problems Problem Noted Date Diagnosed Date Hx of nonmelanoma skin cancer 04/25/2022 Overview: BCC L upper back 2022, BCC R hoahaoism 2021, Hx BCC L nasal root 2003 [...] as of this encounter (statuses as of 11/26/2023) Resolved Problems Problem Noted Date Diagnosed Date [...] as of this encounter (statuses as of 11/26/2023) Immunizations Name Administration Dates Next Due COVID-19 mRNA, LNP-s, No Pre serve, 2-Dose Series (Moderna) 08/04/2023 COVID-19 mRNA, LNP-s, No Pre serve, 2-Dose Series (Pfizer) 11/01/2021,10/09/2020,09/12/2020 COVID-19, LNP-s, No Preserve , Carroll-sucrose, Ages 12+ (Pfizer) 11/01/2021 Covid-19, Mrna, Lnp-s, Pf, B ivalent, 30 Mcg, IM, 12 yrs and above (Pfizer) 04/29/2022 Hepatitis B, 20+ yrs 11/02/2014,06/07/2014,03/31 Pneumococcal Conjugate Vacci ne, 20-valent ([id number]) 04/18/2022 Pneumococcal Polysaccharide PPV23 (Pneumovax) 07/29/2019,12/03/2012 Seasonal [...] the money to buy more. Never true 11/25/19 24 Within the past 12 months, t he food you bought just didn't last and you didn't have money to get more. Never true 11/25/2023 Sex and Gender Information Value Date Recorded Sex Assigned at Not on file Gender Identity Not on file Sexual Orientation Not on file Job Start Date Occupation Industry Not on file Not on file Not on file documented as of this encounter Miscellaneous Notes * Telephone Encounter - Alberto David, NIDHI - 11/26/2023 11:30 AM EDT [facility] Engagement Attempt Engagement: Engagement Attempt 1: Unable to contact Engagement Attempt 2: Unable to contact Engagement Attempt 3: No data was found Home Information: No data was found Advance Care Planning (ACP): No data was found Has Living Will or Advance Directive: No data was found Anticipated Sub-Program: Short-Term Management (less than 3 months) Confirmation of Sub-Program Type (by care merchandise flow team leader): No data was found Handoff Information: Current care team notified via: No data was found Current telemonitoring equipment: No data was found 11/25-lmom asking for a call back Looking at: 12/01 at 2pm w/ beata armenise rncm documented in this encounter Plan of Treatment Upcoming Encounters Date Type Department Care Team (Late st Contact Info) Description 11/27/2023 12:30 PM EDT Scheduled Telephone [facility], [facility] [address] [place] [address] Coordinator, [facility] [place] [address] 12/02/2023 1:00 PM EDT Home Visit Care Coordination and Integration [address] [place] [facility] [place] [address] Angelique Zelaya, Community Health Materials Manager [address] [place] [facility] [place] [address] 12/03/2023 11:45 AM EDT Imaging Radiology [address], [place] [address] [place] [address] 04/16/2024 9:40 AM EDT Office Visit General Internal Medicine [facility] [address] [facility] [place] [address] Traci Blackmon MD [address] [facility] [place] [address] Scheduled Procedures Name Priority Associated Diagnoses Date/Ti [...] filedocumented as of this encounter Care Teams Stucco Plasterer Relationship Specialty Start Date End Date Traci Blackmon MD [address] [place] [address] PCP - General Internal Medicine 05/27/19 documented as of this encounter
--- OUTSIDE RECORDS SUMMARY | 2024-04-23 13:25 | External Medical Summary ---
Author Name Unknown Address Unknown Organization K09:[facility] [place] [address] Laboratory Report Ordering Provider Test Date Status MAYELIN ROUSE 11/19/2023 06:13:09 Final Observation Date Value Abnormality Reference (Units ) Status BUN 11/19/2023 06:13:09 24 Above high normal 6-20 (mg/dL) Final Creatinine 11/19/2023 06:13:09 0.9 0.5-1.0 (mg/dL) Final Glomerular filtration rate/1.73 sq M.predicted [Volume Rate/Area] in Serum, Plasma or Blood by Creatinine-based formula (CKD-EPI) 11/19/2023 06:13:09 74 >=60 (mL/min) Final eGFR is calculated based on the CKD-EPI 2020 equation Sodium 11/19/2023 06:13:09 140 135-146 (m mol/L) Final Potassium 11/19/2023 06:13:09 5.0 3.5-5.1 (m mol/L) Final Cl 11/19/2023 06:13:09 103 98-107 (mm ol/L) Final CO2 11/19/2023 06:13:09 27 22-32 (mmo l/L) Final Anion gap 11/19/2023 06:13:09 10 7-15 (mmol /L) Final Glucose 11/19/2023 06:13:09 102 70-120 (mg /dL) Final Calcium 11/19/2023 06:13:09 9.5 8.4-10.2 ( mg/dL) Final Performing Location [facility] [address]
--- OUTSIDE RECORDS SUMMARY | 2024-04-23 13:25 | External Medical Summary | Summary of Care ---
Author Name Unknown Organization [facility] Address [address] [place] [address] Phone [phone] Care Team Providers Care Orchestra Director Name Role Phone Traci Blackmon MD Primary Care Provider [phone] Reason for Visit * Reason Onset Date Comments Appointment 11/24/2023 Encounter Details Date Type Department Care Team (Late st Contact Info) Description 11/24/2023 Telephone [facility], [place] [address] [place] [address] Services, Scheduling [address] [place] [address] Appointment Allergies Active Allergy Reactions Criticality Noted Date Comments Metformin Diarrhea 04/16/2018 Percocet 01/22/2007 Makes pt sick documented as of this encounter (statuses as of 11/24/2023) Medications Medication Sig Dispensed Refills Start Date [...] as of this encounter (statuses as of 11/24/2023) Active Problems Problem Noted Date Diagnosed Date [...] as of this encounter (statuses as of 11/24/2023) Resolved Problems Problem Noted Date Diagnosed Date [...] as of this encounter (statuses as of 11/24/2023) Immunizations Name Administration Dates Next Due COVID-19 mRNA, LNP-s, No Pre serve, 2-Dose Series (Moderna) 08/04/2023 COVID-19 mRNA, LNP-s, No Pre serve, 2-Dose Series (Pfizer) 11/01/2021,10/09/2020,09/12/2020 Covid-19, Mrna, Lnp-s, Pf, B ivalent, 30 Mcg, IM, 12 yrs and above (Pfizer) 04/29/2022 Hepatitis B, 20+ yrs 11/02/2014,06/07/2014,03/31 Pneumococcal Conjugate Vacci ne, 20-valent ([id number]) 04/18/2022 Pneumococcal Polysaccharide PPV23 (Pneumovax) 07/29/2019,12/03/2012 Seasonal [...] encounter Miscellaneous Notes * Telephone Encounter - Vanessa Tomlinson OSA - 11/24/2023 4:03 PM EDT [facility] Engagement Attempt Engagement: Engagement Attempt 1: Unable to contact Engagement Attempt 2: No data was found Called and spoke to pt. She was interested in getting enrolled but wanted to discuss it further with her PCP at her appt. Scheduled f/u call to discuss further. Looking at scheduling her with the nurse (Cooper) on 12/01 at 12:30. Home Information: No data was found Advance Care Planning (ACP): No data was found Has Living Will or Advance Directive: No data was found Anticipated Sub-Program: Short-Term Management (less than 3 months) Confirmation of Sub-Program Type (by care steam finisher): No data was found Handoff Information: Current care team notified via: No data was found Current telemonitoring equipment: No data was found documented in this encounter Plan of Treatment Upcoming Encounters Date Type Department Care Team (Late st Contact Info) Description 11/25/2023 11:00 AM EDT Office Visit General Internal Medicine [facility] [place] [place] [address] [place] [address] Traci Blackmon MD [address] [place] [address] 11/26/2023 10:30 AM EDT Scheduled Telephone [facility], [address] [place] [address] Coordinator, [facility] [address] [address] Scheduled Procedures Name Priority Associated Diagnoses Date/Ti me COLONOSCOPY FLEXIBLE PROXIMAL DIAGNOSTIC Recall History of colon polyps Health Maintenance Due Date Last Done Comments Cologuard 2003 Sigmoidoscopy 2003 Fecal Occult Blood Test 11/17/2008 11/18/2007 Depression Screening 06/19/2021 06/19/2020 Mammogram 02/05/2023 02/05/2022, [...] 11/18/2024 11/19/2023, 10/26, 09/26/2022, Additional history exists Lipid Panel 09/27/2027 09/26/2022, [...] filedocumented as of this encounter Care Teams Orchestra Director Relationship Specialty Start Date End Date Traci Blackmon MD [address] [place] [address] PCP - General Internal Medicine 05/27/19 documented as of this encounter
--- OUTSIDE RECORDS SUMMARY | 2024-04-23 13:25 | External Medical Summary ---
Author Name Unknown Address Unknown Organization K09:[facility] [place] [address] Laboratory Report Ordering Provider Test Date Status MAYELIN ROUSE 11/12/2023 05:50:00 Final Observation Date Value Abnormality Reference (Units ) Status WBC, Total 11/12/2023 05:50:00 7.04 4.00-10.8 0 (K/uL) Final RBC 11/12/2023 05:50:00 4.45 3.85-5.15 (M/uL) Final Hemoglobin 11/12/2023 05:50:00 12.8 12.0-15.3 (g/dL) Final HCT 11/12/2023 05:50:00 38.2 36.0-45.2 (%) Final MCV 11/12/2023 05:50:00 85.8 81.5-97.5 (fL) Final MCH 11/12/2023 05:50:00 28.8 27.0-34.0 (pg) Final MCHC 11/12/2023 05:50:00 33.5 32.0-36.0 (g/dL) Final RDW 11/12/2023 05:50:00 12.8 11.5-15.5 (%) Final Platelets 11/12/2023 05:50:00 241 140-400 (K /uL) Final MPV 11/12/2023 05:50:00 11.6 6.6-11.1 ( fL) Final Performing Location [facility] [place] [address]
--- OUTSIDE RECORDS SUMMARY | 2024-04-23 13:25 | External Medical Summary | Summary of Care ---
Author Name Unknown Organization [facility] Address [address] [address] Phone [phone] Care Team Providers Care Coal Washer Name Role Phone Traci Blackmon MD Primary Care Provider [phone] Reason for Visit * Reason Onset Date Comments Home Health 11/26/2023 Encounter Details Date Type Department Care Team (Late st Contact Info) Description 11/26/2023 Telephone General Internal Medicine [facility] [place] [address] [place] [address] Traci Blackmon MD [address] [place] [address] Home Health Allergies Active Allergy Reactions Criticality Noted Date Comments Metformin Diarrhea 04/16/2018 Percocet 01/22/2007 Makes pt sick documented as of this encounter (statuses as of 11/28/2023) Medications Medication Sig Dispensed Refills Start Date [...] as of this encounter (statuses as of 11/28/2023) Active Problems Problem Noted Date Diagnosed Date Hx of nonmelanoma skin cancer 04/25/2022 Overview: BCC L upper back 2022, BCC R buddhism 2021, Hx BCC L nasal root 2003 [...] as of this encounter (statuses as of 11/28/2023) Resolved Problems Problem Noted Date Diagnosed Date [...] as of this encounter (statuses as of 11/28/2023) Immunizations Name Administration Dates Next Due COVID-19 mRNA, LNP-s, No Pre serve, 2-Dose Series (Moderna) 08/04/2023 COVID-19 mRNA, LNP-s, No Pre serve, 2-Dose Series (Pfizer) 11/01/2021,10/09/2020,09/12/2020 COVID-19, LNP-s, No Preserve , Carroll-sucrose, Ages 12+ (Pfizer) 11/01/2021 Covid-19, Mrna, Lnp-s, Pf, B ivalent, 30 Mcg, IM, 12 yrs and above (Pfizer) 04/29/2022 Hepatitis B, 20+ yrs 11/02/2014,06/07/2014,03/31 Pneumococcal Conjugate Vacci ne, 20-valent ([id number]) 04/18/2022 Pneumococcal Polysaccharide PPV23 (Pneumovax) 07/29/2019,12/03/2012 Seasonal [...] encounter Miscellaneous Notes * Telephone Encounter - Naomy Howell LPN - 11/28/2023 3:21 PM EDT Patient has been notified of message below. She is received PT/OT and nursing. * Telephone Encounter - Naomy Howell LPN - 11/27/2023 5:01 PM EDT Left message for patient to call back regarding message below. * Telephone Encounter - Traci Blackmon MD - 11/27/2023 10:15 AM EDT Noted Hold Lisinopril and repeat BP in 1 week I had also ordered home health for nursing , PT and home safety check . Do they already have that ?If not can they include ? * Telephone Encounter - Jordana Stinson LPN - 11/26/2023 2:37 PM EDT Admission/Start of Care Admission/Start of Care: Rae RN, Calling from: [facility] Patient was at [facility] 11/06/23 to 11/11/23 RUE weakness, generalized anxiety disorder Patient was Admitted to: [facility] for: acute ischemic left frontal lobe stroke from 11/11/23 to 11/19/23 . Referral ordered by: [facility]. Referral received for: [facility], PT, and OT Planned start of care date:Yes, Date 11/26/23 Start of care completed on: 11/26/23 Report/Concerns of:None Symptoms: none Vitals: T 97.4 P 60 RR 16 BP 96/60 sitting 82/58 standing. Asymptomatic SP O2 97 room air Lung sounds clear Weight n/a Blood sugar 117 fasting Narrative: Rae calling from [facility]. Opened today for service. Providing diabetic education. Physical Therapy will be going in soon for an evaluation. Next PT visit(s) on this week, unsure They will call with any updates or additional concerns from the upcoming visit. Last Office Visit: 11/25/2023 Has patient been scheduled or seen in the office for a follow up visit: Yes- on 11/25/23 Advised that orders will be signed by Dr. Blackmon and to fax to the office for signature. Call back Rae with advice or orders at [facility] Home Health documented in this encounter Plan of Treatment Upcoming Encounters Date Type Department Care Team (Late st Contact Info) Description 12/02/2023 1:00 PM EDT Home Visit Care Coordination and Integration [address] [facility] [address] [place] [id number] Angelique Zelaya, Community Health Advertising Sales Agent [address] [facility] [place] [address] 12/03/2023 11:45 AM EDT Imaging Radiology [facility] [address] [place] [address] 04/16/2024 9:40 AM EDT Office Visit General Internal Medicine [facility] [address] [facility] [place] [address] Traci Blackmon MD 200 [facility] [place] [address] Scheduled Procedures Name Priority Associated Diagnoses Date/Ti [...] filedocumented as of this encounter Care Teams Coal Washer Relationship Specialty Start Date End Date Traci Blackmon MD 200 [place] [address] PCP - General Internal Medicine 05/27/19 documented as of this encounter
--- OUTSIDE RECORDS SUMMARY | 2024-04-23 13:25 | External Medical Summary | Summary of Care ---
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 Name Role Phone Traci Blackmon MD Primary Care Provider [phone] Reason for Referral * Evaluate & Treat - Unlimited Visits (Within 30 days (routine)) - Authorized Specialty Diagnoses / Procedures Referred By Kip coburn Referred To Contact HOME CARE / Home Care Diagnoses Type 2 diabetes mellitus with hemoglobin A1c goal of less than 7.0% (HCC) Ischemic stroke of frontal lobe (HCC) Weakness of left upper extremity Hospital discharge follow-up Traci Blackmon MD [address] [place] [id number] Referral ID Status Reason Start Date Expiration Date Visits Requested Visits Authorized [id number] Authorized Specialty Services Required 11/25/2023 999 999 Question Answer Referral Priority Within 30 days (routine) Where should this appointment be scheduled? [facility] Documentation of [id number] Encounter Addendum Patient Name: Odalys Juares I certify that this patient is under my care and that I, or a nurse practitioner or physician's trust operations assistant working with me, had a [id number] encounter that meets the physician [id number] encounter requirements with this patient on: 11/25/2023 The encounter with the patient was in whole, or in part, for the following medical condition, which is the primary reason for home health care (List medical condition): Convalescence from acute illness I certify that, based on my findings, the following services are medically necessary home health services: Nursing Physical therapy Home check for safety To provide the following care/treatments: (All hospitalists not following the patient after discharge should complete this section): Traci Blackmon MD Primary Care Physician to follow home care plan of care after discharge: Traci Blackmon MD My clinical findings support the need for the above services because: lives alone , recently had stroke , doesn't drive Further, I certify that my clinical findings support that this patient is homebound (i.e. Absences from home require considerable and taxing effort and are for medical reasons or zoroastrianism services or infrequently or of short duration when for other reason) because: Doesn't drive ,lives by herself . Physician Signature: Date of Signature: Physician Printed Name: Traci Blackmon MD Reason for Visit * Reason Onset Date Comments Hospital Follow-Up Patient repor ts feeling good. Hospital Follow-Up 11/25/2023 Encounter Details Date Type Department Care Team (Latest Contact Info) Description 11/25/2023 11:00 AM EDT Office Visit General Internal Medicine [facility] [place] [address] [place] [address] Traci Blackmon MD [address] [facility] [place] [address] Ischemic stroke of frontal lobe (HCC)*; Type 2 diabetes mellitus with hemoglobin A1c goal of less than 7.0% ([facility]); Hospital discharge follow-up; Weakness of left upper extremity; Sensorineural hearing loss (SNHL) of right ear with restricted hearing of left ear; NIDHI on CPAP; Non compliance w medication regimen; Hx of nonmelanoma skin cancer; HX OF BREAST MALIGNANCY - Mom; HTN, goal below 140/90; JAMES (generalized anxiety disorder); Encounter for screening mammogram for malignant neoplasm of breast; Dyslipidemia, goal LDL below 100; Family history of colon cancer; Calculus of gallbladder without cholecystitis without obstruction Allergies Active Allergy Reactions Criticality Noted Date Comments Metformin Diarrhea 04/16/2018 Percocet 01/22/2007 Makes pt sick documented as of this encounter (statuses as of 12/05/2023) Medications Medication Sig Dispensed Refills Start Date End Date Status CALCIUM 600 TABS 600 MG OR 2 po daily 0 01/03/19 99 Active Aspirin 81 MG TabletIndications: DM type 2 nursing care encounter (HCC) Take 1 Tablet by mouth in the morning. 30 Tab 0 06/23/20 17 Active B Complex Vitamins (B-COMPLEX/B-12) TABS Take by mouth. 0 Active CPAP every night at bedtime. 0 Active Empagliflozin 25 MG Oral Tablet (Jardiance) Take by mouth 1 Tablet in the morning. 90 Tablet 3 11/30/19 22 Active Lisinopril 5 MG Oral Tablet (Prinivil) Take by mouth 1 Tablet in the morning. 90 Tablet 3 04/18/20 22 Active Additional Information Patient not taking.Reported on 12/02/2023 FLUoxetine HCl 10 MG Oral Capsule (PROzac)Indication s:Anxiety Take by mouth 1 Capsule in the morning. 90 Capsule 3 04/18/20 22 Active Albuterol Sulfate HFA 108 (90 Base) MCG/ACT Inhalation Aerosol SolutionIndication s:Upper respiratory tract infection, unspecified type,Bronchitis Inhale 2 Puffs by mouth every 6 hours as needed for Congestion, Cough or Wheezing. 18 g 0 09/19/19 23 Active Fluticasone Propionate 50 MCG/ACT Nasal Suspension (Flonase) Administer 2 Sprays into each nostril in the morning. 16 g 5 09/27/19 23 Active Lantus SoloStar 100 UNIT/ML Subcutaneous Solution Pen-injectorIndica tions:Type 2 diabetes mellitus with hemoglobin A1c goal of less than 7.0% ([facility]) INJECT 20 UNITS SUBCUTANEOUSLY EVERY 12 HOURS 13 Each 3 11/25/19 24 Active Atorvastatin Calcium 80 MG Oral Tablet (Lipitor)Indicatio ns:Dyslipidemia, goal LDL below 100 Take 1 Tablet by mouth in the morning. 90 Tablet 3 11/25/19 24 Active BD Eclipse Needle 25G X 5/8" (Needle (Disp))Indications :Type 2 diabetes mellitus with hemoglobin A1c goal of less than 7.0% ([facility]) Use with Lantus 180 Each 3 11/25/19 24 Active glipiZIDE ER 5 MG Oral Tablet Extended Release 24 Hour (Glucotrol XL)Indications:Typ e 2 diabetes mellitus with hemoglobin A1c goal of less than 7.0% (HCC) Take 1 Tablet by mouth in the morning. 0 12/05/19 24 Active Clotrimazole-Betam ethasone 1-0.05 % External CreamIndications:A cute vaginitis Apply topically to affected area 2 times a day. To affected area as directed. 15 g 1 04/30/20 21 024 Discontinued(Me dication List Clean Up) Atorvastatin Calcium 80 MG Oral Tablet (Lipitor)Indicatio ns:Dyslipidemia, goal LDL below 100 Take by mouth 1 Tablet in the morning. 90 Tablet 3 04/18/20 22 024 Discontinued(Re fill) Fluconazole 150 MG Oral Tablet (Diflucan)Indicati ons:Candidal vulvovaginitis Take 1 pill Today and repeat in 2 weeks 2 Tablet 0 04/18/20 22 024 Discontinued(Me dication List Clean Up) Benzonatate 100 MG Oral CapsuleIndications :Upper respiratory tract infection, unspecified type,Bronchitis Take 1 Capsule by mouth 3 times a day as needed for Cough (may make you sleepy). 15 Capsule 0 09/19/19 23 024 Discontinued(Me dication List Clean Up) glipiZIDE ER 5 MG Oral Tablet Extended Release 24 HourIndications:Ty pe 2 diabetes mellitus with hemoglobin A1c goal of less than 7.0% (HCC) Take 1 Tablet by mouth in the morning. Along with 10 mg 30 minutes before a meal. Pt doesn't know if taking or not. 90 Tablet 3 09/27/19 23 024 Discontinued glipiZIDE ER 10 MG Oral Tablet Extended Release 24 Hour (Glucotrol XL)Indications:Typ e 2 diabetes mellitus with hemoglobin A1c goal of less than 7.0% (HCC) TAKE ONE TABLET BY MOUTH EVERY MORNING 30 MINUTES BEFORE A MEAL 90 Tablet 3 12/14/19 23 024 Discontinued(En d of Procedure) Lantus SoloStar 100 UNIT/ML Subcutaneous Solution Pen-injector INJECT 20 UNITS SUBCUTANEOUSLY EVERY 12 HOURS 0 11/17/19 24 024 Discontinued(Re fill) glipiZIDE ER 5 MG Oral Tablet Extended Release 24 Hour (Glucotrol XL)Indications:Typ e 2 diabetes mellitus with hemoglobin A1c goal of less than 7.0% (HCC) Take 1 Tablet by mouth in the morning. Along with 10 mg 30 minutes before a meal. Pt doesn't know if taking or not. 0 11/25/19 24 024 Discontinued documented as of this encounter (statuses as of 12/05/2023) Active Problems Problem Noted Date Diagnosed Date Hx of nonmelanoma skin cancer 04/25/2022 Overview: BCC L upper back 2022, BCC R yazdanism 2021, Hx BCC L nasal root 2003 [...] as of this encounter (statuses as of 12/05/2023) Resolved Problems Problem Noted Date Diagnosed Date [...] as of this encounter (statuses as of 12/05/2023) Immunizations Name Administration Dates Next Due COVID-19 mRNA, LNP-s, No Pre serve, 2-Dose Series (Moderna) 08/04/2023 COVID-19 mRNA, LNP-s, No Pre serve, 2-Dose Series (Pfizer) 11/01/2021,10/09/2020,09/12/2020 COVID-19, LNP-s, No Preserve , Carroll-sucrose, Ages 12+ (Pfizer) 11/01/2021 Covid-19, Mrna, Lnp-s, Pf, B ivalent, 30 Mcg, IM, 12 yrs and above (Pfizer) 04/29/2022 Hepatitis B, 20+ yrs 11/02/2014,06/07/2014,03/31 Pneumococcal Conjugate Vacci ne, 20-valent ([id number]) 04/18/2022 Pneumococcal Polysaccharide PPV23 (Pneumovax) 07/29/2019,12/03/2012 Seasonal [...] Date Smoking Tobacco: Never Smokeless Tobacco: Never Tobacco Cessation:Counseling Given: Not Answered Alcohol Use Standard Drinks/Week Comments No 0 [...] Sign Reading Time Taken Comments Blood Pressure 98/54 11/25/2023 11:13 AM EDT Pulse 61 11/25/2023 11:13 AM EDT Temperature 36.3 C (97.4 F) 11/25/2023 1 1:13 AM EDT Respiratory Rate 15 11/25/2023 11:1 3 AM EDT Oxygen Saturation 98% 11/25/2023 11: 13 AM EDT Inhaled Oxygen Concentration - - Weight 61.2 kg (134 lb 14.4 oz) 024 11:13 AM EDT Height 157.5 cm (5' 2") 11/25/2023 11:1 3 AM EDT Body Mass Index 24.67 11/25/2023 11:13 AM EDT documented in this encounter Patient Instructions * Patient Instructions* Duarte Alonso, MED ASSIST - 11/25/2023 11:27 AM EDT Diabetes: Keeping Feet Healthy Inspect your feet every day for signs of a problem. Diabetes can damage nerves in your feet and cause neuropathy. This condition makes it hard for you to feel injuries or sore spots. Diabetes can also change blood flow, making it harder for small problems, like a blister, to heal properly. In fact, minor injuries can quickly become serious infections that send you to the hospital. Practice self-care to protect your feet and keep them healthy. Take Special Care Inspect your feet daily for problems such as redness, blisters, cracks, dry skin, or numbness. Use a mirror to see the bottoms of your feet. Or, ask for help. Manage your diabetes. Monitor and control your blood sugar. Take all your medications as prescribed. Avoid walking barefoot, even indoors. Wash your feet with warm water and mild soap. Dry well, especially between toes. Dont treat corns or calluses yourself. Talk to your doctor or industrial analyst (a doctor who specializes in foot care) if you need assistance trimming your toenails. Use moisturizing cream or lotion if you have dry skin, but dont use it between toes. Dont use heating pads on your feet. If you have neuropathy, you could get a burn and not feel it. Stop smoking. Smoking restricts blood flow and can make it harder for wounds to heal. Have Regular Checkups Foot problems can develop quickly. So be sure to follow your healthcare teams schedule for regular checkups. During office visits, take off your shoes and socks as soon as you get in the exam room. Ask your healthcare provider to examine your feet for problems. This will make it easier to find and treat small skin irritations before they get worse. Regular checkups can also help keep track of the blood flow and feeling in your feet. If you have neuropathy, you may need to have checkups more often. Wear Proper Footwear Wearing proper footwear is very important. If areas of your feet have been damaged by too much pressure, your healthcare provider may recommend changing your footwear. In some cases, avoiding high heels or tight work boots may be all thats needed. Or, your healthcare provider may recommend special shoes or custom inserts. These help protect your feet and keep existing irritations from getting worse. If you need special footwear, ask your healthcare provider if you qualify for [employer] diabetic shoe program. Make Sure Shoes and Socks Fit Any pair of shoes--new or old--should feel comfortable as soon as you put them on. There shouldnt be any rubbing when you walk. Wear the right shoe for any activity. For instance, a running shoe is designed to keep your feet injury-free while jogging. Buy shoes at the end of the day, when your feet are larger. Make sure they provide support without feeling too loose. Make sure your socks fit, t oo. Wear soft, seamless, well-padded socks for activity. Cotton or microfiber socks are best to help to absorb sweat. To protect your feet, avoid shoes that are open-toed or open-heeled. If you have questions about what kinds of shoes and socks are best, talk to your healthcare team. Get Regular Exercise Regular exercise improves blood flow in your feet. It also increases foot strength and flexibility.Gentle exercises, like walking or riding a stationary bicycle, are best. You can also do special foot exercises. Just be sure to talk with your healthcare provider before starting any exercise program. Also mention if any exercise causes pain, redness, or other signs of foot problems. Note: If you have any kind of break in the skin of your foot or ankle, keep the area clean. Then call your doctor--especially if the area doesnt appear to be healing. [id number] [email or web address], [address] [place] [address], [place] [address]. All rights reserved. This information is not intended as a substitute for professional medical care. Always follow your healthcare professional's instructions. documented in this encounter Progress Notes * Traci Blackmon MD - 11/25/2023 11:28 AM EDT SUBJECTIVE: Odalys Juares is a 63 year old female. Chief Complaint Patient presents with Hospital Follow-Up Patient reports feeling good. HPI: 63 year oldYOfemale with PMH significant for HTN, DM, NIDHI on c- pap,hyperlipidemia,fam h/o breast and colon ca, anxiety presents here for hospital and [facility] follow up. Pt was in the kitchen when she felt that not able to lift cup with her right hand so went to her neighbor's house who called 911 , she was taken to hospital with stroke alert . Admitted to hospital on 11/06/23 where she was found to have right upper extremity weakness and some confusion and hyperglycemia. She was not taking medication particularly no diabetic medication for last 4-6 months and before that also she was not very compliant with it neither was watching her diet at all. Labs were overall normal except hyperglycemia, low-sodium, mild kidney impairment and Imaging MRI of the brain showed left frontal posterior small ischemic stroke and some other mbengjsv-vl-grfmim atherosclerosisin the brain with laaqehco-ql-dwszeo supraclinoid internal carotid artery blockage she was given TKN. She was seen Neurology and ICU and was admitted to ICU post TKN . She was started on aspirin daily and Lantus twice a day was started for hyperglycemia and glipizide was reduced from 15-5 mg along with Jardiance. She was discharged to [facility] On 11/11/23 . She did while overall. PT /OT was helpful . She was sent home on 11/20/23 on medication changes as above. Since discharge feeling better . Hospital and Rehab records reviewed and updated. The patient's medication list was reviewed and updated as needed. Current issues now- - patient is accompanied by her brother who lives out of state but was frustrated in the visit by her not taking ownership of her own help. He did not know that she was not taking medications for so long until had stroke and wish this all could have been prevented When he saw her over [place] shetold him that she was taking all the medications - She lives by herself and he won't be there all the time specially after 2 weeks. [facility] will be contacted for help. Patient does not drive Patient Active Problem List Diagnosis Code HX OF BREAST MALIGNANCY - Mom Z85.3 SENSORNEUR HEAR LOSS NOS H90.5 NIDHI on CPAP G47.33 Dyslipidemia, goal LDL below 100 E78.5 OBESITY, BMI 30-34 (SEE ACTUAL BMI) E66.9 Type 2 diabetes mellitus with hemoglobin A1c goal of less than 7.0% (HCC) E11.9 Family history of colon cancer Z80.0 JAMES (generalized anxiety disorder) F41.1 Calculus of gallbladder without cholecystitis without obstruction K80.20 HTN, goal below 140/90 I10 Hx of nonmelanoma skin cancer Z85.828 Current Outpatient Medications Medication Sig Dispense Refill CALCIUM 600 TABS 600 MG OR 2 po daily 0 Aspirin 81 MG Tablet Take 1 Tablet by mouth in the morning. 30 Tab 0 B Complex Vitamins (B-COMPLEX/B-12) TABS Take by mouth. CPAP every night at bedtime. Empagliflozin 25 MG Oral Tablet (Jardiance) Take by mouth 1 Tablet in the morning. 90 Tablet 3 Lisinopril 5 MG Oral Tablet (Prinivil) Take by mouth 1 Tablet in the morning. 90 Tablet 3 FLUoxetine HCl 10 MG Oral Capsule (PROzac) Take by mouth 1 Capsule in the morning. 90 Capsule 3 Atorvastatin Calcium 80 MG Oral Tablet (Lipitor) Take by mouth 1 Tablet in the morning. 90 Tablet 3 Albuterol Sulfate HFA 108 (90 Base) MCG/ACT Inhalation Aerosol Solution Inhale 2 Puffs by mouth every 6 hours as needed for Congestion, Cough or Wheezing. 18 g 0 Fluticasone Propionate 50 MCG/ACT Nasal Suspension (Flonase) Administer 2 Sprays into each nostril in the morning. 16 g 5 glipiZIDE ER 5 MG Oral Tablet Extended Release 24 Hour Take 1 Tablet by mouth in the morning. Alongwith 10 mg 30 minutes before a meal. Pt doesn't know if taking or not. 90 Tablet 3 glipiZIDE ER 10 MG Oral Tablet Extended Release 24 Hour (Glucotrol XL) TAKE ONE TABLET BY MOUTH EVERY MORNING 30 MINUTES BEFORE A MEAL 90 Tablet 3 Lantus SoloStar 100 UNIT/ML Subcutaneous Solution Pen-injector INJECT 20 UNITS SUBCUTANEOUSLY EVERY12 HOURS No current facility-administered medications for this visit. Review of patient's allergies indicates: Allergen Reactions Metformin Diarrhea Percocet Makes pt sick Past Medical History: Diagnosis Date Benign neoplasm [...] PROCEDURE performed by ELENA PIMENTEL at OR [facility] BREAST LESION,OTHER,EXCISION Left 1995 Benign BREAST LESION,OTHER,EXCISION Left 2007 Benign BX BREAST PERCUT W/O IMAGE 08/18/2007 left breast core biopsy; cystic breast tissue with ductal hyperplasia COLONOSCOPY W/ BIOPSY (RECTUM) 05/11/2008 repeat in 5 years COLONOSCOPY, DIAGNOSTIC (RECTUM) 02/09/2014 adenomatous polyps, repeat 3 yrs/COLONOSCOPY FLEXIBLE PROXIMAL DIAGNOSTIC performed by Scott Zamora MD at ENDOSCOPY [facility] COLONOSCOPY, DIAGNOSTIC (RECTUM) 04/10/2017 adenomatous polyps, repeat 3 yrs/COLONOSCOPY FLEXIBLE PROXIMAL DIAGNOSTIC performed by Scott Zamora MD at ENDOSCOPY [facility] COLONOSCOPY, DIAGNOSTIC (RECTUM) 11/08/2020 adenomatous polyps, repeat 3 yr / COLONOSCOPY FLEXIBLE PROXIMAL DIAGNOSTIC performed by Yaimleth Cordova MD at ENDOSCOPY [facility] INCISION OF EARDRUM 07/1965 ear tubes as child NASAL ENDOSCOPY,TOTAL ETHMOIDECTOMY 01/22/2007 NASAL SINUS ENDOSCOPY WITH ETHMOIDECTOMY TOTAL performed by EELNA PIMENTEL at OR [facility] NASAL ENDOSCOPY/EXPLOR MAXIL SINUS 01/22/2007 NASAL SINUS ENDOSCOPY MAXILLARY ANTROSTOMY performed by ELENA PIMENTEL at OR [facility] NASAL/SINUS ENDOSCOPY, SURGICAL 01/22/2007 NASAL SINUS ENDOSCOPY SPHENOIDOTOMY REMOVE TISSUE performed by ELENA PIMENTEL at OR [facility] REMOVE CATARACT, INSERT LENS PROSTH Bilateral 2015 Dr. Pollard REMOVE INTRANASAL LESION 01/22/2007 EXCISION OR DESTRUCTION INTRANASAL LESION INTERNAL APPROACH performed by ELENA PIMENTEL at OR [facility] REMOVE TONSILS & ADENOIDS, UNDER 12 12/1965 Family History Problem Relation Age of Onset Breast Cancer Mother 60 Other (Essential tremor) Mother Heart attack Father CABG- age 74 Colon cancer Father Colon cancer Uncle (Unspecified) 39 Breast Cancer Aunt (Maternal) 60 Breast Cancer Cousin (Maternal) 60 Breast Cancer Cousin (Maternal) 58 Social History Socioeconomic History Marital status: Single Number of children: 0 Occupational History Occupation: Unemployed Tobacco Use Smoking status: Never Smokeless tobacco: Never Vaping Use Vaping Use: Never used Substance and Sexual Activity Alcohol use: No Comment: None currently- due to meds. Drug use: No Sexual activity: Not Currently Family History Problem Relation Age of Onset Breast Cancer Mother 60 Other (Essential tremor) Mother Heart attack Father CABG- age 74 Colon cancer Father Colon cancer Uncle (Unspecified) 39 Breast Cancer Aunt (Maternal) 60 Breast Cancer Cousin (Maternal) 60 Breast Cancer Cousin (Maternal) 58 REVIEW OF SYSTEMS: All 10 systems reviewed and negative except mentioned in HPI OBJECTIVE: BP 98/54 | Pulse 61 | Temp 36.3 C (97.4 F) (Tympanic) | Resp 15 | Ht 1.575 m (5' 2") | Wt 61.2 kg (134 lb 14.4 oz) | LMP 10/30/2002 | SpO2 98% | BMI 24.67 kg/m | BSA 1.64 m PHYSICAL EXAM: General: alert, healthy, and no distress Head: Normocephalic, No masses, lesions, tenderness or abnormalities Eye Exam: PERRLA, extraocular movements intact, conjunctiva are pink and non- injected, sclera clear Oropharynx: no exudate, no erythema, lips, buccal mucosa, and tongue normal, and mucous membranes are moist Neck: supple, no adenopathy, no bruits, thyroid normal size, non-tender, without nodularity Heart: regular rate & rhythm, no murmur, and no gallops Lungs: chest symmetric with normal AP diameter, no chest deformities noted, no chest wall tenderness, lungs clear to auscultation Abdomen: abdomen soft, non-tender, normal bowel sounds, and no masses or organomegaly Extremities: less than 2 second capillary refill, no joint deformities, effusion, or inflammation Neuro Exam: alert & oriented x 3 with fluent speech, no focal motor/sensory deficits except left upper extremity weakness of 4/5, gait imbalance ASSESSMENT AND PLAN Ischemic stroke of frontal lobe (HCC) (Primary) - DISCH MED RECON CUR MED LIS - CBC; Future; Expected date: 01/25/2024 - HOME HEALTH REFERRAL OP Important to take diabetic medication, statins and aspirin to prevent future stroke Continue to hold lisinopril for now due to low blood pressure, we will likely restart in next appointment. Type 2 diabetes mellitus with hemoglobin A1c goal of less than 7.0% ([facility]) - DIABETES FOOT EXAM - DISCH MED RECON CUR MED LIS - ALBUMIN / CREATININE RATIO, URINE; Future; Expected date: 11/25/2023 - HEMOGLOBIN A1C; Future; Expected date: 01/25/2024 - HOME HEALTH REFERRAL OP - Lantus SoloStar 100 UNIT/ML Subcutaneous Solution Pen-injector; INJECT 20 UNITS SUBCUTANEOUSLY EVERY 12 HOURS - BD Eclipse Needle 25G X 5/8" (Needle (Disp)); Use with Lantus Hospital discharge follow-up - DISCH MED RECON CUR MED LIS - HOME HEALTH REFERRAL OP Weakness of left upper extremity - DISCH MED RECON CUR MED LIS - HOME HEALTH REFERRAL OP Sensorineural hearing loss (SNHL) of right ear with restricted hearing of left ear NIDHI on CPAP Non compliance w medication regimen - DISCH MED RECON CUR MED LIS Hx of nonmelanoma skin cancer HX OF BREAST MALIGNANCY - Mom HTN, goal below 140/90 - COMPREHENSIVE METABOLIC PANEL; Future; Expected date: 01/25/2024 JAMES (generalized anxiety disorder) Encounter for screening mammogram for malignant neoplasm of breast - MAMMOGRAM SCREENING JOSÉ LUIS BILATERAL; Future; Expected date: 11/25/2023 Dyslipidemia, goal LDL below 100 - COMPREHENSIVE METABOLIC PANEL; Future; Expected date: 01/25/2024 - LIPID PANEL WITH DIRECT LDL IF TG IS HIGH; Future; Expected date: 01/25/2024 - Atorvastatin Calcium 80 MG Oral Tablet (Lipitor); Take 1 Tablet by mouth in the morning. Family history of colon cancer Calculus of gallbladder without cholecystitis without obstruction Follow Up: Return in about 2 months (around 01/25/2024) for recheck after labs. | For: recheck afterlabs Treatment and plan discussed with patient and was given opportunity to ask questions which were answered . Patient verbalized understanding. This note was prepared with the help of fluency and if there is any mis-spelled words , sentences or something which doesn't represent the content of the subject that could be technical error and please refer to the author for clarification. Traci Blackmon MD 11:28 AM 11/25/2023 * Duarte Alonso MED MUNA - 11/25/2023 11:26 AM EDT DM Foot Exam completed today. Provider aware. JAMES Pantoja Socks and Shoes Removed for Annual Diabetic Foot Screening RIGHT FOOT: No Reddened, Cracking, Or Open Areas Noted. RIGHT Dorsalis Pedis Pulse: Palpable RIGHT Posterior Tibial Pulse: Palpable RIGHT Monofilament:Patient reports feeling monofilament pressure on plantar surface of foot LEFT FOOT: No Reddened, Cracking or Open Areas Noted. LEFT Dorsalis Pedis Pulse: Palpable LEFT Posterior Tibial Pulse: Palpable LEFT Monofilament:Patient reports feeling monofilament pressure on plantar surface of foot Do you need diabetic shoes: No documented in this encounter Nursing Notes * Duarte Alonso MED ASSIST - 11/25/2023 11:10 AM EDT The patient has been properly identified by confirmation of name and date of . Chief Complaint Patient presents with Hospital Follow-Up Patient reports feeling good. documented in this encounter Plan of Treatment Upcoming Encounters Date Type Department Care Team (Late st Contact Info) Description 12/08/2023 8:00 AM EDT Scheduled Telephone Care Coordination and Integration [address] [place] [address] Angelique Zelaya [facility] Health Investigative Research Specialist [address] [place] [address] 04/16/2024 9:40 AM EDT Office Visit General Internal Medicine [facility] [address] [place] [address] Traci Blackmon MD [address] [place] [address] Scheduled Orders Name Type Priority Associated Diagnoses Orde r Schedule ALBUMIN / CREATININE RATIO, URINE Lab Routine Type 2 diabetes mellitus with hemoglobin A1c goal of less than 7.0% (HCC) Expected: 11/25/2023 (Approximate), Expires: 11/24/2024 HEMOGLOBIN A1C Lab Routine Type 2 diabetes mellitus with hemoglobin A1c goal of less than 7.0% (HCC) Expected: 01/25/2024 (Approximate), Expires: 11/24/2024 COMPREHENSIVE METABOLIC PANEL Lab Routine HTN, goal below 140/90 Dyslipidemia, goal LDL below 100 Expected: 01/25/2024, Expires: 11/24/2024 LIPID PANEL WITH DIRECT LDL IF TG IS HIGH Lab Routine Dyslipidemia, goal LDL below 100 Expected: 01/25/2024, Expires: 11/24/2024 CBC Lab Routine Ischemic stroke of frontal lobe (HCC) Expected: 01/25/2024, Expires: 11/24/2024 Scheduled Procedures Name Priority Associated Diagnoses Date/Ti me COLONOSCOPY FLEXIBLE PROXIMAL DIAGNOSTIC Recall History of colon polyps Scheduled Referrals Name Type Priority Associated Diagnoses Orde r Schedule HOME HEALTH REFERRAL OP Referral Within 30 days (routine) Type 2 diabetes mellitus with hemoglobin A1c goal of less than 7.0% (HCC) Ischemic stroke of frontal lobe (HCC) Weakness of left upper extremity Hospital discharge follow-up Ordered: 11/25/2023 Health Maintenance Due Date Last Done Comments [...] Not on filedocumented as of this encounter Results * MAMMOGRAM SCREENING JOSÉ LUIS BILATERAL (12/03/2023 11:57 AM EDT) Anatomical Region Laterality Modality Breast Bilateral Mammography Narrative 12/04/2023 3:09 PM EDT Result MAMMOGRAM SCREENING JOSÉ LUIS BILATERAL History Encounter for screening mammogram for malignant neoplasm of breast Family medical history includes breast cancer in 4 relatives (aunt (maternal) (age of onset: 60), cousin (maternal) (age of onset: 60), cousin (maternal) (age of onset: 58), mother (age of onset: 60)) and colon cancer in uncle (unspecified) (age of onset: 39). Films Compared 02/05/2022 MAMMOGRAM SCREENING JOSÉ LUIS BILATERAL, 06/28/2020 MAMMOGRAM SCREENING JOSÉ LUIS BILATERAL, 10/15/2018 MAMMOGRAM SCREENING JOSÉ LUIS BILATERAL, and 10/13/2017 MAMMOGRAM, SCREENING, BILAT Findings There are benign calcifications present. The breasts have scattered areas of fibroglandular density. There is no evidence of suspicious masses, calcifications, or other abnormal findings. Impression Bilateral No mammographic evidence of malignancy. BI-RADS Category: 2 - Benign. Recommendation Screening mammogram in 1 year is recommended for both breasts. Digital breast tomosynthesis was performed. This digital mammogram has been analyzed with the computer aided detection system. This notice contains the results of your recent mammogram, including information about breast density. If your mammogram shows that your breast tissue is dense, you should know that dense breast tissue is a common finding and is not abnormal. Statistics show many women could have dense or highly dense breasts. Dense breast tissue can make it harder to find cancer on a mammogram and may be associated with an increased risk of cancer. This information about the result of your mammogram is given to you to raise your awareness and to inform your conversations with your physician. Together, you can decide which screening options are right for you, based on your mammogram results, individual risk factors or physical examination. A report of your results was sent to your physician. Your mammographic breast density on today's study is described above. There are four categories of breast density on mammography. Fatty breasts and those with scattered fibroglandular tissue are not considered dense. Heterogeneously dense or extremely dense tissue is considered "dense". Please understand that assessment of breast density may vary from year to year. This examination was performed at [facility], [address] [place] [id number]. Traci Blackmon MD RAD MAMMOGRAPHY documented in this encounter Visit Diagnoses Diagnosis Ischemic stroke of frontal lobe (HCC)- Primary Type 2 diabetes mellitus with hemoglobin A1c goal of less than 7.0% (HCC) Hospital discharge follow-up Other follow-up examination Weakness of left upper extremity Other musculoskeletal symptoms referable to limbs Sensorineural hearing loss (SNHL) of right ear with restricted hearing of left ear NIDHI on CPAP Obstructive sleep apnea (adult) (pediatric) Non compliance w medication regimen Personal history of noncompliance with medical treatment, presenting hazards to health Hx of nonmelanoma skin cancer Personal history of other malignant neoplasm of skin HX OF BREAST MALIGNANCY - Mom Personal history of malignant neoplasm of breast HTN, goal below 140/90 Unspecified essential hypertension JMAES (generalized anxiety disorder) Generalized anxiety disorder Encounter for screening mammogram for malignant neoplasm of breast Other screening mammogram Dyslipidemia, goal LDL below 100 Other and unspecified hyperlipidemia Family history of colon cancer Family history of malignant neoplasm of gastrointestinal tract Calculus of gallbladder without cholecystitis without obstruction Calculus of gallbladder without mention of cholecystitis or obstruction Encounter for screening mammogram for malignant neoplasm of breast Other screening mammogram documented in this encounter Care Teams Turret Punch Operator Relationship Specialty Start Date End Date Traci Blackmon MD [address] [facility] [place] [address] PCP - General Internal Medicine 05/27/19 documented as of this encounter
--- OUTSIDE RECORDS SUMMARY | 2024-04-23 13:25 | External Medical Summary ---
Author Name Unknown Address Unknown Organization [id number]:[facility] [address] Laboratory Report Ordering Provider Test Date Status MAYELIN ROUSE 11/12/2023 05:50:00 Final Observation Date Value Abnormality Reference (Units ) Status BUN 11/12/2023 05:50:00 20 6-20 (mg/dL) Final Creatinine 11/12/2023 05:50:00 0.7 0.5-1.0 (mg/dL) Final Glomerular filtration rate/1.73 sq M.predicted [Volume Rate/Area] in Serum, Plasma or Blood by Creatinine-based formula (CKD-EPI) 11/12/2023 05:50:00 >90 >=60 (mL/min) Final eGFR is calculated based on the CKD-EPI 2020 equation Sodium 11/12/2023 05:50:00 139 135-146 (m mol/L) Final Potassium 11/12/2023 05:50:00 4.5 3.5-5.1 (m mol/L) Final Cl 11/12/2023 05:50:00 104 98-107 (mm ol/L) Final CO2 11/12/2023 05:50:00 25 22-32 (mmo l/L) Final Anion gap 11/12/2023 05:50:00 10 7-15 (mmol /L) Final Glucose 11/12/2023 05:50:00 85 70-120 (mg /dL) Final Calcium 11/12/2023 05:50:00 9.0 8.4-10.2 ( mg/dL) Final Performing Location [facility] [address]
--- OUTSIDE RECORDS SUMMARY | 2024-04-23 13:25 | External Medical Summary | Summary of Care ---
Author Name Unknown Organization [facility] Address [address] [place] [address] Phone [phone] Care Team Providers Care Edger Automatic Name Role Phone Traci Blackmon MD Primary Care Provider Reason for Visit * Reason Onset Date Comments Appointment 11/27/2023 Encounter Details Date Type Department Care Team (Late st Contact Info) Description 11/27/2023 12:30 PM EDT Scheduled Telephone [facility], [facility] [address] [place] [address] Coordinator, [facility] [address] [place] [id number] Allergies Active Allergy Reactions Criticality Noted Date Comments Metformin Diarrhea 04/16/2018 Percocet 01/22/2007 Makes pt sick documented as of this encounter (statuses as of 11/27/2023) Medications Medication Sig Dispensed Refills Start Date [...] as of this encounter (statuses as of 11/27/2023) Active Problems Problem Noted Date Diagnosed Date Hx of nonmelanoma skin cancer 04/25/2022 Overview: BCC L upper back 2022, BCC R scientology 2021, Hx BCC L nasal root 2003 [...] as of this encounter (statuses as of 11/27/2023) Resolved Problems Problem Noted Date Diagnosed Date [...] as of this encounter (statuses as of 11/27/2023) Immunizations Name Administration Dates Next Due COVID-19 mRNA, LNP-s, No Pre serve, 2-Dose Series (Moderna) 08/04/2023 COVID-19 mRNA, LNP-s, No Pre serve, 2-Dose Series (Pfizer) 11/01/2021,10/09/2020,09/12/2020 COVID-19, LNP-s, No Preserve , Carroll-sucrose, Ages 12+ (Pfizer) 11/01/2021 Covid-19, Mrna, Lnp-s, Pf, B ivalent, 30 Mcg, IM, 12 yrs and above (Pfizer) 04/29/2022 Hepatitis B, 20+ yrs 11/02/2014,06/07/2014,03/31 Pneumococcal Conjugate Vacci ne, 20-valent ([id number]) 04/18/2022 Pneumococcal Polysaccharide PPV23 (Pneumovax) 07/29/2019,12/03/2012 Seasonal [...] Miscellaneous Notes * Telephone Encounter - Alberto David OSA - 11/27/2023 9:41 AM EDT [facility] Engagement Attempt Engagement: Engagement Attempt 1: Unable to contact Engagement Attempt 2: Unable to contact Engagement Attempt 3: Contacted - Declined home-based services Declined Reason Patient declined program enrollment Declined reason: No data was found Home Information: No [...] Visit Care Coordination and Integration [address] [facility] [place] [address] Angelique Zelaya, Community Health Nuclear Plant Operator [address] [facility] [place] [address] 12/03/2023 11:45 AM EDT Imaging Radiology [address] [place] [address] 04/16/2024 9:40 AM EDT Office Visit General Internal Medicine [facility] [address] [place] [address] Traci Blackmon MD [address] [place] [address] Scheduled Procedures Name Priority Associated Diagnoses Date/Ti [...] filedocumented as of this encounter Care Teams Edger Automatic Relationship Specialty Start Date End Date Traci Blackmon MD [address] [place] [address] PCP - General Internal Medicine 05/27/19 documented as of this encounter
--- OUTSIDE RECORDS SUMMARY | 2024-04-23 13:25 | External Medical Summary | Summary of Care ---
Author Name Unknown Organization [facility] Address [address] [address] Phone [phone] Care Team Providers Care Scooper Name Role Phone Traci Blackmon MD Primary Care Provider [phone] Encounter Details Date Type Department Care Team (Late st Contact Info) Description 11/27/2023 Orders Only PATIENT PORTAL DO NOT DELETE THIS DEPT USED BY [place] [id number] Allergies Active Allergy Reactions Criticality Noted Date [...] BCC L upper back 2022, BCC R episcopal 2021, Hx BCC L nasal root 2003 [...] yrs 11/02/2014,06/07/2014,03/31 Pneumococcal Conjugate Vacci ne, 20-valent ([id number]) 04/18/2022 Pneumococcal Polysaccharide PPV23 (Pneumovax) 07/29/2019,12/03/2012 Seasonal [...] PM EDT Scheduled Telephone [facility], [facility] [address] [place] [address] Coordinator, [facility] [address] [place] [address] 12/02/2023 1:00 PM EDT Home Visit Care Coordination and Integration [address] [place] [address] Angelique Zelaya, Community Health Parking Analyst [address] [facility] [address] 12/03/2023 11:45 AM EDT Imaging Radiology [address] [place] [address] 04/16/2024 9:40 AM EDT Office Visit General Internal Medicine [address] [place] [address] [place], [place] [address] Traci Blackmon MD [address] [place], [place] [address] Scheduled Procedures Name Priority Associated Diagnoses Date/Ti [...] filedocumented as of this encounter Care Teams Scooper Relationship Specialty Start Date End Date Traci Blackmon MD [address] [place] [address] PCP - General Internal Medicine 05/27/19 documented as of this encounter
--- OUTSIDE RECORDS SUMMARY | 2024-04-23 13:25 | External Medical Summary | Summary of Care ---
Author Name Unknown Organization [facility] Address [address] [address] Phone [phone] Care Team Providers Care Dynamite Packing Machine Feeder Name Role Phone Traci Blackmon MD Primary Care Provider [phone] Reason for Visit * Reason Onset Date Comments [facility]: Screening 11/24/2023 Encounter Details Date Type Department Care Team (Late st Contact Info) Description 11/24/2023 Telephone [facility], [facility] [address] [facility] [place] [phone] [facility], Nurse [facility] [address] [facility] [place] [address] [facility]: Screening Allergies Active Allergy Reactions Criticality Noted Date [...] BCC L upper back 2022, BCC R mu-ism 2021, Hx BCC L nasal root 2003 [...] yrs 11/02/2014,06/07/2014,03/31 Pneumococcal Conjugate Vacci ne, 20-valent ([id number]) 04/18/2022 Pneumococcal Polysaccharide PPV23 (Pneumovax) 07/29/2019,12/03/2012 Seasonal [...] encounter Miscellaneous Notes * Telephone Encounter - Gina Juares LPN - 11/24/2023 1:26 PM EDT Odalys Juares was referred as a potential candidate for enrollment for [facility]. A review of this chart was completed and: Odalys meets criteria for [facility]. Jump to Initiation Referring care team was notified via : [employer] communication documented in this encounter Plan of Treatment Upcoming Encounters Date Type Department Care Team (Late st Contact Info) Description 11/25/2023 11:00 AM EDT Office Visit General Internal Medicine [address] [place] [address] [place] [address] Traci Blackmon MD [address] [place], [place] [address] Scheduled Procedures Name Priority Associated Diagnoses Date/Ti [...] filedocumented as of this encounter Care Teams Dynamite Packing Machine Feeder Relationship Specialty Start Date End Date Traci Blackmon MD [address] [place] [address] PCP - General Internal Medicine 05/27/19 documented as of this encounter
--- OUTSIDE RECORDS SUMMARY | 2024-04-23 13:25 | External Medical Summary ---
Author Name Unknown Address Unknown Organization K09:[facility] [place] [address] Laboratory Report Ordering Provider Test Date Status MAYELIN ROUSE 11/19/2023 06:13:09 Final Observation Date Value Abnormality Reference (Units ) Status WBC, Total 11/19/2023 06:13:09 8.35 4.00-10.8 0 (K/uL) Final RBC 11/19/2023 06:13:09 4.71 3.85-5.15 (M/uL) Final Hemoglobin 11/19/2023 06:13:09 13.5 12.0-15.3 (g/dL) Final HCT 11/19/2023 06:13:09 41.3 36.0-45.2 (%) Final MCV 11/19/2023 06:13:09 87.7 81.5-97.5 (fL) Final MCH 11/19/2023 06:13:09 28.7 27.0-34.0 (pg) Final MCHC 11/19/2023 06:13:09 32.7 32.0-36.0 (g/dL) Final RDW 11/19/2023 06:13:09 13.5 11.5-15.5 (%) Final Platelets 11/19/2023 06:13:09 277 140-400 (K /uL) Final MPV 11/19/2023 06:13:09 11.4 6.6-11.1 ( fL) Final Performing Location [facility] [place] [address]
[2024-04-23] MEDS ORDERED: POLYETHYLENE (MIRALAX) 17 GM PACK PO PRN (15:03)
[2024-04-23] MEDS ORDERED: ALUMINUM/MAGNESIUM SUSP 30 ML UDC PO PRN (15:03)
[2024-04-23] MEDS ORDERED: ONDANSETRON INJ 2 MG/ML 2 ML VIAL IV PRN (15:03)
[2024-04-23] MEDS ORDERED: MAGNESIUM HYDROXIDE SUSP 30 ML UDC PO PRN (15:03)
[2024-04-23] MEDS ORDERED: ACETAMINOPHEN 325 MG TAB PO PRN (15:03)
[2024-04-23 15:51] LABS: Magnesium 1.8 mg/dl (1.7-2.4)
[2024-04-23 15:59] LABS: Troponin I High Sensitivity 1704.3 pg/ml (0-14)
[2024-04-23] MEDS: ENOXAPARIN INJ 40 MG/0.4 ML SYR SQ SCH (18:03)
[2024-04-23] MEDS: FUROSEMIDE 40 MG/4 ML VIAL IV SCH (18:03)
[2024-04-23] MEDS: INSULIN ASPART PER UNIT CHARGE SC SCH (18:07)
[2024-04-23] MEDS: LANTUS PER UNIT CHARGE SQ SCH (20:08)
--- NOTE | 2024-04-23 20:28 | Electrocardiogram Report ---
Test Reason : Blood Pressure : */* mmHG Vent. Rate : 105 BPM Atrial Rate : 105 BPM P-R Int : 174 ms QRS Dur : 88 ms QT Int : 330 ms P-R-T Axes : 61 -39 62 degrees QTcB Int : 436 ms Sinus tachycardia Possible Left atrial enlargement Left axis deviation Septal infarct (cited on or before 06-Nov-2023) Poor R wave progression, consider anterior AL vs. lead placement vs. LVH Abnormal ECG When compared with ECG of 08-Nov-2023 06:20, Vent. rate has increased by 55 bpm QRS axis Shifted left Questionable change in initial forces of Anteroseptal leads Nonspecific T wave abnormality now evident in Lateral leads Confirmed by Timothy Avalos ([id number]) on 04/23/2024 8:28:34 PM Referred By: Confirmed By: Timothy Avalos
--- NOTE | 2024-04-23 23:20 | Electrocardiogram Report ---
Test Reason : Blood Pressure : */* mmHG Vent. Rate : 76 BPM Atrial Rate : 76 BPM P-R Int : * ms QRS Dur : 78 ms QT Int : 356 ms P-R-T Axes : * -34 39 degrees QTcB Int : 400 ms Sinus rhythm with junction complexes Left axis deviation Low voltage QRS Poor R wave progression, consider anterior NJ vs. lead placement vs. LVH Abnormal ECG When compared with ECG of 23-Apr-2024 09:21, No significant change Confirmed by Timothy Avalos ([id number]) on 04/23/2024 11:20:08 PM Referred By: Confirmed By: Timothy Avalos
--- NOTE | 2024-04-23 23:31 | Electrocardiogram Report ---
Test Reason : Blood Pressure : */* mmHG Vent. Rate : 80 BPM Atrial Rate : 82 BPM P-R Int : 184 ms QRS Dur : 78 ms QT Int : 360 ms P-R-T Axes : 54 -33 40 degrees QTcB Int : 415 ms Sinus rhythm with PACs and junctional complexes Left axis deviation Low voltage QRS Poor R wave progression, consider anterior SC vs. lead placement vs. LVH Abnormal ECG When compared with ECG of 23-Apr-2024 09:29, No significant change Confirmed by Timothy Avalos ([id number]) on 04/23/2024 11:30:34 PM Referred By: Confirmed By: Timothy Avalos
--- NOTE | 2024-04-23 23:33 | Electrocardiogram Report ---
Test Reason : Blood Pressure : */* mmHG Vent. Rate : 73 BPM Atrial Rate : 73 BPM P-R Int : * ms QRS Dur : 82 ms QT Int : 342 ms P-R-T Axes : * -32 46 degrees QTcB Int : 376 ms Poor data quality, interpretation may be adversely affected Junctional rhythm with sinus complexes Left axis deviation Low voltage QRS Possible Septal infarct Possible Anterior infarct Abnormal ECG When compared with ECG of 23-Apr-2024 09:17, Junctional rhythm is now Present Confirmed by Timothy Avalos ([id number]) on 04/23/2024 11:32:39 PM Referred By: Confirmed By: Timothy Avalos
[2024-04-24 07:34] LABS: Hematocrit (blood only) 43.4 % (37.0-47.0); Hemoglobin 15.4 g/dl (12.0-16.0); Mean Corpuscular Hgb Conc 35.5 g/dL (32.0-36.0); Mean Corpuscular Volume 84.6 fL (80.0-100.0); Mean Platelet Volume 12.1 fL (9.4-12.4); Platelet Count 303 K/uL (130-400); RDW Coefficient of Variation 12.9 % (11.5-14.5); RDW Standard Deviation 39.6 fL (36.4-46.3); Red Blood Count 5.13 M/uL (4.20-5.40); White Blood Count 19.36 K/ul (4.8-10.8)
[2024-04-24 08:10] LABS: BUN Creatinine Ratio 23.9 (10-20); Calcium 9.2 mg/dl (8.6-10.3); Chol HDL Ratio 5.1 (0-5); Creatinine Clr Calc Pharmacy 31.6 ml/min; Est GFR (African American) 37.7 ml/min; Est GFR (Non-African American) 32.5 ml/min; Magnesium 1.9 mg/dl (1.7-2.4); Potassium 4.7 mmol/L (3.5-5.1)
[2024-04-24 08:35] LABS: Troponin I High Sensitivity 3465.4 pg/ml (0-14)
[2024-04-24] MEDS: ASPIRIN 81 MG ECTAB PO SCH (08:44)
[2024-04-24] MEDS: ATORVASTATIN 40 MG TAB PO SCH (08:45)
[2024-04-24] MEDS: FLUTICASONE PROPIONATE NA SPR 16 GM BTL SCH (08:45)
[2024-04-24] MEDS: FLUoxetine HCL 10 MG CAP PO SCH (08:45)
[2024-04-24] MEDS: CALCIUM CARBONATE 1250MG TAB PO SCH (08:45)
[2024-04-24] MEDS: LANTUS PER UNIT CHARGE SQ ONE (08:46)
--- NOTE | 2024-04-24 10:49 | Cardiology Progress Note ---
Date of Service April 24, 2024 Assessment & Plan (1) Takotsubo cardiomyopathy: (2) Acute heart failure with reduced ejection fraction and diastolic dysfunction: (3) Acute renal insufficiency: (4) History of stroke within last year: Plan 64-year-old female admitted secondary to chest discomfort with ECG evidence of ST elevation myocardial infarction. Urgent cardiac catheterization demonstrating essentially normal coronary arteries with markedly elevated LVEDP. Repeat echocardiogram performed this morning demonstrating severe LV systolic dysfunction with evidence of stress-induced, Takotsubo cardiomyopathy. Intermittent borderline hypotension noted. Cautiously add low-dose Toprol-XL 12.5 mg daily. Patient received dose of IV furosemide this a.m. Creatinine up to 1.6 today. Unlikely secondary to contrast-induced nephropathy given change within 24 hours. Hold evening dose of furosemide with repeat basic metabolic panel in AM. Monitor fluid balance, daily weight, GFR, and electrolytes. Will not add KIMANI inhibitor, ARB, ARNI, or Aldactone at this time due to borderline hypotension and renal insufficiency. Continue aspirin and statin therapy. Admission and Anticipated Discharge Date Admission Date: April 23, 2024 Subjective 64-year-old female seen examined the bedside. Continues to note mild chest pressure overnight. IV diuretic therapy initiated after cardiac catheterization due to markedly elevated left ventricular end-diastolic pressure. Preliminary review of bedside echocardiogram performed this a.m. demonstrates severe LV systolic dysfunction with severe akinesis of the mid and apical segments with relative sparing of the basal myocardial segments. Patient denies orthopnea or PND. No palpitations, lightheadedness, or dizziness. Review of Systems Review of Systems: All systems reviewed & are unremarkable except as noted in Subjective Physical Exam Constitutional: well nourished; no acute distress Respiratory: no respiratory distress, no labored breathing and no retractions Auscultation: + rales (Right base); no crackles, no rhonchi and no wheezes Cardiovascular: Rate/Rhythm: regular rate and regular rhythm Heart Sounds: normal S1; + abnormal S2 and no murmur Vessels: radial pulses present; no JVD and no carotid bruit Extremities: no edema Gastrointestinal (Abdomen): Inspection/Auscultation: abdomen normal to inspection and normal bowel sounds; abdomen not distended Percussion/Palpation: abdomen soft; abdomen nontender, no guarding and abdomen not rigid Neurologic: CN's II-XI intact bilaterally and moves all extremities; no focal motor deficits Results & Data Vital Signs (Past 12 Hours) Vital Signs Temp Pulse Pulse Pulse Resp BP Pulse Ox 04/24/24 07:53 36.4 C L 80 12 101/73 100 04/24/24 02:50 36.9 C 75 16 92/62 L 96 04/24/24 00:00 86 04/23/24 23:30 89 14 86/66 L 96 04/23/24 22:54 36.9 C 91 H 19 90/64 L 92 O2 Del Method O2 Flow Rate 04/24/24 07:53 Nasal Cannula 2 04/24/24 02:50 Nasal Cannula 2 04/24/24 00:00 04/23/24 23:30 Nasal Cannula 3 04/23/24 22:54 Nasal Cannula 2
[2024-04-24] MEDS: METOPROLOL SUCC 25MG EXT REL TAB PO SCH (11:30)
--- NOTE | 2024-04-24 12:15 | Electrocardiogram Report ---
Test Reason : Blood Pressure : */* mmHG Vent. Rate : 95 BPM Atrial Rate : 95 BPM P-R Int : 176 ms QRS Dur : 86 ms QT Int : 342 ms P-R-T Axes : 68 -47 92 degrees QTcB Int : 429 ms Normal sinus rhythm Left anterior fascicular block Low voltage QRS Anterolateral infarct (cited on or before 06-Nov-2023) Abnormal ECG When compared with ECG of 23-Apr-2024 09:36, Questionable change in initial forces of Anterolateral leads Confirmed by Ebony Garcia ([id number]) on 04/24/2024 9:44:27 AM Referred By: Bernardo Encarnacion Confirmed By: Ebony Garcia
--- NOTE | 2024-04-24 13:31 | Hospitalist Progress Note ---
Date of Service April 24, 2024 Assessment & Plan (1) ST elevation (STEMI) myocardial infarction: Plan: Ms. Juares is a 64-year-old female that presented to the ED via EMS with complaints of nonradiating chest pain and nausea that started when she was at home. Prior to yesterday she was doing well without complaints. Past medical history includes controlled DM2, NIDHI on CPAP, HTN, HLD, H/O CVA 10/2023, and anxiety. No previous known history of AMI. She was admitted in October 2023 with RUE weakness and was a stroke alert. She did receive TNK and was diagnosed with an embolic CVA. Reportedly was non compliant with statin/asa in the past. In the ED chest CT revealed 2.2 mm solid RLL nodule increasing in size and correlation imaging in 3 months. Negative for PE and moderate interstitial edema. Heart alert was called in the ED and she will be taken to [facility] from there. Leukocytosis suspect secondary to ischemic demand 18.2, glucose elevated to 33 otherwise labs unremarkable. BNP elevated 613, troponin 55. COVID-negative. On arrival ECG with ST elevation in leads I, II, and aVL. Most recent ECHO 10/2023: EF 60-65%, mild LVH, trace AR/TR. Pt denies Vera, dizziness, palpitations, N/V/D, blurry or double vision, hematuria, hematochezia, recent illness or travel, falls or trauma. Pt lives alone and has an ADT system in case she needs any assistance. She denies tobacco use, alcohol or recreational drug use. STEMI: Presented with noncardiac chest pain and sublingual nitro did not help EKG showed "slanting ST elevation in lateral leads Initial troponin was 55.4 in the second set was elevated to 1700 04 and following cath it went up to 3465 Status post cardiac cath which shows normal coronaries and medical management contemplated Appreciate cardiology input and recommendation Will continue current medications including aspirin and low-dose beta-christiano Further cardiac therapy will be considered with improvement of the blood pressure Takotsubo cardiomyopathy Acute heart failure with reduced EF and diastolic dysfunction Received 1 dose of Lasix yesterday Further diuresis is on hold due to low blood pressure and impairment of kidney function Abnormal CTA Chest CTA: negative for PE. 2.2 cm solid right lower lobe nodule increasing in size. A f/u Chest CT in 3 months is recommended. (2) History of stroke within last year: (3) HTN (hypertension): (4) Dyslipidemia, goal LDL below 70: (5) DM2 (diabetes mellitus, type 2): Plan: IDDM 2: 04/16/2024 A1c 6.0 On Lantus Takes Jardiance; hold while inpt Place on SSI achs (6) Depression: (7) NIDHI (obstructive sleep apnea): Plan Other significant medical conditions are as below: HTN: Chronic Prescribed Lisinopril; but has not taken in months. Cards to see patient for further reccs. H/O CVA: chronic admitted /2023 Brain MRI reveals a small L cortical infarct that appears emboli Received TNK at that time. NIDHI: Chronic Wears CPAP at night; continue while here with protocols Brought own CPAP; ok to use HLD: Chronic On high-dose atorvastatin Most recent lipid panel 01/18 TG 113, LDL 128 Depression: Chronic Takes fluoxetine; continue Disposition: PCP: Dr. Blackmon; case management to discuss home living environment and safety Code Status: Full VTE Prophylaxis: Lovenox SQ Admission and Anticipated Discharge Date Admission Date: April 23, 2024 Subjective 04/24/2024 The patient was seen and examined in telemetry unit She is a status post cardiac cath due to ST elevation PA and noted to have Takotsubo cardiomyopathy She has been feeling much better denies any significant cardiac symptoms Complains to have minimal chest discomfort Review of Systems Review of Systems: all systems reviewed and are unremarkable except as noted below Physical Exam Physical Exam: lying in bed without any acute distress Constitutional: well developed, well nourished, + ill appearing and average body habitus Eyes: PERRL, conjunctivae normal, anicteric sclerae ENMT: external ear and nose normal, oropharynx normal Neck: trachea midline, no thyromegaly Respiratory: no respiratory distress Auscultation: lungs clear to auscultation bilaterally Cardiovascular: Rate/Rhythm: regular rate and regular rhythm; not tachycardic Heart Sounds: normal S1 and normal S2; no murmur Extremities: no edema Gastrointestinal (Abdomen): Inspection/Auscultation: normal bowel sounds; abdomen not distended Percussion/Palpation: abdomen soft; abdomen nontender Musculoskeletal: no acute arthritis involving any of the joint Neurologic: normal touch/pain/proprioception and moves all extremities; no focal motor deficits Lymphatic: no cervical or axillary lymphadenopathy Results & Data Results & Data Vital Signs (Past 12 Hours) Vital Signs Temp Pulse Pulse Resp BP Pulse Ox O2 Del Method 04/24/24 11:27 37.5 C 77 18 96/65 L 94 Room Air 04/24/24 08:00 Room Air 04/24/24 08:00 82 04/24/24 07:53 36.4 C L 80 12 101/73 100 Nasal Cannula 04/24/24 02:50 36.9 C 75 16 92/62 L 96 Nasal Cannula O2 Flow Rate 04/24/24 11:27 04/24/24 08:00 04/24/24 08:00 04/24/24 07:53 2 04/24/24 02:50 2 Laboratory Results Short CBC 04/24/24 Range/Units 06:50 WBC 19.36 H (4.8-10.8) K/ul Hgb 15.4 (12.0-16.0) g/dl Hct 43.4 (37.0-47.0) % Plt Count 303 (130-400) K/uL [facility] 04/24/24 06:50 Sodium 136 Potassium 4.7 Chloride 104 Carbon Dioxide 20 L BUN 39 H Creatinine 1.63 H D Glucose 144 H Calcium 9.2 Medications Administered Current Inpatient Medications Acetaminophen (Acetaminophen 325 Mg Tab) 650 mg PO Q4H PRN PRN Reason: Pain or Fever Stop: 05/23/24 15:02 Al Hydrox/Mg Hydrox/Simethicone (Aluminum/Magnesium Susp 30 Ml Udc) 15 ml PO Q4H PRN PRN Reason: Dyspepsia Stop: 05/23/24 15:02 Albuterol (Albuterol Hfa 8 Gm Inhaler) 2 puffs INH Q6H PRN PRN Reason: CONGESTION/COUGH/WHEEZING Stop: 05/23/24 12:18 Aspirin (Aspirin 81 Mg Ectab) 81 mg PO DAILY [facility] Stop: 05/24/24 08:59 Last Admin: 04/24/24 08:44 Dose: 81 mg Atorvastatin Calcium (Atorvastatin 40 Mg Tab) 80 mg PO DAILY [facility] Stop: 05/24/24 08:59 Last Admin: 04/24/24 08:45 Dose: 80 mg Calcium Carbonate (Calcium Carbonate 1250mg Tab) 1 tab PO DAILY [facility] Stop: 05/24/24 08:59 Last Admin: 09/28/24 08:45 Dose: 1 tab Dextrose (Dextrose 50% 50 Ml Syringe) 25 - 50 ml IV UD PRN; Protocol PRN Reason: Hypoglycemia Protocol Stop: 05/23/24 12:22 Enoxaparin Sodium (Enoxaparin Inj 40 Mg/0.4 Ml Syr) 40 mg SQ QAM [facility] Stop: 05/23/24 15:44 Last Admin: 04/24/24 08:45 Dose: 40 mg Fluoxetine HCl (Fluoxetine Hcl 10 Mg Cap) 10 mg PO DAILY [facility] Stop: 05/24/24 08:59 Last Admin: 04/24/24 08:45 Dose: 10 mg Fluticasone Propionate (Fluticasone Propionate Na Spr 16 Gm Btl) 2 sprays NA DAILY [facility] Stop: 05/24/24 08:59 Last Admin: 04/24/24 08:45 Dose: 2 sprays Furosemide (Furosemide 40 Mg/4 Ml Vial) 40 mg IV BID17 [facility] Stop: 05/23/24 16:59 Last Admin: 04/24/24 08:46 Dose: 40 mg Glucagon (Glucagon For Inj 1 Mg Vial) 1 mg SQ UD PRN; Protocol PRN Reason: Hypoglycemia Protocol Stop: 05/23/24 12:22 Glucose (Glucose 40% Gel 15 Gm Tube) 15 - 30 gm PO UD PRN; Protocol PRN Reason: Hypoglycemia Protocol Stop: 05/23/24 12:22 Glucose (Glucose 10 Tab/Tube) 4 - 8 tab PO UD PRN; Protocol PRN Reason: Hypoglycemia Treatment Stop: 05/23/24 12:22 Insulin Aspart (Insulin Aspart Per Unit Charge) 0 units SC ACHS [facility] Stop: 05/23/24 16:29 Last Admin: 04/24/24 11:56 Dose: 6 units Insulin Glargine (Lantus Per Unit Charge) 0 units SQ BID [facility]; Protocol Stop: 05/23/24 20:59 Last Admin: 04/23/24 20:08 Dose: 14 units Magnesium Hydroxide (Magnesium Hydroxide Susp 30 Ml Udc) 30 ml PO Q12H PRN PRN Reason: Constipation Stop: 05/23/24 15:02 Metoprolol Succinate (Metoprolol Succ 25mg Ext Rel Tab) 12.5 mg PO QAM [facility] Stop: 05/24/24 10:59 Last Admin: 04/24/24 11:35 Dose: 12.5 mg Miscellaneous (Carbohydrates For Hypoglycemia ) 15 - 30 gm PO UD PRN PRN Reason: Hypoglycemia Protocol Stop: 05/23/24 12:22 Miscellaneous Information (Pharmacy Glycemic Mgmt Consult) 1 each N/A UD PRN PRN Reason: Consult Stop: 05/23/24 12:22 Nitroglycerin (Nitroglycerin Sl 0.4 Mg/Tab Tab) 0.4 mg SL Q5M PRN PRN Reason: Chest Pain Stop: 05/23/24 09:20 Last Admin: 04/23/24 10:00 Dose: 0.4 mg Ondansetron HCl (Ondansetron Inj 2 Mg/Ml 2 Ml Vial) 4 mg IV Q6H PRN PRN Reason: Nausea Stop: 05/23/24 15:02 Polyethylene Glycol (Polyethylene (Miralax) 17 Gm Pack) 17 gm PO DAILY PRN PRN Reason: Constipation Stop: 05/23/24 15:02 (1) ST elevation (STEMI) myocardial infarction Involved coronary artery: unspecified coronary artery Qualified Code(s): I21.3 - ST elevation (STEMI) myocardial infarction of unspecified site
[2024-04-25 06:52] LABS: Hematocrit (blood only) 38.6 % (37.0-47.0); Mean Corpuscular Hemoglobin 29.2 pg (25.0-34.0); Mean Corpuscular Hgb Conc 33.7 g/dL (32.0-36.0); Mean Corpuscular Volume 86.7 fL (80.0-100.0); Mean Platelet Volume 11.8 fL (9.4-12.4); Platelet Count 227 K/uL (130-400); RDW Coefficient of Variation 12.7 % (11.5-14.5); RDW Standard Deviation 39.9 fL (36.4-46.3); Red Blood Count 4.45 M/uL (4.20-5.40)
[2024-04-25 07:10] LABS: BUN Creatinine Ratio 31.9 (10-20); Calcium 8.7 mg/dl (8.6-10.3); Creatinine Clr Calc Pharmacy 38.1 ml/min; Est GFR (African American) 47.3 ml/min; Est GFR (Non-African American) 40.8 ml/min; Potassium 3.9 mmol/L (3.5-5.1)
--- NOTE | 2024-04-25 10:22 | Cardiology Progress Note ---
Date of Service April 25, 2024 Assessment & Plan (1) Takotsubo cardiomyopathy: (2) Acute heart failure with reduced ejection fraction and diastolic dysfunction: (3) Acute renal insufficiency: (4) History of stroke within last year: Plan 64-year-old female admitted secondary to chest discomfort with ECG evidence of ST elevation myocardial infarction. Urgent cardiac catheterization demonstrating essentially normal coronary arteries with markedly elevated LVEDP. Echocardiogram 04/24/2024 demonstrating severe LV systolic dysfunction with evidence of stress-induced, Takotsubo cardiomyopathy. Volume status improved. Discontinue IV Lasix. Continue low-dose Toprol-XL as tolerated. Reassess limited echocardiogram in a.m. 04/26/2024. Continue aspirin and statin therapy. Creatinine improved. Down to 1.35 from 1.6. Repeat BMP in a.m. Monitor fluid balance, daily weight, GFR, and electrolytes. Will not restart KIMANI inhibitor this time due to borderline hypotension and renal insufficiency. Attempted to contact patient's brother, Celestine Juares, however, unable to leave message (no voicemail option). Admission and Anticipated Discharge Date Admission Date: April 23, 2024 Subjective 64-year-old female seen examined at the bedside. Feeling much better today. Denies chest pressure or shortness of breath. No orthopnea or PND. Borderline hypotensive this a.m. Denies lightheadedness or dizziness. Telemetry reveals sinus rhythm in the 60s. Review of Systems Review of Systems: All systems reviewed & are unremarkable except as noted in Subjective Physical Exam Constitutional: well nourished; no acute distress Respiratory: no respiratory distress, no labored breathing and no retractions Auscultation: + rales (Right base); no crackles, no rhonchi and no wheezes Cardiovascular: Rate/Rhythm: regular rate and regular rhythm Heart Sounds: normal S1; + abnormal S2 and no murmur Vessels: radial pulses present; no JVD and no carotid bruit Extremities: no edema Gastrointestinal (Abdomen): Inspection/Auscultation: abdomen normal to inspection and normal bowel sounds; abdomen not distended Percussion/Palpation: abdomen soft; abdomen nontender, no guarding and abdomen not rigid Neurologic: CN's II-XI intact bilaterally and moves all extremities; no focal motor deficits Results & Data Vital Signs (Past 12 Hours) Vital Signs Temp Pulse Pulse Resp BP Pulse Ox O2 Del Method 04/25/24 07:40 Room Air 04/25/24 07:12 36.4 C L 72 20 90/60 L 91 Room Air 04/25/24 03:25 36.7 C 60 19 93/61 L 94 Room Air 04/24/24 23:16 36.7 C 61 17 91/60 L 93 Room Air 04/24/24 23:00 63 Laboratory Results CBC 04/25/24 Range/Units 06:09 WBC 12.80 H (4.8-10.8) K/ul RBC 4.45 (4.20-5.40) M/uL Hgb 13.0 (12.0-16.0) g/dl Hct 38.6 (37.0-47.0) % Plt Count 227 (130-400) K/uL Comprehensive Metabolic Panel 04/25/24 Range/Units 06:09 Sodium 136 (136-145) mmol/L Potassium 3.9 (3.5-5.1) mmol/L Chloride 100 (98-107) mmol/L Carbon Dioxide 26 (21-32) mmol/L BUN 43 H (6-23) mg/dl Creatinine 1.35 H (0.6-1.2) mg/dl Glucose 125 H (70-99(Fasting)) mg/dl Calcium 8.7 (8.6-10.3) mg/dl Intake and Output 04/24/24 04/25/24 04/25/24 22:59 06:59 14:59 Intake Total 200 / 790 200 / 790 Output Total 1299 Balance -1100 / -1285 -200 / -1285 Intake: Oral 200 / 790 200 / 790 Output: Urine 1299 Other: Weight 72.1 kg Weight Measurement Method Standing Scale
--- NOTE | 2024-04-25 11:43 | Hospitalist Progress Note ---
Date of Service April 25, 2024 Assessment & Plan (1) ST elevation (STEMI) myocardial infarction: Plan: Ms. Juares is a 64-year-old female that presented to the ED via EMS with complaints of nonradiating chest pain and nausea that started when she was at home. Prior to yesterday she was doing well without complaints. Past medical history includes controlled DM2, NIDHI on CPAP, HTN, HLD, H/O CVA 10/2023, and anxiety. No previous known history of AMI. She was admitted in October 2023 with RUE weakness and was a stroke alert. She did receive TNK and was diagnosed with an embolic CVA. Reportedly was non compliant with statin/asa in the past. In the ED chest CT revealed 2.2 mm solid RLL nodule increasing in size and correlation imaging in 3 months. Negative for PE and moderate interstitial edema. Heart alert was called in the ED and she will be taken to [facility] from there. Leukocytosis suspect secondary to ischemic demand 18.2, glucose elevated to 33 otherwise labs unremarkable. BNP elevated 613, troponin 55. COVID-negative. On arrival ECG with ST elevation in leads I, II, and aVL. Most recent ECHO 10/2023: EF 60-65%, mild LVH, trace AR/TR. Pt denies Vera, dizziness, palpitations, N/V/D, blurry or double vision, hematuria, hematochezia, recent illness or travel, falls or trauma. Pt lives alone and has an ADT system in case she needs any assistance. She denies tobacco use, alcohol or recreational drug use. STEMI: Presented with noncardiac chest pain and sublingual nitro did not help EKG showed "slanting ST elevation in lateral leads Initial troponin was 55.4 in the second set was elevated to 1700 04 and following cath it went up to 3465 Status post cardiac cath which shows normal coronaries and medical management contemplated Appreciate cardiology input and recommendation Will continue current medications including aspirin and low-dose beta-christiano Further cardiac therapy will be considered with improvement of the blood pressure Remains on low-dose Toprol-XL due to low blood pressure Denies any cardiac symptoms PT and OT evaluation Likely discharge in a day or 2 Takotsubo cardiomyopathy Acute heart failure with reduced EF and diastolic dysfunction Received 1 dose of Lasix yesterday Further diuresis is on hold due to low blood pressure and impairment of kidney function Lasix remains on hold due to low blood pressure Will have repeat echo to evaluate cardiac function tomorrow Remains otherwise stable with low blood pressure Abnormal CTA Chest CTA: negative for PE. 2.2 cm solid right lower lobe nodule increasing in size. A f/u Chest CT in 3 months is recommended. (2) History of stroke within last year: (3) HTN (hypertension): (4) Dyslipidemia, goal LDL below 70: (5) DM2 (diabetes mellitus, type 2): Plan: IDDM 2: 04/16/2024 A1c 6.0 On Lantus Takes Jardiance; hold while inpt Place on SSI achs (6) Depression: (7) NIDHI (obstructive sleep apnea): Plan Other significant medical conditions are as below: HTN: Chronic Prescribed Lisinopril; but has not taken in months. Cards to see patient for further reccs. Blood pressure remains on the lower side at systolic 90 and diastolic 60 H/O CVA: chronic admitted /2023 Brain MRI reveals a small L cortical infarct that appears emboli Received TNK at that time. NIDHI: Chronic Wears CPAP at night; continue while here with protocols Brought own CPAP; ok to use HLD: Chronic On high-dose atorvastatin Most recent lipid panel 01/18 TG 113, LDL 128 Depression: Chronic Takes fluoxetine; continue Disposition: PCP: Dr. Blackmon; case management to discuss home living environment and safety Code Status: Full VTE Prophylaxis: Lovenox SQ Admission and Anticipated Discharge Date Admission Date: April 23, 2024 Subjective 04/24/2024 The patient was seen and examined in telemetry unit She is a status post cardiac cath due to ST elevation [place] and noted to have Takotsubo cardiomyopathy She has been feeling much better denies any significant cardiac symptoms Complains to have minimal chest discomfort 04/25/2024 The patient was seen and examined in telemetry unit Her blood pressure remains on the lower side at systolic 90 but does not have any symptoms at rest Denies any chest pain or palpitation Will need to have PT and OT evaluation prior to discharge Review of Systems Review of Systems: all systems reviewed and are unremarkable except as noted below Physical Exam Physical Exam: lying in bed without any acute distress Constitutional: well developed, well nourished, + ill appearing and average body habitus Eyes: PERRL, conjunctivae normal, anicteric sclerae ENMT: external ear and nose normal, oropharynx normal Neck: trachea midline, no thyromegaly Respiratory: no respiratory distress Auscultation: lungs clear to auscultation bilaterally Cardiovascular: Rate/Rhythm: regular rate and regular rhythm; not tachycardic Heart Sounds: normal S1 and normal S2; no murmur Extremities: no edema Gastrointestinal (Abdomen): Inspection/Auscultation: normal bowel sounds; abdomen not distended Percussion/Palpation: abdomen soft; abdomen nontender Neurologic: normal touch/pain/proprioception and moves all extremities; no focal motor deficits Lymphatic: no cervical or axillary lymphadenopathy Results & Data Results & Data Vital Signs (Past 12 Hours) Vital Signs Temp Pulse Resp BP Pulse Ox O2 Del Method 04/25/24 07:40 Room Air 04/25/24 07:12 36.4 C L 72 20 90/60 L 91 Room Air 04/25/24 03:25 36.7 C 60 19 93/61 L 94 Room Air Laboratory Results Short CBC 04/25/24 Range/Units 06:09 WBC 12.80 H (4.8-10.8) K/ul Hgb 13.0 (12.0-16.0) g/dl Hct 38.6 (37.0-47.0) % Plt Count 227 (130-400) K/uL BMP 04/25/24 06:09 Sodium 136 Potassium 3.9 Chloride 100 Carbon Dioxide 26 BUN 43 H Creatinine 1.35 H Glucose 125 H Calcium 8.7 Medications Administered Current Inpatient Medications Acetaminophen (Acetaminophen 325 Mg Tab) 650 mg PO Q4H PRN PRN Reason: Pain or Fever Stop: 05/23/24 15:02 Al Hydrox/Mg Hydrox/Simethicone (Aluminum/Magnesium Susp 30 Ml Udc) 15 ml PO Q4H PRN PRN Reason: Dyspepsia Stop: 05/23/24 15:02 Albuterol (Albuterol Hfa 8 Gm Inhaler) 2 puffs INH Q6H PRN PRN Reason: CONGESTION/COUGH/WHEEZING Stop: 05/23/24 12:18 Aspirin (Aspirin 81 Mg Ectab) 81 mg PO DAILY [facility] Stop: 05/24/24 08:59 Last Admin: 04/25/24 08:44 Dose: 81 mg Atorvastatin Calcium (Atorvastatin 40 Mg Tab) 80 mg PO DAILY [facility] Stop: 05/24/24 08:59 Last Admin: 04/25/24 08:45 Dose: 80 mg Calcium Carbonate (Calcium Carbonate 1250mg Tab) 1 tab PO DAILY [facility] Stop: 05/24/24 08:59 Last Admin: 04/25/24 08:45 Dose: 1 tab Dextrose (Dextrose 50% 50 Ml Syringe) 25 - 50 ml IV UD PRN; Protocol PRN Reason: Hypoglycemia Protocol Stop: 05/23/24 12:22 Enoxaparin Sodium (Enoxaparin Inj 40 Mg/0.4 Ml Syr) 40 mg SQ QAM [facility] Stop: 05/23/24 15:44 Last Admin: 04/25/24 08:45 Dose: 40 mg Fluoxetine HCl (Fluoxetine Hcl 10 Mg Cap) 10 mg PO DAILY [facility] Stop: 05/24/24 08:59 Last Admin: 04/25/24 08:45 Dose: 10 mg Fluticasone Propionate (Fluticasone Propionate Na Spr 16 Gm Btl) 2 sprays NA DAILY [facility] Stop: 05/24/24 08:59 Last Admin: 04/25/24 08:45 Dose: 2 sprays Furosemide (Furosemide 40 Mg/4 Ml Vial) 40 mg IV BID17 [facility] Stop: 05/23/24 16:59 Last Admin: 04/24/24 08:46 Dose: 40 mg Glucagon (Glucagon For Inj 1 Mg Vial) 1 mg SQ UD PRN; Protocol PRN Reason: Hypoglycemia Protocol Stop: 05/23/24 12:22 Glucose (Glucose 40% Gel 15 Gm Tube) 15 - 30 gm PO UD PRN; Protocol PRN Reason: Hypoglycemia Protocol Stop: 05/23/24 12:22 Glucose (Glucose 10 Tab/Tube) 4 - 8 tab PO UD PRN; Protocol PRN Reason: Hypoglycemia Treatment Stop: 05/23/24 12:22 Insulin Aspart (Insulin Aspart Per Unit Charge) 0 units SC ACHS [facility] Stop: 05/23/24 16:29 Last Admin: 04/25/24 08:47 Dose: 5 units Insulin Glargine (Lantus Per Unit Charge) 0 units SQ BID [facility]; Protocol Stop: 05/23/24 20:59 Last Admin: 04/25/24 08:46 Dose: 7 units Magnesium Hydroxide (Magnesium Hydroxide Susp 30 Ml Udc) 30 ml PO Q12H PRN PRN Reason: Constipation Stop: 05/23/24 15:02 Metoprolol Succinate (Metoprolol Succ 25mg Ext Rel Tab) 12.5 mg PO QAM [facility] Stop: 05/24/24 10:59 Last Admin: 04/24/24 11:35 Dose: 12.5 mg Miscellaneous (Carbohydrates For Hypoglycemia ) 15 - 30 gm PO UD PRN PRN Reason: Hypoglycemia Protocol Stop: 05/23/24 12:22 Miscellaneous Information (Pharmacy Glycemic Mgmt Consult) 1 each N/A UD PRN PRN Reason: Consult Stop: 05/23/24 12:22 Nitroglycerin (Nitroglycerin Sl 0.4 Mg/Tab Tab) 0.4 mg SL Q5M PRN PRN Reason: Chest Pain Stop: 05/23/24 09:20 Last Admin: 04/23/24 10:00 Dose: 0.4 mg Ondansetron HCl (Ondansetron Inj 2 Mg/Ml 2 Ml Vial) 4 mg IV Q6H PRN PRN Reason: Nausea Stop: 05/23/24 15:02 Polyethylene Glycol (Polyethylene (Miralax) 17 Gm Pack) 17 gm PO DAILY PRN PRN Reason: Constipation Stop: 05/23/24 15:02 (1) ST elevation (STEMI) myocardial infarction Involved coronary artery: unspecified coronary artery Qualified Code(s): I21.3 - ST elevation (STEMI) myocardial infarction of unspecified site
--- NOTE | 2024-04-25 16:56 | Electrocardiogram Report ---
Test Reason : Blood Pressure : */* mmHG Vent. Rate : 60 BPM Atrial Rate : 60 BPM P-R Int : 170 ms QRS Dur : 116 ms QT Int : 500 ms P-R-T Axes : 78 -54 163 degrees QTcB Int : 500 ms Normal sinus rhythm Left anterior fascicular block Anterolateral infarct Abnormal ECG When compared with ECG of 24-Apr-2024 05:48, Significant changes have occurred There are new anterolateral ST-T wave changes suspicious for recent IL Confirmed by Ebony Garcia (Luciano) on 04/25/2024 4:56:03 PM Referred By: Bernardo Encarnacion Confirmed By: Ebony Garcia
[2024-04-26 06:34] LABS: Basophils # (auto) 0.04 K/uL (0.00-0.20); Basophils % (auto) 0.4 %; Eosinophils # (auto) 0.04 K/uL (0.00-0.50); Eosinophils % (auto) 0.4 %; Hematocrit (blood only) 35.6 % (37.0-47.0); Hemoglobin 12.5 g/dl (12.0-16.0); Immature Granulocytes # (auto) 0.06 K/uL (0.01-0.20); Immature Granulocytes % (auto) 0.5 %; Lymphocytes # (auto) 2.49 K/uL (1.20-3.40); Lymphocytes % (auto) 22.2 %; Mean Corpuscular Hemoglobin 29.5 pg (25.0-34.0); Mean Corpuscular Hgb Conc 35.1 g/dL (32.0-36.0); Monocytes # (auto) 1.03 K/uL (0.11-0.59); Monocytes % (auto) 9.2 %; Neutrophils # (auto) 7.54 K/uL (1.40-6.50); Neutrophils % (auto) 67.3 %; Platelet Count 208 K/uL (130-400); RDW Coefficient of Variation 12.8 % (11.5-14.5); RDW Standard Deviation 38.8 fL (36.4-46.3); Red Blood Count 4.24 M/uL (4.20-5.40)
[2024-04-26 06:56] LABS: Calcium 8.4 mg/dl (8.6-10.3); Creatinine Clr Calc Pharmacy 45.8 ml/min; Est GFR (African American) 58.7 ml/min; Est GFR (Non-African American) 50.6 ml/min; Potassium 3.8 mmol/L (3.5-5.1)
--- NOTE | 2024-04-26 10:29 | Cardiology Progress Note ---
Date of Service April 26, 2024 Assessment & Plan (1) Takotsubo cardiomyopathy: (2) Acute heart failure with reduced ejection fraction and diastolic dysfunction: (3) Acute renal insufficiency: (4) History of stroke within last year: Plan 64-year-old female admitted secondary to chest discomfort with ECG evidence of ST elevation myocardial infarction. Urgent cardiac catheterization demonstrating essentially normal coronary arteries with markedly elevated LVEDP. Echocardiogram 04/24/2024 demonstrating severe LV systolic dysfunction with evidence of stress-induced, Takotsubo cardiomyopathy. Volume status improved. Discontinue IV Lasix. Continue low-dose Toprol-XL as tolerated. Reassess limited echocardiogram in a.m. 04/26/2024. Continue aspirin and statin therapy. Creatinine improved. Down to 1.35 from 1.6. Repeat BMP in a.m. Monitor fluid balance, daily weight, GFR, and electrolytes. Will not restart KIMANI inhibitor this time due to borderline hypotension and renal insufficiency. Attempted to contact patient's brother, Celestine Juares, however, unable to leave message (no voicemail option). 04/26/2024 Patient appears clinically stable although marginally compensated. Echocardiogram demonstrates very mild improvement in LV systolic function Renal function normalized Will begin lisinopril 2.5 mg/day Follow blood pressures closely Possible add spironolactone to her regimen depending on clinical course Needs additional 24 hours on telemetry for hemodynamic monitoring, needs optimization of medical therapies, assessment of ambulatory capability Admission and Anticipated Discharge Date Admission Date: April 23, 2024 Subjective Patient seen and examined, chart, medications, telemetry reviewed. No acute dizziness or lightheadedness no chest pain or discomfort no respiratory distress Out of bed for small periods of time Lives independently at home Review of Systems Review of Systems: All systems reviewed & are unremarkable except as noted in Subjective Physical Exam Constitutional: well nourished; no acute distress ENMT: external ear and nose normal, oropharynx normal Respiratory: no respiratory distress, no labored breathing and no retractions Auscultation: no crackles, no rhonchi and no wheezes Cardiovascular: Rate/Rhythm: regular rate and regular rhythm Heart Sounds: normal S1; + abnormal S2 and no murmur Vessels: radial pulses present; no JVD and no carotid bruit Extremities: no edema Gastrointestinal (Abdomen): Inspection/Auscultation: abdomen normal to inspection and normal bowel sounds; abdomen not distended Percussion/Palpation: abdomen soft; abdomen nontender, no guarding and abdomen not rigid Neurologic: CN's II-XI intact bilaterally and moves all extremities; no focal motor deficits Results & Data Vital Signs (Past 12 Hours) Vital Signs Temp Pulse Pulse Resp BP Pulse Ox O2 Del Method 04/26/24 09:56 63 04/26/24 09:53 Room Air 04/26/24 07:12 36.8 C 68 19 108/69 94 Room Air 04/26/24 03:26 36.8 C 72 18 91/63 L 94 Room Air 04/25/24 23:40 64 04/25/24 23:24 36.8 C 71 16 97/64 L 91 Room Air Laboratory Results Laboratory Results - last 24 hr 04/25/24 04/25/24 04/25/24 11:13 16:15 19:14 WBC RBC Hgb Hct MCV MCH MCHC RDW Std Deviation RDW Coeff of Christine Plt Count MPV Immature Gran % (Auto) Neut % (Auto) Lymph % (Auto) Reeves % (Auto) Eos % (Auto) Baso % (Auto) Neut # (Auto) Lymph # (Auto) Reeves # (Auto) Eos # (Auto) Baso # (Auto) Immature Gran # (Auto) Sodium Potassium Chloride Carbon Dioxide Anion Gap BUN Creatinine Est Cr Clr Drug Dosing Est GFR ( Amer) Est GFR (Non-Af Amer) BUN/Creatinine Ratio Glucose POC Glucose 135 H 90 86 Calcium Magnesium 04/26/24 04/26/24 05:53 07:18 WBC 11.20 H RBC 4.24 Hgb 12.5 Hct 35.6 L MCV 84.0 MCH 29.5 MCHC 35.1 RDW Std Deviation 38.8 RDW Coeff of Christine 12.8 Plt Count 208 MPV 12.0 Immature Gran % (Auto) 0.5 Neut % (Auto) 67.3 Lymph % (Auto) 22.2 Reeves % (Auto) 9.2 Eos % (Auto) 0.4 Baso % (Auto) 0.4 Neut # (Auto) 7.54 H Lymph # (Auto) 2.49 Reeves # (Auto) 1.03 H Eos # (Auto) 0.04 Baso # (Auto) 0.04 Immature Gran # (Auto) 0.06 Sodium 134 L Potassium 3.8 Chloride 101 Carbon Dioxide 25 Anion Gap 8 BUN 35 H Creatinine 1.13 Est Cr Clr Drug Dosing 45.8 Est GFR ( Amer) 58.7 Est GFR (Non-Af Amer) 50.6 BUN/Creatinine Ratio 31.0 H Glucose 112 H POC Glucose 127 H Calcium 8.4 L Magnesium 2.0
--- NOTE | 2024-04-26 11:26 | Pharmacy Report ---
Pharmacy Glycemic Short Note 2 - Date of Service April 26, 2024 - Glycemic Short BSG Results (Last 24 hours): 04/25/24 04/25/24 04/26/24 16:15 19:14 05:53 Glucose 112 H POC Glucose 90 86 04/26/24 07:18 Glucose POC Glucose 127 H OUTPATIENT ANTIDIABETIC REGIMEN: * Lantus 20 units SC BID * Jardiance 25 mg PO daily * HbA1c: 6.0% (04/16/24) ASSESSMENT: * 64 yo F admitted on 04/23/24 secondary to STEMI. Pharmacy has been consulted to assist with inpatient glycemic management. Patient is a Type 2 diabetic as an outpatient. Please refer to outpatient regimen and most recent HbA1c above. * Patient received 25 units of insulin on Friday (14 units basal) and 23 units of insulin on Friday (7 units basal). BSGs during that time ranged 84-157 mg/dL. * Fasting BSG this AM was well controlled at 127 mg/dL. Will adjust basal scale ordered BID to provide max of 10 units per day. * Postprandials trended down yesterday: 434-448-04-86 mg/dL. Loosened carb ratio this morning. PLAN FOR INPATIENT GLYCEMIC CONTROL: * Hold outpatient oral diabetes medications * Basal insulin * Lantus scale SC BID: 0 units for BSG less than 110 mg/dL; 5 units for BSG 110 mg/dL or more * Bolus insulin * NovoLog per scale ACHS or Q6hrs while NPO * Goal Range: Low 110 mg/dL - High 140 mg/dL * Correction Factor: 30 mg/dL/unit * Nutritional / Prandial insulin per carb ratio of 1 unit per 10 grams CHO consumed
[2024-04-26] MEDS: lisinopril 2.5 MG TAB PO SCH (11:58)
--- NOTE | 2024-04-26 12:56 | Hospitalist Progress Note ---
Date of Service April 26, 2024 Assessment & Plan (1) ST elevation (STEMI) myocardial infarction: Plan: Ms. Juares is a 64-year-old female that presented to the ED via EMS with complaints of nonradiating chest pain and nausea that started when she was at home. Prior to yesterday she was doing well without complaints. Past medical history includes controlled DM2, NIDHI on CPAP, HTN, HLD, H/O CVA 10/2023, and anxiety. No previous known history of AMI. She was admitted in October 2023 with RUE weakness and was a stroke alert. She did receive TNK and was diagnosed with an embolic CVA. Reportedly was non compliant with statin/asa in the past. In the ED chest CT revealed 2.2 mm solid RLL nodule increasing in size and correlation imaging in 3 months. Negative for PE and moderate interstitial edema. Heart alert was called in the ED and she will be taken to [facility] from there. Leukocytosis suspect secondary to ischemic demand 18.2, glucose elevated to 33 otherwise labs unremarkable. BNP elevated 613, troponin 55. COVID-negative. On arrival ECG with ST elevation in leads I, II, and aVL. Most recent ECHO 10/2023: EF 60-65%, mild LVH, trace AR/TR. Pt denies Vera, dizziness, palpitations, N/V/D, blurry or double vision, hematuria, hematochezia, recent illness or travel, falls or trauma. Pt lives alone and has an ADT system in case she needs any assistance. She denies tobacco use, alcohol or recreational drug use. STEMI: Presented with noncardiac chest pain and sublingual nitro did not help EKG showed "slanting ST elevation in lateral leads Initial troponin was 55.4 in the second set was elevated to 1700 04 and following cath it went up to 3465 Status post cardiac cath which shows normal coronaries and medical management contemplated Appreciate cardiology input and recommendation Will continue current medications including aspirin and low-dose beta-christiano Further cardiac therapy will be considered with improvement of the blood pressure Remains on low-dose Toprol-XL due to low blood pressure Denies any cardiac symptoms PT and OT evaluation Likely discharge in a day or 2 Has had physical therapy and recommended home She remains medically stable with blood pressure on the lower side Denies any significant symptoms Likely discharge tomorrow Takotsubo cardiomyopathy Acute heart failure with reduced EF and diastolic dysfunction Received 1 dose of Lasix yesterday Further diuresis is on hold due to low blood pressure and impairment of kidney function Lasix remains on hold due to low blood pressure Will have repeat echo to evaluate cardiac function tomorrow Remains otherwise stable with low blood pressure Repeat echo demonstrated mild improvement of LV systolic function Lisinopril 2.5 mg/day was added and possible addition of spironolactone with improvement of medical condition and blood pressure Abnormal CTA Chest CTA: negative for PE. 2.2 cm solid right lower lobe nodule increasing in size. A f/u Chest CT in 3 months is recommended. (2) History of stroke within last year: (3) HTN (hypertension): (4) Dyslipidemia, goal LDL below 70: (5) DM2 (diabetes mellitus, type 2): Plan: IDDM 2: 04/16/2024 A1c 6.0 On Lantus Takes Jardiance; hold while inpt Place on SSI achs (6) Depression: (7) NIDHI (obstructive sleep apnea): Plan Other significant medical conditions are as below: HTN: Chronic Prescribed Lisinopril; but has not taken in months. Cards to see patient for further reccs. Blood pressure remains on the lower side at systolic 90 and diastolic 60 H/O CVA: chronic admitted /2023 Brain MRI reveals a small L cortical infarct that appears emboli Received TNK at that time. NIDHI: Chronic Wears CPAP at night; continue while here with protocols Brought own CPAP; ok to use HLD: Chronic On high-dose atorvastatin Most recent lipid panel 01/18 TG 113, LDL 128 Depression: Chronic Takes fluoxetine; continue Disposition: PCP: Dr. Blackmon; case management to discuss home living environment and safety Code Status: Full VTE Prophylaxis: Lovenox SQ Admission and Anticipated Discharge Date Admission Date: April 23, 2024 Subjective 04/24/2024 The patient was seen and examined in telemetry unit She is a status post cardiac cath due to ST elevation IL and noted to have Takotsubo cardiomyopathy She has been feeling much better denies any significant cardiac symptoms Complains to have minimal chest discomfort 04/25/2024 The patient was seen and examined in telemetry unit Her blood pressure remains on the lower side at systolic 90 but does not have any symptoms at rest Denies any chest pain or palpitation Will need to have PT and OT evaluation prior to discharge 04/26/2024 The patient was seen and examined in telemetry unit She has been stable without any significant symptoms Blood pressure remains on the lower side Has had physical therapy and recommended home Review of Systems Review of Systems: all systems reviewed and are unremarkable except as noted below Physical Exam Physical Exam: lying in bed without any acute distress Constitutional: well developed, well nourished, + ill appearing and average body habitus Eyes: PERRL, conjunctivae normal, anicteric sclerae ENMT: external ear and nose normal, oropharynx normal Neck: trachea midline, no thyromegaly Respiratory: no respiratory distress Auscultation: lungs clear to auscultation bilaterally Cardiovascular: Rate/Rhythm: regular rate and regular rhythm; not tachycardic Heart Sounds: normal S1 and normal S2; no murmur Extremities: no edema Gastrointestinal (Abdomen): Inspection/Auscultation: normal bowel sounds; abdomen not distended Percussion/Palpation: abdomen soft; abdomen nontender Neurologic: normal touch/pain/proprioception and moves all extremities; no focal motor deficits Lymphatic: no cervical or axillary lymphadenopathy Results & Data Results & Data Vital Signs (Past 12 Hours) Vital Signs Temp Pulse Pulse Resp BP Pulse Ox O2 Del Method 04/26/24 11:33 36.6 C 61 20 116/74 93 Room Air 04/26/24 09:56 63 04/26/24 09:53 Room Air 04/26/24 07:12 36.8 C 68 19 108/69 94 Room Air 04/26/24 03:26 36.8 C 72 18 91/63 L 94 Room Air Laboratory Results Short CBC 04/26/24 Range/Units 05:53 WBC 11.20 H (4.8-10.8) K/ul Hgb 12.5 (12.0-16.0) g/dl Hct 35.6 L (37.0-47.0) % Plt Count 208 (130-400) K/uL BMP 04/26/24 05:53 Sodium 134 L Potassium 3.8 Chloride 101 Carbon Dioxide 25 BUN 35 H Creatinine 1.13 Glucose 112 H Calcium 8.4 L Medications Administered Current Inpatient Medications Acetaminophen (Acetaminophen 325 Mg Tab) 650 mg PO Q4H PRN PRN Reason: Pain or Fever Stop: 05/23/24 15:02 Al Hydrox/Mg Hydrox/Simethicone (Aluminum/Magnesium Susp 30 Ml Udc) 15 ml PO Q4H PRN PRN Reason: Dyspepsia Stop: 05/23/24 15:02 Albuterol (Albuterol Hfa 8 Gm Inhaler) 2 puffs INH Q6H PRN PRN Reason: CONGESTION/COUGH/WHEEZING Stop: 05/23/24 12:18 Aspirin (Aspirin 81 Mg Ectab) 81 mg PO DAILY MARSHA Stop: 05/24/24 08:59 Last Admin: 04/26/24 08:05 Dose: 81 mg Atorvastatin Calcium (Atorvastatin 40 Mg Tab) 80 mg PO DAILY MARSHA Stop: 05/24/24 08:59 Last Admin: 04/26/24 08:05 Dose: 80 mg Calcium Carbonate (Calcium Carbonate 1250mg Tab) 1 tab PO DAILY MARSHA Stop: 05/24/24 08:59 Last Admin: 04/26/24 08:08 Dose: 1 tab Dextrose (Dextrose 50% 50 Ml Syringe) 25 - 50 ml IV UD PRN; Protocol PRN Reason: Hypoglycemia Protocol Stop: 05/23/24 12:22 Enoxaparin Sodium (Enoxaparin Inj 40 Mg/0.4 Ml Syr) 40 mg SQ QAM MARSHA Stop: 05/23/24 15:44 Last Admin: 04/26/24 08:09 Dose: 40 mg Fluoxetine HCl (Fluoxetine Hcl 10 Mg Cap) 10 mg PO DAILY MARSHA Stop: 05/24/24 08:59 Last Admin: 04/26/24 08:08 Dose: 10 mg Fluticasone Propionate (Fluticasone Propionate Na Spr 16 Gm Btl) 2 sprays NA DAILY MARSHA Stop: 05/24/24 08:59 Last Admin: 04/26/24 08:09 Dose: 2 sprays Furosemide (Furosemide 40 Mg/4 Ml Vial) 40 mg IV [id number] MARSHA Stop: 05/23/24 16:59 Last Admin: 04/24/24 08:46 Dose: 40 mg Glucagon (Glucagon For Inj 1 Mg Vial) 1 mg SQ UD PRN; Protocol PRN Reason: Hypoglycemia Protocol Stop: 05/23/24 12:22 Glucose (Glucose 40% Gel 15 Gm Tube) 15 - 30 gm PO UD PRN; Protocol PRN Reason: Hypoglycemia Protocol Stop: 05/23/24 12:22 Glucose (Glucose 10 Tab/Tube) 4 - 8 tab PO UD PRN; Protocol PRN Reason: Hypoglycemia Treatment Stop: 05/23/24 12:22 Insulin Aspart (Insulin Aspart Per Unit Charge) 0 units SC ACHS [facility] Stop: 05/23/24 16:29 Last Admin: 04/26/24 12:04 Dose: 3 units Insulin Glargine (Lantus Per Unit Charge) 0 units SQ BID [facility]; Protocol Stop: 05/23/24 20:59 Last Admin: 04/26/24 08:05 Dose: 7 units Lisinopril (Lisinopril 2.5 Mg Tab) [facility] [facility] [place]: 05/26/24 10:44 Last Admin: 04/26/24 11:58 Dose: 2.5 mg Magnesium Hydroxide (Magnesium Hydroxide Susp 30 Ml Udc) 30 ml PO Q12H PRN PRN Reason: Constipation Stop: 05/23/24 15:02 Metoprolol Succinate (Metoprolol Succ 25mg Ext Rel Tab) 12.5 mg PO [facility] Stop: 05/24/24 10:59 Last Admin: 04/26/24 08:06 Dose: 12.5 mg Miscellaneous (Carbohydrates For Hypoglycemia ) 15 - 30 gm PO UD PRN PRN Reason: Hypoglycemia Protocol Stop: 05/23/24 12:22 Miscellaneous Information (Pharmacy Glycemic Mgmt Consult) 1 each N/A UD PRN PRN Reason: Consult Stop: 05/23/24 12:22 Nitroglycerin (Nitroglycerin Sl 0.4 Mg/Tab Tab) 0.4 mg SL Q5M PRN PRN Reason: Chest Pain Stop: 05/23/24 09:20 Last Admin: 04/23/24 10:00 Dose: 0.4 mg Ondansetron HCl (Ondansetron Inj 2 Mg/Ml 2 Ml Vial) 4 mg IV Q6H PRN PRN Reason: Nausea Stop: 05/23/24 15:02 Polyethylene Glycol (Polyethylene (Miralax) 17 Gm Pack) 17 gm PO DAILY PRN PRN Reason: Constipation Stop: 05/23/24 15:02 (1) ST elevation (STEMI) myocardial infarction Involved coronary artery: unspecified coronary artery Qualified Code(s): I21.3 - ST elevation (STEMI) myocardial infarction of unspecified site
[2024-04-26] MEDS: ALBUMIN 25% 25 GM/100 ML VIAL IV ONE (23:38)
[2024-04-27] MEDS: MIDODRINE HCL 2.5 MG TAB PO STA (03:19)
[2024-04-27 06:48] LABS: BUN Creatinine Ratio 34.4 (10-20); Calcium 8.1 mg/dl (8.6-10.3); Creatinine Clr Calc Pharmacy 53.9 ml/min; Est GFR (African American) 71.4 ml/min; Est GFR (Non-African American) 61.6 ml/min; Magnesium 2.1 mg/dl (1.7-2.4); Potassium 3.4 mmol/L (3.5-5.1)
[2024-04-27] MEDS: POTASSIUM CHLORIDE CRTAB 20 MEQ TABCR PO STA (08:56)
[2024-04-27 10:59] VITALS: BP 103/66; RESP 20; TEMP 97.9; O2SAT 94
--- NOTE | 2024-04-27 11:41 | Cardiology Progress Note ---
Date of Service April 27, 2024 Assessment & Plan (1) Takotsubo cardiomyopathy: (2) Acute heart failure with reduced ejection fraction and diastolic dysfunction: (3) Acute renal insufficiency: (4) History of stroke within last year: Plan 64-year-old female admitted secondary to chest discomfort with ECG evidence of ST elevation myocardial infarction. Urgent cardiac catheterization demonstrating essentially normal coronary arteries with markedly elevated LVEDP. Echocardiogram 04/24/2024 demonstrating severe LV systolic dysfunction with evidence of stress-induced, Takotsubo cardiomyopathy. Volume status improved. Discontinue IV Lasix. Continue low-dose Toprol-XL as tolerated. Reassess limited echocardiogram in a.m. 04/26/2024. Continue aspirin and statin therapy. Creatinine improved. Down to 1.35 from 1.6. Repeat BMP in a.m. Monitor fluid balance, daily weight, GFR, and electrolytes. Will not restart KIMANI inhibitor this time due to borderline hypotension and renal insufficiency. Attempted to contact patient's brother, Celestine Juares, however, unable to leave message (no voicemail option). 04/26/2024 Patient appears clinically stable although marginally compensated. Echocardiogram demonstrates very mild improvement in LV systolic function Renal function normalized Will begin lisinopril 2.5 mg/day Follow blood pressures closely Possible add spironolactone to her regimen depending on clinical course Needs additional 24 hours on telemetry for hemodynamic monitoring, needs optimization of medical therapies, assessment of ambulatory capability 04/27/2024 Patient clinically stable and tolerating current medications CHF instructions discussed and packet to be provided Patient to be discharged on lisinopril and metoprolol succinate as ordered No signs of heart failure currently Will need to follow closely for signs and symptoms of fluid retention post discharge Recommend home health Cardiology follow-up 2 to 3 weeks time Admission and Anticipated Discharge Date Admission Date: April 23, 2024 Subjective Patient seen and examined, chart medications reviewed No acute complaints. No dyspnea or lightheadedness. No chest pain No evidence of fluid retention or heart failure currently No arrhythmias on telemetry As tolerated low-dose KIMANI inhibitor and beta-christiano Review of Systems Review of Systems: All systems reviewed & are unremarkable except as noted in Subjective Physical Exam Constitutional: well nourished; no acute distress ENMT: external ear and nose normal, oropharynx normal Respiratory: no respiratory distress, no labored breathing and no retractions Auscultation: no crackles, no rhonchi and no wheezes Cardiovascular: Rate/Rhythm: regular rate and regular rhythm Heart Sounds: normal S1; + abnormal S2 and no murmur Vessels: radial pulses present; no JVD and no carotid bruit Extremities: no edema Gastrointestinal (Abdomen): Inspection/Auscultation: abdomen normal to inspection and normal bowel sounds; abdomen not distended Percussion/Palpation: abdomen soft; abdomen nontender, no guarding and abdomen not rigid Neurologic: CN's II-XI intact bilaterally and moves all extremities; no focal motor deficits Results & Data Vital Signs (Past 12 Hours) Vital Signs Temp Pulse Pulse Pulse Resp BP Pulse Ox 04/27/24 10:57 36.6 C 58 L 20 103/66 94 04/27/24 08:00 64 04/27/24 07:35 36.9 C 61 22 99/63 L 92 04/27/24 04:01 36.5 C 59 L 26 H 96/59 L 90 04/27/24 02:32 60 60 20 97/61 L 90 04/27/24 01:44 59 L 85/55 L 04/27/24 00:00 65 O2 Del Method 04/27/24 10:57 Room Air 04/27/24 08:00 04/27/24 07:35 Room Air 04/27/24 04:01 Room Air 04/27/24 02:32 Room Air 04/27/24 01:44 04/27/24 00:00 Laboratory Results Laboratory Results - last 24 hr 04/26/24 04/26/24 04/26/24 16:22 20:14 23:41 Sodium Potassium Chloride Carbon Dioxide Anion Gap BUN Creatinine Est Cr Clr Drug Dosing Est GFR ( Amer) Est GFR (Non-Af Amer) BUN/Creatinine Ratio Glucose POC Glucose 106 H 143 H Lactate 1.2 Calcium Magnesium 04/27/24 04/27/24 04/27/24 05:24 07:23 11:35 Sodium 134 L Potassium 3.4 L Chloride 102 Carbon Dioxide 24 Anion Gap 8 BUN 33 H Creatinine 0.96 Est Cr Clr Drug Dosing 53.9 Est GFR ( Amer) 71.4 Est GFR (Non-Af Amer) 61.6 BUN/Creatinine Ratio 34.4 H Glucose 121 H POC Glucose 129 H 94 Lactate Calcium 8.1 L Magnesium 2.1
--- NOTE | 2024-04-27 12:51 | Hospitalist Progress Note ---
Date of Service April 27, 2024 Assessment & Plan (1) ST elevation (STEMI) myocardial infarction: Plan: Ms. Juares is a 64-year-old female that presented to the ED via EMS with complaints of nonradiating chest pain and nausea that started when she was at home. Prior to yesterday she was doing well without complaints. Past medical history includes controlled DM2, NIDHI on CPAP, HTN, HLD, H/O CVA 10/2023, and anxiety. No previous known history of AMI. She was admitted in October 2023 with RUE weakness and was a stroke alert. She did receive TNK and was diagnosed with an embolic CVA. Reportedly was non compliant with statin/asa in the past. In the ED chest CT revealed 2.2 mm solid RLL nodule increasing in size and correlation imaging in 3 months. Negative for PE and moderate interstitial edema. Heart alert was called in the ED and she will be taken to [facility] from there. Leukocytosis suspect secondary to ischemic demand 18.2, glucose elevated to 33 otherwise labs unremarkable. BNP elevated 613, troponin 55. COVID-negative. On arrival ECG with ST elevation in leads I, II, and aVL. Most recent ECHO 10/2023: EF 60-65%, mild LVH, trace AR/TR. Pt denies Vera, dizziness, palpitations, N/V/D, blurry or double vision, hematuria, hematochezia, recent illness or travel, falls or trauma. Pt lives alone and has an ADT system in case she needs any assistance. She denies tobacco use, alcohol or recreational drug use. STEMI: Presented with noncardiac chest pain and sublingual nitro did not help EKG showed "slanting ST elevation in lateral leads Initial troponin was 55.4 in the second set was elevated to 1700 04 and following cath it went up to 3465 Status post cardiac cath which shows normal coronaries and medical management contemplated Appreciate cardiology input and recommendation Will continue current medications including aspirin and low-dose beta-christiano Further cardiac therapy will be considered with improvement of the blood pressure Remains on low-dose Toprol-XL due to low blood pressure Denies any cardiac symptoms PT and OT evaluation Likely discharge in a day or 2 Has had physical therapy and recommended home She remains medically stable with blood pressure on the lower side Denies any significant symptoms PT recommended home with home health Denies any significant cardiac symptoms of chest pain, palpitation or shortness of breath Takotsubo cardiomyopathy Acute heart failure with reduced EF and diastolic dysfunction Received 1 dose of Lasix yesterday Further diuresis is on hold due to low blood pressure and impairment of kidney function Lasix remains on hold due to low blood pressure Will have repeat echo to evaluate cardiac function tomorrow Remains otherwise stable with low blood pressure Repeat echo demonstrated mild improvement of LV systolic function Lisinopril 2.5 mg/day was added and possible addition of spironolactone with improvement of medical condition and blood pressure No signs of fluid overload and/or CHF Will be discharged on lisinopril and metoprolol succinate as ordered Abnormal CTA Chest CTA: negative for PE. 2.2 cm solid right lower lobe nodule increasing in size. A f/u Chest CT in 3 months is recommended. (2) History of stroke within last year: (3) HTN (hypertension): (4) Dyslipidemia, goal LDL below 70: (5) DM2 (diabetes mellitus, type 2): Plan: IDDM 2: 04/16/2024 A1c 6.0 On Lantus Takes Jardiance; hold while inpt Place on SSI achs (6) Depression: (7) NIDHI (obstructive sleep apnea): Plan Other significant medical conditions are as below: HTN: Chronic Prescribed Lisinopril; but has not taken in months. Cards to see patient for further reccs. Blood pressure remains on the lower side at systolic 90 and diastolic 60 H/O CVA: chronic admitted /2023 Brain MRI reveals a small L cortical infarct that appears emboli Received TNK at that time. NIDHI: Chronic Wears CPAP at night; continue while here with protocols Brought own CPAP; ok to use HLD: Chronic On high-dose atorvastatin Most recent lipid panel 01/18 TG 113, LDL 128 Depression: Chronic Takes fluoxetine; continue Disposition: PCP: Dr. Blackmon; case management to discuss home living environment and safety Code Status: Full VTE Prophylaxis: Lovenox SQ Admission and Anticipated Discharge Date Admission Date: April 23, 2024 Subjective 04/24/2024 The patient was seen and examined in telemetry unit She is a status post cardiac cath due to ST elevation FL and noted to have Takotsubo cardiomyopathy She has been feeling much better denies any significant cardiac symptoms Complains to have minimal chest discomfort 04/25/2024 The patient was seen and examined in telemetry unit Her blood pressure remains on the lower side at systolic 90 but does not have any symptoms at rest Denies any chest pain or palpitation Will need to have PT and OT evaluation prior to discharge 04/26/2024 The patient was seen and examined in telemetry unit She has been stable without any significant symptoms Blood pressure remains on the lower side Has had physical therapy and recommended home 04/27/2024 The patient was seen and examined in telemetry unit She has been stable and denies any significant symptoms She has had physical therapy and recommended to have home health nurse on discharge She wants to go home Review of Systems Review of Systems: all systems reviewed and are unremarkable except as noted below Physical Exam Physical Exam: lying in bed without any acute distress Constitutional: well developed, well nourished, + ill appearing and average body habitus Eyes: PERRL, conjunctivae normal, anicteric sclerae ENMT: external ear and nose normal, oropharynx normal Neck: trachea midline, no thyromegaly Respiratory: no respiratory distress Auscultation: lungs clear to auscultation bilaterally Cardiovascular: Rate/Rhythm: regular rate and regular rhythm; not tachycardic Heart Sounds: normal S1 and normal S2; no murmur Extremities: no edema Gastrointestinal (Abdomen): Inspection/Auscultation: normal bowel sounds; abdomen not distended Percussion/Palpation: abdomen soft; abdomen nontender Neurologic: normal touch/pain/proprioception and moves all extremities; no focal motor deficits Lymphatic: no cervical or axillary lymphadenopathy Results & Data Results & Data Vital Signs (Past 12 Hours) Vital Signs Temp Pulse Pulse Pulse Resp BP Pulse Ox 04/27/24 10:57 36.6 C 58 L 20 103/66 94 04/27/24 08:00 64 04/27/24 07:35 36.9 C 61 22 99/63 L 92 04/27/24 04:01 36.5 C 59 L 26 H 96/59 L 90 04/27/24 02:32 60 60 20 97/61 L 90 04/27/24 01:44 59 L 85/55 L O2 Del Method 04/27/24 10:57 Room Air 04/27/24 08:00 04/27/24 07:35 Room Air 04/27/24 04:01 Room Air 04/27/24 02:32 Room Air 04/27/24 01:44 [place] [facility] [place]27/[place] 05:24 Sodium 134 L Potassium 3.4 L Chloride 102 Carbon Dioxide 24 BUN 33 H Creatinine 0.96 Glucose 121 H Calcium 8.1 L Medications Administered [facility] [place]/27/24 05:24 Sodium 134 L Potassium 3.4 L Chloride 102 Carbon Dioxide 24 BUN 33 H Creatinine 0.96 Glucose 121 H Calcium 8.1 L (1) ST elevation (STEMI) myocardial infarction Involved coronary artery: unspecified coronary artery Qualified Code(s): I21.3 - ST elevation (STEMI) myocardial infarction of unspecified site
[2024-04-27 15:22] VITALS: PULSE 60
--- NOTE | 2024-04-27 18:08 | Discharge Summary ---
Date of Service April 27, 2024 Admission HPI Per Admitting Provider Ms. Juares is a 64-year-old female that presented to the ED via EMS with complaints of nonradiating chest pain and nausea that started when she was at home. Prior to yesterday she was doing well without complaints. Past medical history includes controlled DM2, NIDHI on CPAP, HTN, HLD, H/O CVA 10/2023, and anxiety. No previous known history of AMI. She was admitted in October 2023 with RUE weakness and was a stroke alert. She did receive TNK and was diagnosed with an embolic CVA. Reportedly was non compliant with statin/asa in the past. In the ED chest CT revealed 2.2 mm solid RLL nodule increasing in size and correlation imaging in 3 months. Negative for PE and moderate interstitial edema. Heart alert was called in the ED and she will be taken to [facility] from there. Leukocytosis suspect secondary to ischemic demand 18.2, glucose elevated to 33 otherwise labs unremarkable. BNP elevated 613, troponin 55. COVID-negative. On arrival ECG with ST elevation in leads I, II, and aVL. Most recent ECHO 10/2023: EF 60-65%, mild LVH, trace AR/TR. Pt denies Vera, dizziness, palpitations, N/V/D, blurry or double vision, hematuria, hematochezia, recent illness or travel, falls or trauma. Pt lives alone and has an ADT system in case she needs any assistance. She denies tobacco use, alcohol or recreational drug use. Patient will be admitted for further evaluation and management. Please see A/P for further details Admission Exam Per Admitting Provider Physical Exam: Neuro: AAOx4, PERRLA, no aphagia, memory changes, CNII-XII grossly intact HEENT: head normocephalic, moist mucus membranes CV: S1/S2, (-) M/G/R, (-) edema, cap refill < 3 seconds Resp: Lungs CTA in all goodman. On RA GI: Abdomen S/NT/ND, Ax4 bowel sounds, (-) CVA tenderness Musculoskeletal: 5/5 B/L UE strength, 5/5 B/L LE strength. No gait disturbance Skin: (-) rashes , (-) erythema. Psych: euthymic mood Principal Diagnosis Takotsubo cardiomyopathy, acute heart failure with reduced EF and diastolic dysfunction, history of stroke Discharge Exam lying in bed without any acute distress Constitutional well developed, well nourished, + ill appearing and average body habitus Eyes PERRL, conjunctivae normal, anicteric sclerae ENMT external ear and nose normal, oropharynx normal Neck trachea midline, no thyromegaly Respiratory no respiratory distress Auscultation: lungs clear to auscultation bilaterally Cardiovascular Rate/Rhythm: regular rate and regular rhythm; not tachycardic Heart Sounds: normal S1 and normal S2; no murmur Extremities: no edema Gastrointestinal (Abdomen) Inspection/Auscultation: normal bowel sounds; abdomen not distended Percussion/Palpation: abdomen soft; abdomen nontender Neurologic normal touch/pain/proprioception and moves all extremities; no focal motor deficits Lymphatic no cervical or axillary lymphadenopathy Discharge Data Allergies Allergy/AdvReac Type Severity Reaction Status Date / Time metformin AdvReac Intermediate Diarrhea Verified 11/06/23 17:15 oxycodone AdvReac Intermediate upset Verified 11/06/23 17:15 stomach Consultations 04/23/24 11:01 Consult Cardiology Routine Procedures Performed Operation Date: 04/23/24 10:30 Actual Procedures p Cineradiography w/Routine Exam - Fabrizio Coronado MD p Cath, Left with Cors and Vent - Fabrizio Coronado MD Ordered Studies 04/23/24 09:46 CT angio chest PE protocol Stat 04/23/24 10:21 CL Cath Imgs for PACS use only Stat CL Cath Imgs for PACS use only Stat Hospital Course (1) ST elevation (STEMI) myocardial infarction: Ms. Juares is a 64-year-old female that presented to the ED via EMS with complaints of nonradiating chest pain and nausea that started when she was at home. Prior to yesterday she was doing well without complaints. Past medical history includes controlled DM2, NIDHI on CPAP, HTN, HLD, H/O CVA 10/2023, and anxiety. No previous known history of AMI. She was admitted in October 2023 with RUE weakness and was a stroke alert. She did receive TNK and was diagnosed with an embolic CVA. Reportedly was non compliant with statin/asa in the past. In the ED chest CT revealed 2.2 mm solid RLL nodule increasing in size and correlation imaging in 3 months. Negative for PE and moderate interstitial edema. Heart alert was called in the ED and she will be taken to [facility] from there. Leukocytosis suspect secondary to ischemic demand 18.2, glucose elevated to 33 otherwise labs unremarkable. BNP elevated 613, troponin 55. COVID-negative. On arrival ECG with ST elevation in leads I, II, and aVL. Most recent ECHO 10/2023: EF 60-65%, mild LVH, trace AR/TR. Pt denies Vera, dizziness, palpitations, N/V/D, blurry or double vision, hematuria, hematochezia, recent illness or travel, falls or trauma. Pt lives alone and has an ADT system in case she needs any assistance. She denies tobacco use, alcohol or recreational drug use. STEMI: Presented with noncardiac chest pain and sublingual nitro did not help EKG showed "slanting ST elevation in lateral leads Initial troponin was 55.4 in the second set was elevated to 1700 04 and following cath it went up to 3465 Status post cardiac cath which shows normal coronaries and medical management contemplated Appreciate cardiology input and recommendation Will continue current medications including aspirin and low-dose beta-christiano Further cardiac therapy will be considered with improvement of the blood pressure Remains on low-dose Toprol-XL due to low blood pressure Denies any cardiac symptoms PT and OT evaluation Likely discharge in a day or 2 Has had physical therapy and recommended home She remains medically stable with blood pressure on the lower side Denies any significant symptoms PT recommended home with home health Denies any significant cardiac symptoms of chest pain, palpitation or shortness of breath Takotsubo cardiomyopathy Acute heart failure with reduced EF and diastolic dysfunction Received 1 dose of Lasix yesterday Further diuresis is on hold due to low blood pressure and impairment of kidney function Lasix remains on hold due to low blood pressure Will have repeat echo to evaluate cardiac function tomorrow Remains otherwise stable with low blood pressure Repeat echo demonstrated mild improvement of LV systolic function Lisinopril 2.5 mg/day was added and possible addition of spironolactone with improvement of medical condition and blood pressure No signs of fluid overload and/or CHF Will be discharged on lisinopril and metoprolol succinate as ordered Abnormal CTA Chest CTA: negative for PE. 2.2 cm solid right lower lobe nodule increasing in size. A f/u Chest CT in 3 months is recommended. (2) History of stroke within last year: (3) HTN (hypertension): (4) Dyslipidemia, goal LDL below 70: (5) DM2 (diabetes mellitus, type 2): IDDM 2: 04/16/2024 A1c 6.0 On Lantus Takes Jardiance; hold while inpt Place on SSI achs (6) Depression: (7) NIDHI (obstructive sleep apnea): Plan Other significant medical conditions are as below: HTN: Chronic Prescribed Lisinopril; but has not taken in months. Cards to see patient for further reccs. Blood pressure remains on the lower side at systolic 90 and diastolic 60 H/O CVA: chronic admitted /2023 Brain MRI reveals a small L cortical infarct that appears emboli Received TNK at that time. NIDHI: Chronic Wears CPAP at night; continue while here with protocols Brought own CPAP; ok to use HLD: Chronic On high-dose atorvastatin Most recent lipid panel 01/18 TG 113, LDL 128 Depression: Chronic Takes fluoxetine; continue Disposition: PCP: Dr. Blackmon; case management to discuss home living environment and safety Code Status: Full VTE Prophylaxis: Lovenox SQ Total Time Total Time Spent Total Time Spent (In Minutes): 45 minutes Discharge Plan Discharge Items Patient Disposition: Home - Self-Care Reason For Visit: NSTEMI Discharge Diagnosis: Takotsubo cardiomyopathy, acute heart failure with reduced EF and diastolic dysfunction, history of stroke Condition on Discharge: Fair Activity: Resume your previous activity Non-emergency contact: Primary Care Provider Call non-emergency contact if: you have any medication questions and your symptoms worsen Follow-up/Referrals: Ralph Joshua MD [Physician] - (The Cardiology office will contact you for a follow up appointment.) Traci Blackmon MD [Primary Care Provider] - (Date & Time 04/30/2024 11:00 AM Provider Traci Blackmon MD Department General Internal Medicine [facility] ) Diet: Carb Consistent or DM2 and Heart Healthy Addtl Attending Provider Instructions: Please take precautions to avoid falls Take your medications as advised Please give appointments with the healthcare providers Pending Studies at Discharge: No Stand-Alone Forms: My Geo[employer], Smoking Cessation Medications and DC Order Prescriptions: New metoprolol succinate 25 mg Tablet Extended Release 24 Hr 12.5 mg PO QAM Qty: 30 0RF lisinopril 2.5 mg Tablet 2.5 mg PO QAM Qty: 30 0RF Continued atorvastatin 80 mg Tablet 80 mg PO DAILY Rx Instructions: PER PT "NOT TAKEN MEDS FOR A LONG TIME". PER PT'S PHARMACY "NOTHING FILLED SINCE NOVEMBER 2022". fluoxetine 10 mg Tablet 10 mg PO DAILY Rx Instructions: PER PT "NOT TAKEN MEDS FOR A LONG TIME". PER PT'S PHARMACY "NOTHING FILLED SINCE NOVEMBER 2022". aspirin 81 mg Tablet,Delayed Release (Dr/Ec) 81 mg PO DAILY Rx Instructions: PER PT "NOT TAKEN MEDS FOR A LONG TIME". PER PT'S PHARMACY "NOTHING FILLED SINCE NOVEMBER 2022". calcium carbonate [Calcium 600] 600 mg calcium (1,500 mg) Tablet 1,200 mg PO DAILY Rx Instructions: PER PT "NOT TAKEN MEDS FOR A LONG TIME". PER PT'S PHARMACY "NOTHING FILLED SINCE NOVEMBER 2022". clotrimazole-betamethasone 1-0.05 % Cream 1 applic TOPICAL BID PRN (Reason: AFFECTED AREA) Rx Instructions: PER PT "NOT TAKEN MEDS FOR A LONG TIME". PER PT'S PHARMACY "NOTHING FILLED SINCE NOVEMBER 2022". vitamin B complex Tablet 1 tab PO DAILY Rx Instructions: PER PT "NOT TAKEN MEDS FOR A LONG TIME". PER PT'S PHARMACY "NOTHING FILLED SINCE NOVEMBER 2022". albuterol sulfate 90 mcg/actuation Hfa Aerosol Inhaler 2 puff INHALATION Q6H PRN (Reason: CONGESTION/COUGH/WHEEZING) Rx Instructions: PER PT "NOT TAKEN MEDS FOR A LONG TIME". PER PT'S PHARMACY "NOTHING FILLED SINCE NOVEMBER 2022". fluticasone propionate 50 mcg/actuation [place],Suspension 2 spray INTRANASAL DAILY Rx Instructions: PER PT "NOT TAKEN MEDS FOR A LONG TIME". PER PT'S PHARMACY "NOTHING FILLED SINCE NOVEMBER 2022". administer into each nostril Jardiance 25 mg Tablet 25 mg PO QAM Rx Instructions: PER PT "NOT TAKEN MEDS FOR A LONG TIME". PER PT'S PHARMACY "NOTHING FILLED SINCE NOVEMBER 2022". insulin glargine [Lantus U-100 Insulin] 100 unit/mL Solution 20 unit SC BID Qty: 3 0RF Discontinued lisinopril 5 mg Tablet 5 mg PO QAM Rx Instructions: PER PT "NOT TAKEN MEDS FOR A LONG TIME". PER PT'S PHARMACY "NOTHING FILLED SINCE NOVEMBER 2022". Discharge Orders: Discharge Order (Routine); Ordered 04/27/24 Ordered By: Sabina Figueredo Discharge Order- CHF (Routine); Ordered 04/27/24 Ordered By: Sabina Figueredo Admission Data Admit Date/Time: 04/23/24 10:41 Attending Provider: Sabina Figueredo Admit Provider: Bernardo Encarnacion Primary Care Provider: Traci Blackmon Other Providers: Billy Gonzalez Mahesh S Other Interventions: Discharge Summary Assessment (RN) Last Done: 04/27/24 15:13
== END 2024-04-27 15:54 | disposition home or self-care (01) | DRG 286 ==
LOC: ED 09:12 → CC 10:20 → 2E 10:41 → SUATTDRO 10:41 → 2E 04-26 10:20